=== PATIENT | female | born 1930 ===

== ENCOUNTER 2016-11-13 11:40 | Inpatient (IN) | payer MEDICARE, MEDICAID ==
[2016-11-13 11:40] VITALS: PULSE 122
[2016-11-13 11:44] VITALS: BMI 20.7
[2016-11-13 12:31] LABS: BASO % 0.3 % (0.0-2.0); LYMPH # 0.7 K/uL (1.0-4.3); LYMPH % 5.9 % (20.0-40.0); MEAN CELL VOLUME 96.9 fl (81.0-99.0); MEAN CORPUSCULAR HEMOGLOBIN 31.7 pg (27.0-31.0); MEAN CORPUSCULAR HGB CONC 32.8 g/dL (33.0-37.0); MEAN PLATELET VOLUME 10.4 fl (7.2-11.7); MONO # 0.4 K/uL (0.0-0.8); MONO % 3.6 % (0.0-10.0); NEUT % 90.2 % (50.0-75.0); PLATELET COUNT 200 K/uL (130-400); RBC 2.52 Mil/uL (3.80-5.20); RED CELL DISTRIBUTION WIDTH 16.4 % (11.5-14.5); WHITE BLOOD COUNT 11.1 K/uL (4.8-10.8)
[2016-11-13 12:43] LABS: ALB/GLOB RATIO 1.2 (1.0-2.1); ALBUMIN 4.1 g/dL (3.5-5.0); CALCIUM 8.9 mg/dL (8.4-10.2)
[2016-11-13 12:46] LABS: INR 1.1 (0.9-1.2); PARTIAL THROMBOPLASTIN TIME 24.6 Seconds (25.6-37.1); PROTHROMBIN TIME 11.3 Seconds (9.8-13.1)
[2016-11-13] MEDS ORDERED: Sod Polystyrene Sulf 15 gm/60 ml Oral Susp PO STA ×2 (12:53→16:51)
--- NOTE | 2016-11-13 12:53 | RAD ---
HISTORY: CP COMPARISON: Chest x-ray performed 12/10/15 TECHNIQUE: Chest, one view. FINDINGS: LUNGS: Opacity at the left lung base may reflect consolidation and/or effusion. No definite pneumothorax. Please note that chest x-ray has limited sensitivity for the detection of pulmonary masses. CARDIOVASCULAR: Heart size appears top normal. OSSEOUS STRUCTURES: Degenerative changes. Osseous demineralization. VISUALIZED UPPER ABDOMEN: Unremarkable. OTHER FINDINGS: None. IMPRESSION: Opacity at the left lung base may reflect consolidation and/or effusion.
[2016-11-13] MEDS ORDERED: Insulin Regular 100 units/ml IV STA ×3 (12:54→18:19)
[2016-11-13] MEDS ORDERED: Dextrose 50% SYRINGE Inj (50 ml) IVP STA ×2 (12:54→18:16)
[2016-11-13 12:55] LABS: TROPONIN I 0.016 ng/mL (0.00-0.120)
[2016-11-13] MEDS ORDERED: Albuterol 0.083% Inhal Sol (2.5 mg/3 mL) UD INH STA ×2 (12:55→16:51)
[2016-11-13] MEDS ORDERED: Sodium Chloride 0.9% 500 ML IV STA ×2 (12:56→15:57)
[2016-11-13 13:33] LABS: ANISOCYTOSIS SLIGHT; LYMPHOCYTE 7 % (20-50); MONOCYTE 8 % (0-10); NEUTROPHIL 85 % (42-75); PLATELET ESTIMATE NORMAL (NORMAL); TOTAL CELLS COUNTED 100
[2016-11-13 13:35] LABS: HYPOCHROMIC SLIGHT; LARGE PLATELETS PRESENT; OVALOCYTES SLIGHT; SCHISTOCYTES SLIGHT
[2016-11-13] MEDS ORDERED: Azithromycin 500 MG in Sodium Chloride 0.9% 250 ML IV STA (13:43)
--- NOTE | 2016-11-13 13:51 | ED PDOC ---
HPI: Chest Pain Time Seen by Provider: 11/13/16 11:49 Chief Complaint (Nursing): Chest Pain Chief Complaint (Provider): Chest Pain, Abdominal Pain History Per: EMS History/Exam Limitations: no limitations Onset/Duration Of Symptoms: Days (x 1) Current Symptoms Are (Timing): Still Present Additional History Per: Patient Additional Complaint(s): Gaye Marcelino is an 86 y/o female who was sent to the ED from [facility] for complaints of right-sided chest pain, onset 1 hour prior to arrival. Aspirin and four sublingual doses of Nitro given by paramedics on the field. Patient nonverbal. Points to abdomen when asked where pain is. PMD: Ed Montemayor Past Medical History Reviewed: Historical Data, Nursing Documentation, Vital Signs Vital Signs: Last Vital Signs Temp 97 F L 11/13/16 11:44 Pulse 77 11/13/16 16:33 Resp 16 11/13/16 16:33 BP 111/60 11/13/16 16:33 Pulse Ox 96 11/13/16 16:33 - Medical History PMH: Anemia, CAD, CVA (left sided weakness), Dementia, Diabetes, HTN, Seizures Denies: Chronic Kidney Disease - Surgical History Surgical History: Appendectomy, Carotid Endarterectomy - Family History Family History: States: Unknown Family Hx, Diabetes, Hypertension - Immunization History Hx Tetanus Toxoid Vaccination: Yes Hx Influenza Vaccination: Yes Hx Pneumococcal Vaccination: Yes - Home Medications Home Medications: Ambulatory Orders Medication Instructions Recorded Allopurinol [Zyloprim] 100 mg PO DAILY 08/05/16 Aspirin [Ecotrin] 325 mg PO DAILY 09/03/16 Bimatoprost [Lumigan] 1 drop OU DAILY 09/03/16 Donepezil [Aricept] 10 mg PO HS 09/03/16 Dorzolamide 2% [Trusopt] 1 drop OD BID 09/03/16 Rosuvastatin Calcium [Crestor] 10 mg PO HS 09/03/16 SITagliptin [Januvia] 50 mg PO DAILY 09/03/16 amLODIPine [Norvasc] 5 mg PO Q12 09/03/16 Magnesium Hydroxide [Milk of 30 ml PO DAILY PRN 10/05/16 Magnesia] levETIRAcetam [Keppra] 500 mg PO BID #60 tab 10/17/16 Acetaminophen [Tylenol 325mg tab] 650 mg PO Q4H PRN 11/13/16 Acetaminophen [Tylenol 325mg tab] 650 mg PO Q4H PRN 11/13/16 Albuterol 0.083% [Albuterol 0.083% 2.5 mg IH Q6H PRN 11/13/16 Inhal Marlin (2.5 mg/3 ml) UD] Buprenorphine 1 patch TD Q7D 11/13/16 Gabapentin [Neurontin] 100 mg GT HS 11/13/16 Menthol [Bengay Ultra Strength] 1 patch TOP DAILY 11/13/16 Metoprolol Tartrate [Lopressor] 50 mg PO Q12H 11/13/16 Nystatin/Triamcinolone 1 appl TOP TID 11/13/16 [Nystatin/Triamcinolone Cream] Polyethylene Glycol 3350 [Miralax] 17 gm GT DAILY PRN 11/13/16 Sennosides [Senna] 1 tab GT HS 11/13/16 Sodium Polystyrene Sulfonate 30 gm PO MOTH 11/13/16 [kayeXALATE Oral Susp] traMADol [Ultram] 50 mg PEG Q6H PRN 11/13/16 - Allergies Allergies/Adverse Reactions: Allergies Allergy/AdvReac Type Severity Reaction Status Date / Time No Known Allergies Allergy Verified 11/13/16 11:44 Review of Systems Review Of Systems: ROS cannot be obtained secondary to pt's inabilty to answer questions. Physical Exam - Reviewed Nursing Documentation Reviewed: Yes Vital Signs Reviewed: Yes - Physical Exam Appears: Positive for: Non-toxic, No Acute Distress Head Exam: Positive for: ATRAUMATIC, NORMAL INSPECTION, NORMOCEPHALIC Skin: Positive for: Normal Color, Warm, Dry Eye Exam: Positive for: EOMI, Normal appearance, PERRL Cardiovascular/Chest: Positive for: Regular Rate, Rhythm. Negative for: Murmur Respiratory: Positive for: Normal Breath Sounds. Negative for: Respiratory Distress Gastrointestinal/Abdominal: Positive for: Soft (Grimaces when palpating upper abdomen), Other (G-tube in place). Negative for: Normal Exam Extremity: Negative for: Pedal Edema, Deformity Neurologic/Psych: Positive for: Alert, manager port II-XII, Other (nonverbal). Negative for: Oriented - Laboratory Results Result Diagrams: 11/13/16 12:15 11/13/16 16:05 - ECG O2 Sat by Pulse Oximetry: 100 (RA) Pulse Ox Interpretation: Normal Medical Decision Making Medical Decision Making: Time: 12:05 Initial Impression: Chest Pain, Abdominal Pain Initial Plan: --CMP --CBC --Lipase --Troponin I --PTT --Prothrombin time --chest x-ray --EKG --Accucheck --Urinalysis --Urine dipstick --Pending reevaluation Time: 12:15 --Labs reviewed, significant for: BUN 117, Potassium 6.5, creatinine 2.6, random glucose 253 Time: 12:51 Chest X-Ray: FINDINGS: LUNGS: Opacity at the left lung base may reflect consolidation and/or effusion. No definite pneumothorax. Please note that chest x-ray has limited sensitivity for the detection of pulmonary masses. CARDIOVASCULAR: Heart size appears top normal. OSSEOUS STRUCTURES: Degenerative changes. Osseous demineralization. VISUALIZED UPPER ABDOMEN: Unremarkable. OTHER FINDINGS: None. IMPRESSION: Opacity at the left lung base may reflect consolidation and/or effusion. Time: 12:53 --NS IV 500 ml at 500 mls/hr --Sodium polystyrene sulfonate 15 gm PO --Lasix 40 mg IV --Insulin 10 units IV --Dextrose 50% 50 mL IV --Albuterol 2.5 mg INH --Peak Flow pre/post treatment Time: 13:43 --Rocephin 1 gm/100 ml NS IV --azithromycin 500 mg/250 ml NS IV Time: 15:38 CT Abdomen/Pelvis: FINDINGS: There is limited evaluation of the solid organs without the administration of IV contrast. LOWER THORAX: Moderate bilateral pleural effusions. Patchy opacity at the left lung base may reflect infiltrate or atelectasis. Dense mitral annulus calcification. LIVER: Unremarkable unenhanced appearance. GALLBLADDER AND BILE DUCTS: Not visualized, presumably due to cholecystectomy ; surgical clips are not identified. PANCREAS: Atrophic. SPLEEN: Unremarkable. ADRENALS: Unremarkable. KIDNEYS AND URETERS: No hydronephrosis or obstructing renal calculus. 9 mm exophytic right lower pole hypodense lesion, possibly cyst. BLADDER: The urinary bladder appears unremarkable. REPRODUCTIVE: Uterus is present. Calcifications within the posterior uterine fundus, possibly related to degenerating fibroid. APPENDIX: The presumed appendix appears within normal limits of caliber. No secondary signs of acute appendicitis. BOWEL: PEG tube. The stomach is nondistended. Lack of oral contrast limits evaluation for bowel pathology. The bowel loops appear within normal limits of caliber without evidence of intestinal obstruction. PERITONEUM: No significant free fluid. No definite free air. LYMPH NODES: No bulky lymphadenopathy identified. VASCULATURE: Dense atherosclerotic calcifications of the aorta and branches. No aortic aneurysm. BONES: Left hip arthroplasty with resultant streak artifact. Diffuse osseous demineralization limits evaluation for acute fracture lines. Extensive degenerative changes of the thoracolumbar spine. OTHER FINDINGS: None. IMPRESSION: Moderate bilateral pleural effusions. Patchy opacity at the left lung base may reflect infiltrate or atelectasis. 9 mm exophytic right lower pole hypodense renal lesion, possibly cyst. Peg tube. Additional findings as above. Time: 15:44 --NS IV 1000 ml at 100 mls/hr --Patient is to be admitted inpatient for pneumonia, hyperkalemia, chest pain, and dehydration Time: 15:57 --NS IV 500 ml at 500 mls/hr --Insulin 8 units IV Time: 16:05 --Labs: potassium Scribe Attestation: Documented by Catalina Campos, acting as a scribe for Edelmira Sanchez MD Provider Scribe Attestation: All medical record entries made by the Scribe were at my direction and personally dictated by me. I have reviewed the chart and agree that the record accurately reflects my personal performance of the history, physical exam, medical decision making, and the department course for this patient. I have also personally directed, reviewed, and agree with the discharge instructions and disposition. Disposition - Clinical Impression Clinical Impression: Hyperkalemia, Chest pain, Pneumonia, Dehydration - Patient ED Disposition Is Patient to be Admitted: Yes - Disposition Disposition Time: 15:47 Condition: GUARDED - Pt Status Changed To: Hospital Disposition Of: Inpatient - Admit Certification Admit to Inpatient:: After my assessment, the patient will require hospitalization for at least two midnights. This is because of the severity of symptoms shown, intensity of services needed, and/or the medical risk in this patient being treated as an outpatient. - POA Present On Arrival: Poor Glycemic Control
[2016-11-13] MEDS ORDERED: Dextrose 50% SYRINGE Inj (50 ml) ONE ×2 (14:48→18:41)
[2016-11-13] MEDS ORDERED: Sod Polystyrene Sulf 15 gm/60 ml Oral Susp ONE (14:48)
[2016-11-13] MEDS ORDERED: Insulin Regular 100 units/ml ONE ×3 (14:49→18:42)
[2016-11-13] MEDS ORDERED: Albuterol 0.083% Inhal Sol (2.5 mg/3 mL) UD ONE (14:50)
[2016-11-13] MEDS ORDERED: Azithromycin 500 MG IV IVPB ONE (14:50)
[2016-11-13] MEDS ORDERED: cefTRIAXone (Rocephin) 1 gm Inj ONE (14:50)
--- NOTE | 2016-11-13 15:39 | CT ---
PROCEDURE: CT Abdomen and Pelvis without Oral or IV contrast. HISTORY: Abd pain COMPARISON: CT of the abdomen and pelvis performed 07/14/08 TECHNIQUE: Contiguous axial images of the abdomen and pelvis. Coronal and Sagittal reformats generated and reviewed. No oral or IV contrast administered. Radiation dose: Total exam DLP = 845.18 MGy-cm. This CT exam was performed using one or more of the following dose reduction techniques: Automated exposure control, adjustment of the mA and/or kV according to patient size, and/or use of iterative reconstruction technique. FINDINGS: There is limited evaluation of the solid organs without the administration of IV contrast. LOWER THORAX: Moderate bilateral pleural effusions. Patchy opacity at the left lung base may reflect infiltrate or atelectasis. Dense mitral annulus calcification. LIVER: Unremarkable unenhanced appearance. GALLBLADDER AND BILE DUCTS: Not visualized, presumably due to cholecystectomy ; surgical clips are not identified. PANCREAS: Atrophic. SPLEEN: Unremarkable. ADRENALS: Unremarkable. KIDNEYS AND URETERS: No hydronephrosis or obstructing renal calculus. 9 mm exophytic right lower pole hypodense lesion, possibly cyst. BLADDER: The urinary bladder appears unremarkable. REPRODUCTIVE: Uterus is present. Calcifications within the posterior uterine fundus, possibly related to degenerating fibroid. APPENDIX: The presumed appendix appears within normal limits of caliber. No secondary signs of acute appendicitis. BOWEL: PEG tube. The stomach is nondistended. Lack of oral contrast limits evaluation for bowel pathology. The bowel loops appear within normal limits of caliber without evidence of intestinal obstruction. PERITONEUM: No significant free fluid. No definite free air. LYMPH NODES: No bulky lymphadenopathy identified. VASCULATURE: Dense atherosclerotic calcifications of the aorta and branches. No aortic aneurysm. BONES: Left hip arthroplasty with resultant streak artifact. Diffuse osseous demineralization limits evaluation for acute fracture lines. Extensive degenerative changes of the thoracolumbar spine. OTHER FINDINGS: None. IMPRESSION: Moderate bilateral pleural effusions. Patchy opacity at the left lung base may reflect infiltrate or atelectasis. 9 mm exophytic right lower pole hypodense renal lesion, possibly cyst. Peg tube. Additional findings as above.
[2016-11-13] MEDS ORDERED: Sodium Chloride 0.9% 1,000 ML IV STA (15:44)
--- NOTE | 2016-11-13 16:53 | CP.PCM.HP ---
History of Present Illness - History of Present Illness History of Present Illness: 86 yo female with history of Dementia, CVA, Seizure, CAD, DM2, HTN, CKD bed ridden and non-verbal admitted almost once a month brought in from shelter because of complaint of lower mid-sternal and epigastric pain. Denied SOB by shaking her head when asked. Present on Admission - Present on Admission Any Indicators Present on Admission: No History of DVT/PE: No History of Uncontrolled Diabetes: No Urinary Catheter: No Decubitus Ulcer Present: No Review of Systems - Review of Systems Systems not reviewed;Unavailable: Dementia Past Patient History - Infectious Disease Hx of Infectious Diseases: None - Tetanus Immunizations Tetanus Immunization: Unknown - Past Medical History & Family History Past Medical History?: Yes - Past Social History Smoking Status: Never Smoked Alcohol: None Drugs: Denies Home Situation {Lives}: Retirement - CARDIAC Hx Hypertension: Yes - PULMONARY Hx Respiratory Disorders: No - NEUROLOGICAL Hx Dementia: Yes Hx Seizures: Yes - HEENT Hx HEENT Problems: Yes Hx Glaucoma: Yes - RENAL Hx Chronic Kidney Disease: No - ENDOCRINE/METABOLIC Hx Endocrine Disorders: Yes Hx Diabetes Mellitus Type 2: Yes - HEMATOLOGICAL/ONCOLOGICAL Hx Anemia: Yes - INTEGUMENTARY Hx Dermatological Problems: No - MUSCULOSKELETAL/RHEUMATOLOGICAL Hx Musculoskeletal Disorders: Yes Hx Falls: Yes Hx Osteoarthritis: Yes - GASTROINTESTINAL Hx Gastrointestinal Disorders: Yes Hx Gastroesophageal Reflux: Yes Other/Comment: Incontinence - GENITOURINARY/GYNECOLOGICAL Hx Genitourinary Disorders: Yes Hx Incontinence: Yes Hx Urinary Tract Infection: Yes - PSYCHIATRIC Hx Psychophysiologic Disorder: Yes Hx Substance Use: No - SURGICAL HISTORY Hx Appendectomy: Yes Hx Carotid Endarterectomy: Yes - ANESTHESIA Hx Anesthesia: Yes Hx Anesthesia Reactions: No Hx Malignant Hyperthermia: No Meds Allergies/Adverse Reactions: Allergies Allergy/AdvReac Type Severity Reaction Status Date / Time No Known Allergies Allergy Verified 11/13/16 11:44 Physical Exam - Constitutional Appears: Confused, Other (cachectic) - Head Exam Head Exam: ATRAUMATIC - Eye Exam Eye Exam: absent: Scleral icterus - ENT Exam ENT Exam: Mucous Membranes Moist - Neck Exam Neck exam: Negative for: Meningismus - Respiratory Exam Respiratory Exam: Decreased Breath Sounds. absent: Rhonchi, Wheezes, Respiratory Distress - Cardiovascular Exam Cardiovascular Exam: REGULAR RHYTHM, +S1, +S2 - GI/Abdominal Exam GI & Abdominal Exam: Soft. absent: Tenderness - Rectal Exam Rectal Exam: Deferred - Extremities Exam Extremities exam: Negative for: pedal edema - Neurological Exam Neurological exam: Alert - Psychiatric Exam Psychiatric exam: Flat Affect - Skin Skin Exam: Dry, Intact Results - Vital Signs Recent Vital Signs: Last Vital Signs Temp 97 F L 11/13/16 11:44 Pulse 77 11/13/16 16:33 Resp 16 11/13/16 16:33 BP 111/60 11/13/16 16:33 Pulse Ox 96 11/13/16 16:33 - Labs Result Diagrams: 11/13/16 12:15 11/13/16 12:15 Assessment & Plan (1) Chest pain Status: Acute Comment: place on observation in telemetry. serial Troponin and EKG (2) LLL pneumonia Status: Acute Comment: blood culture and sputum culture. Rocephin 1gm IV daily. Zithromax 500mg PO OD (3) CKD (chronic kidney disease) stage 4, GFR 15-29 ml/min Status: Acute Comment: renal consult with Dr Clay (4) Atrial fibrillation Status: Acute Comment: rate stable. on Metoprolol (5) DM2 (diabetes mellitus, type 2) Status: Chronic Comment: BS relatively controlled. on Januvia (6) CAD (coronary artery disease) Status: Acute Comment: continue ASA, statin and Metoprolol (7) Dementia Status: Chronic Comment: continue Aricept (8) Seizure Status: Acute Comment: on Keppra and Gabapentin (9) Hyperkalemia Status: Acute Comment: received Kayaxelate, Insulin and D50W in the ER. follow up repeat BMP (10) DVT prophylaxis Status: Acute Comment: Heparin 5000 units SC q 12hrs
[2016-11-13 17:25] LABS: SQUAMOUS EPITHIAL 2 /hpf (0-5); URINE BACTERIA RARE (<OCC); URINE BILIRUBIN NEGATIVE (NEGATIVE); URINE BLOOD NEGATIVE (NEGATIVE); URINE CLARITY SLIGHTY-CLOUDY (Clear); URINE COLOR STRAW (YELLOW); URINE GLUCOSE (UA) 50 mg/dL (Normal); URINE LEUKOCYTE ESTERASE MOD Leu/uL (Negative); URINE NITRATE NEGATIVE (NEGATIVE); URINE PROTEIN 100 mg/dL (NEGATIVE); URINE UROBILINOGEN 0.2-1.0 mg/dL (0.2-1.0)
--- NOTE | 2016-11-13 17:40 | CARD ---
APPROVED REPORT EKG Measurement Heart [id number] <Conclusion> Normal sinus rhythm Septal infarct, age undetermined Abnormal ECG
[2016-11-13] MEDS ORDERED: POLYETHYLENE GLYCOL 3350 17 GM/Dose PACKET GT PRN (17:48)
[2016-11-13] MEDS ORDERED: Albuterol 0.083% Inhal Sol (2.5 mg/3 mL) UD IH PRN (17:48)
[2016-11-13 21:33] LABS: HEMOGLOBIN 7.4 g/dL (12.0-16.0); MEAN CELL VOLUME 96.7 fl (81.0-99.0); MEAN CORPUSCULAR HEMOGLOBIN 31.2 pg (27.0-31.0); MEAN CORPUSCULAR HGB CONC 32.3 g/dL (33.0-37.0); RBC 2.36 Mil/uL (3.80-5.20); RED CELL DISTRIBUTION WIDTH 16.2 % (11.5-14.5); WHITE BLOOD COUNT 8.5 K/uL (4.8-10.8)
[2016-11-13 21:41] LABS: ALB/GLOB RATIO 1.1 (1.0-2.1); ALBUMIN 3.8 g/dL (3.5-5.0); CALCIUM 8.5 mg/dL (8.4-10.2)
[2016-11-13] MEDS ORDERED: Dextrose 50% SYRINGE Inj (50 ml) IVP ONE (22:44)
[2016-11-13] MEDS ORDERED: Insulin Lispro (humaLOG) 100 Units/ml Inj SC ONE (22:48)
--- NOTE | 2016-11-13 23:13 | CP.PCM.CON ---
History of Present Illness - History of Present Illness History of Present Illness: 86 yo F w/ pmh of htn, DM, and CKD IV, brought [place] with complaint of chest/ epigastric pain; nephrology service being consulted for hyperkalemia; Patient reports having chest pain yesterday; denies abdominal pain; says BM have been normal, last yesterday, brown in color; denies any blood in stool or black stools; says she eats and can swallow but has PEG tube and per nursing staff was getting nepro for feeds; Review of Systems - Constitutional Constitutional: Chills - EENT Eyes: Loss of Vision Nose/Mouth/Throat: absent: Dysphagia - Cardiovascular Cardiovascular: Chest Pain. absent: Dyspnea - Gastrointestinal Gastrointestinal: absent: Abdominal Pain, Constipation, Diarrhea, Nausea, Vomiting - Genitourinary Genitourinary: absent: Dysuria - Musculoskeletal Additional comments: R foot pain - Integumentary Integumentary: absent: Pruritus Additional comments: L heel non-stageable ulcer; - Neurological Additional comments: Doesn't walk at baseline; Past Patient History - Infectious Disease Hx of Infectious Diseases: None - Tetanus Immunizations Tetanus Immunization: Unknown - Past Medical History & Family History Past Medical History?: Yes - Past Social History Smoking Status: Never Smoked Alcohol: None Drugs: Denies Home Situation {Lives}: Alf - CARDIAC Hx Hypertension: Yes - PULMONARY Hx Respiratory Disorders: No - NEUROLOGICAL Hx Dementia: Yes Hx Seizures: Yes - HEENT Hx HEENT Problems: Yes Hx Glaucoma: Yes - RENAL Hx Chronic Kidney Disease: No - ENDOCRINE/METABOLIC Hx Endocrine Disorders: Yes Hx Diabetes Mellitus Type 2: Yes - HEMATOLOGICAL/ONCOLOGICAL Hx Anemia: Yes - INTEGUMENTARY Hx Dermatological Problems: No - MUSCULOSKELETAL/RHEUMATOLOGICAL Hx Musculoskeletal Disorders: Yes Hx Falls: Yes Hx Osteoarthritis: Yes - GASTROINTESTINAL Hx Gastrointestinal Disorders: Yes Hx Gastroesophageal Reflux: Yes Other/Comment: Incontinence - GENITOURINARY/GYNECOLOGICAL Hx Genitourinary Disorders: Yes Hx Incontinence: Yes Hx Urinary Tract Infection: Yes - PSYCHIATRIC Hx Psychophysiologic Disorder: Yes Hx Substance Use: No - SURGICAL HISTORY Hx Appendectomy: Yes Hx Carotid Endarterectomy: Yes - ANESTHESIA Hx Anesthesia: Yes Hx Anesthesia Reactions: No Hx Malignant Hyperthermia: No Meds Allergies/Adverse Reactions: Allergies Allergy/AdvReac Type Severity Reaction Status Date / Time No Known Allergies Allergy Verified 11/13/16 11:44 - Medications Medications: Current Medications Acetaminophen (Tylenol 325mg Tab) 650 mg PO Q4H PRN PRN Reason: Temp >100 Albuterol Sulfate (Albuterol 0.083% Inhal Marlin (2.5 Mg/3 Ml) Ud) 2.5 mg IH Q6H PRN PRN Reason: Shortness of Breath Allopurinol (Zyloprim) 100 mg PO DAILY [facility] Amlodipine Besylate (Norvasc) 5 mg PO Q12 [facility] Last Admin: 11/13/16 22:49 Dose: 5 mg Aspirin (Ecotrin) 325 mg PO DAILY [facility] Atorvastatin Calcium (Lipitor) 10 mg PO DAILY [facility] Donepezil HCl (Aricept) 10 mg PO HS [facility] Last Admin: 11/13/16 21:46 Dose: 10 mg Dorzolamide HCl (Trusopt) 1 drop OD BID [facility] Gabapentin (Neurontin) 100 mg GT HS [facility] Last Admin: 11/13/16 21:46 Dose: 100 mg Heparin Sodium (Porcine) (Heparin) 5,000 units SC Q12 [facility] PRN Reason: Protocol Last Admin: 11/13/16 22:46 Dose: Not Given Sodium Chloride (Sodium Chloride 0.9%) 1,000 mls @ 100 mls/hr IV .Q10H STA Stop: 11/14/16 01:43 Last Admin: 11/13/16 15:45 Dose: 100 mls/hr Ceftriaxone Sodium 1 gm/ (Sodium Chloride) 100 mls @ 100 mls/hr IVPB DAILY [facility] Azithromycin 500 mg/ Sodium (Chloride) 250 mls @ 250 mls/hr IVPB DAILY [facility] Latanoprost (Xalatan Opht) 1 drop OU DAILY [facility] Levetiracetam (Keppra) 500 mg PO BID [facility] Metoprolol Tartrate (Lopressor) 50 mg PO Q12H [facility] Nystatin/Triamcinolone Acetonide (Mycolog Ii) 1 applic TOP TID [facility] Polyethylene Glycol (Miralax) 17 gm GT DAILY PRN PRN Reason: Constipation Sennosides (Senokot Tab) 8.6 mg PO HS [facility] Last Admin: 11/13/16 21:47 Dose: 8.6 mg Sitagliptin Phosphate (Januvia) 50 mg PO DAILY [facility] Tramadol HCl (Ultram) 50 mg PO Q6H PRN PRN Reason: Pain, severe (8-10) Physical Exam - Constitutional Appears: Non-toxic, No Acute Distress - Head Exam Head Exam: NORMAL INSPECTION - Eye Exam Eye Exam: Normal appearance. absent: Scleral icterus - ENT Exam ENT Exam: Mucous Membranes Moist - Respiratory Exam Respiratory Exam: NORMAL BREATHING PATTERN. absent: Rhonchi, Wheezes, Respiratory Distress Additional comments: L basal rales; - Cardiovascular Exam Cardiovascular Exam: REGULAR RHYTHM, +S1, +S2 - GI/Abdominal Exam GI & Abdominal Exam: Normal Bowel Sounds, Soft. absent: Distended, Tenderness - Exam Exam: absent: Bladder Distension - Extremities Exam Additional comments: Faint b/l DP pulses; no leg edema; - Neurological Exam Neurological exam: Alert, Oriented x3 - Psychiatric Exam Psychiatric exam: Normal Affect, Normal Mood - Skin Skin Exam: Normal Color, Warm Additional comments: L heel ~3cm eschar Results - Vital Signs Recent Vital Signs: Last Vital Signs Temp 97.7 F 11/13/16 19:06 Pulse 79 11/13/16 22:49 Resp 20 11/13/16 19:06 BP 136/58 L 11/13/16 22:49 Pulse Ox 94 L 11/13/16 19:06 - Labs Result Diagrams: 11/13/16 21:15 11/13/16 21:15 Labs: Laboratory Results - last 24 hr 11/13/16 11/13/16 11/13/16 16:05 17:06 17:59 WBC RBC Hgb Hct MCV MCH MCHC RDW Plt Count Sodium Potassium 5.6 H Chloride Carbon Dioxide Anion Gap BUN Creatinine Est GFR ( Amer) Est GFR (Non-Af Amer) POC Glucose (mg/dL) 91 Random Glucose Calcium Total Bilirubin AST ALT Alkaline Phosphatase Troponin I Total Protein Albumin Globulin Albumin/Globulin Ratio Urine Color Straw Urine Clarity Slighty-cloudy Urine pH 6.0 Ur Specific Emmet 1.009 Urine Protein 100 Urine Glucose (UA) 50 Urine Ketones Negative Urine Blood Negative Urine Nitrate Negative Urine Bilirubin Negative Urine Urobilinogen 0.2-1.0 Ur Leukocyte Esterase Mod Urine RBC (Auto) 1 Urine Microscopic WBC 11 H Ur Squamous Epith Cells 2 Urine Bacteria Rare 11/13/16 11/13/16 11/13/16 18:26 19:44 20:10 WBC RBC Hgb Hct MCV MCH MCHC RDW Plt Count Sodium Potassium Chloride Carbon Dioxide Anion Gap BUN Creatinine Est GFR ( Amer) Est GFR (Non-Af Amer) POC Glucose (mg/dL) 76 188 H Random Glucose Calcium Total Bilirubin AST ALT Alkaline Phosphatase Troponin I 0.0230 Total Protein Albumin Globulin Albumin/Globulin Ratio Urine Color Urine Clarity Urine pH Ur Specific Emmet Urine Protein Urine Glucose (UA) Urine Ketones Urine Blood Urine Nitrate Urine Bilirubin Urine Urobilinogen Ur Leukocyte Esterase Urine RBC (Auto) Urine Microscopic WBC Ur Squamous Epith Cells Urine Bacteria 11/13/16 11/13/16 11/13/16 21:07 21:15 21:15 WBC 8.5 RBC 2.36 L Hgb 7.4 L Hct 22.8 L MCV 96.7 MCH 31.2 H MCHC 32.3 L RDW 16.2 H Plt Count 155 Sodium 136 Potassium 5.6 H Chloride 101 Carbon Dioxide 23 Anion Gap 18 BUN 114 H* Creatinine 2.4 H Est GFR ( Amer) 23 Est GFR (Non-Af Amer) 19 POC Glucose (mg/dL) 131 H Random Glucose 114 H Calcium 8.5 Total Bilirubin 0.4 AST 36 ALT 53 H Alkaline Phosphatase 106 Troponin I Total Protein 7.1 Albumin 3.8 Globulin 3.3 Albumin/Globulin Ratio 1.1 Urine Color Urine Clarity Urine pH Ur Specific Emmet Urine Protein Urine Glucose (UA) Urine Ketones Urine Blood Urine Nitrate Urine Bilirubin Urine Urobilinogen Ur Leukocyte Esterase Urine RBC (Auto) Urine Microscopic WBC Ur Squamous Epith Cells Urine Bacteria - Imaging and Cardiology Chest x-ray Status: Image reviewed by me Assessment & Plan (1) Hyperkalemia Assessment and Plan: Acute onset with baseline K level generally well controlled; improved with potassium shifting measures, kayexalate and forced diuresis (IV lasix given in ED, on IVF); with high BUN, need to rule out GI bleed as cause of hyperkalemia; -continue IVF w/ NS at 100 cc/hr overnight, need to monitor for volume overload -kayelate prn -check CK level (doubt elevation since no heme on UA) Status: Acute (2) CKD (chronic kidney disease) stage 4, GFR 15-29 ml/min Assessment and Plan: Serum creatinine currently around baseline; likely due to combination of diabetic nephropathy along with renovascular disease (the latter indicated by frequent fluctuations in serum creatinine); stable volume status currently; -monitor for volume overload while getting IVF; -check uric acid level -check random urine microalbumin, protein and creatinine Status: Acute (3) Anemia Assessment and Plan: Previous iron studies consistent with mild iron deficiency as well as anemia due to CKD; in setting of acute increase in BUN, need to r/o upper GI bleed; hgb drop may become more prominent as IVF given; -stool for occult blood -PEG tube assessment (nursing staff currently having difficulty aspirating from it) -serial cbc -iron studies Status: Acute (4) Hypertensive CKD (chronic kidney disease) Assessment and Plan: On metoprolol 50 mg bid and amlodipine 5 mg bid at home; hold amlodipine for now in setting as BP low/normal; Status: Chronic (5) Chronic kidney disease-mineral and bone disorder Assessment and Plan: Secondary hyperparathyroidism; -monitor phos Status: Chronic (6) Pneumonia Assessment and Plan: Started ceftriaxone and zithromax; no renal dose adjustment needed; Status: Acute
[2016-11-14] MEDS ORDERED: Dextrose 50% SYRINGE Inj (50 ml) ONE (04:47)
[2016-11-14] MEDS ORDERED: Dextrose 50% SYRINGE Inj (50 ml) IVP ONE (04:55)
[2016-11-14 07:06] LABS: CALCIUM 8.3 mg/dL (8.4-10.2); URIC ACID 6.8 mg/Dl (2.2-7.5)
[2016-11-14 07:10] LABS: IRON 56 ug/dL (37-170)
[2016-11-14 07:14] LABS: TROPONIN I 0.046 ng/mL (0.00-0.120)
[2016-11-14 07:19] LABS: % IRON SATURATION 19 % (20-55); TOTAL IRON BINDING CAPACITY 291 ug/dL (250-450)
[2016-11-14 07:20] LABS: BASO % 0.3 % (0.0-2.0); HEMOGLOBIN 6.8 g/dL (12.0-16.0); LYMPH # 0.5 K/uL (1.0-4.3); LYMPH % 4.9 % (20.0-40.0); MEAN CELL VOLUME 97.2 fl (81.0-99.0); MEAN CORPUSCULAR HEMOGLOBIN 31.8 pg (27.0-31.0); MEAN CORPUSCULAR HGB CONC 32.7 g/dL (33.0-37.0); MEAN PLATELET VOLUME 10.8 fl (7.2-11.7); MONO # 0.8 K/uL (0.0-0.8); NEUT # 8.6 K/uL (1.8-7.0); NEUT % 86.8 % (50.0-75.0); RBC 2.14 Mil/uL (3.80-5.20); RED CELL DISTRIBUTION WIDTH 16.1 % (11.5-14.5); WHITE BLOOD COUNT 9.9 K/uL (4.8-10.8)
[2016-11-14 07:37] LABS: FERRITIN 54.2 ng/mL
[2016-11-14] MEDS ORDERED: Aspirin 325 mg EC Tablets PO SCH (09:00)
[2016-11-14] MEDS: Mycolog II CREAM TOP SCH ×3 (09:10→18:57)
[2016-11-14] MEDS: Dorzolamide 2% Ophth Soln OD SCH ×2 (09:13→18:59)
[2016-11-14] MEDS: Pantoprazole 40 mg EC Tab PO SCH (09:17)
[2016-11-14] MEDS ORDERED: Sodium Chloride 3% for Inhalation 4 ML VIAL.NEB IH PRN (09:57)
--- NOTE | 2016-11-14 11:08 | CP.PCM.PN ---
Subjective - Date & Time of Evaluation Date of Evaluation: 11/14/16 Time of Evaluation: 10:00 - Subjective Subjective: No fever Pt is uncooperative eyes closed and refuses to open - does not want to be bothered refuses to answer questions denies pain tolerating PEG feeding Objective - Vital Signs/Intake and Output Vital Signs (last 24 hours): Temp Pulse Resp BP Pulse Ox 98.5 F 80 18 119/58 L 100 11/14/16 08:00 11/14/16 09:14 11/14/16 08:00 11/14/16 09:14 11/14/16 08:00 Intake and Output: 11/14/16 11/14/16 06:59 18:59 Intake Total 1650 Output Total 230 Balance 1420 - Medications Medications: Current Medications Acetaminophen (Tylenol 325mg Tab) 650 mg PO Q4H PRN PRN Reason: Temp >100 Albuterol Sulfate (Albuterol 0.083% Inhal Marlin (2.5 Mg/3 Ml) Ud) 2.5 mg IH Q6H PRN PRN Reason: Shortness of Breath Allopurinol (Zyloprim) 100 mg PO DAILY [facility] Last Admin: 11/14/16 09:13 Dose: 100 mg Amlodipine Besylate (Norvasc) 5 mg PO Q12 [facility] Last Admin: 11/14/16 09:14 Dose: 5 mg Aspirin (Ecotrin) 325 mg PO DAILY [facility] Last Admin: 11/14/16 09:12 Dose: 325 mg Atorvastatin Calcium (Lipitor) 10 mg PO DAILY [facility] Last Admin: 11/14/16 09:12 Dose: 10 mg Donepezil HCl (Aricept) 10 mg PO HS [facility] Last Admin: 11/13/16 21:46 Dose: 10 mg Dorzolamide HCl (Trusopt) 1 drop OD BID [facility] Last Admin: 11/14/16 09:13 Dose: 1 drop Gabapentin (Neurontin) 100 mg GT HS [facility] Last Admin: 11/13/16 21:46 Dose: 100 mg Heparin Sodium (Porcine) (Heparin) 5,000 units SC Q12 [facility] PRN Reason: Protocol Last Admin: 11/14/16 09:11 Dose: Not Given Ceftriaxone Sodium 1 gm/ (Sodium Chloride) 100 mls @ 100 mls/hr IVPB DAILY [facility] Azithromycin 500 mg/ Sodium (Chloride) 250 mls @ 250 mls/hr IVPB DAILY [facility] Latanoprost (Xalatan Opht) 1 drop OU DAILY [facility] Levetiracetam (Keppra) 500 mg PO BID [facility] Last Admin: 11/14/16 09:12 Dose: 500 mg Metoprolol Tartrate (Lopressor) 50 mg PO Q12H [facility] Last Admin: 11/14/16 06:50 Dose: Not Given Nystatin/Triamcinolone Acetonide (Mycolog Ii) 1 applic TOP TID [facility] Last Admin: 11/14/16 09:10 Dose: 1 applic Pantoprazole Sodium (Protonix Ec Tab) 40 mg PO DAILY [facility] Last Admin: 11/14/16 09:17 Dose: 40 mg Polyethylene Glycol (Miralax) 17 gm GT DAILY PRN PRN Reason: Constipation Sennosides (Senokot Tab) 8.6 mg PO HS [facility] Last Admin: 11/13/16 21:47 Dose: 8.6 mg Sitagliptin Phosphate (Januvia) 50 mg PO DAILY [facility] Last Admin: 11/14/16 09:12 Dose: Not Given Tramadol HCl (Ultram) 50 mg PO Q6H PRN PRN Reason: Pain, severe (8-10) - Labs Labs: 11/14/16 06:10 11/14/16 06:10 PT 11.3 Seconds (9.8-13.1) 11/13/16 12:15 INR 1.1 (0.9-1.2) 11/13/16 12:15 APTT 24.6 Seconds (25.6-37.1) L 11/13/16 12:15 - Constitutional Appears: No Acute Distress, Chronically Ill, Other (uncooperative) - Head Exam Head Exam: NORMAL INSPECTION, NORMOCEPHALIC - Eye Exam Additional comments: eyes closed , pt refuses to open eyes - stating she is tired - ENT Exam ENT Exam: Mucous Membranes Dry, Normal External Ear Exam - Neck Exam Neck Exam: Full ROM. absent: Meningismus - Respiratory Exam Respiratory Exam: Rales, Rhonchi, NORMAL BREATHING PATTERN. absent: Respiratory Distress - Cardiovascular Exam Cardiovascular Exam: REGULAR RHYTHM, +S1, +S2 - GI/Abdominal Exam GI & Abdominal Exam: Soft. absent: Tenderness Additional comments: + PEG - Extremities Exam Extremities Exam: Normal Capillary Refill. absent: Calf Tenderness, Pedal Edema - Neurological Exam Additional comments: Pt uncooperative, wouldnt say her name , states she wants to sleep moves both upper extremities - Psychiatric Exam Psychiatric exam: Flat Affect - Skin Skin Exam: Dry, Pallor, Warm Assessment and Plan (1) Pneumonia Status: Acute (2) Dehydration Status: Acute (3) Chronic anemia Status: Chronic (4) CKD (chronic kidney disease) stage 4, GFR 15-29 ml/min Status: Chronic (5) CAD (coronary artery disease) Status: Chronic (6) Hyperkalemia Status: Acute (7) Atrial fibrillation Status: Chronic (8) Toxic metabolic encephalopathy Status: Acute (9) HTN (hypertension) Status: Chronic (10) CVA (cerebral vascular accident) Status: Chronic (11) DM2 (diabetes mellitus, type 2) Status: Chronic (12) Seizure Status: Chronic - Assessment and Plan (Free Text) Assessment: 86y/o lady with known hx of CVA , s/p PEG, Dementia, Seizure Dis, HTN, DM, CKD, Anemia, A Fib, CAD, was brought in from [facility] of Chest Pain and lethargy. Found to have Pneumonia on CXR. (1) Pneumonia, LLL Status: Acute Pt is a CO pt - will change IV abx to IV Zosyn, give Vanco 500mg IV x 1 dose, cont Azithro Blood c/s, Sputum c/s, Legionella, Mycoplasma Pulm consult (2) Dehydration Status: Acute IVF hydration BUN greater than 100 (3) Chronic anemia prob due to renal dis Status: Chronic drop prob dilutional from IVF hydration however need to r/o bleed FOBT Transfuse 2 units PRBC ( consent obtained from daughter Perma Marroquin as pt is lethargic and demented) (4) CKD (chronic kidney disease) stage 4, GFR 15-29 ml/min Status: Chronic Prob sec to DM, HTN cont to monitor Renal fxn adjust meds accdg to GFR (5) CAD (coronary artery disease) Status: Chronic pt on ASA, BB (6) Hyperkalemia Status: Acute received Kayexalate d/c Miralax (7) Atrial fibrillation, Paroxysmal Status: Chronic not on anticoag prob due to dementia, anemia, seizure , risk of fall cont BB (8) Toxic metabolic encephalopathy Status: Acute sec to infection pt has hx of some baseline mild dementia- on Aricept (9) HTN (hypertension) Status: Chronic cont Metoprolol and Norvasc (10) CVA (cerebral vascular accident), history Status: Chronic pt has PEG on ASA, statin (11) DM2 (diabetes mellitus, type 2) Status: Chronic accucheck with coverage (12) Seizure Status: Chronic cont Keppra DVT proph - Heparin
--- NOTE | 2016-11-14 13:46 | CP.PCM.CON ---
History of Present Illness - History of Present Illness History of Present Illness: Infectious Disease Consultation Note- ASked to see this patient at the request of for pneumonia. HPI- history obtained from the medical chart and nurse and hospitalist as pt. has dementia and unable to answer my questions. Pt. is a 86 y/o [place] resident female with pmh of HTN, DM II, CKD , CAD, CVA, seizure disorder admitted with complaints of chest/epigastric pain and found to have LLL consolidation on cxr and i'm asked to help with antibiotic management. upon review of med records pt. has had multiple recent hospitalizations last one being last month at another [facility] and had peg tube placed during that admission. currently pt. is resting in bed receiving PRBC for her anemia. pt. does have baseline dementia and agitation and not very cooperative and does not answer any of my questions. asper nurse this is how pt. has been all day. Review of Systems - Review of Systems Review of Systems: ROS- unable to obtain as pt. does not answer any of my questions Past Patient History - Infectious Disease Hx of Infectious Diseases: None - Tetanus Immunizations Tetanus Immunization: Unknown - Past Medical History & Family History Past Medical History?: Yes - Past Social History Smoking Status: Never Smoked Home Situation {Lives}: Halfway - CARDIAC Hx Cardiac Disorders: Yes Hx Hypertension: Yes - PULMONARY Hx Respiratory Disorders: No - NEUROLOGICAL Hx Dementia: Yes Hx Seizures: Yes - HEENT Hx HEENT Problems: Yes Hx Glaucoma: Yes - RENAL Hx Chronic Kidney Disease: Yes - ENDOCRINE/METABOLIC Hx Endocrine Disorders: Yes Hx Diabetes Mellitus Type 2: Yes - HEMATOLOGICAL/ONCOLOGICAL Hx Anemia: Yes - INTEGUMENTARY Hx Dermatological Problems: No - MUSCULOSKELETAL/RHEUMATOLOGICAL Hx Falls: No - GASTROINTESTINAL Hx Gastrointestinal Disorders: Yes Hx Gastroesophageal Reflux: Yes Other/Comment: Incontinence - GENITOURINARY/GYNECOLOGICAL Hx Genitourinary Disorders: Yes Hx Incontinence: Yes Hx Urinary Tract Infection: Yes - PSYCHIATRIC Hx Substance Use: No - SURGICAL HISTORY Hx Appendectomy: Yes Hx Carotid Endarterectomy: Yes - ANESTHESIA Hx Anesthesia: Yes Hx Anesthesia Reactions: No Hx Malignant Hyperthermia: No Meds Allergies/Adverse Reactions: Allergies Allergy/AdvReac Type Severity Reaction Status Date / Time No Known Allergies Allergy Verified 11/13/16 11:44 - Medications Medications: Current Medications Acetaminophen (Tylenol 325mg Tab) 650 mg PO Q4H PRN PRN Reason: Temp >100 Albuterol Sulfate (Albuterol 0.083% Inhal Marlin (2.5 Mg/3 Ml) Ud) 2.5 mg IH Q6H PRN PRN Reason: Shortness of Breath Allopurinol (Zyloprim) 100 mg PO DAILY [facility] Last Admin: 11/14/16 09:13 Dose: 100 mg Amlodipine Besylate (Norvasc) 5 mg PO Q12 [facility] Last Admin: 11/14/16 09:14 Dose: 5 mg Aspirin (Ecotrin) 325 mg PO DAILY [facility] Last Admin: 11/14/16 09:12 Dose: 325 mg Atorvastatin Calcium (Lipitor) 10 mg PO DAILY [facility] Last Admin: 11/14/16 09:12 Dose: 10 mg Donepezil HCl (Aricept) 10 mg PO HS [facility] Last Admin: 11/13/16 21:46 Dose: 10 mg Dorzolamide HCl (Trusopt) 1 drop OD BID [facility] Last Admin: 11/14/16 09:13 Dose: 1 drop Gabapentin (Neurontin) 100 mg GT HS [facility] Last Admin: 11/13/16 21:46 Dose: 100 mg Heparin Sodium (Porcine) (Heparin) 5,000 units SC Q12 VANI PRN Reason: Protocol Last Admin: 11/14/16 09:11 Dose: Not Given Ceftriaxone Sodium 1 gm/ (Sodium Chloride) 100 mls @ 100 mls/hr IVPB DAILY [facility] Last Admin: 11/14/16 11:34 Dose: 100 mls/hr Azithromycin 500 mg/ Sodium (Chloride) 250 mls @ 250 mls/hr IVPB DAILY [facility] Piperacillin Sod/Tazobactam (Sod 2.25 gm/ Sodium Chloride) 100 mls @ 100 mls/ hr IVPB Q8 [facility] Latanoprost (Xalatan Opht) 1 drop OU DAILY [facility] Levetiracetam (Keppra) 500 mg PO BID [facility] Last Admin: 11/14/16 09:12 Dose: 500 mg Metoprolol Tartrate (Lopressor) 50 mg PO Q12H [facility] Last Admin: 11/14/16 06:50 Dose: Not Given Nystatin/Triamcinolone Acetonide (Mycolog Ii) 1 applic TOP TID [facility] Last Admin: 11/14/16 09:10 Dose: 1 applic Pantoprazole Sodium (Protonix Ec Tab) 40 mg PO DAILY [facility] Last Admin: 11/14/16 09:17 Dose: 40 mg Sennosides (Senokot Tab) 8.6 mg PO HS [facility] Last Admin: 11/13/16 21:47 Dose: 8.6 mg Sitagliptin Phosphate (Januvia) 50 mg PO DAILY [facility] Last Admin: 11/14/16 09:12 Dose: Not Given Tramadol HCl (Ultram) 50 mg PO Q6H PRN PRN Reason: Pain, severe (8-10) Physical Exam - Constitutional Appears: No Acute Distress, Chronically Ill - Head Exam Head Exam: ATRAUMATIC - Eye Exam Eye Exam: EOMI - ENT Exam Additional comments: dry oral mucosa - Neck Exam Neck exam: Positive for: Full Rom - Respiratory Exam Respiratory Exam: NORMAL BREATHING PATTERN Additional comments: decreased breath sounds at left base no wheezing - Cardiovascular Exam Cardiovascular Exam: RRR, +S1, +S2 - GI/Abdominal Exam GI & Abdominal Exam: Normal Bowel Sounds, Soft Additional comments: NT, ND - Extremities Exam Additional comments: left heel old eschar dry, no discharge, no malodor - Neurological Exam Additional comments: agitated and dementia Results - Vital Signs Recent Vital Signs: Last Vital Signs Temp 98.5 F 11/14/16 08:00 Pulse 80 11/14/16 09:14 Resp 18 11/14/16 08:00 BP 119/58 L 11/14/16 09:14 Pulse Ox 100 11/14/16 08:00 - Labs Result Diagrams: 11/14/16 06:10 11/14/16 06:10 Labs: Laboratory Results - last 24 hr 11/13/16 11/13/16 11/13/16 16:05 17:06 17:59 WBC RBC Hgb Hct MCV MCH MCHC RDW Plt Count MPV Neut % (Auto) Lymph % (Auto) [place] % (Auto) Eos % (Auto) Baso % (Auto) Neut # Lymph # [place] # Eos # Baso # Sodium Potassium 5.6 H Chloride Carbon Dioxide Anion Gap BUN Creatinine Est GFR ( Amer) Est GFR (Non-Af Amer) POC Glucose (mg/dL) 91 Random Glucose Hemoglobin A1c Uric Acid Calcium Iron TIBC % Saturation Ferritin Total Bilirubin AST ALT Alkaline Phosphatase Total Creatine Kinase Troponin I Total Protein Albumin Globulin Albumin/Globulin Ratio TSH 3rd Generation Urine Color Straw Urine Clarity Slighty-cloudy Urine pH 6.0 Ur Specific Metaline 1.009 Urine Protein 100 Urine Glucose (UA) 50 Urine Ketones Negative Urine Blood Negative Urine Nitrate Negative Urine Bilirubin Negative Urine Urobilinogen 0.2-1.0 Ur Leukocyte Esterase Mod Urine RBC (Auto) 1 Urine Microscopic WBC 11 H Ur Squamous Epith Cells 2 Urine Bacteria Rare Blood Type Antibody Screen Crossmatch BBK History Checked 11/13/16 11/13/16 11/13/16 18:26 19:44 20:10 WBC RBC Hgb Hct MCV MCH MCHC RDW Plt Count MPV Neut % (Auto) Lymph % (Auto) [place] % (Auto) Eos % (Auto) Baso % (Auto) Neut # Lymph # [place] # Eos # Baso # Sodium Potassium Chloride Carbon Dioxide Anion Gap BUN Creatinine Est GFR ( Amer) Est GFR (Non-Af Amer) POC Glucose (mg/dL) 76 188 H Random Glucose Hemoglobin A1c Uric Acid Calcium Iron TIBC % Saturation Ferritin Total Bilirubin AST ALT Alkaline Phosphatase Total Creatine Kinase Troponin I 0.0230 Total Protein Albumin Globulin Albumin/Globulin Ratio TSH 3rd Generation Urine Color Urine Clarity Urine pH Ur Specific Metaline Urine Protein Urine Glucose (UA) Urine Ketones Urine Blood Urine Nitrate Urine Bilirubin Urine Urobilinogen Ur Leukocyte Esterase Urine RBC (Auto) Urine Microscopic WBC Ur Squamous Epith Cells Urine Bacteria Blood Type Antibody Screen Crossmatch BBK History Checked 11/13/16 11/13/16 11/13/16 21:07 21:15 21:15 WBC 8.5 RBC 2.36 L Hgb 7.4 L Hct 22.8 L MCV 96.7 MCH 31.2 H MCHC 32.3 L RDW 16.2 H Plt Count 155 MPV Neut % (Auto) Lymph % (Auto) [place] % (Auto) Eos % (Auto) Baso % (Auto) Neut # Lymph # [place] # Eos # Baso # Sodium 136 Potassium 5.6 H Chloride 101 Carbon Dioxide 23 Anion Gap 18 BUN 114 H* Creatinine 2.4 H Est GFR ( Amer) 23 Est GFR (Non-Af Amer) 19 POC Glucose (mg/dL) 131 H Random Glucose 114 H Hemoglobin A1c Uric Acid Calcium 8.5 Iron TIBC % Saturation Ferritin Total Bilirubin 0.4 AST 36 ALT 53 H Alkaline Phosphatase 106 Total Creatine Kinase Troponin I Total Protein 7.1 Albumin 3.8 Globulin 3.3 Albumin/Globulin Ratio 1.1 TSH 3rd Generation Urine Color Urine Clarity Urine pH Ur Specific Metaline Urine Protein Urine Glucose (UA) Urine Ketones Urine Blood Urine Nitrate Urine Bilirubin Urine Urobilinogen Ur Leukocyte Esterase Urine RBC (Auto) Urine Microscopic WBC Ur Squamous Epith Cells Urine Bacteria Blood Type Antibody Screen Crossmatch BBK History Checked 11/14/16 11/14/16 11/14/16 00:15 04:42 05:48 WBC RBC Hgb Hct MCV MCH MCHC RDW Plt Count MPV Neut % (Auto) Lymph % (Auto) [place] % (Auto) Eos % (Auto) Baso % (Auto) Neut # Lymph # [place] # Eos # Baso # Sodium Potassium Chloride Carbon Dioxide Anion Gap BUN Creatinine Est GFR ( Amer) Est GFR (Non-Af Amer) POC Glucose (mg/dL) 40 L 155 H Random Glucose Hemoglobin A1c Uric Acid Calcium Iron TIBC % Saturation Ferritin Total Bilirubin AST ALT Alkaline Phosphatase Total Creatine Kinase Troponin I Total Protein Albumin Globulin Albumin/Globulin Ratio TSH 3rd Generation Urine Color Urine Clarity Urine pH Ur Specific Metaline Urine Protein Urine Glucose (UA) Urine Ketones Urine Blood Urine Nitrate Urine Bilirubin Urine Urobilinogen Ur Leukocyte Esterase Urine RBC (Auto) Urine Microscopic WBC Ur Squamous Epith Cells Urine Bacteria Blood Type B POSITIVE Antibody Screen Negative Crossmatch See Detail BBK History Checked Patient has bt 11/14/16 11/14/16 11/14/16 06:10 06:10 06:10 WBC 9.9 RBC 2.14 L Hgb 6.8 L Hct 20.8 L MCV 97.2 MCH 31.8 H MCHC 32.7 L RDW 16.1 H Plt Count 146 MPV 10.8 Neut % (Auto) 86.8 H Lymph % (Auto) 4.9 L [place] % (Auto) 8.0 Eos % (Auto) 0.0 Baso % (Auto) 0.3 Neut # 8.6 H Lymph # 0.5 L [place] # 0.8 Eos # 0.0 Baso # 0.0 Sodium 135 Potassium 5.1 H Chloride 102 Carbon Dioxide 24 Anion Gap 14 BUN 108 H* Creatinine 2.4 H Est GFR ( Amer) 23 Est GFR (Non-Af Amer) 19 POC Glucose (mg/dL) Random Glucose 127 H Hemoglobin A1c 6.2 Uric Acid 6.8 Calcium 8.3 L Iron TIBC % Saturation Ferritin 54.2 Total Bilirubin AST ALT Alkaline Phosphatase Total Creatine Kinase 44 Troponin I 0.0460 Total Protein Albumin Globulin Albumin/Globulin Ratio TSH 3rd Generation 0.60 Urine Color Urine Clarity Urine pH Ur Specific Metaline Urine Protein Urine Glucose (UA) Urine Ketones Urine Blood Urine Nitrate Urine Bilirubin Urine Urobilinogen Ur Leukocyte Esterase Urine RBC (Auto) Urine Microscopic WBC Ur Squamous Epith Cells Urine Bacteria Blood Type Antibody Screen Crossmatch BBK History Checked 11/14/16 11/14/16 06:10 11:24 WBC RBC Hgb Hct MCV MCH MCHC RDW Plt Count MPV Neut % (Auto) Lymph % (Auto) [place] % (Auto) Eos % (Auto) Baso % (Auto) Neut # Lymph # [place] # Eos # Baso # Sodium Potassium Chloride Carbon Dioxide Anion Gap BUN Creatinine Est GFR ( Amer) Est GFR (Non-Af Amer) POC Glucose (mg/dL) 159 H Random Glucose Hemoglobin A1c Uric Acid Calcium Iron 56 TIBC 291 % Saturation 19 L Ferritin Total Bilirubin AST ALT Alkaline Phosphatase Total Creatine Kinase Troponin I Total Protein Albumin Globulin Albumin/Globulin Ratio TSH 3rd Generation Urine Color Urine Clarity Urine pH Ur Specific Metaline Urine Protein Urine Glucose (UA) Urine Ketones Urine Blood Urine Nitrate Urine Bilirubin Urine Urobilinogen Ur Leukocyte Esterase Urine RBC (Auto) Urine Microscopic WBC Ur Squamous Epith Cells Urine Bacteria Blood Type Antibody Screen Crossmatch BBK History Checked Laboratory Results - last 72 hr 11/13/16 11/13/16 11/13/16 08:44 11:55 12:15 WBC 11.1 H D RBC 2.52 L Hgb 8.0 L Hct 24.4 L MCV 96.9 D MCH 31.7 H MCHC 32.8 L RDW 16.4 H Plt Count 200 MPV 10.4 Neut % (Auto) 90.2 H Lymph % (Auto) 5.9 L [place] % (Auto) 3.6 Eos % (Auto) 0.0 Baso % (Auto) 0.3 Neut # 10.0 H Lymph # 0.7 L [place] # 0.4 Eos # 0.0 Baso # 0.0 Neutrophils % (Manual) 85 H Lymphocytes % (Manual) 7 L Monocytes % (Manual) 8 Platelet Estimate Normal Large Platelets Present Hypochromasia (manual) Slight Anisocytosis (manual) Slight Ovalocytes Slight Schistocytes Slight PT INR APTT Sodium Potassium Chloride Carbon Dioxide Anion Gap BUN Creatinine Est GFR ( Amer) Est GFR (Non-Af Amer) POC Glucose (mg/dL) 286 H Random Glucose Hemoglobin A1c Uric Acid Calcium Iron TIBC % Saturation Ferritin Total Bilirubin AST ALT Alkaline Phosphatase Total Creatine Kinase Troponin I Total Protein Albumin Globulin Albumin/Globulin Ratio Lipase TSH 3rd Generation Urine Color Urine Clarity Urine pH Ur Specific Metaline Urine Protein Urine Glucose (UA) Urine Ketones Urine Blood Urine Nitrate Urine Bilirubin Urine Urobilinogen Ur Leukocyte Esterase Urine RBC (Auto) Urine Microscopic WBC Ur Squamous Epith Cells Urine Bacteria Ur Random Creatinine 33.5 Blood Type Antibody Screen Crossmatch BBK History Checked 11/13/16 11/13/16 11/13/16 12:15 12:15 15:38 WBC RBC Hgb Hct MCV MCH MCHC RDW Plt Count MPV Neut % (Auto) Lymph % (Auto) [place] % (Auto) Eos % (Auto) Baso % (Auto) Neut # Lymph # [place] # Eos # Baso # Neutrophils % (Manual) Lymphocytes % (Manual) Monocytes % (Manual) Platelet Estimate Large Platelets Hypochromasia (manual) Anisocytosis (manual) Ovalocytes Schistocytes PT 11.3 INR 1.1 APTT 24.6 L Sodium 133 Potassium 6.5 H* D Chloride 95 L Carbon Dioxide 26 Anion Gap 19 BUN 117 H* D Creatinine 2.6 H Est GFR ( Amer) 21 Est GFR (Non-Af Amer) 17 POC Glucose (mg/dL) 357 H Random Glucose 253 H Hemoglobin A1c Uric Acid Calcium 8.9 Iron TIBC % Saturation Ferritin Total Bilirubin 0.4 AST 45 H D ALT 45 Alkaline Phosphatase 148 H D Total Creatine Kinase Troponin I 0.0160 Total Protein 7.7 Albumin 4.1 Globulin 3.6 Albumin/Globulin Ratio 1.2 Lipase 222 TSH 3rd Generation Urine Color Urine Clarity Urine pH Ur Specific Metaline Urine Protein Urine Glucose (UA) Urine Ketones Urine Blood Urine Nitrate Urine Bilirubin Urine Urobilinogen Ur Leukocyte Esterase Urine RBC (Auto) Urine Microscopic WBC Ur Squamous Epith Cells Urine Bacteria Ur Random Creatinine Blood Type Antibody Screen Crossmatch BBK History Checked 11/13/16 11/13/16 11/13/16 16:05 17:06 17:59 WBC RBC Hgb Hct MCV MCH MCHC RDW Plt Count MPV Neut % (Auto) Lymph % (Auto) [place] % (Auto) Eos % (Auto) Baso % (Auto) Neut # Lymph # [place] # Eos # Baso # Neutrophils % (Manual) Lymphocytes % (Manual) Monocytes % (Manual) Platelet Estimate Large Platelets Hypochromasia (manual) Anisocytosis (manual) Ovalocytes Schistocytes PT INR APTT Sodium Potassium 5.6 H Chloride Carbon Dioxide Anion Gap BUN Creatinine Est GFR ( Amer) Est GFR (Non-Af Amer) POC Glucose (mg/dL) 91 Random Glucose Hemoglobin A1c Uric Acid Calcium Iron TIBC % Saturation Ferritin Total Bilirubin AST ALT Alkaline Phosphatase Total Creatine Kinase Troponin I Total Protein Albumin Globulin Albumin/Globulin Ratio Lipase TSH 3rd Generation Urine Color Straw Urine Clarity Slighty-cloudy Urine pH 6.0 Ur Specific Metaline 1.009 Urine Protein 100 Urine Glucose (UA) 50 Urine Ketones Negative Urine Blood Negative Urine Nitrate Negative Urine Bilirubin Negative Urine Urobilinogen 0.2-1.0 Ur Leukocyte Esterase Mod Urine RBC (Auto) 1 Urine Microscopic WBC 11 H Ur Squamous Epith Cells 2 Urine Bacteria Rare Ur Random Creatinine Blood Type Antibody Screen Crossmatch BBK History Checked 11/13/16 11/13/16 11/13/16 18:26 19:44 20:10 WBC RBC Hgb Hct MCV MCH MCHC RDW Plt Count MPV Neut % (Auto) Lymph % (Auto) [place] % (Auto) Eos % (Auto) Baso % (Auto) Neut # Lymph # [place] # Eos # Baso # Neutrophils % (Manual) Lymphocytes % (Manual) Monocytes % (Manual) Platelet Estimate Large Platelets Hypochromasia (manual) Anisocytosis (manual) Ovalocytes Schistocytes PT INR APTT Sodium Potassium Chloride Carbon Dioxide Anion Gap BUN Creatinine Est GFR ( Amer) Est GFR (Non-Af Amer) POC Glucose (mg/dL) 76 188 H Random Glucose Hemoglobin A1c Uric Acid Calcium Iron TIBC % Saturation Ferritin Total Bilirubin AST ALT Alkaline Phosphatase Total Creatine Kinase Troponin I 0.0230 Total Protein Albumin Globulin Albumin/Globulin Ratio Lipase TSH 3rd Generation Urine Color Urine Clarity Urine pH Ur Specific Metaline Urine Protein Urine Glucose (UA) Urine Ketones Urine Blood Urine Nitrate Urine Bilirubin Urine Urobilinogen Ur Leukocyte Esterase Urine RBC (Auto) Urine Microscopic WBC Ur Squamous Epith Cells Urine Bacteria Ur Random Creatinine Blood Type Antibody Screen Crossmatch BBK History Checked 11/13/16 11/13/16 11/13/16 21:07 21:15 21:15 WBC 8.5 RBC 2.36 L Hgb 7.4 L Hct 22.8 L MCV 96.7 MCH 31.2 H MCHC 32.3 L RDW 16.2 H Plt Count 155 MPV Neut % (Auto) Lymph % (Auto) [place] % (Auto) Eos % (Auto) Baso % (Auto) Neut # Lymph # [place] # Eos # Baso # Neutrophils % (Manual) Lymphocytes % (Manual) Monocytes % (Manual) Platelet Estimate Large Platelets Hypochromasia (manual) Anisocytosis (manual) Ovalocytes Schistocytes PT INR APTT Sodium 136 Potassium 5.6 H Chloride 101 Carbon Dioxide 23 Anion Gap 18 BUN 114 H* Creatinine 2.4 H Est GFR ( Amer) 23 Est GFR (Non-Af Amer) 19 POC Glucose (mg/dL) 131 H Random Glucose 114 H Hemoglobin A1c Uric Acid Calcium 8.5 Iron TIBC % Saturation Ferritin Total Bilirubin 0.4 AST 36 ALT 53 H Alkaline Phosphatase 106 Total Creatine Kinase Troponin I Total Protein 7.1 Albumin 3.8 Globulin 3.3 Albumin/Globulin Ratio 1.1 Lipase TSH 3rd Generation Urine Color Urine Clarity Urine pH Ur Specific Metaline Urine Protein Urine Glucose (UA) Urine Ketones Urine Blood Urine Nitrate Urine Bilirubin Urine Urobilinogen Ur Leukocyte Esterase Urine RBC (Auto) Urine Microscopic WBC Ur Squamous Epith Cells Urine Bacteria Ur Random Creatinine Blood Type Antibody Screen Crossmatch BBK History Checked 11/14/16 11/14/16 11/14/16 00:15 04:42 05:48 WBC RBC Hgb Hct MCV MCH MCHC RDW Plt Count MPV Neut % (Auto) Lymph % (Auto) [place] % (Auto) Eos % (Auto) Baso % (Auto) Neut # Lymph # [place] # Eos # Baso # Neutrophils % (Manual) Lymphocytes % (Manual) Monocytes % (Manual) Platelet Estimate Large Platelets Hypochromasia (manual) Anisocytosis (manual) Ovalocytes Schistocytes PT INR APTT Sodium Potassium Chloride Carbon Dioxide Anion Gap BUN Creatinine Est GFR ( Amer) Est GFR (Non-Af Amer) POC Glucose (mg/dL) 40 L 155 H Random Glucose Hemoglobin A1c Uric Acid Calcium Iron TIBC % Saturation Ferritin Total Bilirubin AST ALT Alkaline Phosphatase Total Creatine Kinase Troponin I Total Protein Albumin Globulin Albumin/Globulin Ratio Lipase TSH 3rd Generation Urine Color Urine Clarity Urine pH Ur Specific Metaline Urine Protein Urine Glucose (UA) Urine Ketones Urine Blood Urine Nitrate Urine Bilirubin Urine Urobilinogen Ur Leukocyte Esterase Urine RBC (Auto) Urine Microscopic WBC Ur Squamous Epith Cells Urine Bacteria Ur Random Creatinine Blood Type B POSITIVE Antibody Screen Negative Crossmatch See Detail BBK History Checked Patient has bt 11/14/16 11/14/16 11/14/16 06:10 06:10 06:10 WBC 9.9 RBC 2.14 L Hgb 6.8 L Hct 20.8 L MCV 97.2 MCH 31.8 H MCHC 32.7 L RDW 16.1 H Plt Count 146 MPV 10.8 Neut % (Auto) 86.8 H Lymph % (Auto) 4.9 L [place] % (Auto) 8.0 Eos % (Auto) 0.0 Baso % (Auto) 0.3 Neut # 8.6 H Lymph # 0.5 L [place] # 0.8 Eos # 0.0 Baso # 0.0 Neutrophils % (Manual) Lymphocytes % (Manual) Monocytes % (Manual) Platelet Estimate Large Platelets Hypochromasia (manual) Anisocytosis (manual) Ovalocytes Schistocytes PT INR APTT Sodium 135 Potassium 5.1 H Chloride 102 Carbon Dioxide 24 Anion Gap 14 BUN 108 H* Creatinine 2.4 H Est GFR ( Amer) 23 Est GFR (Non-Af Amer) 19 POC Glucose (mg/dL) Random Glucose 127 H Hemoglobin A1c 6.2 Uric Acid 6.8 Calcium 8.3 L Iron TIBC % Saturation Ferritin 54.2 Total Bilirubin AST ALT Alkaline Phosphatase Total Creatine Kinase 44 Troponin I 0.0460 Total Protein Albumin Globulin Albumin/Globulin Ratio Lipase TSH 3rd Generation 0.60 Urine Color Urine Clarity Urine pH Ur Specific Metaline Urine Protein Urine Glucose (UA) Urine Ketones Urine Blood Urine Nitrate Urine Bilirubin Urine Urobilinogen Ur Leukocyte Esterase Urine RBC (Auto) Urine Microscopic WBC Ur Squamous Epith Cells Urine Bacteria Ur Random Creatinine Blood Type Antibody Screen Crossmatch BBK History Checked 11/14/16 11/14/16 06:10 11:24 WBC RBC Hgb Hct MCV MCH MCHC RDW Plt Count MPV Neut % (Auto) Lymph % (Auto) [place] % (Auto) Eos % (Auto) Baso % (Auto) Neut # Lymph # [place] # Eos # Baso # Neutrophils % (Manual) Lymphocytes % (Manual) Monocytes % (Manual) Platelet Estimate Large Platelets Hypochromasia (manual) Anisocytosis (manual) Ovalocytes Schistocytes PT INR APTT Sodium Potassium Chloride Carbon Dioxide Anion Gap BUN Creatinine Est GFR ( Amer) Est GFR (Non-Af Amer) POC Glucose (mg/dL) 159 H Random Glucose Hemoglobin A1c Uric Acid Calcium Iron 56 TIBC 291 % Saturation 19 L Ferritin Total Bilirubin AST ALT Alkaline Phosphatase Total Creatine Kinase Troponin I Total Protein Albumin Globulin Albumin/Globulin Ratio Lipase TSH 3rd Generation Urine Color Urine Clarity Urine pH Ur Specific Metaline Urine Protein Urine Glucose (UA) Urine Ketones Urine Blood Urine Nitrate Urine Bilirubin Urine Urobilinogen Ur Leukocyte Esterase Urine RBC (Auto) Urine Microscopic WBC Ur Squamous Epith Cells Urine Bacteria Ur Random Creatinine Blood Type Antibody Screen Crossmatch BBK History Checked Microbiology 10/13/16 11:44 Urine,Catheterized Urine Culture - Final No Growth (<1,000 CFU/ML) 10/08/16 19:10 Urine,Catheterized Urine Culture - Final Gram Positive Cocci 06/30/16 19:45 Blood-Venous Blood Culture - Final 06/30/16 19:45 Blood-Venous Gram Stain - Final NO GROWTH AFTER 5 DAYS TEST NOT PERFORMED 06/30/16 19:30 Blood-Venous Blood Culture - Final 06/30/16 19:30 Blood-Venous Gram Stain - Final NO GROWTH AFTER 5 DAYS TEST NOT PERFORMED Accession No. : [id number] Patient Name / ID : GEOVANY BRIGGS V / [id number] Exam Date : 11/13/2016 12:08:08 ( Approved ) Study Comment : Sex / Age : F / 86Y Creator : Abby Orr MD Dictator : Cake Wringer : Bonding Machine Operator : Abby Orr MD Approver2 : Report Date : 11/13/2016 12:51:54 My Comment : HISTORY: CP COMPARISON: Chest x-ray performed 12/10/15 TECHNIQUE: Chest, one view. FINDINGS: LUNGS: Opacity at the left lung base may reflect consolidation and/or effusion. No definite pneumothorax. Please note that chest x-ray has limited sensitivity for the detection of pulmonary masses. CARDIOVASCULAR: Heart size appears top normal. OSSEOUS STRUCTURES: Degenerative changes. Osseous demineralization. VISUALIZED UPPER ABDOMEN: Unremarkable. OTHER FINDINGS: None. IMPRESSION: Opacity at the left lung base may reflect consolidation and/or effusion. Accession No. : [id number] Patient Name / ID : GEOVANY BRIGGS V / [id number] Exam Date : 11/13/2016 13:36:34 ( Approved ) Study Comment : Sex / Age : F / 86Y Creator : Abby Orr MD Dictator : Cake Wringer : Bonding Machine Operator : Abby Orr MD Approver2 : Report Date : 11/13/2016 15:38:15 My Comment : PROCEDURE: CT Abdomen and Pelvis without Oral or IV contrast. HISTORY: Abd pain COMPARISON: CT of the abdomen and pelvis performed 07/14/08 TECHNIQUE: Contiguous axial images of the abdomen and pelvis. Coronal and Sagittal reformats generated and reviewed. No oral or IV contrast administered. Radiation dose: Total exam DLP = 845.18 MGy-cm. This CT exam was performed using one or more of the following dose reduction techniques: Automated exposure control, adjustment of the mA and/or kV according to patient size, and/or use of iterative reconstruction technique. FINDINGS: There is limited evaluation of the solid organs without the administration of IV contrast. LOWER THORAX: Moderate bilateral pleural effusions. Patchy opacity at the left lung base may reflect infiltrate or atelectasis. Dense mitral annulus calcification. LIVER: Unremarkable unenhanced appearance. GALLBLADDER AND BILE DUCTS: Not visualized, presumably due to cholecystectomy ; surgical clips are not identified. PANCREAS: Atrophic. SPLEEN: Unremarkable. ADRENALS: Unremarkable. KIDNEYS AND URETERS: No hydronephrosis or obstructing renal calculus. 9 mm exophytic right lower pole hypodense lesion, possibly cyst. BLADDER: The urinary bladder appears unremarkable. REPRODUCTIVE: Uterus is present. Calcifications within the posterior uterine fundus, possibly related to degenerating fibroid. APPENDIX: The presumed appendix appears within normal limits of caliber. No secondary signs of acute appendicitis. BOWEL: PEG tube. The stomach is nondistended. Lack of oral contrast limits evaluation for bowel pathology. The bowel loops appear within normal limits of caliber without evidence of intestinal obstruction. PERITONEUM: No significant free fluid. No definite free air. LYMPH NODES: No bulky lymphadenopathy identified. VASCULATURE: Dense atherosclerotic calcifications of the aorta and branches. No aortic aneurysm. BONES: Left hip arthroplasty with resultant streak artifact. Diffuse osseous demineralization limits evaluation for acute fracture lines. Extensive degenerative changes of the thoracolumbar spine. OTHER FINDINGS: None. IMPRESSION: Moderate bilateral pleural effusions. Patchy opacity at the left lung base may reflect infiltrate or atelectasis. 9 mm exophytic right lower pole hypodense renal lesion, possibly cyst. Peg tube. Additional findings as above. Assessment & Plan (1) LLL pneumonia Status: Acute (2) CAD (coronary artery disease) Status: Chronic (3) Acute on chronic renal insufficiency Status: Acute (4) Anemia Status: Acute (5) CAD S/P percutaneous coronary angioplasty Status: Acute - Assessment and Plan (Free Text) Assessment: A/P- 86 year old female with multiple medical conditions including CAD, CVA, CKD, DM II, Dementia admitted with chest pain/epigastric pain found to have LLL pneumonia. since pt. is NH resident with multiple recent hospitalizations certainly would advise to cover for HAP. pt. not septic . afebrile and minimal leukocytosis which has since admission resolved. plan- check sputum cx. check blood cx. check for both legionella and mycoplasma. advise to place on broad spectrum gram neg coverage to cover for HAP. Hence advise to place pt. on zosyn (renal dose). can also continue with IV vancomycin as well that was started by the hospitalist. d/c ceftriaxone. continue with zithromax to cover for atypicals. monitor aspiration precautions. Thank you fro allowing me to take part in the care of this patient. will f/u while inpatient.
[2016-11-14] MEDS ORDERED: Morphine 4 MG/ML VIAL IVP ONE (14:15)
[2016-11-14] MEDS: Latanoprost 0.005% Opht SOUTION OU SCH (14:33)
--- NOTE | 2016-11-14 14:52 | PQF GENQUE ---
Dr. Bonner, Etiology of the Chest Pain? if known OR: Unable to determine 11/14: Attending progress note: 86y/o lady with known hx of CVA , s/p PEG, Dementia, Seizure Dis, HTN, DM, CKD, Anemia, A Fib, CAD, was brought in from [place] bec of Chest Pain and lethargy Current dxs. include: (1) Pneumonia, LLL Status: Acute; 5) CAD Status: Chronic pt on ASA, BB trop x 2 : negative monitored in telemetry This form is a permanent part of the medical record Clarification of your documentation is requested to better reflect the severity of illness and intensity of treatment of your patient. Indicators present [] Specify: [] [] Specify: [] [] Specify: [] [] Specify: [] Location in the medical record that reflects the above clinical findings: [] Treatment Provided: [] PHYSICIAN'S RESPONSE Chest pain likely pleuritic Chest Pain from Pneumonia Based on your medical judgment of the clinical indicators outlined above please clarify the following: [] Practitioner response [] If unable to determine, please check the box, sign and date. Present On Admission (POA) Indicator: [] Present at the time of admission [] Not present at the time of admission [] Clinically Undetermined In responding to this query, please exercise your independent professional judgment. The fact that a question is asked does not imply that any particular answer is desired or expected. Thank you for your clarification on this documentation. If you have any questions please call. * Thank you, Kristal Phelps RN BSN ext. #[phone] MTDD
--- NOTE | 2016-11-14 15:01 | PQF GENQUE ---
Dr. 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 Left heel has an eschar appearing to progress from DTI. 11/14/16: Staff Nurses Admission Assessment :Sacrum discoloration, left foot pressure area; heel black (2) POA? OR: Disagree OR: Other explanation of clinical findings This form is a permanent part of the medical record Clarification of your documentation is requested to better reflect the severity of illness and intensity of treatment of your patient. 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 Left heel has an eschar appearing to progress from DTI. Based on your medical judgment of the clinical indicators outlined above please clarify the following: [] Practitioner response [] If unable to determine, please check the box, sign and date. Present On Admission (POA) Indicator: [] Present at the time of admission [] Not present at the time of admission [] Clinically Undetermined In responding to this query, please exercise your independent professional judgment. The fact that a question is asked does not imply that any particular answer is desired or expected. Thank you for your clarification on this documentation. If you have any questions please call. * Thank you, Kristal Phelps RN BSN ext. #[phone] MTDD
--- NOTE | 2016-11-14 15:15 | PQF GENQUE ---
Dr. Bonner, Please specify type of pneumonia in the progress notes: if known Aspiration pneumonia Please document specific aspirate (food, liquids, etc.) Please indicate if this is postprocedural Bacterial (specify organism) Bronchopneumonia (specify organism) Interstitual pneumonia Organizing pneumonia/BOOP Pneumonia with influenza, lucy flu, or H1N1 flu RSV pneumonia Viral pneumonia Other pneumonia (specify organism or type) Clinically unable to determine Unknown Please specify the organism causing the pneumonia: if known after the work up is completed Note: CAP, HAP, and HCAP indicate where the pneumonia was acquired, not a specific type. ER note: G-tube in place Renal note: says she eats and can swallow but has PEG tube and per nursing staff was getting nepro for feeds; Assessment and Plan includes :-PEG tube assessment (nursing staff currently having difficulty aspirating from it) Attending note: (1) Pneumonia, LLL Status: Acute Pt is a NH pt - will change IV abx to IV Zosyn, give Vanco 500mg IV x 1 dose, cont Azithro Blood c/s, Sputum c/s, Legionella, Mycoplasma Pulm consult - tolerating PEG feeding Pulmonary consult pending This form is a permanent part of the medical record Clarification of your documentation is requested to better reflect the severity of illness and intensity of treatment of your patient. Indicators present [] Specify: [] [] Specify: [] [] Specify: [] [] Specify: [] Location in the medical record that reflects the above clinical findings: [] Treatment Provided: [] PHYSICIAN'S RESPONSE Pneumonia prob bacterial, await work up PEG needs eval for dysfunction - Gi consulted Based on your medical judgment of the clinical indicators outlined above please clarify the following: [] Practitioner response [] If unable to determine, please check the box, sign and date. Present On Admission (POA) Indicator: [] Present at the time of admission [] Not present at the time of admission [] Clinically Undetermined In responding to this query, please exercise your independent professional judgment. The fact that a question is asked does not imply that any particular answer is desired or expected. Thank you for your clarification on this documentation. If you have any questions please call. * Thank you, Kristal Phelps RN BSN ext. #[phone] MTDD
--- NOTE | 2016-11-14 18:00 | CP.PCM.PN ---
Subjective - Date & Time of Evaluation Date of Evaluation: 11/14/16 Time of Evaluation: 17:30 - Subjective Subjective: Patient reports feeling ill but cannot explain further; denies being in pain; Objective - Vital Signs/Intake and Output Vital Signs (last 24 hours): Temp Pulse Resp BP Pulse Ox 98.5 F 85 18 143/56 L 92 L 11/14/16 16:00 11/14/16 16:00 11/14/16 16:00 11/14/16 16:00 11/14/16 16:00 Intake and Output: 11/14/16 11/14/16 06:59 18:59 Intake Total 1650 Output Total 230 Balance 1420 - Medications Medications: Current Medications Acetaminophen (Tylenol 325mg Tab) 650 mg PO Q4H PRN PRN Reason: Temp >100 Albuterol Sulfate (Albuterol 0.083% Inhal Marlin (2.5 Mg/3 Ml) Ud) 2.5 mg IH Q6H PRN PRN Reason: Shortness of Breath Allopurinol (Zyloprim) 100 mg PO DAILY [facility] Last Admin: 11/14/16 09:13 Dose: 100 mg Amlodipine Besylate (Norvasc) 5 mg PO Q12 [facility] Last Admin: 11/14/16 09:14 Dose: 5 mg Aspirin (Ecotrin) 325 mg PO DAILY [facility] Last Admin: 11/14/16 09:12 Dose: 325 mg Atorvastatin Calcium (Lipitor) 10 mg PO DAILY [facility] Last Admin: 11/14/16 09:12 Dose: 10 mg Donepezil HCl (Aricept) 10 mg PO HS [facility] Last Admin: 11/13/16 21:46 Dose: 10 mg Dorzolamide HCl (Trusopt) 1 drop OD BID [facility] Last Admin: 11/14/16 09:13 Dose: 1 drop Gabapentin (Neurontin) 100 mg GT HS [facility] Last Admin: 11/13/16 21:46 Dose: 100 mg Heparin Sodium (Porcine) (Heparin) 5,000 units SC Q12 [facility] PRN Reason: Protocol Last Admin: 11/14/16 09:11 Dose: Not Given Azithromycin 500 mg/ Sodium (Chloride) 250 mls @ 250 mls/hr IVPB DAILY [facility] Piperacillin Sod/Tazobactam (Sod 2.25 gm/ Sodium Chloride) 100 mls @ 100 mls/ hr IVPB Q8 [facility] Last Admin: 11/14/16 17:48 Dose: Not Given Vancomycin HCl 500 mg/ Sodium (Chloride) 100 mls @ 100 mls/hr IVPB QOTHERDAY [facility] Latanoprost (Xalatan Opht) 1 drop OU DAILY [facility] Last Admin: 11/14/16 14:33 Dose: 1 drop Levetiracetam (Keppra) 500 mg PO BID [facility] Last Admin: 11/14/16 09:12 Dose: 500 mg Metoprolol Tartrate (Lopressor) 50 mg PO Q12H [facility] Last Admin: 11/14/16 06:50 Dose: Not Given Nystatin/Triamcinolone Acetonide (Mycolog Ii) 1 applic TOP TID [facility] Last Admin: 11/14/16 14:31 Dose: 1 applic Pantoprazole Sodium (Protonix Ec Tab) 40 mg PO DAILY [facility] Last Admin: 11/14/16 09:17 Dose: 40 mg Sennosides (Senokot Tab) 8.6 mg PO HS [facility] Last Admin: 11/13/16 21:47 Dose: 8.6 mg Sitagliptin Phosphate (Januvia) 50 mg PO DAILY [facility] Last Admin: 11/14/16 09:12 Dose: Not Given Tramadol HCl (Ultram) 50 mg PO Q6H PRN PRN Reason: Pain, severe (8-10) - Labs Labs: 11/14/16 06:10 11/14/16 06:10 PT 11.3 Seconds (9.8-13.1) 11/13/16 12:15 INR 1.1 (0.9-1.2) 11/13/16 12:15 APTT 24.6 Seconds (25.6-37.1) L 11/13/16 12:15 - Constitutional Appears: Agitated - Head Exam Head Exam: NORMAL INSPECTION - Eye Exam Eye Exam: absent: Scleral icterus - ENT Exam ENT Exam: Mucous Membranes Moist - Respiratory Exam Respiratory Exam: Clear to Ausculation Bilateral. absent: Rales, Rhonchi, Wheezes, Respiratory Distress - Cardiovascular Exam Cardiovascular Exam: REGULAR RHYTHM, +S1, +S2 - GI/Abdominal Exam GI & Abdominal Exam: Soft. absent: Distended, Tenderness - Exam Exam: absent: Bladder Distension - Extremities Exam Additional comments: no leg edema; - Neurological Exam Neurological Exam: Alert, Awake - Psychiatric Exam Psychiatric exam: Agitated - Skin Skin Exam: Normal Color, Warm. absent: Cyanosis Assessment and Plan (1) Hyperkalemia Assessment & Plan: Improved after medical management; may be explained by GI bleed; -kayexalate prn -continue IVF w/ NS at 40 cc/hr (to help with renal potassium excretion) Status: Acute (2) CKD (chronic kidney disease) stage 4, GFR 15-29 ml/min Assessment & Plan: Fluctuating serum creatinine but overall renal function close to baseline; -avoid nephrotoxic agents -avoid overly tight BP control Status: Chronic (3) Anemia Assessment & Plan: High likelihood for GI bleed given elevated BUN out of proportion to creat; iron deficient; getting prbc transfusion; agree with GI eval; Status: Acute (4) Hypertensive CKD (chronic kidney disease) Assessment & Plan: On amlodipine 5 mg q12h and metoprolol 50 mg q12h; would hold/decrease amlodipine if SBP consistently below 130's in patient with likely renovascular disease; Status: Chronic (5) Chronic kidney disease-mineral and bone disorder Assessment & Plan: Phos previously at goal, monitor; Status: Chronic (6) Pneumonia Assessment & Plan: Abx changed to zosyn 2.25 g q8h and vanco 500 mg every other day, dosed reduced for renal failure; check vanco trough before 3rd dose; Status: Acute
[2016-11-14] MEDS ORDERED: Sodium Chloride 0.9% 1,000 ML IV SCH (19:30)
[2016-11-14] MEDS: Azithromycin 500 MG in Sodium Chloride 0.9% 250 ML IVPB SCH (20:47)
[2016-11-14] MEDS ORDERED: MethylPREDNISolone 40 mg Vial IVP ONE (21:34)
[2016-11-14 21:36] LABS: BASO # 0.1 K/uL (0.0-0.2); BASO % 0.7 % (0.0-2.0); LYMPH # 1.5 K/uL (1.0-4.3); LYMPH % 11.7 % (20.0-40.0); MEAN CELL VOLUME 95.4 fl (81.0-99.0); MEAN CORPUSCULAR HEMOGLOBIN 31.4 pg (27.0-31.0); MEAN CORPUSCULAR HGB CONC 32.9 g/dL (33.0-37.0); MEAN PLATELET VOLUME 10.2 fl (7.2-11.7); MONO # 0.8 K/uL (0.0-0.8); MONO % 5.9 % (0.0-10.0); NEUT # 10.5 K/uL (1.8-7.0); NEUT % 81.7 % (50.0-75.0); NRBC % 0.1 % (0.0-0.0); RBC 3.5 Mil/uL (3.80-5.20); RED CELL DISTRIBUTION WIDTH 16.9 % (11.5-14.5); WHITE BLOOD COUNT 12.9 K/uL (4.8-10.8)
[2016-11-14] MEDS ORDERED: Albuterol-Ipratrop 3 mg / 0.5 (3 ml) UD INH STA (21:36)
[2016-11-14 21:45] LABS: ALB/GLOB RATIO 1.1 (1.0-2.1); ALBUMIN 4.3 g/dL (3.5-5.0)
[2016-11-14 21:56] LABS: TROPONIN I 0.041 ng/mL (0.00-0.120)
--- NOTE | 2016-11-14 22:21 | PCM.RRTMUL ---
QUALITATIVE FIELD COORDINATOR Nurse Assessment - Situation QUALITATIVE FIELD COORDINATOR Responder Arrival Time:: 20:56 Location:: [address] [place] [address], telemetry Room Number:: 413-1 QUALITATIVE FIELD COORDINATOR Reason for Call: Chest Pain QUALITATIVE FIELD COORDINATOR Called By: RN - IV IV Inserted during QUALITATIVE FIELD COORDINATOR?: No - Respiratory Oxygen Delivery Method:: Nasal Cannula Received Nebulizer Treatments:: Yes (proventil) - Medication Medications Administered During QUALITATIVE FIELD COORDINATOR :: 5 mg IV hydralazine. 1 mg morphine IVP. 0.25 mg Ativan IV. 40 mg solumedrol IVP - Diagnostic Test Ordered EKG:: Yes Chest X-Ray:: Yes - Stat Labs Ordered QUALITATIVE FIELD COORDINATOR Stat Labs Ordered:: CBC, TROPONIN QUALITATIVE FIELD COORDINATOR Other Labs Ordered:: CMP, accucheck CPR started during QUALITATIVE FIELD COORDINATOR?: No - Vital Signs Blood Pressure:: 210/80 Pulse Rate:: 81 Respiratory Rate:: 21 Temperature:: 98.2 F Oxygen Saturation:: 100 - [place] Coma Scale Coma Scale Eye Opening:: Spontaneous Coma Scale Motor:: Movement to pain stimulus Coma Scale Verbal:: Oriented Coma Scale Total:: 14 - Time QUALITATIVE FIELD COORDINATOR Ended Time QUALITATIVE FIELD COORDINATOR Ended:: 21:45 - Vital Signs at end of QUALITATIVE FIELD COORDINATOR Blood Pressure:: 160/70 Pulse Rate:: 86 Respiratory Rate:: 24 Temperature:: 98.2 F O2 Sat by Pulse Oximetry:: 100 - Recommendations 5) QUALITATIVE FIELD COORDINATOR Level of Care Recommendations: Remain in current setting I.Reason for QUALITATIVE FIELD COORDINATOR - A) Acute Change in Patient: (Select all that apply): Staff member or family is worried about patient - A) Initial Vital Signs: Blood Pressure: 210/80 Pulse Rate: 81 Respiratory Rate: 21 Temperature: 98.2 F O2 Sat by Pulse Oximetry: 100 - B) Neurological Status (Select all that apply): Alert, Responsive, Follows Commands - C) Respiratory Oxygen Delivery Method: Nasal Cannula @L/min (2) - Constitutional Appears: In Acute Distress, Agitated - Head Head Exam: ATRAUMATIC, NORMAL INSPECTION, NORMOCEPHALIC - Respiratory Exam Additional comments: B/L air entry present with diffuse wheezes and scattered rhonchii audible. No signs of respiratory distress or retractions noted. - Cardiovascular Exam Cardiovascular Exam: +S1, +S2. absent: Tachycardia - GI/Abdominal Exam GI & Abdominal Exam: Soft. absent: Distended, Tenderness - Neurological Exam Neurological Exam: Alert, Awake Additional exam: Disoriented but follows commands and answers basic questions. - Extremities Exam Extremities Exam: Normal Capillary Refill. absent: Pedal Edema Plan - A. End of QUALITATIVE FIELD COORDINATOR Vital Signs: Blood Pressure: 160/70 Pulse Rate: 84 Respiratory Rate: 16 O2 Sat by Pulse Oximetry: 100 - B. Assessment of Findings&Treatment Plan QUALITATIVE FIELD COORDINATOR called for 86 y/o F with PMH including HTN, DM2, Chronic anemia, CKD due to new onset chest pain. On responder arrival patient is alert, agitated but disoriented and responds to simple questioning. She reports sternal chest pain, 10/10 intensity which is reproducible on palpation. Chest pain associated with BP of 205/70. O2 sat on arrival 100% on 2L NC. A STAT EKG was ordered which showed no change from previous study any no acute ischemic changes. Troponin, CBC, CMP drawn, pending. Stat CXR ordered, pending. Morphine 1mg IVP administered Hydralazine 5mg IV Push ordered x2 Ativan 0.25mg IV administered Duoneb ordered x1 Solumedrol 40mg IV administered Repeat BP measurement decreased to 160/70 and patient reported improvement in chest pain. Will follow repeat labs. Case d/w hospitalist.
[2016-11-14] MEDS ORDERED: Sod Polystyrene Sulf 15 gm/60 ml Oral Susp PO ONE (22:47)
[2016-11-14] MEDS: Dextrose 50% SYRINGE Inj (50 ml) IVP ONE (23:11)
[2016-11-14] MEDS: Insulin Lispro (humaLOG) 100 Units/ml Inj SC STA (23:12)
[2016-11-15] MEDS: Dextrose 50% SYRINGE Inj (50 ml) IVP ONE (00:06)
[2016-11-15] MEDS: Insulin Lispro (humaLOG) 100 Units/ml Inj SC STA (00:08)
[2016-11-15] MEDS: Azithromycin 500 MG in Sodium Chloride 0.9% 250 ML IVPB SCH ×2 (00:08→09:13)
[2016-11-15 05:27] LABS: BASO % 0.4 % (0.0-2.0); LYMPH # 0.3 K/uL (1.0-4.3); LYMPH % 3.7 % (20.0-40.0); MEAN CELL VOLUME 95.3 fl (81.0-99.0); MEAN CORPUSCULAR HGB CONC 32.5 g/dL (33.0-37.0); MEAN PLATELET VOLUME 10.4 fl (7.2-11.7); MONO # 0.1 K/uL (0.0-0.8); MONO % 0.8 % (0.0-10.0); NEUT # 8.8 K/uL (1.8-7.0); NEUT % 95.1 % (50.0-75.0); PLATELET COUNT 156 K/uL (130-400); RBC 3.55 Mil/uL (3.80-5.20); RED CELL DISTRIBUTION WIDTH 16.9 % (11.5-14.5); WHITE BLOOD COUNT 9.2 K/uL (4.8-10.8)
[2016-11-15 05:54] LABS: ALB/GLOB RATIO 1.1 (1.0-2.1); ALBUMIN 4.1 g/dL (3.5-5.0); CALCIUM 9.3 mg/dL (8.4-10.2)
[2016-11-15] MEDS ORDERED: Insulin Regular 100 units/ml IV STA (07:20)
[2016-11-15] MEDS: Sod Polystyrene Sulf 15 gm/60 ml Oral Susp PO ONE ×3 (07:38→08:40)
[2016-11-15] MEDS: Latanoprost 0.005% Opht SOUTION OU SCH (08:25)
[2016-11-15] MEDS: Dorzolamide 2% Ophth Soln OD SCH ×2 (08:26→17:02)
[2016-11-15] MEDS: Pantoprazole 40 mg EC Tab PO SCH (08:27)
[2016-11-15] MEDS: Mycolog II CREAM TOP SCH ×3 (08:28→17:01)
[2016-11-15 08:39] LABS: LYMPHOCYTE 5 % (20-50); MONOCYTE 2 % (0-10); NEUTROPHIL 93 % (42-75); PLATELET ESTIMATE NORMAL (NORMAL); TOTAL CELLS COUNTED 100
[2016-11-15 08:40] LABS: ANISOCYTOSIS SLIGHT; POIKILOCYTOSIS SLIGHT; TEARDROP CELLS SLIGHT
--- NOTE | 2016-11-15 09:17 | RAD ---
PROCEDURE: CHEST RADIOGRAPH, 1 VIEW HISTORY: chest pain, crackles COMPARISON: Comparison is made to 11/13/2016 FINDINGS: LUNGS: Patchy hazy opacities in the lungs are noted and appear more conspicuous compared to the previous exam. PLEURA: Left pleural effusion is again noted. Blunting of the right costophrenic angle. CARDIOVASCULAR: Normal. OSSEOUS STRUCTURES: No significant abnormalities. VISUALIZED UPPER ABDOMEN: Normal. OTHER FINDINGS: None. IMPRESSION: Patchy hazy opacities in the lungs more conspicuous compared to the previous exam. Correlate clinically for pulmonary congestion versus infectious process. Left pleural effusion and blunting of the right costophrenic angle.
--- NOTE | 2016-11-15 10:10 | CP.PCM.PN ---
Subjective - Date & Time of Evaluation Date of Evaluation: 11/15/16 Time of Evaluation: 10:00 - Subjective Subjective: fever more alert today and also more cooperative oriented to person and place denies CP, no SOB no abd pain Tolerating PEG feeding Objective - Vital Signs/Intake and Output Vital Signs (last 24 hours): Temp Pulse Resp BP Pulse Ox 97.2 F L 81 20 139/61 100 11/15/16 08:00 11/15/16 08:40 11/15/16 08:00 11/15/16 08:40 11/15/16 08:00 - Medications Medications: Current Medications Acetaminophen (Tylenol 325mg Tab) 650 mg PO Q4H PRN PRN Reason: Temp >100 Albuterol Sulfate (Albuterol 0.083% Inhal Marlin (2.5 Mg/3 Ml) Ud) 2.5 mg IH Q6H PRN PRN Reason: Shortness of Breath Last Admin: 11/14/16 21:45 Dose: 2.5 mg Allopurinol (Zyloprim) 100 mg PO DAILY [facility] Last Admin: 11/15/16 09:52 Dose: 100 mg Amlodipine Besylate (Norvasc) 5 mg PO Q12 [facility] Last Admin: 11/15/16 08:29 Dose: 5 mg Aspirin (Ecotrin) 325 mg PO DAILY [facility] Last Admin: 11/14/16 09:12 Dose: 325 mg Atorvastatin Calcium (Lipitor) 10 mg PO DAILY [facility] Last Admin: 11/15/16 08:28 Dose: 10 mg Donepezil HCl (Aricept) 10 mg PO HS [facility] Last Admin: 11/14/16 23:58 Dose: Not Given Dorzolamide HCl (Trusopt) 1 drop OD BID [facility] Last Admin: 11/15/16 08:26 Dose: 1 drop Furosemide (Lasix) 40 mg IV ONCE ONE Stop: 11/15/16 21:35 Last Admin: 11/14/16 23:19 Dose: 40 mg Gabapentin (Neurontin) 100 mg GT HS [facility] Last Admin: 11/15/16 00:01 Dose: Not Given Heparin Sodium (Porcine) (Heparin) 5,000 units SC Q12 [facility] PRN Reason: Protocol Last Admin: 11/15/16 00:01 Dose: Not Given Azithromycin 500 mg/ Sodium (Chloride) 250 mls @ 250 mls/hr IVPB DAILY [facility] Last Admin: 11/15/16 09:13 Dose: 250 mls/hr Piperacillin Sod/Tazobactam (Sod 2.25 gm/ Sodium Chloride) 100 mls @ 100 mls/ hr IVPB Q8 [facility] Last Admin: 11/15/16 08:26 Dose: 100 mls/hr Vancomycin HCl 500 mg/ Sodium (Chloride) 100 mls @ 100 mls/hr IVPB QOTHERDAY [facility] Sodium Chloride (Sodium Chloride 0.9%) 1,000 mls @ 40 mls/hr IV .Q24H [facility] Stop: 11/15/16 19:27 Last Admin: 11/14/16 23:36 Dose: Not Given Latanoprost (Xalatan Opht) 1 drop OU DAILY [facility] Last Admin: 11/15/16 08:25 Dose: 1 drop Levetiracetam (Keppra) 500 mg PO BID [facility] Last Admin: 11/15/16 08:27 Dose: 500 mg Metoprolol Tartrate (Lopressor) 50 mg PO Q12H [facility] Last Admin: 11/15/16 08:40 Dose: 50 mg Nystatin/Triamcinolone Acetonide (Mycolog Ii) 1 applic TOP TID [facility] Last Admin: 11/15/16 08:28 Dose: 1 applic Pantoprazole Sodium (Protonix Ec Tab) 40 mg PO DAILY [facility] Last Admin: 11/15/16 08:27 Dose: 40 mg Sennosides (Senokot Tab) 8.6 mg PO HS [facility] Last Admin: 11/15/16 00:00 Dose: Not Given Sitagliptin Phosphate (Januvia) 50 mg PO DAILY [facility] Last Admin: 11/15/16 08:27 Dose: 50 mg Tramadol HCl (Ultram) 50 mg PO Q6H PRN PRN Reason: Pain, severe (8-10) - Labs Labs: 11/15/16 04:20 11/15/16 04:20 PT 11.3 Seconds (9.8-13.1) 11/13/16 12:15 INR 1.1 (0.9-1.2) 11/13/16 12:15 APTT 24.6 Seconds (25.6-37.1) L 11/13/16 12:15 - Constitutional Appears: No Acute Distress, Chronically Ill - Head Exam Head Exam: NORMAL INSPECTION, NORMOCEPHALIC - Eye Exam normal accommodation - ENT Exam ENT Exam: Mucous Membranes Dry, Normal External Ear Exam - Neck Exam Neck Exam: Full ROM. absent: Meningismus - Respiratory Exam Respiratory Exam: Rales, Rhonchi, NORMAL BREATHING PATTERN. absent: Respiratory Distress - Cardiovascular Exam Cardiovascular Exam: REGULAR RHYTHM, +S1, +S2 - GI/Abdominal Exam GI & Abdominal Exam: Soft. absent: Tenderness Additional comments: + PEG - Extremities Exam Extremities Exam: Normal Capillary Refill. absent: Calf Tenderness, Pedal Edema left heel eschar - Neurological Exam Additional comments: alert, oriented to person and place moves both upper extremities- left hand contracture - Psychiatric Exam Psychiatric exam: Flat Affect - Skin Skin Exam: Dry, Warm Assessment and Plan (1) Pneumonia Status: Acute (2) Dehydration Status: Acute (3) Chronic anemia Status: Chronic (4) CKD (chronic kidney disease) stage 4, GFR 15-29 ml/min Status: Chronic (5) CAD (coronary artery disease) Status: Chronic (6) Hyperkalemia Status: Acute (7) Atrial fibrillation Status: Chronic (8) Toxic metabolic encephalopathy Status: Acute (9) HTN (hypertension) Status: Chronic (10) CVA (cerebral vascular accident) Status: Chronic (11) DM2 (diabetes mellitus, type 2) Status: Chronic (12) Seizure Status: Chronic - Assessment and Plan (Free Text) Assessment: 86y/o lady with known hx of CVA , s/p PEG, Dementia, Seizure Dis, HTN, DM, CKD, Anemia, A Fib, CAD, was brought in from [facility] of Chest Pain and lethargy. Found to have Pneumonia on CXR. (1) Pneumonia, LLL Status: Acute cont IV Zosyn, given Vanco 500mg IV x 1 dose, cont Azithro Blood c/s, Sputum c/s, Legionella, Mycoplasma Pulm consult- Dr Pires ID consult- Dr Christiano Tillman random level (2) Dehydration Status: Acute IVF hydration BUN greater than 100 (3) Chronic anemia prob due to renal dis Status: Chronic drop prob dilutional from IVF hydration however need to r/o bleed FOBT She was transfused 2 units PRBC ( consent obtained from daughter Prema Marroquin as pt was lethargic and demented) GI consulted- Dr Harris rpt Hgb= 11 (4) Chest Pain likely pleuritic Chest Pain from PNA, ACS ruled out Trop x 4 negative cont ASA, BB (4) CKD (chronic kidney disease) stage 4, GFR 15-29 ml/min Status: Chronic Prob sec to DM, HTN cont to monitor Renal fxn adjust meds accdg to GFR (6) Hyperkalemia Status: Acute Kayexalate Insulin IV d/c Miralax (7) Atrial fibrillation, Paroxysmal Status: Chronic not on anticoag prob due to dementia, anemia, seizure , risk of fall cont BB, ASA (8) Toxic metabolic encephalopathy Status: Acute sec to infection pt has hx of some baseline mild dementia- on Aricept (9) HTN (hypertension) Status: Chronic cont Metoprolol and Norvasc (10) CVA (cerebral vascular accident), history Status: Chronic pt has PEG on ASA, statin (11) DM2 (diabetes mellitus, type 2) with hyperglycemia Status: Chronic accucheck with coverage start Levemir 10 units sq daily glucose prob also high as pt received steroids x 1 dose (12) Seizure Status: Chronic cont Keppra (13) CAD (coronary artery disease) Status: Chronic pt on ASA, BB (14) Left heel Eschar, Sacral IAD - 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
--- NOTE | 2016-11-15 10:31 | CARD ---
APPROVED REPORT EKG Measurement Heart [id number] <Conclusion> Normal sinus rhythm Septal infarct, age undetermined Abnormal ECG
[2016-11-15 13:30] LABS: CALCIUM 9.2 mg/dL (8.4-10.2)
--- NOTE | 2016-11-15 14:57 | CP.PCM.PN ---
Subjective - Date & Time of Evaluation Date of Evaluation: 11/15/16 Time of Evaluation: 13:00 - Subjective Subjective: ID note- Pt. seen and examined today. is more awake today and slightly less agitated. Objective - Vital Signs/Intake and Output Vital Signs (last 24 hours): Temp Pulse Resp BP Pulse Ox 97.3 F L 77 18 147/69 95 11/15/16 12:23 11/15/16 12:23 11/15/16 12:23 11/15/16 12:23 11/15/16 12:23 - Medications Medications: Current Medications Acetaminophen (Tylenol 325mg Tab) 650 mg PO Q4H PRN PRN Reason: Temp >100 Albuterol Sulfate (Albuterol 0.083% Inhal [place] (2.5 Mg/3 Ml) Ud) 2.5 mg IH Q6H PRN PRN Reason: Shortness of Breath Last Admin: 11/14/16 21:45 Dose: 2.5 mg Allopurinol (Zyloprim) 100 mg PO DAILY [facility] Last Admin: 11/15/16 09:52 Dose: 100 mg Amlodipine Besylate (Norvasc) 5 mg PO Q12 [facility] Last Admin: 11/15/16 08:29 Dose: 5 mg Aspirin (Ecotrin) 325 mg PO DAILY [facility] Last Admin: 11/14/16 09:12 Dose: 325 mg Atorvastatin Calcium (Lipitor) 10 mg PO DAILY [facility] Last Admin: 11/15/16 08:28 Dose: 10 mg Donepezil HCl (Aricept) 10 mg PO HS [facility] Last Admin: 11/14/16 23:58 Dose: Not Given Dorzolamide HCl (Trusopt) 1 drop OD BID [facility] Last Admin: 11/15/16 08:26 Dose: 1 drop Furosemide (Lasix) 40 mg IV ONCE ONE Stop: 11/15/16 21:35 Last Admin: 11/14/16 23:19 Dose: 40 mg Gabapentin (Neurontin) 100 mg GT HS [facility] Last Admin: 11/15/16 00:01 Dose: Not Given Heparin Sodium (Porcine) (Heparin) 5,000 units SC Q12 VANI PRN Reason: Protocol Last Admin: 11/15/16 00:01 Dose: Not Given Azithromycin 500 mg/ Sodium (Chloride) 250 mls @ 250 mls/hr IVPB DAILY [facility] Last Admin: 11/15/16 09:13 Dose: 250 mls/hr Piperacillin Sod/Tazobactam (Sod 2.25 gm/ Sodium Chloride) 100 mls @ 100 mls/ hr IVPB Q8 [facility] Last Admin: 11/15/16 08:26 Dose: 100 mls/hr Vancomycin HCl 500 mg/ Sodium (Chloride) 100 mls @ 100 mls/hr IVPB QOTHERDAY [facility] Sodium Chloride (Sodium Chloride 0.9%) 1,000 mls @ 40 mls/hr IV .Q24H [facility] Stop: 11/15/16 19:27 Last Admin: 11/14/16 23:36 Dose: Not Given Insulin Detemir (Levemir) 10 units SC [facility] Latanoprost (Xalatan Opht) 1 drop OU DAILY [facility] Last Admin: 11/15/16 08:25 Dose: 1 drop Levetiracetam (Keppra) 500 mg PO BID [facility] Last Admin: 11/15/16 08:27 Dose: 500 mg Metoprolol Tartrate (Lopressor) 50 mg PO Q12H [facility] Last Admin: 11/15/16 08:40 Dose: 50 mg Nystatin/Triamcinolone Acetonide (Mycolog Ii) 1 applic TOP TID [facility] Last Admin: 11/15/16 08:28 Dose: 1 applic Pantoprazole Sodium (Protonix Ec Tab) 40 mg PO DAILY [facility] Last Admin: 11/15/16 08:27 Dose: 40 mg Sennosides (Senokot Tab) 8.6 mg PO [facility] Last Admin: 11/15/16 00:00 Dose: Not Given Sitagliptin Phosphate (Januvia) 50 mg PO DAILY [facility] Last Admin: 11/15/16 08:27 Dose: 50 mg Tramadol HCl (Ultram) 50 mg PO Q6H PRN PRN Reason: Pain, severe (8-10) - Labs Labs: - Additional Findings Additional findings: - Constitutional Appears: No Acute Distress, Chronically Ill - Head Exam Head Exam: ATRAUMATIC - Eye Exam Eye Exam: EOMI - ENT Exam Additional comments: dry oral mucosa - Neck Exam Neck exam: Positive for: Full Rom - Respiratory Exam Respiratory Exam: NORMAL BREATHING PATTERN Additional comments: decreased breath sounds at left base no wheezing - Cardiovascular Exam Cardiovascular Exam: RRR, +S1, +S2 - GI/Abdominal Exam GI & Abdominal Exam: Normal Bowel Sounds, Soft Additional comments: NT, ND - Extremities Exam Additional comments: left heel old eschar dry, no discharge, no malodor - Neurological Exam Additional comments: more awake today Laboratory Results - last 72 hr 11/13/16 11/13/16 11/13/16 07:30 08:44 08:44 WBC RBC Hgb Hct MCV MCH MCHC RDW Plt Count MPV Neut % (Auto) Lymph % (Auto) [place] % (Auto) Eos % (Auto) Baso % (Auto) Neut # Lymph # [place] # Eos # Baso # Neutrophils % (Manual) Lymphocytes % (Manual) Monocytes % (Manual) Platelet Estimate Large Platelets Hypochromasia (manual) Poikilocytosis (manual Anisocytosis (manual) Tear Drop Cells Ovalocytes Schistocytes PT INR APTT Sodium Potassium Chloride Carbon Dioxide Anion Gap BUN Creatinine Est GFR ( Amer) Est GFR (Non-Af Amer) POC Glucose (mg/dL) Random Glucose Hemoglobin A1c Uric Acid Calcium Phosphorus Iron TIBC % Saturation Ferritin Total Bilirubin AST ALT Alkaline Phosphatase Total Creatine Kinase Troponin I Total Protein Albumin Globulin Albumin/Globulin Ratio Lipase TSH 3rd Generation Urine Color Urine Clarity Urine pH Ur Specific [place] Urine Protein Urine Glucose (UA) Urine Ketones Urine Blood Urine Nitrate Urine Bilirubin Urine Urobilinogen Ur Leukocyte Esterase Urine RBC (Auto) Urine Microscopic WBC Ur Squamous Epith Cells Urine Bacteria Ur Random Creatinine 33.5 U Random Total Protein 2754 H Urine Creatinine 40 Urine Microalbumin 62.9 Microalb/Creat Ratio 1573 H Random Vancomycin Blood Type Antibody Screen Crossmatch BBK History Checked 11/13/16 11/13/16 11/13/16 11:55 12:15 12:15 WBC 11.1 H D RBC 2.52 L Hgb 8.0 L Hct 24.4 L MCV 96.9 D MCH 31.7 H MCHC 32.8 L RDW 16.4 H Plt Count 200 MPV 10.4 Neut % (Auto) 90.2 H Lymph % (Auto) 5.9 L [place] % (Auto) 3.6 Eos % (Auto) 0.0 Baso % (Auto) 0.3 Neut # 10.0 H Lymph # 0.7 L [place] # 0.4 Eos # 0.0 Baso # 0.0 Neutrophils % (Manual) 85 H Lymphocytes % (Manual) 7 L Monocytes % (Manual) 8 Platelet Estimate Normal Large Platelets Present Hypochromasia (manual) Slight Poikilocytosis (manual Anisocytosis (manual) Slight Tear Drop Cells Ovalocytes Slight Schistocytes Slight PT INR APTT Sodium 133 Potassium 6.5 H* D Chloride 95 L Carbon Dioxide 26 Anion Gap 19 BUN 117 H* D Creatinine 2.6 H Est GFR ( Amer) 21 Est GFR (Non-Af Amer) 17 POC Glucose (mg/dL) 286 H Random Glucose 253 H Hemoglobin A1c Uric Acid Calcium 8.9 Phosphorus Iron TIBC % Saturation Ferritin Total Bilirubin 0.4 AST 45 H D ALT 45 Alkaline Phosphatase 148 H D Total Creatine Kinase Troponin I 0.0160 Total Protein 7.7 Albumin 4.1 Globulin 3.6 Albumin/Globulin Ratio 1.2 Lipase 222 TSH 3rd Generation Urine Color Urine Clarity Urine pH Ur Specific [place] Urine Protein Urine Glucose (UA) Urine Ketones Urine Blood Urine Nitrate Urine Bilirubin Urine Urobilinogen Ur Leukocyte Esterase Urine RBC (Auto) Urine Microscopic WBC Ur Squamous Epith Cells Urine Bacteria Ur Random Creatinine U Random Total Protein Urine Creatinine Urine Microalbumin Microalb/Creat Ratio Random Vancomycin Blood Type Antibody Screen Crossmatch BBK History Checked 11/13/16 11/13/16 11/13/16 12:15 15:38 16:05 WBC RBC Hgb Hct MCV MCH MCHC RDW Plt Count MPV Neut % (Auto) Lymph % (Auto) [place] % (Auto) Eos % (Auto) Baso % (Auto) Neut # Lymph # [place] # Eos # Baso # Neutrophils % (Manual) Lymphocytes % (Manual) Monocytes % (Manual) Platelet Estimate Large Platelets Hypochromasia (manual) Poikilocytosis (manual Anisocytosis (manual) Tear Drop Cells Ovalocytes Schistocytes PT 11.3 INR 1.1 APTT 24.6 L Sodium Potassium 5.6 H Chloride Carbon Dioxide Anion Gap BUN Creatinine Est GFR ( Amer) Est GFR (Non-Af Amer) POC Glucose (mg/dL) 357 H Random Glucose Hemoglobin A1c Uric Acid Calcium Phosphorus Iron TIBC % Saturation Ferritin Total Bilirubin AST ALT Alkaline Phosphatase Total Creatine Kinase Troponin I Total Protein Albumin Globulin Albumin/Globulin Ratio Lipase TSH 3rd Generation Urine Color Urine Clarity Urine pH Ur Specific [place] Urine Protein Urine Glucose (UA) Urine Ketones Urine Blood Urine Nitrate Urine Bilirubin Urine Urobilinogen Ur Leukocyte Esterase Urine RBC (Auto) Urine Microscopic WBC Ur Squamous Epith Cells Urine Bacteria Ur Random Creatinine U Random Total Protein Urine Creatinine Urine Microalbumin Microalb/Creat Ratio Random Vancomycin Blood Type Antibody Screen Crossmatch BBK History Checked 11/13/16 11/13/16 11/13/16 17:06 17:59 18:26 WBC RBC Hgb Hct MCV MCH MCHC RDW Plt Count MPV Neut % (Auto) Lymph % (Auto) [place] % (Auto) Eos % (Auto) Baso % (Auto) Neut # Lymph # [place] # Eos # Baso # Neutrophils % (Manual) Lymphocytes % (Manual) Monocytes % (Manual) Platelet Estimate Large Platelets Hypochromasia (manual) Poikilocytosis (manual Anisocytosis (manual) Tear Drop Cells Ovalocytes Schistocytes PT INR APTT Sodium Potassium Chloride Carbon Dioxide Anion Gap BUN Creatinine Est GFR ( Amer) Est GFR (Non-Af Amer) POC Glucose (mg/dL) 91 76 Random Glucose Hemoglobin A1c Uric Acid Calcium Phosphorus Iron TIBC % Saturation Ferritin Total Bilirubin AST ALT Alkaline Phosphatase Total Creatine Kinase Troponin I Total Protein Albumin Globulin Albumin/Globulin Ratio Lipase TSH 3rd Generation Urine Color Straw Urine Clarity Slighty-cloudy Urine pH 6.0 Ur Specific [place] 1.009 Urine Protein 100 Urine Glucose (UA) 50 Urine Ketones Negative Urine Blood Negative Urine Nitrate Negative Urine Bilirubin Negative Urine Urobilinogen 0.2-1.0 Ur Leukocyte Esterase Mod Urine RBC (Auto) 1 Urine Microscopic WBC 11 H Ur Squamous Epith Cells 2 Urine Bacteria Rare Ur Random Creatinine U Random Total Protein Urine Creatinine Urine Microalbumin Microalb/Creat Ratio Random Vancomycin Blood Type Antibody Screen Crossmatch BBK History Checked 11/13/16 11/13/16 11/13/16 19:44 20:10 21:07 WBC RBC Hgb Hct MCV MCH MCHC RDW Plt Count MPV Neut % (Auto) Lymph % (Auto) [place] % (Auto) Eos % (Auto) Baso % (Auto) Neut # Lymph # [place] # Eos # Baso # Neutrophils % (Manual) Lymphocytes % (Manual) Monocytes % (Manual) Platelet Estimate Large Platelets Hypochromasia (manual) Poikilocytosis (manual Anisocytosis (manual) Tear Drop Cells Ovalocytes Schistocytes PT INR APTT Sodium Potassium Chloride Carbon Dioxide Anion Gap BUN Creatinine Est GFR ( Amer) Est GFR (Non-Af Amer) POC Glucose (mg/dL) 188 H 131 H Random Glucose Hemoglobin A1c Uric Acid Calcium Phosphorus Iron TIBC % Saturation Ferritin Total Bilirubin AST ALT Alkaline Phosphatase Total Creatine Kinase Troponin I 0.0230 Total Protein Albumin Globulin Albumin/Globulin Ratio Lipase TSH 3rd Generation Urine Color Urine Clarity Urine pH Ur Specific [place] Urine Protein Urine Glucose (UA) Urine Ketones Urine Blood Urine Nitrate Urine Bilirubin Urine Urobilinogen Ur Leukocyte Esterase Urine RBC (Auto) Urine Microscopic WBC Ur Squamous Epith Cells Urine Bacteria Ur Random Creatinine U Random Total Protein Urine Creatinine Urine Microalbumin Microalb/Creat Ratio Random Vancomycin Blood Type Antibody Screen Crossmatch BBK History Checked 11/13/16 11/13/16 11/14/16 21:15 21:15 00:15 WBC 8.5 RBC 2.36 L Hgb 7.4 L Hct 22.8 L MCV 96.7 MCH 31.2 H MCHC 32.3 L RDW 16.2 H Plt Count 155 MPV Neut % (Auto) Lymph % (Auto) [place] % (Auto) Eos % (Auto) Baso % (Auto) Neut # Lymph # [place] # Eos # Baso # Neutrophils % (Manual) Lymphocytes % (Manual) Monocytes % (Manual) Platelet Estimate Large Platelets Hypochromasia (manual) Poikilocytosis (manual Anisocytosis (manual) Tear Drop Cells Ovalocytes Schistocytes PT INR APTT Sodium 136 Potassium 5.6 H Chloride 101 Carbon Dioxide 23 Anion Gap 18 BUN 114 H* Creatinine 2.4 H Est GFR ( Amer) 23 Est GFR (Non-Af Amer) 19 POC Glucose (mg/dL) Random Glucose 114 H Hemoglobin A1c Uric Acid Calcium 8.5 Phosphorus Iron TIBC % Saturation Ferritin Total Bilirubin 0.4 AST 36 ALT 53 H Alkaline Phosphatase 106 Total Creatine Kinase Troponin I Total Protein 7.1 Albumin 3.8 Globulin 3.3 Albumin/Globulin Ratio 1.1 Lipase TSH 3rd Generation Urine Color Urine Clarity Urine pH Ur Specific [place] Urine Protein Urine Glucose (UA) Urine Ketones Urine Blood Urine Nitrate Urine Bilirubin Urine Urobilinogen Ur Leukocyte Esterase Urine RBC (Auto) Urine Microscopic WBC Ur Squamous Epith Cells Urine Bacteria Ur Random Creatinine U Random Total Protein Urine Creatinine Urine Microalbumin Microalb/Creat Ratio Random Vancomycin Blood Type B POSITIVE Antibody Screen Negative Crossmatch See Detail BBK History Checked Patient has bt 11/14/16 11/14/16 11/14/16 04:42 05:48 06:10 WBC 9.9 RBC 2.14 L Hgb 6.8 L Hct 20.8 L MCV 97.2 MCH 31.8 H MCHC 32.7 L RDW 16.1 H Plt Count 146 MPV 10.8 Neut % (Auto) 86.8 H Lymph % (Auto) 4.9 L [place] % (Auto) 8.0 Eos % (Auto) 0.0 Baso % (Auto) 0.3 Neut # 8.6 H Lymph # 0.5 L [place] # 0.8 Eos # 0.0 Baso # 0.0 Neutrophils % (Manual) Lymphocytes % (Manual) Monocytes % (Manual) Platelet Estimate Large Platelets Hypochromasia (manual) Poikilocytosis (manual Anisocytosis (manual) Tear Drop Cells Ovalocytes Schistocytes PT INR APTT Sodium Potassium Chloride Carbon Dioxide Anion Gap BUN Creatinine Est GFR ( Amer) Est GFR (Non-Af Amer) POC Glucose (mg/dL) 40 L 155 H Random Glucose Hemoglobin A1c Uric Acid Calcium Phosphorus Iron TIBC % Saturation Ferritin Total Bilirubin AST ALT Alkaline Phosphatase Total Creatine Kinase Troponin I Total Protein Albumin Globulin Albumin/Globulin Ratio Lipase TSH 3rd Generation Urine Color Urine Clarity Urine pH Ur Specific [place] Urine Protein Urine Glucose (UA) Urine Ketones Urine Blood Urine Nitrate Urine Bilirubin Urine Urobilinogen Ur Leukocyte Esterase Urine RBC (Auto) Urine Microscopic WBC Ur Squamous Epith Cells Urine Bacteria Ur Random Creatinine U Random Total Protein Urine Creatinine Urine Microalbumin Microalb/Creat Ratio Random Vancomycin Blood Type Antibody Screen Crossmatch BBK History Checked 11/14/16 11/14/16 11/14/16 06:10 06:10 06:10 WBC RBC Hgb Hct MCV MCH MCHC RDW Plt Count MPV Neut % (Auto) Lymph % (Auto) [place] % (Auto) Eos % (Auto) Baso % (Auto) Neut # Lymph # [place] # Eos # Baso # Neutrophils % (Manual) Lymphocytes % (Manual) Monocytes % (Manual) Platelet Estimate Large Platelets Hypochromasia (manual) Poikilocytosis (manual Anisocytosis (manual) Tear Drop Cells Ovalocytes Schistocytes PT INR APTT Sodium 135 Potassium 5.1 H Chloride 102 Carbon Dioxide 24 Anion Gap 14 BUN 108 H* Creatinine 2.4 H Est GFR ( Amer) 23 Est GFR (Non-Af Amer) 19 POC Glucose (mg/dL) Random Glucose 127 H Hemoglobin A1c 6.2 Uric Acid 6.8 Calcium 8.3 L Phosphorus Iron 56 TIBC 291 % Saturation 19 L Ferritin 54.2 Total Bilirubin AST ALT Alkaline Phosphatase Total Creatine Kinase 44 Troponin I 0.0460 Total Protein Albumin Globulin Albumin/Globulin Ratio Lipase TSH 3rd Generation 0.60 Urine Color Urine Clarity Urine pH Ur Specific [place] Urine Protein Urine Glucose (UA) Urine Ketones Urine Blood Urine Nitrate Urine Bilirubin Urine Urobilinogen Ur Leukocyte Esterase Urine RBC (Auto) Urine Microscopic WBC Ur Squamous Epith Cells Urine Bacteria Ur Random Creatinine U Random Total Protein Urine Creatinine Urine Microalbumin Microalb/Creat Ratio Random Vancomycin Blood Type Antibody Screen Crossmatch BBK History Checked 11/14/16 11/14/16 11/14/16 11:24 16:19 21:03 WBC RBC Hgb Hct MCV MCH MCHC RDW Plt Count MPV Neut % (Auto) Lymph % (Auto) [place] % (Auto) Eos % (Auto) Baso % (Auto) Neut # Lymph # [place] # Eos # Baso # Neutrophils % (Manual) Lymphocytes % (Manual) Monocytes % (Manual) Platelet Estimate Large Platelets Hypochromasia (manual) Poikilocytosis (manual Anisocytosis (manual) Tear Drop Cells Ovalocytes Schistocytes PT INR APTT Sodium Potassium Chloride Carbon Dioxide Anion Gap BUN Creatinine Est GFR ( Amer) Est GFR (Non-Af Amer) POC Glucose (mg/dL) 159 H 219 H 231 H Random Glucose Hemoglobin A1c Uric Acid Calcium Phosphorus Iron TIBC % Saturation Ferritin Total Bilirubin AST ALT Alkaline Phosphatase Total Creatine Kinase Troponin I Total Protein Albumin Globulin Albumin/Globulin Ratio Lipase TSH 3rd Generation Urine Color Urine Clarity Urine pH Ur Specific [place] Urine Protein Urine Glucose (UA) Urine Ketones Urine Blood Urine Nitrate Urine Bilirubin Urine Urobilinogen Ur Leukocyte Esterase Urine RBC (Auto) Urine Microscopic WBC Ur Squamous Epith Cells Urine Bacteria Ur Random Creatinine U Random Total Protein Urine Creatinine Urine Microalbumin Microalb/Creat Ratio Random Vancomycin Blood Type Antibody Screen Crossmatch BBK History Checked 11/14/16 11/14/16 11/15/16 21:25 21:25 04:20 WBC 12.9 H 9.2 RBC 3.50 L 3.55 L Hgb 11.0 L D 11.0 L Hct 33.4 L 33.8 L MCV 95.4 95.3 MCH 31.4 H 31.0 MCHC 32.9 L 32.5 L RDW 16.9 H 16.9 H Plt Count 167 156 MPV 10.2 10.4 Neut % (Auto) 81.7 H 95.1 H Lymph % (Auto) 11.7 L 3.7 L [place] % (Auto) 5.9 0.8 Eos % (Auto) 0.0 0.0 Baso % (Auto) 0.7 0.4 Neut # 10.5 H 8.8 H Lymph # 1.5 0.3 L [place] # 0.8 0.1 Eos # 0.0 0.0 Baso # 0.1 0.0 Neutrophils % (Manual) 93 H Lymphocytes % (Manual) 5 L Monocytes % (Manual) 2 Platelet Estimate Normal Large Platelets Hypochromasia (manual) Poikilocytosis (manual Slight Anisocytosis (manual) Slight Tear Drop Cells Slight Ovalocytes Schistocytes PT INR APTT Sodium 137 Potassium 5.7 H Chloride 103 Carbon Dioxide 22 Anion Gap 18 BUN 99 H Creatinine 2.3 H Est GFR ( Amer) 24 Est GFR (Non-Af Amer) 20 POC Glucose (mg/dL) Random Glucose 228 H Hemoglobin A1c Uric Acid Calcium 9.0 Phosphorus Iron TIBC % Saturation Ferritin Total Bilirubin 0.5 AST 49 H D ALT 69 H D Alkaline Phosphatase 136 H D Total Creatine Kinase Troponin I 0.0410 Total Protein 8.1 Albumin 4.3 Globulin 3.8 Albumin/Globulin Ratio 1.1 Lipase TSH 3rd Generation Urine Color Urine Clarity Urine pH Ur Specific [place] Urine Protein Urine Glucose (UA) Urine Ketones Urine Blood Urine Nitrate Urine Bilirubin Urine Urobilinogen Ur Leukocyte Esterase Urine RBC (Auto) Urine Microscopic WBC Ur Squamous Epith Cells Urine Bacteria Ur Random Creatinine U Random Total Protein Urine Creatinine Urine Microalbumin Microalb/Creat Ratio Random Vancomycin Blood Type Antibody Screen Crossmatch BBK History Checked 11/15/16 11/15/16 11/15/16 04:20 05:30 09:10 WBC RBC Hgb Hct MCV MCH MCHC RDW Plt Count MPV Neut % (Auto) Lymph % (Auto) [place] % (Auto) Eos % (Auto) Baso % (Auto) Neut # Lymph # [place] # Eos # Baso # Neutrophils % (Manual) Lymphocytes % (Manual) Monocytes % (Manual) Platelet Estimate Large Platelets Hypochromasia (manual) Poikilocytosis (manual Anisocytosis (manual) Tear Drop Cells Ovalocytes Schistocytes PT INR APTT Sodium 138 Potassium 5.8 H Chloride 102 Carbon Dioxide 23 Anion Gap 19 BUN 99 H Creatinine 2.5 H Est GFR ( Amer) 22 Est GFR (Non-Af Amer) 18 POC Glucose (mg/dL) 351 H 280 H Random Glucose 330 H Hemoglobin A1c Uric Acid Calcium 9.3 Phosphorus 5.3 H Iron TIBC % Saturation Ferritin Total Bilirubin 0.5 AST 41 H ALT 58 H Alkaline Phosphatase 123 Total Creatine Kinase Troponin I Total Protein 7.9 Albumin 4.1 Globulin 3.8 Albumin/Globulin Ratio 1.1 Lipase TSH 3rd Generation Urine Color Urine Clarity Urine pH Ur Specific [place] Urine Protein Urine Glucose (UA) Urine Ketones Urine Blood Urine Nitrate Urine Bilirubin Urine Urobilinogen Ur Leukocyte Esterase Urine RBC (Auto) Urine Microscopic WBC Ur Squamous Epith Cells Urine Bacteria Ur Random Creatinine U Random Total Protein Urine Creatinine Urine Microalbumin Microalb/Creat Ratio Random Vancomycin Blood Type Antibody Screen Crossmatch BBK History Checked 11/15/16 11/15/16 11/15/16 11:28 13:12 13:16 WBC RBC Hgb Hct MCV MCH MCHC RDW Plt Count MPV Neut % (Auto) Lymph % (Auto) [place] % (Auto) Eos % (Auto) Baso % (Auto) Neut # Lymph # [place] # Eos # Baso # Neutrophils % (Manual) Lymphocytes % (Manual) Monocytes % (Manual) Platelet Estimate Large Platelets Hypochromasia (manual) Poikilocytosis (manual Anisocytosis (manual) Tear Drop Cells Ovalocytes Schistocytes PT INR APTT Sodium 139 Potassium 5.4 H Chloride 102 Carbon Dioxide 23 Anion Gap 19 BUN 100 H* Creatinine 2.4 H Est GFR ( Amer) 23 Est GFR (Non-Af Amer) 19 POC Glucose (mg/dL) 252 H Random Glucose 241 H Hemoglobin A1c Uric Acid Calcium 9.2 Phosphorus Iron TIBC % Saturation Ferritin Total Bilirubin AST ALT Alkaline Phosphatase Total Creatine Kinase Troponin I Total Protein Albumin Globulin Albumin/Globulin Ratio Lipase TSH 3rd Generation Urine Color Urine Clarity Urine pH Ur Specific [place] Urine Protein Urine Glucose (UA) Urine Ketones Urine Blood Urine Nitrate Urine Bilirubin Urine Urobilinogen Ur Leukocyte Esterase Urine RBC (Auto) Urine Microscopic WBC Ur Squamous Epith Cells Urine Bacteria Ur Random Creatinine U Random Total Protein Urine Creatinine Urine Microalbumin Microalb/Creat Ratio Random Vancomycin < 5.0 Blood Type Antibody Screen Crossmatch BBK History Checked Microbiology 11/13/16 12:45 Blood Blood Culture - Preliminary NO GROWTH AFTER 24 HOURS 11/13/16 13:50 Blood Blood Culture - Preliminary NO GROWTH AFTER 24 HOURS Accession No. : [id number] Patient Name / ID : GEOVANY BRIGGS V / [id number] Exam Date : 11/14/2016 21:16:51 ( Approved ) Study Comment : Sex / Age : F / [id number] Creator : Shaina White Dictator : Shaina White Manager Energy : [employer] Polisher : Shaina White Approver2 : Report Date : 11/15/2016 09:16:07 My Comment : PROCEDURE: CHEST RADIOGRAPH, 1 VIEW HISTORY: chest pain, crackles COMPARISON: Comparison is made to 11/13/2016 FINDINGS: LUNGS: Patchy hazy opacities in the lungs are noted and appear more conspicuous compared to the previous exam. PLEURA: Left pleural effusion is again noted. Blunting of the right costophrenic angle. CARDIOVASCULAR: Normal. OSSEOUS STRUCTURES: No significant abnormalities. VISUALIZED UPPER ABDOMEN: Normal. OTHER FINDINGS: None. IMPRESSION: Patchy hazy opacities in the lungs more conspicuous compared to the previous exam. Correlate clinically for pulmonary congestion versus infectious process. Left pleural effusion and blunting of the right costophrenic angle. Assessment and Plan (1) LLL pneumonia Status: Acute (2) CAD (coronary artery disease) Status: Chronic (3) Acute on chronic renal insufficiency Status: Acute (4) Anemia Status: Acute (5) CAD S/P percutaneous coronary angioplasty Status: Acute - Assessment and Plan (Free Text) Assessment: A/P- 86 year old female with multiple medical conditions including CAD, CVA, CKD, DM II, Dementia admitted with chest pain/epigastric pain found to have LLL pneumonia. afebrile normal wbc blood cx- neg x 2 plan- await sputum cx. await results of both legionella and mycoplasma. continue with IV zosyn for HAP. day #2 continue with vanco for HAP every other day dosing 500mg every other day. keep trough <15. continue with zithromax to cover for atypicals. monitor aspiration precautions.
--- NOTE | 2016-11-15 16:37 | CP.PCM.PN ---
Subjective - Date & Time of Evaluation Date of Evaluation: 11/15/16 Time of Evaluation: 15:00 - Subjective Subjective: Patient denies being in pain; denies any shortness of breath; Objective - Vital Signs/Intake and Output Vital Signs (last 24 hours): Temp Pulse Resp BP Pulse Ox 98.4 F 76 20 138/49 L 98 11/15/16 15:26 11/15/16 15:26 11/15/16 15:26 11/15/16 15:26 11/15/16 15:26 - Medications Medications: Current Medications Acetaminophen (Tylenol 325mg Tab) 650 mg PO Q4H PRN PRN Reason: Temp >100 Albuterol Sulfate (Albuterol 0.083% Inhal Marlin (2.5 Mg/3 Ml) Ud) 2.5 mg IH Q6H PRN PRN Reason: Shortness of Breath Last Admin: 11/14/16 21:45 Dose: 2.5 mg Allopurinol (Zyloprim) 100 mg PO DAILY [facility] Last Admin: 11/15/16 09:52 Dose: 100 mg Amlodipine Besylate (Norvasc) 5 mg PO Q12 [facility] Last Admin: 11/15/16 08:29 Dose: 5 mg Aspirin (Ecotrin) 325 mg PO DAILY [facility] Last Admin: 11/14/16 09:12 Dose: 325 mg Atorvastatin Calcium (Lipitor) 10 mg PO DAILY [facility] Last Admin: 11/15/16 08:28 Dose: 10 mg Donepezil HCl (Aricept) 10 mg PO HS [facility] Last Admin: 11/14/16 23:58 Dose: Not Given Dorzolamide HCl (Trusopt) 1 drop OD BID [facility] Last Admin: 11/15/16 08:26 Dose: 1 drop Furosemide (Lasix) 40 mg IV ONCE ONE Stop: 11/15/16 21:35 Last Admin: 11/14/16 23:19 Dose: 40 mg Gabapentin (Neurontin) 100 mg GT HS [facility] Last Admin: 11/15/16 00:01 Dose: Not Given Heparin Sodium (Porcine) (Heparin) 5,000 units SC Q12 [facility] PRN Reason: Protocol Last Admin: 11/15/16 00:01 Dose: Not Given Azithromycin 500 mg/ Sodium (Chloride) 250 mls @ 250 mls/hr IVPB DAILY [facility] Last Admin: 11/15/16 09:13 Dose: 250 mls/hr Piperacillin Sod/Tazobactam (Sod 2.25 gm/ Sodium Chloride) 100 mls @ 100 mls/ hr IVPB Q8 [facility] Last Admin: 11/15/16 08:26 Dose: 100 mls/hr Vancomycin HCl 500 mg/ Sodium (Chloride) 100 mls @ 100 mls/hr IVPB QOTHERDAY [facility] Sodium Chloride (Sodium Chloride 0.9%) 1,000 mls @ 40 mls/hr IV .Q24H [facility] Stop: 11/15/16 19:27 Last Admin: 11/14/16 23:36 Dose: Not Given Insulin Detemir (Levemir) 10 units SC [facility] Latanoprost (Xalatan Opht) 1 drop OU DAILY [facility] Last Admin: 11/15/16 08:25 Dose: 1 drop Levetiracetam (Keppra) 500 mg PO BID [facility] Last Admin: 11/15/16 08:27 Dose: 500 mg Metoprolol Tartrate (Lopressor) 50 mg PO Q12H [facility] Last Admin: 11/15/16 08:40 Dose: 50 mg Nystatin/Triamcinolone Acetonide (Mycolog Ii) 1 applic TOP TID [facility] Last Admin: 11/15/16 08:28 Dose: 1 applic Pantoprazole Sodium (Protonix Ec Tab) 40 mg PO DAILY [facility] Last Admin: 11/15/16 08:27 Dose: 40 mg Sennosides (Senokot Tab) 8.6 mg PO [facility] Last Admin: 11/15/16 00:00 Dose: Not Given Sitagliptin Phosphate (Januvia) 50 mg PO DAILY [facility] Last Admin: 11/15/16 08:27 Dose: 50 mg Tramadol HCl (Ultram) 50 mg PO Q6H PRN PRN Reason: Pain, severe (8-10) - Labs Labs: 11/15/16 04:20 11/15/16 13:12 PT 11.3 Seconds (9.8-13.1) 11/13/16 12:15 INR 1.1 (0.9-1.2) 11/13/16 12:15 APTT 24.6 Seconds (25.6-37.1) L 11/13/16 12:15 - Constitutional Appears: Non-toxic, No Acute Distress - Head Exam Head Exam: NORMAL INSPECTION - Eye Exam Eye Exam: Normal appearance. absent: Scleral icterus - ENT Exam ENT Exam: Mucous Membranes Moist - Respiratory Exam Respiratory Exam: Clear to Ausculation Bilateral, NORMAL BREATHING PATTERN. absent: Rales, Rhonchi, Wheezes, Respiratory Distress - Cardiovascular Exam Cardiovascular Exam: REGULAR RHYTHM, +S1, +S2 - GI/Abdominal Exam GI & Abdominal Exam: Soft. absent: Distended, Tenderness - Exam Exam: absent: Bladder Distension - Extremities Exam Additional comments: no leg edema; - Neurological Exam Neurological Exam: Alert, Awake - Psychiatric Exam Psychiatric exam: Agitated - Skin Skin Exam: Normal Color, Warm. absent: Cyanosis Assessment and Plan (1) Hyperkalemia Assessment & Plan: Persistent; K level overall higher than patient's baseline; suspect contribution from possible upper GI bleed plus prbc transfusion given yesterday; -continue kayexalate prn -would continue gentle saline to help renal potassium excretion, can use IV lasix prn if signs of volume excess Status: Acute (2) CKD (chronic kidney disease) stage 4, GFR 15-29 ml/min Assessment & Plan: Stable renal function; has significant discordance between microalbuminuria and overall proteinuria; needs outpatient f/u for this (should obtain serum free light chains if not done previously); Status: Chronic (3) Anemia Assessment & Plan: s/p 2 u prbc transfusion; hgb increased more than expected; high BUN indicative of possible GI bleed, awaiting GI input; Status: Acute (4) Hypertensive CKD (chronic kidney disease) Assessment & Plan: Appears to have had htn urgency last night with blood transfusion, got IV lasix and hydralazine with subsequent improvement; currently on amlodipine 5 mg and metoprolol 50 mg q12h; continue same; Status: Chronic (5) Chronic kidney disease-mineral and bone disorder Assessment & Plan: Phos mildly elevated; if persistently high, can start phoslo 1 tab with meals; Status: Chronic (6) Pneumonia Assessment & Plan: On zosyn 2.25 g q8h, azithromycin and vanco 500 mg every other day; check vanco trough before 3rd dose; Status: Acute (7) Azotemia Assessment & Plan: Upper GI bleed possibility; other possibilties include volume depletion but appears unlikely patient has already received significant volume; no history of recent steroid use; high protein calorie tube feeds is another possibility; patient currently receiving ~ 1.35 g/kg of protein content with nepro tube feed ; recommend to change tube feeds to glucerna 1.2 at 40 cc/hr (about 25% less protein content); Status: Acute
[2016-11-15] MEDS ORDERED: Insulin Detemir 100 Units/ml Inj SC SCH (22:00)
--- NOTE | 2016-11-16 00:35 | CON ---
HISTORY OF PRESENT ILLNESS: The patient is an 86-year-old female who was referred for pulmonary evaluation by Dr. Bonner. [facility] with [facility] and left pleural effusion. She also has multiple medical issues including toxic metabolic encephalopathy, seizure disorder, cerebrovascular accident, atrial fibrillation, hyperkalemia, chronic kidney disease, coronary artery disease, anemia,and dehydration. She is unable to given any history, appears somewhat agitated and combative during examination. PHYSICAL EXAMINATION: GENERAL: The patient is awake and alert; apprehensive and combative. VITAL SIGNS: Blood pressure 147/69 with a pulse of 77, respiration 18. She is afebrile. O2 sat 95% on room air. SKIN: Shows fair turgor. HEENT: Pupils are equal, round, and reactive to light and accommodation. NECK: JVP flat. LUNGS: Fair aeration with mild left basal dullness and few rales. HEART: S1 and S2, irregular rhythm due to atrial fibrillation. ABDOMEN: Benign. PEG in place. EXTREMITIES: No edema or cyanosis noted. CENTRAL NERVOUS SYSTEM: The patient appears awake and alert, but combative. LABORATORY DATA: Chest x-ray is remarkable for left small pleural effusion with *------* possible superimposed pneumonia. Sodium 138, potassium 5.8, BUN 99, creatinine 2.5, serum glucose 252, AST 41, ALT 58. WBC 9.2, hemoglobin 11.0, platelet count 156,000. Blood cultures, no growth. IMPRESSION: Left lower lobe pulmonary infiltrate with pleural effusion, likely secondary to aspiration pneumonia. PLAN: To continue intravenous antibiotic as ordered, oxygenation. We will continue to follow with you. Legionella and Mycoplasma titers are already ordered. Margarito Pires MD
[2016-11-16] MEDS: levETIRAcetam 100 mg/ml (5ml) Oral Syringe PO SCH ×2 (09:06→17:05)
[2016-11-16] MEDS: Pantoprazole 40 mg EC Tab PO SCH (09:07)
[2016-11-16] MEDS: Mycolog II CREAM TOP SCH ×3 (09:07→17:06)
[2016-11-16] MEDS: Dorzolamide 2% Ophth Soln OD SCH ×2 (09:08→17:06)
[2016-11-16] MEDS: Latanoprost 0.005% Opht SOUTION OU SCH (09:08)
[2016-11-16] MEDS: Azithromycin 500 MG in Sodium Chloride 0.9% 250 ML IVPB SCH (09:10)
[2016-11-16 09:29] LABS: HEMOGLOBIN 10.4 g/dL (12.0-16.0); MEAN CELL VOLUME 94.7 fl (81.0-99.0); MEAN CORPUSCULAR HEMOGLOBIN 31.8 pg (27.0-31.0); MEAN CORPUSCULAR HGB CONC 33.6 g/dL (33.0-37.0); RBC 3.26 Mil/uL (3.80-5.20); RED CELL DISTRIBUTION WIDTH 16.8 % (11.5-14.5); WHITE BLOOD COUNT 10.4 K/uL (4.8-10.8)
--- NOTE | 2016-11-16 09:35 | CP.PCM.PN ---
Subjective - Date & Time of Evaluation Date of Evaluation: 11/16/16 Time of Evaluation: 09:00 - Subjective Subjective: No fever more alert and cooperative, calm no SOB denies pain tolerating PEG feedings Objective - Vital Signs/Intake and Output Vital Signs (last 24 hours): Temp Pulse Resp BP Pulse Ox 97.1 F L 87 20 146/71 100 11/16/16 08:18 11/16/16 09:07 11/16/16 08:18 11/16/16 09:07 11/16/16 08:18 Intake and Output: 11/16/16 11/16/16 06:59 18:59 Intake Total 1470 Balance 1470 - Medications Medications: Current Medications Acetaminophen (Tylenol 325mg Tab) 650 mg PO Q4H PRN PRN Reason: Temp >100 Albuterol Sulfate (Albuterol 0.083% Inhal Marlin (2.5 Mg/3 Ml) Ud) 2.5 mg IH Q6H PRN PRN Reason: Shortness of Breath Last Admin: 11/14/16 21:45 Dose: 2.5 mg Allopurinol (Zyloprim) 100 mg PO DAILY [facility] Last Admin: 11/16/16 09:10 Dose: 100 mg Amlodipine Besylate (Norvasc) 5 mg PO Q12 [facility] Last Admin: 11/16/16 09:07 Dose: 5 mg Aspirin (Ecotrin) 325 mg PO DAILY [facility] Last Admin: 11/14/16 09:12 Dose: 325 mg Atorvastatin Calcium (Lipitor) 10 mg PO DAILY [facility] Last Admin: 11/16/16 09:06 Dose: 10 mg Donepezil HCl (Aricept) 10 mg PO HS [facility] Last Admin: 11/15/16 21:43 Dose: 10 mg Dorzolamide HCl (Trusopt) 1 drop OD BID [facility] Last Admin: 11/16/16 09:08 Dose: 1 drop Gabapentin (Neurontin) 100 mg GT HS [facility] Last Admin: 11/15/16 21:47 Dose: 100 mg Heparin Sodium (Porcine) (Heparin) 5,000 units SC Q12 [facility]ANI PRN Reason: Protocol Last Admin: 11/15/16 00:01 Dose: Not Given Hydralazine HCl (Apresoline) 25 mg PO BID [facility] Azithromycin 500 mg/ Sodium (Chloride) 250 mls @ 250 mls/hr IVPB DAILY [facility] Last Admin: 11/16/16 09:10 Dose: 250 mls/hr Piperacillin Sod/Tazobactam (Sod 2.25 gm/ Sodium Chloride) 100 mls @ 100 mls/ hr IVPB Q8 [facility] Last Admin: 11/16/16 08:00 Dose: 100 mls/hr Vancomycin HCl 500 mg/ Sodium (Chloride) 100 mls @ 100 mls/hr IVPB QOTHERDAY [facility] Last Admin: 11/16/16 09:09 Dose: 100 mls/hr Insulin Detemir (Levemir) 14 units SC [facility] Latanoprost (Xalatan Opht) 1 drop OU DAILY [facility] Last Admin: 11/16/16 09:08 Dose: 1 drop Levetiracetam (Keppra) 500 mg PO BID [facility] Last Admin: 11/16/16 09:06 Dose: 500 mg Metoprolol Tartrate (Lopressor) 50 mg PO Q12H [facility] Last Admin: 11/16/16 06:25 Dose: 50 mg Nystatin/Triamcinolone Acetonide (Mycolog Ii) 1 applic TOP TID [facility] Last Admin: 11/16/16 09:07 Dose: 1 applic Pantoprazole Sodium (Protonix Ec Tab) 40 mg PO DAILY [facility] Last Admin: 11/16/16 09:07 Dose: 40 mg Sennosides (Senokot Tab) 8.6 mg PO [facility] Last Admin: 11/15/16 21:47 Dose: 8.6 mg Sitagliptin Phosphate (Januvia) 50 mg PO DAILY [facility] Last Admin: 11/16/16 09:05 Dose: 50 mg Tramadol HCl (Ultram) 50 mg PO Q6H PRN PRN Reason: Pain, severe (8-10) - Labs Labs: 11/15/16 04:20 11/15/16 13:12 PT 11.3 Seconds (9.8-13.1) 11/13/16 12:15 INR 1.1 (0.9-1.2) 11/13/16 12:15 APTT 24.6 Seconds (25.6-37.1) L 11/13/16 12:15 - Constitutional Appears: No Acute Distress, Chronically Ill - Head Exam Head Exam: NORMAL INSPECTION, NORMOCEPHALIC - Eye Exam normal accommodation right eyelid droop - ENT Exam ENT Exam: Mucous Membranes Dry, Normal External Ear Exam - Neck Exam Neck Exam: Full ROM. absent: Meningismus - Respiratory Exam Respiratory Exam: Rales, Rhonchi, NORMAL BREATHING PATTERN. absent: Respiratory Distress - Cardiovascular Exam Cardiovascular Exam: REGULAR RHYTHM, +S1, +S2 - GI/Abdominal Exam GI & Abdominal Exam: Soft. absent: Tenderness Additional comments: + PEG - Extremities Exam Extremities Exam: Normal Capillary Refill. absent: Calf Tenderness, Pedal Edema left heel eschar - Neurological Exam Additional comments: alert, oriented to person and place moves both upper extremities- left hand contracture - Psychiatric Exam Psychiatric exam: Flat Affect - Skin Skin Exam: Dry, Warm Assessment and Plan (1) Pneumonia Status: Acute (2) Dehydration Status: Acute (3) Chronic anemia Status: Chronic (4) CKD (chronic kidney disease) stage 4, GFR 15-29 ml/min Status: Chronic (5) CAD (coronary artery disease) Status: Chronic (6) Hyperkalemia Status: Acute (7) Atrial fibrillation Status: Chronic (8) Toxic metabolic encephalopathy Status: Acute (9) HTN (hypertension) Status: Chronic (10) CVA (cerebral vascular accident) Status: Chronic (11) DM2 (diabetes mellitus, type 2) Status: Chronic (12) Seizure Status: Chronic - Assessment and Plan (Free Text) Assessment: 86y/o lady with known hx of CVA , s/p PEG, Dementia, Seizure Dis, HTN, DM, CKD, Anemia, A Fib, CAD, was brought in from [facility] and lethargy. Found to have Pneumonia on CXR. (1) Pneumonia, LLL Status: Acute cont IV Zosyn, given Vanco 500mg every other day , cont Azithro Blood c/s: neg so far Sputum c/s, Legionella, Mycoplasma pending Pulm consulted- Dr Pires ID consulted and is following pt ( Dr Alvarado ) rpt CXR (2) Dehydration Status: Acute IVF hydration Free water per PEG BUN greater than 100 on admission (3) Chronic anemia prob due to renal dis Status: Chronic drop prob dilutional from IVF hydration however need to r/o bleed FOBT She was transfused 2 units PRBC ( consent obtained from daughter Prema Marroquin as pt was lethargic and demented) GI consulted- Dr Harris (4) Chest Pain likely pleuritic Chest Pain from PNA, ACS ruled out Trop x 4 negative cont ASA, BB (4) CKD (chronic kidney disease) stage 4, GFR 15-29 ml/min Status: Chronic Prob sec to DM, HTN cont to monitor Renal fxn adjust meds accdg to GFR d/c Januvia (6) Hyperkalemia Status: Acute Kayexalate daily Insulin IV was given d/c Miralax Lasix low dose daily (7) Atrial fibrillation, Paroxysmal Status: Chronic not on anticoag prob due to dementia, anemia, seizure , risk of fall cont BB, ASA (8) Toxic metabolic encephalopathy Status: Acute sec to infection pt has hx of some baseline mild dementia- on Aricept (9) HTN (hypertension) uncontrolled Status: Chronic cont Metoprolol and Norvasc add Hydralazine and Lasix (10) CVA (cerebral vascular accident), history Status: Chronic pt has PEG on ASA, statin Pleasure feeds (11) DM2 (diabetes mellitus, type 2) with hyperglycemia Status: Chronic accucheck with coverage started- increase Levemir 14 units sq daily glucose prob also high as pt received steroids x 1 dose d/c Januvia as it may worsen renal fxn (12) Seizure Status: Chronic cont Keppra (13) CAD (coronary artery disease) Status: Chronic pt on ASA, BB (14) Left heel Eschar, Sacral IAD - 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
[2016-11-16 09:37] LABS: ALB/GLOB RATIO 1.1 (1.0-2.1); ALBUMIN 3.8 g/dL (3.5-5.0); CALCIUM 9.5 mg/dL (8.4-10.2)
--- NOTE | 2016-11-16 10:26 | CP.PCM.PN ---
Subjective - Date & Time of Evaluation Date of Evaluation: 11/16/16 Time of Evaluation: 10:26 - Subjective Subjective: awake and alert no apparent respiratory distress Objective - Vital Signs/Intake and Output Vital Signs (last 24 hours): Temp Pulse Resp BP Pulse Ox 97.1 F L 87 20 146/71 100 11/16/16 08:18 11/16/16 09:07 11/16/16 08:18 11/16/16 09:07 11/16/16 08:18 Intake and Output: 11/16/16 11/16/16 06:59 18:59 Intake Total 1470 Balance 1470 - Medications Medications: Current Medications Acetaminophen (Tylenol 325mg Tab) 650 mg PO Q4H PRN PRN Reason: Temp >100 Albuterol Sulfate (Albuterol 0.083% Inhal Marlin (2.5 Mg/3 Ml) Ud) 2.5 mg IH Q6H PRN PRN Reason: Shortness of Breath Last Admin: 11/14/16 21:45 Dose: 2.5 mg Allopurinol (Zyloprim) 100 mg PO DAILY [facility] Last Admin: 11/16/16 09:10 Dose: 100 mg Amlodipine Besylate (Norvasc) 5 mg PO Q12 [facility] Last Admin: 11/16/16 09:07 Dose: 5 mg Aspirin (Ecotrin) 325 mg PO DAILY [facility] Last Admin: 11/14/16 09:12 Dose: 325 mg Atorvastatin Calcium (Lipitor) 10 mg PO DAILY [facility] Last Admin: 11/16/16 09:06 Dose: 10 mg Donepezil HCl (Aricept) 10 mg PO HS [facility] Last Admin: 11/15/16 21:43 Dose: 10 mg Dorzolamide HCl (Trusopt) 1 drop OD BID [facility] Last Admin: 11/16/16 09:08 Dose: 1 drop Gabapentin (Neurontin) 100 mg GT HS [facility] Last Admin: 11/15/16 21:47 Dose: 100 mg Heparin Sodium (Porcine) (Heparin) 5,000 units SC Q12 [facility] PRN Reason: Protocol Last Admin: 11/15/16 00:01 Dose: Not Given Hydralazine HCl (Apresoline) 25 mg PO BID [facility] Azithromycin 500 mg/ Sodium (Chloride) 250 mls @ 250 mls/hr IVPB DAILY [facility] Last Admin: 11/16/16 09:10 Dose: 250 mls/hr Piperacillin Sod/Tazobactam (Sod 2.25 gm/ Sodium Chloride) 100 mls @ 100 mls/ hr IVPB Q8 [facility] Last Admin: 11/16/16 08:00 Dose: 100 mls/hr Vancomycin HCl 500 mg/ Sodium (Chloride) 100 mls @ 100 mls/hr IVPB QOTHERDAY [facility] Last Admin: 11/16/16 09:09 Dose: 100 mls/hr Insulin Detemir (Levemir) 14 units SC [facility] Latanoprost (Xalatan Opht) 1 drop OU DAILY [facility] Last Admin: 11/16/16 09:08 Dose: 1 drop Levetiracetam (Keppra) 500 mg PO BID [facility] Last Admin: 11/16/16 09:06 Dose: 500 mg Metoprolol Tartrate (Lopressor) 50 mg PO Q12H [facility] Last Admin: 11/16/16 06:25 Dose: 50 mg Nystatin/Triamcinolone Acetonide (Mycolog Ii) 1 applic TOP TID [facility] Last Admin: 11/16/16 09:07 Dose: 1 applic Pantoprazole Sodium (Protonix Ec Tab) 40 mg PO DAILY [facility] Last Admin: 11/16/16 09:07 Dose: 40 mg Sennosides (Senokot Tab) 8.6 mg PO [facility] Last Admin: 11/15/16 21:47 Dose: 8.6 mg Sitagliptin Phosphate (Januvia) 50 mg PO DAILY [facility] Last Admin: 11/16/16 09:05 Dose: 50 mg Tramadol HCl (Ultram) 50 mg PO Q6H PRN PRN Reason: Pain, severe (8-10) - Labs Labs: 11/16/16 08:30 11/16/16 08:30 PT 11.3 Seconds (9.8-13.1) 11/13/16 12:15 INR 1.1 (0.9-1.2) 11/13/16 12:15 APTT 24.6 Seconds (25.6-37.1) L 11/13/16 12:15 - Constitutional Appears: No Acute Distress - Head Exam Head Exam: ATRAUMATIC, NORMAL INSPECTION, NORMOCEPHALIC - Eye Exam Eye Exam: EOMI, Normal appearance, PERRL Pupil Exam: NORMAL ACCOMODATION, PERRL - ENT Exam ENT Exam: Mucous Membranes Moist, Normal Exam - Neck Exam Neck Exam: Full ROM, Normal Inspection. absent: Lymphadenopathy - Respiratory Exam Respiratory Exam: Decreased Breath Sounds, Rales, NORMAL BREATHING PATTERN - Cardiovascular Exam Cardiovascular Exam: REGULAR RHYTHM, +S1, +S2. absent: Murmur - GI/Abdominal Exam GI & Abdominal Exam: Soft, Normal Bowel Sounds. absent: Tenderness - Rectal Exam Rectal Exam: NORMAL INSPECTION - Extremities Exam Extremities Exam: Full ROM, Normal Capillary Refill, Normal Inspection. absent : Joint Swelling, Pedal Edema - Back Exam Back Exam: NORMAL INSPECTION - Neurological Exam Neurological Exam: Alert, Awake, CN II-XII Intact, Normal Gait, Oriented x3 - Psychiatric Exam Psychiatric exam: Normal Affect, Normal Mood - Skin Skin Exam: Dry, Intact, Normal Color, Warm Assessment and Plan - Assessment and Plan (Free Text) Assessment: pneumonia with pleural effusion hx of cva dementia Plan: continue present rx will continue to follow
[2016-11-16] MEDS ORDERED: Sod Polystyrene Sulf 15 gm/60 ml Oral Susp PO ONE (10:55)
--- NOTE | 2016-11-16 12:34 | CON ---
DATE: 11/15/2016 REFERRING PHYSICIAN: Kayley Bonner MD REASON FOR CONSULTATION: Anemia. HISTORY OF PRESENT ILLNESS: This is an 86-year-old female with history of dementia, CVA, seizure disorder, CAD, diabetes, hypertension, CKD, bedridden, patient is nonverbal and combative, brought to [facility] because of lower abdominal pain and discomfort. The patient has also some shortness of breath as per chart. She is a poor historian. She is very combative making examination as well as history very difficult. Otherwise, currently lying comfortable, in no apparent distress. PAST MEDICAL HISTORY: As above. PAST SURGICAL HISTORY: As above. MEDICATIONS: Have been reviewed. REVIEW OF SYSTEMS: All other systems have been reviewed and negative apart from the HPI. PHYSICAL EXAMINATION: VITAL SIGNS: In the hospital, grossly unremarkable. GENERAL: Pleasant, elderly appearing female lying comfortably in the bed. HEENT: Head is normocephalic and atraumatic. Eyes; pupils equal, round, and reactive to light bilaterally. No conjunctival pallor or icterus. NECK: Supple. Normal range of motion. No lymphadenopathy appreciated. LUNGS: Coarse breath sounds bilaterally. HEART: S1 and S2, regular rate and rhythm. No murmurs appreciated. ABDOMEN: Soft and nontender. Bowel sounds present. No rebound. No guarding. RECTAL: Deferred. EXTREMITIES: Pulses felt bilaterally. SKIN: Warm, dry, and intact. NEUROLOGIC: A and O x1. LABORATORY DATA: Reviewed. WBC is 9.3, hemoglobin hematocrit of 38.2, and platelet count is 156. AST and ALT 41/58. Abdominopelvic CT showed bilateral pleural effusions and kidney lesion. PEG tube in place. ASSESSMENT AND PLAN: This is an 86-year-old female with history of dementia, dysphagia, and anemia and no actual evidence of bleeding, at this point give supportive care for now. Pulmonary input could be appreciated. Thank you for the consult. Per Harris MD/ PhD cc: Dr. Bonner
--- NOTE | 2016-11-16 15:41 | CP.PCM.PN ---
Subjective - Date & Time of Evaluation Date of Evaluation: 11/16/16 Time of Evaluation: 15:00 - Subjective Subjective: Patient denies any complaints; denies shortness of breath; Objective - Vital Signs/Intake and Output Vital Signs (last 24 hours): Temp Pulse Resp BP Pulse Ox 96.8 F L 80 20 136/54 L 97 11/16/16 12:08 11/16/16 12:08 11/16/16 12:08 11/16/16 12:14 11/16/16 12:08 Intake and Output: 11/16/16 11/16/16 06:59 18:59 Intake Total 1470 Balance 1470 - Medications Medications: Current Medications Acetaminophen (Tylenol 325mg Tab) 650 mg PO Q4H PRN PRN Reason: Temp >100 Albuterol Sulfate (Albuterol 0.083% Inhal Marlin (2.5 Mg/3 Ml) Ud) 2.5 mg IH Q6H PRN PRN Reason: Shortness of Breath Last Admin: 11/14/16 21:45 Dose: 2.5 mg Allopurinol (Zyloprim) 100 mg PO DAILY [facility] Last Admin: 11/16/16 09:10 Dose: 100 mg Amlodipine Besylate (Norvasc) 5 mg PO Q12 [facility] Last Admin: 11/16/16 09:07 Dose: 5 mg Aspirin (Ecotrin) 325 mg PO DAILY [facility] Last Admin: 11/14/16 09:12 Dose: 325 mg Atorvastatin Calcium (Lipitor) 10 mg PO DAILY [facility] Last Admin: 11/16/16 09:06 Dose: 10 mg Donepezil HCl (Aricept) 10 mg PO HS [facility] Last Admin: 11/15/16 21:43 Dose: 10 mg Dorzolamide HCl (Trusopt) 1 drop OD BID [facility] Last Admin: 11/16/16 09:08 Dose: 1 drop Furosemide (Lasix) 20 mg PO DAILY [facility] Gabapentin (Neurontin) 100 mg GT HS [facility] Last Admin: 11/15/16 21:47 Dose: 100 mg Heparin Sodium (Porcine) (Heparin) 5,000 units SC Q12 [facility] PRN Reason: Protocol Last Admin: 11/15/16 00:01 Dose: Not Given Hydralazine HCl (Apresoline) 25 mg PO BID [facility] Last Admin: 11/16/16 10:40 Dose: 25 mg Azithromycin 500 mg/ Sodium (Chloride) 250 mls @ 250 mls/hr IVPB DAILY [facility] Last Admin: 11/16/16 09:10 Dose: 250 mls/hr Piperacillin Sod/Tazobactam (Sod 2.25 gm/ Sodium Chloride) 100 mls @ 100 mls/ hr IVPB Q8 [facility] Last Admin: 11/16/16 08:00 Dose: 100 mls/hr Vancomycin HCl 500 mg/ Sodium (Chloride) 100 mls @ 100 mls/hr IVPB QOTHERDAY [facility] Last Admin: 11/16/16 09:09 Dose: 100 mls/hr Insulin Detemir (Levemir) 14 units SC [facility] Latanoprost (Xalatan Opht) 1 drop OU DAILY [facility] Last Admin: 11/16/16 09:08 Dose: 1 drop Levetiracetam (Keppra) 500 mg PO BID [facility] Last Admin: 11/16/16 09:06 Dose: 500 mg Metoprolol Tartrate (Lopressor) 50 mg PO Q12H [facility] Last Admin: 11/16/16 06:25 Dose: 50 mg Nystatin/Triamcinolone Acetonide (Mycolog Ii) 1 applic TOP TID [facility] Last Admin: 11/16/16 12:32 Dose: 1 applic Pantoprazole Sodium (Protonix Ec Tab) 40 mg PO DAILY [facility] Last Admin: 11/16/16 09:07 Dose: 40 mg Sennosides (Senokot Tab) 8.6 mg PO [facility] Last Admin: 11/15/16 21:47 Dose: 8.6 mg Tramadol HCl (Ultram) 50 mg PO Q6H PRN PRN Reason: Pain, severe (8-10) Last Admin: 11/16/16 10:44 Dose: 50 mg - Labs Labs: 11/16/16 08:30 11/16/16 08:30 PT 11.3 Seconds (9.8-13.1) 11/13/16 12:15 INR 1.1 (0.9-1.2) 11/13/16 12:15 APTT 24.6 Seconds (25.6-37.1) L 11/13/16 12:15 - Constitutional Appears: Non-toxic, No Acute Distress - Head Exam Head Exam: NORMAL INSPECTION - Eye Exam Eye Exam: Normal appearance - ENT Exam ENT Exam: Mucous Membranes Moist - Respiratory Exam Respiratory Exam: Clear to Ausculation Bilateral Additional comments: limited exam as patient agitated - Cardiovascular Exam Cardiovascular Exam: REGULAR RHYTHM, +S1, +S2 - GI/Abdominal Exam GI & Abdominal Exam: Soft. absent: Distended, Tenderness - Extremities Exam Additional comments: no leg edema; - Neurological Exam Neurological Exam: Alert, Awake - Psychiatric Exam Psychiatric exam: Agitated - Skin Skin Exam: Normal Color, Warm. absent: Cyanosis Assessment and Plan (1) Hyperkalemia Assessment & Plan: Acute on chronic; records from [place] show patient was on kayexalate 30 g twice weekly; however, patient is likely having too high dietary K intake with her being on nepro tube feeds at 1L per day in addition to her PO intake (only supposed to be on pleasure feeds but had mashed potatoes today which have high K content and finished 3/4 of it per nursing staff); additionally, high protein calorie content is likely resulting in high serum BUN which is causing osmotic diuresis and some degree of volume depletion which can contribute to hyperkalemia; -low K diet emphasized to nursing staff, order placed -decrease nepro to 10 cc/hr (for about 240 cc/day = 1 can) -kayexalate prn Status: Acute (2) CKD (chronic kidney disease) stage 4, GFR 15-29 ml/min Assessment & Plan: Relatively stable renal function; needs outpatient f/u for proteinuria assessment; Status: Chronic (3) Anemia Assessment & Plan: Seen by GI, not thought to have any GI blood losses; still awaiting stool for occult blood; will likely need EPO as outpatient; Status: Acute (4) Hypertensive CKD (chronic kidney disease) Assessment & Plan: Was on amlodipine 5 mg q12h at [facility]; elevated BP readings today, started on hydralazine; if BP seen to drop < 130's consistently, would stop hydralazine; would avoid very tight BP control in this elderly patient; Status: Chronic (5) Chronic kidney disease-mineral and bone disorder Status: Chronic (6) Pneumonia Assessment & Plan: On vanco, azithro and zosyn, no further renal dose adjustment needed but should check vanco trough before 3rd dose; Status: Acute (7) Azotemia Assessment & Plan: See above recs regarding high protein feeds; Status: Acute
[2016-11-16] MEDS: Insulin Detemir 100 Units/ml Inj SC SCH ×2 (21:50→22:03)
--- NOTE | 2016-11-17 07:38 | RAD ---
PROCEDURE: CHEST RADIOGRAPH, 1 VIEW HISTORY: ff up pneumonia COMPARISON: 11/14/2016 FINDINGS: LUNGS: Slight improvement in bilateral interstitial changes. PLEURA: No pneumothorax or pleural fluid seen. CARDIOVASCULAR: Normal. OSSEOUS STRUCTURES: No significant abnormalities. VISUALIZED UPPER ABDOMEN: Normal. OTHER FINDINGS: None. IMPRESSION: Slight improvement in bilateral interstitial changes.
[2016-11-17] MEDS: levETIRAcetam 100 mg/ml (5ml) Oral Syringe PO SCH ×2 (08:43→17:02)
[2016-11-17] MEDS: Pantoprazole 40 mg EC Tab PO SCH (08:45)
[2016-11-17] MEDS: Azithromycin 500 MG in Sodium Chloride 0.9% 250 ML IVPB SCH (08:53)
[2016-11-17] MEDS: Latanoprost 0.005% Opht SOUTION OU SCH (09:04)
[2016-11-17] MEDS: Dorzolamide 2% Ophth Soln OD SCH ×2 (09:14→18:51)
[2016-11-17] MEDS: Mycolog II CREAM TOP SCH ×3 (09:17→17:05)
[2016-11-17 09:51] LABS: CALCIUM 9.3 mg/dL (8.4-10.2); MEAN CELL VOLUME 95.3 fl (81.0-99.0); MEAN CORPUSCULAR HEMOGLOBIN 31.7 pg (27.0-31.0); MEAN CORPUSCULAR HGB CONC 33.3 g/dL (33.0-37.0); RBC 3.48 Mil/uL (3.80-5.20); WHITE BLOOD COUNT 9.1 K/uL (4.8-10.8)
--- NOTE | 2016-11-17 09:58 | CP.PCM.PN ---
Subjective - Date & Time of Evaluation Date of Evaluation: 11/17/16 Time of Evaluation: 08:30 - Subjective Subjective: Was informed by RN last night that PEG was clogged- pt's RN today was able to milk PEG and flush it - now able to put in liquid however noted some leaking. GI Dr Harris consulted to eval PEG Will hold off discharge to [facility]. no fever no SOB no CP no abd pain Objective - Vital Signs/Intake and Output Vital Signs (last 24 hours): Temp Pulse Resp BP Pulse Ox 97.3 F L 71 18 185/50 H 96 11/17/16 08:22 11/17/16 08:45 11/17/16 08:22 11/17/16 08:45 11/17/16 08:22 - Medications Medications: Current Medications Acetaminophen (Tylenol 325mg Tab) 650 mg PO Q4H PRN PRN Reason: Temp >100 Albuterol Sulfate (Albuterol 0.083% Inhal Marlin (2.5 Mg/3 Ml) Ud) 2.5 mg IH Q6H PRN PRN Reason: Shortness of Breath Last Admin: 11/14/16 21:45 Dose: 2.5 mg Allopurinol (Zyloprim) 100 mg PO DAILY [facility] Last Admin: 11/17/16 08:45 Dose: 100 mg Amlodipine Besylate (Norvasc) 5 mg PO Q12 [facility] Last Admin: 11/17/16 08:44 Dose: 5 mg Aspirin (Ecotrin) 325 mg PO DAILY [facility] Last Admin: 11/14/16 09:12 Dose: 325 mg Atorvastatin Calcium (Lipitor) 10 mg PO DAILY [facility] Last Admin: 11/17/16 08:47 Dose: 10 mg Donepezil HCl (Aricept) 10 mg PO HS [facility] Last Admin: 11/16/16 22:02 Dose: Not Given Dorzolamide HCl (Trusopt) 1 drop OD BID [facility] Last Admin: 11/17/16 09:14 Dose: 1 drop Gabapentin (Neurontin) 100 mg GT HS [facility] Last Admin: 11/16/16 22:03 Dose: Not Given Heparin Sodium (Porcine) (Heparin) 5,000 units SC Q12 [facility] PRN Reason: Protocol Last Admin: 11/17/16 09:43 Dose: 5,000 units Hydralazine HCl (Apresoline) 25 mg PO BID [facility] Last Admin: 11/17/16 08:45 Dose: 25 mg Hydralazine HCl (Apresoline) 20 mg IV Q6 PRN PRN Reason: Systolic Blood Pressure Azithromycin 500 mg/ Sodium (Chloride) 250 mls @ 250 mls/hr IVPB DAILY [facility] Last Admin: 11/17/16 08:53 Dose: 250 mls/hr Piperacillin Sod/Tazobactam (Sod 2.25 gm/ Sodium Chloride) 100 mls @ 100 mls/ hr IVPB Q8 [facility] Last Admin: 11/17/16 09:12 Dose: 100 mls/hr Vancomycin HCl 500 mg/ Sodium (Chloride) 100 mls @ 100 mls/hr IVPB QOTHERDAY [facility] Last Admin: 11/16/16 09:09 Dose: 100 mls/hr Insulin Detemir (Levemir) 14 units SC [facility] Last Admin: 11/16/16 22:03 Dose: Not Given Latanoprost (Xalatan Opht) 1 drop OU DAILY [facility] Last Admin: 11/17/16 09:04 Dose: 1 drop Levetiracetam (Keppra) 500 mg PO BID [facility] Last Admin: 11/17/16 08:43 Dose: 500 mg Metoprolol Tartrate (Lopressor) 50 mg PO Q12H [facility] Last Admin: 11/17/16 06:23 Dose: Not Given Nystatin/Triamcinolone Acetonide (Mycolog Ii) 1 applic TOP TID [facility] Last Admin: 11/17/16 09:17 Dose: 1 applic Pantoprazole Sodium (Protonix Ec Tab) 40 mg PO DAILY [facility] Last Admin: 11/17/16 08:45 Dose: 40 mg Sennosides (Senokot Tab) 8.6 mg PO [facility] Last Admin: 11/16/16 22:03 Dose: Not Given Tramadol HCl (Ultram) 50 mg PO Q6H PRN PRN Reason: Pain, severe (8-10) Last Admin: 11/16/16 10:44 Dose: 50 mg - Labs Labs: 11/16/16 08:30 11/17/16 08:45 PT 11.3 Seconds (9.8-13.1) 11/13/16 12:15 INR 1.1 (0.9-1.2) 11/13/16 12:15 APTT 24.6 Seconds (25.6-37.1) L 11/13/16 12:15 - Constitutional Appears: No Acute Distress, Chronically Ill - Head Exam Head Exam: NORMAL INSPECTION, NORMOCEPHALIC - Eye Exam normal accommodation right eyelid droop - ENT Exam ENT Exam: Mucous Membranes Dry, Normal External Ear Exam - Neck Exam Neck Exam: Full ROM. absent: Meningismus - Respiratory Exam Respiratory Exam: Rales, Rhonchi, NORMAL BREATHING PATTERN. absent: Respiratory Distress - Cardiovascular Exam Cardiovascular Exam: REGULAR RHYTHM, +S1, +S2 - GI/Abdominal Exam GI & Abdominal Exam: Soft. absent: Tenderness Additional comments: + PEG - Extremities Exam Extremities Exam: Normal Capillary Refill. absent: Calf Tenderness, Pedal Edema left heel eschar - Neurological Exam Additional comments: alert, oriented to person and place moves both upper extremities- left hand contracture - Psychiatric Exam Psychiatric exam: Flat Affect - Skin Skin Exam: Dry, Warm Assessment and Plan (1) Pneumonia Status: Acute (2) Dehydration Status: Acute (3) Chronic anemia Status: Chronic (4) CKD (chronic kidney disease) stage 4, GFR 15-29 ml/min Status: Chronic (5) CAD (coronary artery disease) Status: Chronic (6) Hyperkalemia Status: Acute (7) Atrial fibrillation Status: Chronic (8) Toxic metabolic encephalopathy Status: Acute (9) HTN (hypertension) Status: Chronic (10) CVA (cerebral vascular accident) Status: Chronic (11) DM2 (diabetes mellitus, type 2) Status: Chronic (12) Seizure Status: Chronic - Assessment and Plan (Free Text) Assessment: 86y/o lady with known hx of CVA , s/p PEG, Dementia, Seizure Dis, HTN, DM, CKD, Anemia, A Fib, CAD, was brought in from [facility] of Chest Pain and lethargy. Found to have Pneumonia on CXR. CT of the Abd : Moderate bilateral pleural effusions. Patchy opacity at the left lung base may reflect infiltrate or atelectasis. 9 mm exophytic right lower pole hypodense renal lesion, possibly cyst. Peg tube. (1) Pneumonia, LLL Status: Acute cont IV Zosyn, given Vanco 500mg every other day , cont Azithro Blood c/s: neg so far Sputum c/s, Legionella, Mycoplasma pending Pulm consulted- Dr Pires ID consulted and is following pt ( Dr Alvarado ) rpt CXR: improvement (2) Dehydration Status: Acute IVF hydration Free water per PEG BUN greater than 100 on admission (3) Chronic anemia prob due to renal dis Status: Chronic drop prob dilutional from IVF hydration however need to r/o bleed FOBT: pending She was transfused 2 units PRBC ( consent obtained from daughter Prema Marroquin as pt was lethargic and more demented at that time ) GI consulted- Dr Harris (4) Chest Pain likely pleuritic Chest Pain from PNA, ACS ruled out Trop x 4 negative cont ASA, BB (4) CKD (chronic kidney disease) stage 4, GFR 15-29 ml/min Status: Chronic Prob sec to DM, HTN cont to monitor Renal fxn adjust meds accdg to GFR d/c Januvia (6) Hyperkalemia, chronic Status: Acute Kayexalate daily Insulin IV was given d/c Miralax Lasix low dose daily (7) Atrial fibrillation, Paroxysmal Status: Chronic not on anticoag prob due to dementia, anemia, seizure , risk of fall cont BB, ASA (8) Toxic metabolic encephalopathy Status: Acute sec to infection pt has hx of some baseline mild dementia- on Aricept (9) HTN (hypertension) uncontrolled Status: Chronic cont Metoprolol and Norvasc added Hydralazine (10) CVA (cerebral vascular accident), history, with residual left hemiparesis Status: Chronic pt has PEG on ASA, statin Pleasure feeds (11) DM2 (diabetes mellitus, type 2) with hyperglycemia Status: Chronic accucheck with coverage started- increase Levemir 14 units sq glucose prob also high as pt received steroids x 1 dose d/c Januvia as it may worsen renal fxn (12) Seizure Status: Chronic cont Keppra (13) CAD (coronary artery disease) Status: Chronic pt on ASA, BB (14) Left heel Eschar, Sacral IAD - latent fingerprint examiner - Prevalon boots 15 PEG tube Dysfunction noted not to flush, leaking GI - Dr Harris consulted to evaluate DVT proph - Heparin
--- NOTE | 2016-11-17 10:52 | CP.PCM.PN ---
Objective - Vital Signs/Intake and Output Vital Signs (last 24 hours): Temp Pulse Resp BP Pulse Ox 97.3 F L 71 18 185/50 H 96 11/17/16 09:00 11/17/16 09:00 11/17/16 09:00 11/17/16 09:00 11/17/16 09:00 - Medications Medications: Current Medications Acetaminophen (Tylenol 325mg Tab) 650 mg PO Q4H PRN PRN Reason: Temp >100 Albuterol Sulfate (Albuterol 0.083% Inhal Marlin (2.5 Mg/3 Ml) Ud) 2.5 mg IH Q6H PRN PRN Reason: Shortness of Breath Last Admin: 11/14/16 21:45 Dose: 2.5 mg Allopurinol (Zyloprim) 100 mg PO DAILY [facility] Last Admin: 11/17/16 08:45 Dose: 100 mg Amlodipine Besylate (Norvasc) 5 mg PO Q12 [facility] Last Admin: 11/17/16 08:44 Dose: 5 mg Aspirin (Ecotrin) 325 mg PO DAILY [facility] Last Admin: 11/14/16 09:12 Dose: 325 mg Atorvastatin Calcium (Lipitor) 10 mg PO DAILY [facility] Last Admin: 11/17/16 08:47 Dose: 10 mg Donepezil HCl (Aricept) 10 mg PO HS [facility] Last Admin: 11/16/16 22:02 Dose: Not Given Dorzolamide HCl (Trusopt) 1 drop OD BID [facility] Last Admin: 11/17/16 09:14 Dose: 1 drop Gabapentin (Neurontin) 100 mg GT HS [facility] Last Admin: 11/16/16 22:03 Dose: Not Given Heparin Sodium (Porcine) (Heparin) 5,000 units SC Q12 [facility] PRN Reason: Protocol Last Admin: 11/17/16 09:43 Dose: 5,000 units Hydralazine HCl (Apresoline) 25 mg PO BID [facility] Last Admin: 11/17/16 08:45 Dose: 25 mg Hydralazine HCl (Apresoline) 20 mg IV Q6 PRN PRN Reason: Systolic Blood Pressure Azithromycin 500 mg/ Sodium (Chloride) 250 mls @ 250 mls/hr IVPB DAILY [facility] Last Admin: 11/17/16 08:53 Dose: 250 mls/hr Piperacillin Sod/Tazobactam (Sod 2.25 gm/ Sodium Chloride) 100 mls @ 100 mls/ hr IVPB Q8 [facility] Last Admin: 11/17/16 09:12 Dose: 100 mls/hr Vancomycin HCl 500 mg/ Sodium (Chloride) 100 mls @ 100 mls/hr IVPB QOTHERDAY [facility] Last Admin: 11/16/16 09:09 Dose: 100 mls/hr Insulin Detemir (Levemir) 14 units SC HS [facility] Last Admin: 11/16/16 22:03 Dose: Not Given Latanoprost (Xalatan Opht) 1 drop OU DAILY [facility] Last Admin: 11/17/16 09:04 Dose: 1 drop Levetiracetam (Keppra) 500 mg PO BID [facility] Last Admin: 11/17/16 08:43 Dose: 500 mg Metoprolol Tartrate (Lopressor) 50 mg PO Q12H [facility] Last Admin: 11/17/16 06:23 Dose: Not Given Nystatin/Triamcinolone Acetonide (Mycolog Ii) 1 applic TOP TID [facility] Last Admin: 11/17/16 09:17 Dose: 1 applic Pantoprazole Sodium (Protonix Ec Tab) 40 mg PO DAILY [facility] Last Admin: 11/17/16 08:45 Dose: 40 mg Sennosides (Senokot Tab) 8.6 mg PO [facility] Last Admin: 11/16/16 22:03 Dose: Not Given Tramadol HCl (Ultram) 50 mg PO Q6H PRN PRN Reason: Pain, severe (8-10) Last Admin: 11/16/16 10:44 Dose: 50 mg - Labs Labs: 11/17/16 08:45 11/17/16 08:45 PT 11.3 Seconds (9.8-13.1) 11/13/16 12:15 INR 1.1 (0.9-1.2) 11/13/16 12:15 APTT 24.6 Seconds (25.6-37.1) L 11/13/16 12:15 Assessment and Plan (1) Hyperkalemia Status: Acute (2) CKD (chronic kidney disease) stage 4, GFR 15-29 ml/min Status: Chronic (3) Anemia Status: Acute (4) Hypertensive CKD (chronic kidney disease) Status: Chronic (5) Chronic kidney disease-mineral and bone disorder Status: Chronic (6) Pneumonia Status: Acute (7) Azotemia Status: Acute
[2016-11-17 16:13] VITALS: RESP 20
[2016-11-17] MEDS ORDERED: Insulin Detemir 100 Units/ml Inj SC SCH (17:36)
--- NOTE | 2016-11-17 20:58 | CP.PCM.PN ---
Subjective - Date & Time of Evaluation Date of Evaluation: 11/17/16 Time of Evaluation: 09:15 - Subjective Subjective: Patient complaining of foot pain, most pronounced in R heel; Objective - Vital Signs/Intake and Output Vital Signs (last 24 hours): Temp Pulse Resp BP Pulse Ox 98 F 87 20 196/78 H 98 11/17/16 19:40 11/17/16 19:40 11/17/16 19:40 11/17/16 19:40 11/17/16 19:40 - Medications Medications: Current Medications Acetaminophen (Tylenol 325mg Tab) 650 mg PO Q4H PRN PRN Reason: Temp >100 Albuterol Sulfate (Albuterol 0.083% Inhal Marlin (2.5 Mg/3 Ml) Ud) 2.5 mg IH Q6H PRN PRN Reason: Shortness of Breath Last Admin: 11/14/16 21:45 Dose: 2.5 mg Allopurinol (Zyloprim) 100 mg PO DAILY [facility] Last Admin: 11/17/16 08:45 Dose: 100 mg Amlodipine Besylate (Norvasc) 5 mg PO Q12 [facility] Last Admin: 11/17/16 08:44 Dose: 5 mg Atorvastatin Calcium (Lipitor) 10 mg PO DAILY [facility] Last Admin: 11/17/16 08:47 Dose: 10 mg Donepezil HCl (Aricept) 10 mg PO HS [facility] Last Admin: 11/16/16 22:02 Dose: Not Given Dorzolamide HCl (Trusopt) 1 drop OD BID [facility] Last Admin: 11/17/16 18:51 Dose: 1 drop Gabapentin (Neurontin) 100 mg GT HS [facility] Last Admin: 11/16/16 22:03 Dose: Not Given Heparin Sodium (Porcine) (Heparin) 5,000 units SC Q12 [facility] PRN Reason: Protocol Last Admin: 11/17/16 09:43 Dose: 5,000 units Hydralazine HCl (Apresoline) 25 mg PO BID [facility] Last Admin: 11/17/16 17:02 Dose: 25 mg Hydralazine HCl (Apresoline) 20 mg IV Q6 PRN PRN Reason: Systolic Blood Pressure Azithromycin 500 mg/ Sodium (Chloride) 250 mls @ 250 mls/hr IVPB DAILY [facility] Last Admin: 11/17/16 08:53 Dose: 250 mls/hr Piperacillin Sod/Tazobactam (Sod 2.25 gm/ Sodium Chloride) 100 mls @ 100 mls/ hr IVPB Q8 [facility] Last Admin: 11/17/16 18:50 Dose: 100 mls/hr Vancomycin HCl 500 mg/ Sodium (Chloride) 100 mls @ 100 mls/hr IVPB QOTHERDAY [facility] Last Admin: 11/16/16 09:09 Dose: 100 mls/hr Insulin Detemir (Levemir) 8 units SC [facility] Latanoprost (Xalatan Opht) 1 drop OU DAILY [facility] Last Admin: 11/17/16 09:04 Dose: 1 drop Levetiracetam (Keppra) 500 mg PO BID [facility] Last Admin: 11/17/16 17:02 Dose: 500 mg Metoprolol Tartrate (Lopressor) 50 mg PO Q12H [facility] Last Admin: 11/17/16 17:06 Dose: 50 mg Nystatin/Triamcinolone Acetonide (Mycolog Ii) 1 applic TOP TID [facility] Last Admin: 11/17/16 17:05 Dose: 1 applic Pantoprazole Sodium (Protonix Ec Tab) 40 mg PO DAILY [facility] Last Admin: 11/17/16 08:45 Dose: 40 mg Sennosides (Senokot Tab) 8.6 mg PO [facility] Last Admin: 11/16/16 22:03 Dose: Not Given Sodium Polystyrene Sulfonate (Kayexalate Oral Susp) 15 gm PO DAILY [facility] - Labs Labs: 11/17/16 08:45 11/17/16 08:45 PT 11.3 Seconds (9.8-13.1) 11/13/16 12:15 INR 1.1 (0.9-1.2) 11/13/16 12:15 APTT 24.6 Seconds (25.6-37.1) L 11/13/16 12:15 - Constitutional Appears: Non-toxic - Head Exam Head Exam: NORMAL INSPECTION - Eye Exam Eye Exam: Normal appearance - ENT Exam ENT Exam: Mucous Membranes Moist - Respiratory Exam Respiratory Exam: Clear to Ausculation Bilateral, NORMAL BREATHING PATTERN - Cardiovascular Exam Cardiovascular Exam: REGULAR RHYTHM, +S1, +S2 - GI/Abdominal Exam GI & Abdominal Exam: Soft. absent: Distended, Tenderness - Extremities Exam Additional comments: no leg edema; distal ext warm to touch; - Neurological Exam Neurological Exam: Alert, Awake - Skin Skin Exam: Normal Color. absent: Cyanosis Assessment and Plan (1) Hyperkalemia Assessment & Plan: Resolved with kayexalate; tube feeds decreased and put on low-K diet; monitor; Status: Acute (2) CKD (chronic kidney disease) stage 4, GFR 15-29 ml/min Status: Chronic (3) Anemia Assessment & Plan: Hgb stable s/p prbc transfusion; monitor; Status: Acute (4) Hypertensive CKD (chronic kidney disease) Assessment & Plan: BP significantly elevated past 2 days; hydralazine 25 mg bid added; needs adequate pain control; agree with lasix 20 mg daily; Status: Chronic (5) Chronic kidney disease-mineral and bone disorder Status: Chronic (6) Pneumonia Assessment & Plan: On zosyn and azithro, no further renal dose adjustment needed; check vanco trough before dose tomorrow; Status: Acute (7) Azotemia Assessment & Plan: Likely due to high protein content of feeds; somewhat improved after reducing tube feeds; recommend no more than 1 can of nepro (~250 cc) per day if on significant amount of PO feeds; Status: Acute
[2016-11-18 06:31] LABS: CALCIUM 9.5 mg/dL (8.4-10.2)
--- NOTE | 2016-11-18 08:58 | CP.PCM.PN ---
Subjective - Date & Time of Evaluation Date of Evaluation: 11/18/16 Time of Evaluation: 08:55 - Subjective Subjective: NO APPARENT DISTRESS AFEBRILE Objective - Vital Signs/Intake and Output Vital Signs (last 24 hours): Temp Pulse Resp BP Pulse Ox 97.9 F 91 H 20 204/83 H 98 11/18/16 06:01 11/18/16 06:01 11/18/16 06:01 11/18/16 06:01 11/18/16 06:01 - Medications Medications: Current Medications Acetaminophen (Tylenol 325mg Tab) 650 mg PO Q4H PRN PRN Reason: Temp >100 Albuterol Sulfate (Albuterol 0.083% Inhal Marlin (2.5 Mg/3 Ml) Ud) 2.5 mg IH Q6H PRN PRN Reason: Shortness of Breath Last Admin: 11/14/16 21:45 Dose: 2.5 mg Allopurinol (Zyloprim) 100 mg PO DAILY [facility] Last Admin: 11/17/16 08:45 Dose: 100 mg Amlodipine Besylate (Norvasc) 5 mg PO Q12 [facility] Last Admin: 11/17/16 21:52 Dose: Not Given Atorvastatin Calcium (Lipitor) 10 mg PO DAILY [facility] Last Admin: 11/17/16 08:47 Dose: 10 mg Donepezil HCl (Aricept) 10 mg PO HS [facility] Last Admin: 11/17/16 21:51 Dose: Not Given Dorzolamide HCl (Trusopt) 1 drop OD BID [facility] Last Admin: 11/17/16 18:51 Dose: 1 drop Gabapentin (Neurontin) 100 mg GT HS [facility] Last Admin: 11/17/16 21:52 Dose: Not Given Heparin Sodium (Porcine) (Heparin) 5,000 units SC Q12 [facility] PRN Reason: Protocol Last Admin: 11/17/16 09:43 Dose: 5,000 units Hydralazine HCl (Apresoline) 25 mg PO BID [facility] Last Admin: 11/17/16 17:02 Dose: 25 mg Hydralazine HCl (Apresoline) 20 mg IV Q6 PRN PRN Reason: Systolic Blood Pressure Last Admin: 11/18/16 05:49 Dose: 20 mg Azithromycin 500 mg/ Sodium (Chloride) 250 mls @ 250 mls/hr IVPB DAILY [facility] Last Admin: 11/17/16 08:53 Dose: 250 mls/hr Piperacillin Sod/Tazobactam (Sod 2.25 gm/ Sodium Chloride) 100 mls @ 100 mls/ hr IVPB Q8 [facility] Last Admin: 11/18/16 04:05 Dose: 100 mls/hr Vancomycin HCl 500 mg/ Sodium (Chloride) 100 mls @ 100 mls/hr IVPB QOTHERDAY [facility] Last Admin: 11/16/16 09:09 Dose: 100 mls/hr Insulin Detemir (Levemir) 8 units SC [facility] Last Admin: 11/17/16 21:53 Dose: Not Given Latanoprost (Xalatan Opht) 1 drop OU DAILY [facility] Last Admin: 11/17/16 09:04 Dose: 1 drop Levetiracetam (Keppra) 500 mg PO BID [facility] Last Admin: 11/17/16 17:02 Dose: 500 mg Metoprolol Tartrate (Lopressor) 50 mg PO Q12H [facility] Last Admin: 11/17/16 17:06 Dose: 50 mg Nystatin/Triamcinolone Acetonide (Mycolog Ii) 1 applic TOP TID [facility] Last Admin: 11/17/16 17:05 Dose: 1 applic Pantoprazole Sodium (Protonix Ec Tab) 40 mg PO DAILY [facility] Last Admin: 11/17/16 08:45 Dose: 40 mg Sennosides (Senokot Tab) 8.6 mg PO [facility] Last Admin: 11/17/16 21:53 Dose: Not Given Sodium Polystyrene Sulfonate (Kayexalate Oral Susp) 15 gm PO DAILY [facility] - Labs Labs: 11/17/16 08:45 11/18/16 06:01 PT 11.3 Seconds (9.8-13.1) 11/13/16 12:15 INR 1.1 (0.9-1.2) 11/13/16 12:15 APTT 24.6 Seconds (25.6-37.1) L 11/13/16 12:15 - Constitutional Appears: No Acute Distress - Head Exam Head Exam: ATRAUMATIC, NORMAL INSPECTION, NORMOCEPHALIC - Eye Exam Eye Exam: EOMI, Normal appearance, PERRL Pupil Exam: NORMAL ACCOMODATION, PERRL - ENT Exam ENT Exam: Mucous Membranes Moist, Normal Exam - Neck Exam Neck Exam: Full ROM, Normal Inspection. absent: Lymphadenopathy - Respiratory Exam Respiratory Exam: Decreased Breath Sounds, NORMAL BREATHING PATTERN - Cardiovascular Exam Cardiovascular Exam: REGULAR RHYTHM, +S1, +S2. absent: Murmur - GI/Abdominal Exam GI & Abdominal Exam: Soft, Normal Bowel Sounds. absent: Tenderness - Rectal Exam Rectal Exam: NORMAL INSPECTION - Extremities Exam Extremities Exam: Full ROM, Normal Capillary Refill, Normal Inspection. absent : Joint Swelling, Pedal Edema - Back Exam Back Exam: NORMAL INSPECTION - Neurological Exam Neurological Exam: Alert, Awake, CN II-XII Intact, Normal Gait, Oriented x3 - Psychiatric Exam Psychiatric exam: Normal Affect, Normal Mood - Skin Skin Exam: Dry, Intact, Normal Color, Warm Assessment and Plan - Assessment and Plan (Free Text) Assessment: PNEUMONIA WITH PLEURAL REACTION IMPROVED Plan: AGREE WITH PRESENT RX
[2016-11-18] MEDS ORDERED: Sod Polystyrene Sulf 15 gm/60 ml Oral Susp PO SCH (09:00)
[2016-11-18] MEDS: Azithromycin 500 MG in Sodium Chloride 0.9% 250 ML IVPB SCH (11:28)
--- NOTE | 2016-11-18 11:28 | CP.PCM.PN ---
Subjective - Date & Time of Evaluation Date of Evaluation: 11/18/16 Time of Evaluation: 11:22 - Subjective Subjective: Patient agitated; complaining of bilateral foot pain; Objective - Vital Signs/Intake and Output Vital Signs (last 24 hours): Temp Pulse Resp BP Pulse Ox 97.9 F 91 H 20 204/83 H 98 11/18/16 06:01 11/18/16 06:01 11/18/16 06:01 11/18/16 06:01 11/18/16 06:01 - Medications Medications: Current Medications Acetaminophen (Tylenol 325mg Tab) 650 mg PO Q4H PRN PRN Reason: Temp >100 Albuterol Sulfate (Albuterol 0.083% Inhal Marlin (2.5 Mg/3 Ml) Ud) 2.5 mg IH Q6H PRN PRN Reason: Shortness of Breath Last Admin: 11/14/16 21:45 Dose: 2.5 mg Allopurinol (Zyloprim) 100 mg PO DAILY [facility] Last Admin: 11/17/16 08:45 Dose: 100 mg Amlodipine Besylate (Norvasc) 5 mg PO Q12 [facility] Last Admin: 11/17/16 21:52 Dose: Not Given Atorvastatin Calcium (Lipitor) 10 mg PO DAILY [facility] Last Admin: 11/17/16 08:47 Dose: 10 mg Carvedilol (Coreg) 12.5 mg PO Q12 [facility] Donepezil HCl (Aricept) 10 mg PO HS [facility] Last Admin: 11/17/16 21:51 Dose: Not Given Dorzolamide HCl (Trusopt) 1 drop OD BID [facility] Last Admin: 11/17/16 18:51 Dose: 1 drop Gabapentin (Neurontin) 100 mg GT HS [facility] Last Admin: 11/17/16 21:52 Dose: Not Given Heparin Sodium (Porcine) (Heparin) 5,000 units SC Q12 [facility] PRN Reason: Protocol Last Admin: 11/17/16 09:43 Dose: 5,000 units Hydralazine HCl (Apresoline) 25 mg PO BID [facility] Last Admin: 11/17/16 17:02 Dose: 25 mg Hydralazine HCl (Apresoline) 20 mg IV Q6 PRN PRN Reason: Systolic Blood Pressure Last Admin: 11/18/16 05:49 Dose: 20 mg Azithromycin 500 mg/ Sodium (Chloride) 250 mls @ 250 mls/hr IVPB DAILY [facility] Last Admin: 11/17/16 08:53 Dose: 250 mls/hr Piperacillin Sod/Tazobactam (Sod 2.25 gm/ Sodium Chloride) 100 mls @ 100 mls/ hr IVPB Q8 [facility] Last Admin: 11/18/16 04:05 Dose: 100 mls/hr Vancomycin HCl 500 mg/ Sodium (Chloride) 100 mls @ 100 mls/hr IVPB QOTHERDAY [facility] Last Admin: 11/16/16 09:09 Dose: 100 mls/hr Insulin Detemir (Levemir) 8 units SC [facility] Last Admin: 11/17/16 21:53 Dose: Not Given Latanoprost (Xalatan Opht) 1 drop OU DAILY [facility] Last Admin: 11/17/16 09:04 Dose: 1 drop Levetiracetam (Keppra) 500 mg PO BID [facility] Last Admin: 11/17/16 17:02 Dose: 500 mg Nystatin/Triamcinolone Acetonide (Mycolog Ii) 1 applic TOP TID [facility] Last Admin: 11/17/16 17:05 Dose: 1 applic Pantoprazole Sodium (Protonix Ec Tab) 40 mg PO DAILY [facility] Last Admin: 11/17/16 08:45 Dose: 40 mg Sennosides (Senokot Tab) 8.6 mg PO [facility] Last Admin: 11/17/16 21:53 Dose: Not Given Sodium Polystyrene Sulfonate (Kayexalate Oral Susp) 15 gm PO DAILY [facility] - Labs Labs: 11/17/16 08:45 11/18/16 06:01 PT 11.3 Seconds (9.8-13.1) 11/13/16 12:15 INR 1.1 (0.9-1.2) 11/13/16 12:15 APTT 24.6 Seconds (25.6-37.1) L 11/13/16 12:15 - Constitutional Appears: Agitated - Head Exam Head Exam: NORMAL INSPECTION - Eye Exam Eye Exam: Normal appearance - Respiratory Exam Additional comments: Mildly decreased R basal sounds; otherwise clear; - Cardiovascular Exam Cardiovascular Exam: Irregular Rhythm, +S1, +S2. absent: Gallop - GI/Abdominal Exam GI & Abdominal Exam: Soft. absent: Distended - Exam Exam: absent: Bladder Distension - Extremities Exam Additional comments: no leg edema; - Neurological Exam Neurological Exam: Alert, Awake - Psychiatric Exam Psychiatric exam: Agitated - Skin Skin Exam: Normal Color, Warm. absent: Cyanosis Assessment and Plan (1) Hyperkalemia Assessment & Plan: Resolved; due to high dietary K intake in setting of advanced renal insufficiency; was on kayexalate 30 g twice weekly at [place]; should likely be 3 times per week; Status: Acute (2) CKD (chronic kidney disease) stage 4, GFR 15-29 ml/min Assessment & Plan: Likely secondary to DM and renovascular disease; renal function relatively stable; needs outpatient f/u; Status: Chronic (3) Anemia Assessment & Plan: Hgb stable; may need EPO as outpatient; Status: Acute (4) Hypertensive CKD (chronic kidney disease) Assessment & Plan: BP markedly elevated but patient agitated and complaining of foot pain; records indicate fluctuating BP control in the past as well; changing metoprolol 50 mg bid to coreg 12.5 mg bid; hydralazine 25 mg bid already added to norvasc 5 mg bid; continue; needs adequate pain control; need to re-assess BP when patient calm; no need for diuretic for now; Status: Acute (5) Chronic kidney disease-mineral and bone disorder Assessment & Plan: Phos only mildly elevated; monitor periodically; Status: Chronic (6) Pneumonia Assessment & Plan: On zosyn 2.25 g q8h, azithro and vanco; vanco trough low; if redosing, need to monitor trough level; other abx with no further renal dose adjustment needed; Status: Acute (7) Azotemia Assessment & Plan: Improving after decreasing rate of high protein tube feed (ie. nepro); unclear how much PO intake patient actually has; if patient is almost entirely dependent on tube feeds, will need to switch to a lower protein formulation ( although K content will increase and so may need more kayexalate); Status: Acute
[2016-11-18] MEDS: levETIRAcetam 100 mg/ml (5ml) Oral Syringe PO SCH (11:30)
[2016-11-18] MEDS: Pantoprazole 40 mg EC Tab PO SCH (11:31)
[2016-11-18] MEDS: Mycolog II CREAM TOP SCH ×2 (11:44→12:07)
[2016-11-18] MEDS: Dorzolamide 2% Ophth Soln OD SCH (11:44)
[2016-11-18] MEDS: Latanoprost 0.005% Opht SOUTION OU SCH (11:44)
--- NOTE | 2016-11-18 13:04 | CP.PCM.PN ---
Subjective - Date & Time of Evaluation Date of Evaluation: 11/18/16 Time of Evaluation: 13:04 - Subjective Subjective: ID Note- Pt. seen and examined today. no new events overnight. no complaints. less agitated. Objective - Vital Signs/Intake and Output Vital Signs (last 24 hours): Temp Pulse Resp BP Pulse Ox 98.5 F 91 H 20 120/70 99 11/18/16 12:00 11/18/16 12:00 11/18/16 12:00 11/18/16 11:57 11/18/16 12:00 - Medications Medications: Current Medications Acetaminophen (Tylenol 325mg Tab) 650 mg PO Q4H PRN PRN Reason: Temp >100 Albuterol Sulfate (Albuterol 0.083% Inhal Marlin (2.5 Mg/3 Ml) Ud) 2.5 mg IH Q6H PRN PRN Reason: Shortness of Breath Last Admin: 11/14/16 21:45 Dose: 2.5 mg Allopurinol (Zyloprim) 100 mg PO DAILY [facility] Last Admin: 11/18/16 11:30 Dose: 100 mg Amlodipine Besylate (Norvasc) 5 mg PO Q12 [facility] Last Admin: 11/18/16 11:31 Dose: 5 mg Aspirin (Aspirin) 325 mg PO DAILY [facility] Atorvastatin Calcium (Lipitor) 10 mg PO DAILY [facility] Last Admin: 11/18/16 11:32 Dose: 10 mg Carvedilol (Coreg) 12.5 mg PO Q12 [facility] Last Admin: 11/18/16 11:57 Dose: 12.5 mg Donepezil HCl (Aricept) 10 mg PO HS [facility] Last Admin: 11/17/16 21:51 Dose: Not Given Dorzolamide HCl (Trusopt) 1 drop OD BID [facility] Last Admin: 11/18/16 11:44 Dose: Not Given Gabapentin (Neurontin) 100 mg GT HS [facility] Last Admin: 11/17/16 21:52 Dose: Not Given Heparin Sodium (Porcine) (Heparin) 5,000 units SC Q12 [facility] PRN Reason: Protocol Last Admin: 11/17/16 09:43 Dose: 5,000 units Hydralazine HCl (Apresoline) 25 mg PO BID [facility] Last Admin: 11/18/16 11:30 Dose: 25 mg Hydralazine HCl (Apresoline) 20 mg IV Q6 PRN PRN Reason: Systolic Blood Pressure Last Admin: 11/18/16 05:49 Dose: 20 mg Azithromycin 500 mg/ Sodium (Chloride) 250 mls @ 250 mls/hr IVPB DAILY [facility] Last Admin: 11/18/16 11:28 Dose: 250 mls/hr Piperacillin Sod/Tazobactam (Sod 2.25 gm/ Sodium Chloride) 100 mls @ 100 mls/ hr IVPB Q8 [facility] Last Admin: 11/18/16 11:29 Dose: 100 mls/hr Vancomycin HCl 500 mg/ Sodium (Chloride) 100 mls @ 100 mls/hr IVPB QOTHERDAY [facility] Last Admin: 11/18/16 11:32 Dose: 100 mls/hr Insulin Detemir (Levemir) 8 units SC [facility] Last Admin: 11/17/16 21:53 Dose: Not Given Latanoprost (Xalatan Opht) 1 drop OU DAILY [facility] Last Admin: 11/18/16 11:44 Dose: Not Given Levetiracetam (Keppra) 500 mg PO BID [facility] Last Admin: 11/18/16 11:30 Dose: 500 mg Nystatin/Triamcinolone Acetonide (Mycolog Ii) 1 applic TOP TID [facility] Last Admin: 11/18/16 12:07 Dose: Not Given Pantoprazole Sodium (Protonix Ec Tab) 40 mg PO DAILY [facility] Last Admin: 11/18/16 11:31 Dose: 40 mg Sennosides (Senokot Tab) 8.6 mg PO [facility] Last Admin: 11/17/16 21:53 Dose: Not Given Sodium Polystyrene Sulfonate (Kayexalate Oral Susp) 30 gm PO TUTHSA [facility] - Labs Labs: - Additional Findings Additional findings: - Constitutional Appears: No Acute Distress, Chronically Ill - Head Exam Head Exam: ATRAUMATIC - Eye Exam Eye Exam: EOMI - ENT Exam Additional comments: dry oral mucosa - Neck Exam Neck exam: Positive for: Full Rom - Respiratory Exam Respiratory Exam: NORMAL BREATHING PATTERN Additional comments: slightly decreased breath sounds at left base no wheezing - Cardiovascular Exam Cardiovascular Exam: RRR, +S1, +S2 - GI/Abdominal Exam GI & Abdominal Exam: Normal Bowel Sounds, Soft Additional comments: NT, ND - Extremities Exam Additional comments: left heel old eschar dry, no discharge, no malodor - Neurological Exam Additional comments: more awake today Laboratory Results - last 72 hr 11/14/16 11/15/16 11/15/16 11:51 16:12 21:42 WBC RBC Hgb Hct MCV MCH MCHC RDW Plt Count Sodium Potassium Chloride Carbon Dioxide Anion Gap BUN Creatinine Est GFR ( Amer) Est GFR (Non-Af Amer) POC Glucose (mg/dL) 238 H 229 H Random Glucose Calcium Total Bilirubin AST ALT Alkaline Phosphatase Total Protein Albumin Globulin Albumin/Globulin Ratio Vancomycin Trough Mycoplasma pneumon IgM 35 11/16/16 11/16/16 11/16/16 05:53 08:30 08:30 WBC 10.4 RBC 3.26 L Hgb 10.4 L Hct 30.8 L MCV 94.7 MCH 31.8 H MCHC 33.6 RDW 16.8 H Plt Count 165 Sodium 141 Potassium 5.3 H Chloride 106 Carbon Dioxide 28 Anion Gap 12 BUN 92 H Creatinine 2.5 H Est GFR ( Amer) 22 Est GFR (Non-Af Amer) 18 POC Glucose (mg/dL) 189 H Random Glucose 151 H Calcium 9.5 Total Bilirubin 0.5 AST 30 ALT 51 Alkaline Phosphatase 97 Total Protein 7.4 Albumin 3.8 Globulin 3.6 Albumin/Globulin Ratio 1.1 Vancomycin Trough Mycoplasma pneumon IgM 11/16/16 11/16/16 11/16/16 10:53 16:14 21:41 WBC RBC Hgb Hct MCV MCH MCHC RDW Plt Count Sodium Potassium Chloride Carbon Dioxide Anion Gap BUN Creatinine Est GFR ( Amer) Est GFR (Non-Af Amer) POC Glucose (mg/dL) 169 H 122 H 125 H Random Glucose Calcium Total Bilirubin AST ALT Alkaline Phosphatase Total Protein Albumin Globulin Albumin/Globulin Ratio Vancomycin Trough Mycoplasma pneumon IgM 11/17/16 11/17/16 11/17/16 05:30 08:45 08:45 WBC 9.1 RBC 3.48 L Hgb 11.0 L Hct 33.1 L MCV 95.3 MCH 31.7 H MCHC 33.3 RDW 17.0 H Plt Count 160 Sodium 143 Potassium 4.8 Chloride 106 Carbon Dioxide 28 Anion Gap 14 BUN 78 H Creatinine 2.3 H Est GFR ( Amer) 24 Est GFR (Non-Af Amer) 20 POC Glucose (mg/dL) 141 H Random Glucose 140 H Calcium 9.3 Total Bilirubin AST ALT Alkaline Phosphatase Total Protein Albumin Globulin Albumin/Globulin Ratio Vancomycin Trough Mycoplasma pneumon IgM 11/17/16 11/17/16 11/17/16 11:24 16:30 21:41 WBC RBC Hgb Hct MCV MCH MCHC RDW Plt Count Sodium Potassium Chloride Carbon Dioxide Anion Gap BUN Creatinine Est GFR ( Amer) Est GFR (Non-Af Amer) POC Glucose (mg/dL) 148 H 167 H 176 H Random Glucose Calcium Total Bilirubin AST ALT Alkaline Phosphatase Total Protein Albumin Globulin Albumin/Globulin Ratio Vancomycin Trough Mycoplasma pneumon IgM 11/18/16 11/18/16 11/18/16 05:48 06:01 06:03 WBC RBC Hgb Hct MCV MCH MCHC RDW Plt Count Sodium 144 Potassium 4.0 Chloride 109 H Carbon Dioxide 24 Anion Gap 15 BUN 63 H Creatinine 2.1 H Est GFR ( Amer) 27 Est GFR (Non-Af Amer) 22 POC Glucose (mg/dL) 137 H Random Glucose 138 H Calcium 9.5 Total Bilirubin AST ALT Alkaline Phosphatase Total Protein Albumin Globulin Albumin/Globulin Ratio Vancomycin Trough 5.6 Mycoplasma pneumon IgM 11/18/16 12:05 WBC RBC Hgb Hct MCV MCH MCHC RDW Plt Count Sodium Potassium Chloride Carbon Dioxide Anion Gap BUN Creatinine Est GFR ( Amer) Est GFR (Non-Af Amer) POC Glucose (mg/dL) 138 H Random Glucose Calcium Total Bilirubin AST ALT Alkaline Phosphatase Total Protein Albumin Globulin Albumin/Globulin Ratio Vancomycin Trough Mycoplasma pneumon IgM Microbiology 11/13/16 12:45 Blood Blood Culture - Preliminary NO GROWTH AFTER 4 DAYS 11/13/16 13:50 Blood Blood Culture - Preliminary NO GROWTH AFTER 4 DAYS 11/15/16 14:50 Nose MRSA Culture (Admit) - Final MRSA NOT DETECTED Sex / Age : F / [id number] Creator : Hernandez Landin MD Dictator : Hernandez Landin MD Biological Science Technician Fish : [employer] Grinder : Hernandez Landin MD Approver2 : Report Date : 11/17/2016 07:33:14 My Comment : PROCEDURE: CHEST RADIOGRAPH, 1 VIEW HISTORY: ff up pneumonia COMPARISON: 11/14/2016 FINDINGS: LUNGS: Slight improvement in bilateral interstitial changes. PLEURA: No pneumothorax or pleural fluid seen. CARDIOVASCULAR: Normal. OSSEOUS STRUCTURES: No significant abnormalities. VISUALIZED UPPER ABDOMEN: Normal. OTHER FINDINGS: None. IMPRESSION: Slight improvement in bilateral interstitial changes. Assessment and Plan (1) LLL pneumonia Status: Acute (2) CAD (coronary artery disease) Status: Chronic (3) Acute on chronic renal insufficiency Status: Acute (4) Anemia Status: Acute (5) CAD S/P percutaneous coronary angioplasty Status: Acute - Assessment and Plan (Free Text) Assessment: A/P- 86 year old female with multiple medical conditions including CAD, CVA, CKD, DM II, Dementia admitted with chest pain/epigastric pain found to have LLL pneumonia. afebrile normal wbc blood cx- neg x 2 plan- await sputum cx. continue with IV zosyn for HAP. day #5. continue with vanco for HAP every other day dosing 500mg every other day. keep trough <15. can d/c zithromax today. monitor aspiration precautions.
--- NOTE | 2016-11-18 15:11 | CP.PCM.PN ---
Subjective - Date & Time of Evaluation Date of Evaluation: 11/17/16 Time of Evaluation: 20:00 - Subjective Subjective: no overnight events Objective - Vital Signs/Intake and Output Vital Signs (last 24 hours): Temp Pulse Resp BP Pulse Ox 98.5 F 91 H 20 128/78 99 11/18/16 12:00 11/18/16 12:00 11/18/16 12:00 11/18/16 13:00 11/18/16 12:00 - Medications Medications: Current Medications Acetaminophen (Tylenol 325mg Tab) 650 mg PO Q4H PRN PRN Reason: Temp >100 Albuterol Sulfate (Albuterol 0.083% Inhal Marlin (2.5 Mg/3 Ml) Ud) 2.5 mg IH Q6H PRN PRN Reason: Shortness of Breath Last Admin: 11/14/16 21:45 Dose: 2.5 mg Allopurinol (Zyloprim) 100 mg PO DAILY [facility] Last Admin: 11/18/16 11:30 Dose: 100 mg Amlodipine Besylate (Norvasc) 5 mg PO Q12 [facility] Last Admin: 11/18/16 11:31 Dose: 5 mg Aspirin (Aspirin) 325 mg PO DAILY [facility] Atorvastatin Calcium (Lipitor) 10 mg PO DAILY [facility] Last Admin: 11/18/16 11:32 Dose: 10 mg Carvedilol (Coreg) 12.5 mg PO Q12 [facility] Last Admin: 11/18/16 11:57 Dose: 12.5 mg Donepezil HCl (Aricept) 10 mg PO HS [facility] Last Admin: 11/17/16 21:51 Dose: Not Given Dorzolamide HCl (Trusopt) 1 drop OD BID [facility] Last Admin: 11/18/16 11:44 Dose: Not Given Gabapentin (Neurontin) 100 mg GT HS [facility] Last Admin: 11/17/16 21:52 Dose: Not Given Heparin Sodium (Porcine) (Heparin) 5,000 units SC Q12 [facility] PRN Reason: Protocol Last Admin: 11/17/16 09:43 Dose: 5,000 units Hydralazine HCl (Apresoline) 25 mg PO BID [facility] Last Admin: 11/18/16 11:30 Dose: 25 mg Hydralazine HCl (Apresoline) 20 mg IV Q6 PRN PRN Reason: Systolic Blood Pressure Last Admin: 11/18/16 05:49 Dose: 20 mg Azithromycin 500 mg/ Sodium (Chloride) 250 mls @ 250 mls/hr IVPB DAILY [facility] Last Admin: 11/18/16 11:28 Dose: 250 mls/hr Piperacillin Sod/Tazobactam (Sod 2.25 gm/ Sodium Chloride) 100 mls @ 100 mls/ hr IVPB Q8 [facility] Last Admin: 11/18/16 11:29 Dose: 100 mls/hr Vancomycin HCl 500 mg/ Sodium (Chloride) 100 mls @ 100 mls/hr IVPB QOTHERDAY [facility] Last Admin: 11/18/16 11:32 Dose: 100 mls/hr Insulin Detemir (Levemir) 8 units SC [facility] Last Admin: 11/17/16 21:53 Dose: Not Given Latanoprost (Xalatan Opht) 1 drop OU DAILY [facility] Last Admin: 11/18/16 11:44 Dose: Not Given Levetiracetam (Keppra) 500 mg PO BID [facility] Last Admin: 11/18/16 11:30 Dose: 500 mg Nystatin/Triamcinolone Acetonide (Mycolog Ii) 1 applic TOP TID [facility] Last Admin: 11/18/16 12:07 Dose: Not Given Pantoprazole Sodium (Protonix Ec Tab) 40 mg PO DAILY [facility] Last Admin: 11/18/16 11:31 Dose: 40 mg Sennosides (Senokot Tab) 8.6 mg PO [facility] Last Admin: 11/17/16 21:53 Dose: Not Given Sodium Polystyrene Sulfonate (Kayexalate Oral Susp) 30 gm PO TUTHSA [facility] - Labs Labs: 11/17/16 08:45 11/18/16 06:01 PT 11.3 Seconds (9.8-13.1) 11/13/16 12:15 INR 1.1 (0.9-1.2) 11/13/16 12:15 APTT 24.6 Seconds (25.6-37.1) L 11/13/16 12:15 - GI/Abdominal Exam GI & Abdominal Exam: Soft, Normal Bowel Sounds Assessment and Plan - Assessment and Plan (Free Text) Assessment: 86 yo female with dysphagia peg working supportive care
--- NOTE | 2016-11-18 15:12 | CP.PCM.PN ---
Subjective - Date & Time of Evaluation Date of Evaluation: 11/18/16 Time of Evaluation: 15:00 - Subjective Subjective: no overnight events Objective - Vital Signs/Intake and Output Vital Signs (last 24 hours): Temp Pulse Resp BP Pulse Ox 98.5 F 91 H 20 128/78 99 11/18/16 12:00 11/18/16 12:00 11/18/16 12:00 11/18/16 13:00 11/18/16 12:00 - Medications Medications: Current Medications Acetaminophen (Tylenol 325mg Tab) 650 mg PO Q4H PRN PRN Reason: Temp >100 Albuterol Sulfate (Albuterol 0.083% Inhal Marlin (2.5 Mg/3 Ml) Ud) 2.5 mg IH Q6H PRN PRN Reason: Shortness of Breath Last Admin: 11/14/16 21:45 Dose: 2.5 mg Allopurinol (Zyloprim) 100 mg PO DAILY [facility] Last Admin: 11/18/16 11:30 Dose: 100 mg Amlodipine Besylate (Norvasc) 5 mg PO Q12 [facility] Last Admin: 11/18/16 11:31 Dose: 5 mg Aspirin (Aspirin) 325 mg PO DAILY [facility] Atorvastatin Calcium (Lipitor) 10 mg PO DAILY [facility] Last Admin: 11/18/16 11:32 Dose: 10 mg Carvedilol (Coreg) 12.5 mg PO Q12 [facility] Last Admin: 11/18/16 11:57 Dose: 12.5 mg Donepezil HCl (Aricept) 10 mg PO HS [facility] Last Admin: 11/17/16 21:51 Dose: Not Given Dorzolamide HCl (Trusopt) 1 drop OD BID [facility] Last Admin: 11/18/16 11:44 Dose: Not Given Gabapentin (Neurontin) 100 mg GT HS [facility] Last Admin: 11/17/16 21:52 Dose: Not Given Heparin Sodium (Porcine) (Heparin) 5,000 units SC Q12 [facility] PRN Reason: Protocol Last Admin: 11/17/16 09:43 Dose: 5,000 units Hydralazine HCl (Apresoline) 25 mg PO BID [facility] Last Admin: 11/18/16 11:30 Dose: 25 mg Hydralazine HCl (Apresoline) 20 mg IV Q6 PRN PRN Reason: Systolic Blood Pressure Last Admin: 11/18/16 05:49 Dose: 20 mg Azithromycin 500 mg/ Sodium (Chloride) 250 mls @ 250 mls/hr IVPB DAILY [facility] Last Admin: 11/18/16 11:28 Dose: 250 mls/hr Piperacillin Sod/Tazobactam (Sod 2.25 gm/ Sodium Chloride) 100 mls @ 100 mls/ hr IVPB Q8 [facility] Last Admin: 11/18/16 11:29 Dose: 100 mls/hr Vancomycin HCl 500 mg/ Sodium (Chloride) 100 mls @ 100 mls/hr IVPB QOTHERDAY [facility] Last Admin: 11/18/16 11:32 Dose: 100 mls/hr Insulin Detemir (Levemir) 8 units SC [facility] Last Admin: 11/17/16 21:53 Dose: Not Given Latanoprost (Xalatan Opht) 1 drop OU DAILY [facility] Last Admin: 11/18/16 11:44 Dose: Not Given Levetiracetam (Keppra) 500 mg PO BID [facility] Last Admin: 11/18/16 11:30 Dose: 500 mg Nystatin/Triamcinolone Acetonide (Mycolog Ii) 1 applic TOP TID [facility] Last Admin: 11/18/16 12:07 Dose: Not Given Pantoprazole Sodium (Protonix Ec Tab) 40 mg PO DAILY [facility] Last Admin: 11/18/16 11:31 Dose: 40 mg Sennosides (Senokot Tab) 8.6 mg PO [facility] Last Admin: 11/17/16 21:53 Dose: Not Given Sodium Polystyrene Sulfonate (Kayexalate Oral Susp) 30 gm PO TUTHSA [facility] - Labs Labs: 11/17/16 08:45 11/18/16 06:01 PT 11.3 Seconds (9.8-13.1) 11/13/16 12:15 INR 1.1 (0.9-1.2) 11/13/16 12:15 APTT 24.6 Seconds (25.6-37.1) L 11/13/16 12:15 - GI/Abdominal Exam GI & Abdominal Exam: Soft, Normal Bowel Sounds Assessment and Plan - Assessment and Plan (Free Text) Assessment: 86 yo female with dysphagia peg working supportive care
[2016-11-18 15:37] VITALS: BP 136/64; PULSE 88; TEMP 97.8; O2SAT 97
--- NOTE | 2016-11-18 16:27 | CP.PCM.DIS ---
Provider - Provider Date of Admission: 11/13/16 15:47 Attending physician: Héctor Gonzalez MD Primary care physician: Dr. Montemayor Consults: pulmonary consult Id consult Nephro consult Gi consult Time Spent in preparation of Discharge (in minutes): 20 Hospital Course - Lab Results Lab Results: Micro Results 11/15/16 14:50 Nose MRSA Culture (Admit) - Final MRSA NOT DETECTED Most Recent Lab Values WBC 9.1 K/uL (4.8-10.8) 11/17/16 08:45 RBC 3.48 Mil/uL (3.80-5.20) L 11/17/16 08:45 Hgb 11.0 g/dL (12.0-16.0) L 11/17/16 08:45 Hct 33.1 % (34.0-47.0) L 11/17/16 08:45 MCV 95.3 fl (81.0-99.0) 11/17/16 08:45 MCH 31.7 pg (27.0-31.0) H 11/17/16 08:45 MCHC 33.3 g/dL (33.0-37.0) 11/17/16 08:45 RDW 17.0 % (11.5-14.5) H 11/17/16 08:45 Plt Count 160 K/uL (130-400) 11/17/16 08:45 MPV 10.4 fl (7.2-11.7) 11/15/16 04:20 Neut % (Auto) 95.1 % (50.0-75.0) H 11/15/16 04:20 Lymph % (Auto) 3.7 % (20.0-40.0) L 11/15/16 04:20 Anderson % (Auto) 0.8 % (0.0-10.0) 11/15/16 04:20 Eos % (Auto) 0.0 % (0.0-4.0) 11/15/16 04:20 Baso % (Auto) 0.4 % (0.0-2.0) 11/15/16 04:20 Neut # 8.8 K/uL (1.8-7.0) H 11/15/16 04:20 Lymph # 0.3 K/uL (1.0-4.3) L 11/15/16 04:20 Anderson # 0.1 K/uL (0.0-0.8) 11/15/16 04:20 Eos # 0.0 K/uL (0.0-0.7) 11/15/16 04:20 Baso # 0.0 K/uL (0.0-0.2) 11/15/16 04:20 Neutrophils % (Manual) 93 % (42-75) H 11/15/16 04:20 Lymphocytes % (Manual) 5 % (20-50) L 11/15/16 04:20 Monocytes % (Manual) 2 % (0-10) 11/15/16 04:20 Platelet Estimate Normal (NORMAL) 11/15/16 04:20 Large Platelets Present 11/13/16 12:15 Hypochromasia (manual) Slight 11/13/16 12:15 Poikilocytosis (manual Slight 11/15/16 04:20 Anisocytosis (manual) Slight 11/15/16 04:20 Tear Drop Cells Slight 11/15/16 04:20 Ovalocytes Slight 11/13/16 12:15 Schistocytes Slight 11/13/16 12:15 PT 11.3 Seconds (9.8-13.1) 11/13/16 12:15 INR 1.1 (0.9-1.2) 11/13/16 12:15 APTT 24.6 Seconds (25.6-37.1) L 11/13/16 12:15 Sodium 144 mmol/l (132-148) 11/18/16 06:01 Potassium 4.0 MMOL/L (3.6-5.0) 11/18/16 06:01 Chloride 109 mmol/L (98-107) H 11/18/16 06:01 Carbon Dioxide 24 mmol/L (22-30) 11/18/16 06:01 Anion Gap 15 (10-20) 11/18/16 06:01 BUN 63 mg/dl (7-17) H 11/18/16 06:01 Creatinine 2.1 mg/dL (0.7-1.2) H 11/18/16 06:01 Est GFR ( Amer) 27 11/18/16 06:01 Est GFR (Non-Af Amer) 11/18/16 06:01 POC Glucose (mg/dL) 138 mg/dL (65-110) H 11/18/16 12:05 Random Glucose 138 mg/dL (65-105) H 11/18/16 06:01 Hemoglobin A1c 6.2 % (4.2-6.5) 11/14/16 06:10 Uric Acid 6.8 mg/Dl (2.2-7.5) 11/14/16 06:10 Calcium 9.5 mg/dL (8.4-10.2) 11/18/16 06:01 Phosphorus 5.3 mg/dl (2.5-4.5) H 11/15/16 04:20 Iron 56 ug/dL (37-170) 11/14/16 06:10 TIBC 291 ug/dL (250-450) 11/14/16 06:10 % Saturation 19 % (20-55) L 11/14/16 06:10 Ferritin 54.2 ng/mL 11/14/16 06:10 Total Bilirubin 0.5 mg/dl (0.2-1.3) 11/16/16 08:30 AST 30 U/L (14-36) 11/16/16 08:30 ALT 51 U/L (9-52) 11/16/16 08:30 Alkaline Phosphatase 97 U/L (38-126) 11/16/16 08:30 Total Creatine Kinase 44 U/L (30-135) 11/14/16 06:10 Troponin I 0.0410 ng/mL (0.00-0.120) 11/14/16 21:25 Total Protein 7.4 G/DL (6.3-8.2) 11/16/16 08:30 Albumin 3.8 g/dL (3.5-5.0) 11/16/16 08:30 Globulin 3.6 gm/dL (2.2-3.9) 11/16/16 08:30 Albumin/Globulin Ratio 1.1 (1.0-2.1) 11/16/16 08:30 Lipase 222 U/L (23-300) 11/13/16 12:15 TSH 3rd Generation 0.60 mIU/ML (0.46-4.68) 11/14/16 06:10 Urine Color Straw (YELLOW) 11/13/16 17:06 Urine Clarity Slighty-cloudy (Clear) 11/13/16 17:06 Urine pH 6.0 (5.0-8.0) 11/13/16 17:06 Ur Specific [place] 1.009 (1.003-1.030) 11/13/16 17:06 Urine Protein 100 mg/dL (NEGATIVE) 11/13/16 17:06 Urine Glucose (UA) 50 mg/dL (Normal) 11/13/16 17:06 Urine Ketones Negative mg/dL (NEGATIVE) 11/13/16 17:06 Urine Blood Negative (NEGATIVE) 11/13/16 17:06 Urine Nitrate Negative (NEGATIVE) 11/13/16 17:06 Urine Bilirubin Negative (NEGATIVE) 11/13/16 17:06 Urine Urobilinogen 0.2-1.0 mg/dL (0.2-1.0) 11/13/16 17:06 Ur Leukocyte Esterase Mod Fernanda/uL (Negative) 11/13/16 17:06 Urine RBC (Auto) 1 /hpf (0-3) 11/13/16 17:06 Urine Microscopic WBC 11 /hpf (0-5) H 11/13/16 17:06 Ur Squamous Epith Cells 2 /hpf (0-5) 11/13/16 17:06 Urine Bacteria Rare (<OCC) 11/13/16 17:06 Ur Random Creatinine 33.5 mg/dL 11/13/16 08:44 U Random Total Protein 2754 mg/g creat (21-161) H 11/13/16 08:44 Urine Creatinine 40 mg/dL (20-320) 11/13/16 07:30 Urine Microalbumin 62.9 mg/dL 11/13/16 07:30 Microalb/Creat Ratio 1573 (<30) H 11/13/16 07:30 Vancomycin Trough 5.6 ug/mL (5.0-10.0) 11/18/16 06:03 Random Vancomycin < 5.0 ug/mL 11/15/16 13:16 Mycoplasma pneumon IgM 35 U/mL (<770) 11/14/16 11:51 Blood Type B POSITIVE 11/14/16 00:15 Antibody Screen Negative 11/14/16 00:15 Crossmatch See Detail 11/14/16 00:15 BBK History Checked Patient has bt 11/14/16 00:15 - Hospital Course Hospital Course: 86y/o lady with known hx of CVA , s/p PEG, Dementia, Seizure Dis, HTN, DM, CKD, Anemia, A Fib, CAD, was brought in from [place] bec of Chest Pain and lethargy. Found to have Pneumonia on CXR. CT of the Abd : Moderate bilateral pleural effusions. Patchy opacity at the left lung base may reflect infiltrate or atelectasis. 9 mm exophytic right lower pole hypodense renal lesion, possibly cyst. Patient was admitted and started on Iv antibiotics, Zosyn, Zithromax and vancomycin . ID , GI, pulmonary, podiatry and nephro were consulted During this admission there was concern for peg malfunctioning so GI was consulted . As per Gi peg is functioning properly but is important to flush continuously after each feeding or peg use to avoid clogging Patient at present at her baseline, demented , agitated at times but hemodynamically stable, afebrile Will discharge patient back to [place] Continue treatment for pneumonia for 4 more days and Vancomycin IV 1.Pneumonia, LLL( HCAP ) Acute started on IV Zosyn, given Vanco 500mg every other day , and Azithro Blood c/s: neg so far Sputum c/s, Legionella, Mycoplasma pending Pulm consulted- Dr Pires ID consulted and is following pt ( Dr Alvarado ) rpt CXR: improvement d/c Zithromax Continue Zosyn for 4 more days and Vancomycin every other day 2. Dehydration Acute IVF hydration Free water per PEG BUN greater than 100 on admission 3. Chronic anemia prob due to renal dis Chronic drop prob dilutional from IVF hydration however need to r/o bleed She was transfused 2 units PRBC ( consent obtained from daughter Prema Marroquin as pt was lethargic and more demented at that time ) GI consulted- Dr Harris No further work up at this point since there is no active bleeding 4. Chest Pain likely pleuritic Chest Pain from PNA, ACS ruled out Trop x 4 negative cont ASA, BB 5 CKD (chronic kidney disease) stage 4, GFR 15-29 ml/min Chronic Prob sec to DM, HTN cont to monitor Renal fxn adjusted meds accdg to GFR d/c Bairon nephro consulted 6.Hyperkalemia, chronic Acute Kayexalate daily Insulin IV was given d/c Miralax Lasix low dose daily 7. Atrial fibrillation, Paroxysmal Chronic not on anticoag prob due to dementia, anemia, seizure , risk of fall cont BB, ASA 8. Toxic metabolic encephalopathy Acute sec to infection pt has hx of dementia- on Aricept 9. HTN (hypertension) uncontrolled Chronic cont Metoprolol and Norvasc added Hydralazine 10. CVA (cerebral vascular accident), history, with residual left hemiparesis Chronic pt has PEG on ASA, statin Pleasure feeds 11. DM2 (diabetes mellitus, type 2) with hyperglycemia Chronic accucheck with coverage increased Levemir 14 units sq glucose prob also high as pt received steroids x 1 dose d/c Januvia as it may worsen renal fxn 12.Seizure Chronic cont Keppra 13. CAD (coronary artery disease) Chronic pt on ASA, BB 14. 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 absent: Rhonchi, Wheezes, Respiratory Distress - Cardiovascular Exam Cardiovascular Exam: Irregular Rhythm. absent: JVD - GI/Abdominal Exam GI & Abdominal Exam: Normal Bowel Sounds, Soft. absent: Distended, Guarding, Rebound, Tenderness - Rectal Exam Rectal Exam: Deferred - Extremities Exam Extremities exam: pedal pulses present Additional comments: left heel dry escar - Neurological Exam Additional comments: demented awake , alert moves all 4 extremities - Psychiatric Exam Psychiatric exam: Agitated - Skin Skin Exam: Dry, Warm Discharge Plan - Discharge Medications Prescriptions: Piperacillin/Tazobact 2.25gm [ZOSYN 2.25 gm in 0.9% 100 ml] 2.25 gm IV Q8 #16 bag Vancomycin/0.9 % Sod Chloride [Vanco 500 mg/100 ml-0.9% NaCl] 500 mg IV MWF #3 froz.piggy - Follow Up Plan Condition: STABLE Disposition: TRANSF TO SNF Patient education suggested?: No Referrals: Ed Montemayor MD [Staff Provider] -
[2016-11-19] MEDS ORDERED: Sod Polystyrene Sulf 15 gm/60 ml Oral Susp PO SCH (11:30)
== END 2016-11-18 18:00 | DRG 193 ==
LOC: H.ER 11:40 → H.ERHOLD 15:47 → H.TEL 18:56
PROC: 3E0F73Z Introduction of Anti-inflammatory into Respiratory Tract, Via Natural or Artificial Opening (ICD-10-PCS; principal; 2016-11-13)
PROC: 30233N1 Transfusion of Nonautologous Red Blood Cells into Peripheral Vein, Percutaneous Approach (ICD-10-PCS; 2016-11-14)
PROC: 3E0G76Z Introduction of Nutritional Substance into Upper GI, Via Natural or Artificial Opening (ICD-10-PCS; 2016-11-14)
DX: J15.9 Unspecified bacterial pneumonia (principal); G92 Toxic encephalopathy; N18.4 Chronic kidney disease, stage 4 (severe); J91.8 Pleural effusion in other conditions classified elsewhere; I48.0 Paroxysmal atrial fibrillation; E11.21 Type 2 diabetes mellitus with diabetic nephropathy; F03.90 Unspecified dementia, unspecified severity, without behavioral disturbance, psychotic disturbance, mood disturbance, and anxiety; E86.0 Dehydration; E11.65 Type 2 diabetes mellitus with hyperglycemia; I12.9 Hypertensive chronic kidney disease with stage 1 through stage 4 chronic kidney disease, or unspecified chronic kidney disease; I69.354 Hemiplegia and hemiparesis following cerebral infarction affecting left non-dominant side; N25.81 Secondary hyperparathyroidism of renal origin; L89.620 Pressure ulcer of left heel, unstageable; D63.1 Anemia in chronic kidney disease; E11.22 Type 2 diabetes mellitus with diabetic chronic kidney disease; E87.5 Hyperkalemia; I48.2 Chronic atrial fibrillation; D50.9 Iron deficiency anemia, unspecified; I25.10 Atherosclerotic heart disease of native coronary artery without angina pectoris; K21.9 Gastro-esophageal reflux disease without esophagitis; I69.391 Dysphagia following cerebral infarction; R13.10 Dysphagia, unspecified; G40.909 Epilepsy, unspecified, not intractable, without status epilepticus; Z93.1 Gastrostomy status; Z98.61 Coronary angioplasty status; Z74.01 Bed confinement status; Z79.4 Long term (current) use of insulin; Z79.82 Long term (current) use of aspirin; Z87.440 Personal history of urinary (tract) infections; Z90.49 Acquired absence of other specified parts of digestive tract

== ENCOUNTER 2016-12-03 23:37 | Inpatient (IN) | payer MEDICARE, MEDICAID ==
[2016-12-03 23:38] VITALS: PULSE 122; BMI 20.7
--- NOTE | 2016-12-04 01:18 | ED PDOC ---
HPI: Chest Pain Time Seen by Provider: 12/03/16 23:41 Chief Complaint (Nursing): Altered Mental Status Chief Complaint (Provider): Chest Pain History Per: Patient, EMS History/Exam Limitations: clinical condition Additional History Per: Family (Daughter), Care Home Additional Complaint(s): 86 year old female brought in by EMS from [facility] with complaints of chest pain and has a past medical history of DM, HTN, and acute on chronic renal insufficiency (no dialysis). EMS states that the fpc noted that the patient was experiencing SOB and chest pain. Upon ED arrival, daughter states that she believes patient has been given multiple doses of Ativan for agitation at the fpc. Patient is unable to provide clear history, but verbalizes that she is not experiencing chest pain at this time. PCP: CÉSAR - Risk Factors PE Risk Factors: Neg: Previous DVT, Previous PE TAD Risk Factors: Pos: Hypertension Past Medical History Reviewed: Historical Data (Patient's history is unclear), Nursing Documentation , Vital Signs Vital Signs: Last Vital Signs Temp 99.7 F H 12/04/16 00:56 Pulse 103 H 12/04/16 02:40 Resp 15 12/03/16 23:47 BP 147/55 L 12/04/16 00:56 Pulse Ox 100 12/04/16 02:40 - Medical History PMH: Anemia, CAD, CVA (left sided weakness), Dementia, Diabetes, HTN, Chronic Kidney Disease, Seizures - Surgical History Surgical History: Appendectomy, Carotid Endarterectomy Other surgeries: G tube - Family History Family History: States: Unknown Family Hx, Diabetes, Hypertension - Living Arrangements Living Arrangements: Care Home/Assist Lvng - Immunization History Hx Tetanus Toxoid Vaccination: Yes Hx Influenza Vaccination: Yes Hx Pneumococcal Vaccination: Yes - Home Medications Home Medications: Ambulatory Orders Medication Instructions Recorded Allopurinol [Zyloprim] 100 mg PEG DAILY 08/05/16 Aspirin [Ecotrin] 325 mg PEG DAILY 09/03/16 Bimatoprost [Lumigan] 1 drop OU HS 09/03/16 Donepezil [Aricept] 10 mg PEG HS 09/03/16 Dorzolamide 2% [Trusopt] 1 drop OD BID 09/03/16 Rosuvastatin Calcium [Crestor] 10 mg PEG HS 09/03/16 amLODIPine [Norvasc] 5 mg PEG Q12 09/03/16 Magnesium Hydroxide [Milk of 30 ml PO DAILY PRN 10/05/16 Magnesia] Acetaminophen [Tylenol 325mg tab] 650 mg PEG Q4H PRN 11/13/16 Acetaminophen [Tylenol 325mg tab] 650 mg PEG Q4H PRN 11/13/16 Albuterol 0.083% [Albuterol 0.083% 2.5 mg IH Q6H PRN 11/13/16 Inhal Marlin (2.5 mg/3 ml) UD] Buprenorphine 1 patch TD Q7D 11/13/16 Gabapentin [Neurontin] 100 mg PEG HS 11/13/16 Menthol [Bengay Ultra Strength] 1 patch TOP DAILY 11/13/16 Metoprolol Tartrate [Lopressor] 50 mg PEG Q12H 11/13/16 Nystatin/Triamcinolone 1 appl TOP TID 11/13/16 [Nystatin/Triamcinolone Cream] Sennosides [Senna] 1 tab GT HS 11/13/16 Sodium Polystyrene Sulfonate 30 gm PEG DAILY 11/13/16 [kayeXALATE Oral Susp] traMADol [Ultram] 50 mg PEG Q6H PRN 11/13/16 Insulin Detemir [Levemir] 8 units SC HS vial 11/18/16 Pantoprazole [Protonix EC Tab] 40 mg PO DAILY ect 11/18/16 Piperacillin/Tazobact 2.25gm 2.25 gm IV Q8 #16 bag 11/18/16 [ZOSYN 2.25 gm in 0.9% 100 ml] Vancomycin/0.9 % Sod Chloride 500 mg IV MWF #3 froz.piggy 11/18/16 [Vanco 500 mg/100 ml-0.9% NaCl] Albuterol/Ipratropium [Duoneb 3 3 ml IH Q6 PRN 12/04/16 MG/3 Ml-0.5 MG/3 Ml 3 Ml] Carvedilol [Coreg] 12.5 mg PEG Q12 12/04/16 Epoetin Calvin [Procrit] 10,000 unit SQ DAILY 12/04/16 Ferrous Sulfate [Iron Drops] 7.5 mg PEG DAILY 12/04/16 LORazepam [Ativan] 0.5 mg PEG Q6 PRN 12/04/16 Ranitidine HCl [Sunmark Acid 150 mg PEG DAILY 12/04/16 [employer]] hydrALAZINE [Apresoline] 25 mg PEG BID 12/04/16 levETIRAcetam [Keppra] 500 mg PEG BID 12/04/16 - Allergies Allergies/Adverse Reactions: Allergies Allergy/AdvReac Type Severity Reaction Status Date / Time No Known Allergies Allergy Verified 11/13/16 11:44 SULMA Risk Score for UA/NSTEMI - SULMA Risk Score Age > 64: YES SULMA Score: 1 Risk %: 5% Curb-65 Severity Score - CURB-65 Severity Score Respiratory Rate greater than/equal to 30: No Systolic BP <90 or Diastolic BP less than/equal 60mmHg: Yes Age >64: Yes Curb-65 Score: 2 Percentage 30-day mortality: 6.8% Wells Criteria for PE - Wells Criteria for Pulmonary Embolism Heart Rate >100: No Previous, objectively diagnosed PE or DVT: No Hemoptysis: No Malignancy w/treatment within 6 months, or palliative: No Total Score: 0 Review of Systems Review Of Systems: ROS cannot be obtained secondary to pt's inabilty to answer questions. (Patient denies chest pain and is unclear.) Cardiovascular: Positive for: Chest Pain (Possible) Respiratory: Positive for: Shortness of Breath (As per fpc) Physical Exam - Reviewed Nursing Documentation Reviewed: Yes Vital Signs Reviewed: Yes - Physical Exam Appears: Positive for: Non-toxic Skin: Positive for: Normal Color, Warm, Dry Eye Exam: Negative for: Normal appearance (No visual acuity ), PERRL (pupil dilated in right eye. Left eye is normal) ENT: Positive for: Normal ENT Inspection Neck: Positive for: Normal, Painless ROM, Supple Cardiovascular/Chest: Positive for: Regular Rate, Rhythm. Negative for: Murmur Respiratory: Positive for: Normal Breath Sounds. Negative for: Respiratory Distress Gastrointestinal/Abdominal: Positive for: Normal Exam (G tube placement), Soft. Negative for: Tenderness Back: Positive for: Normal Inspection Extremity: Positive for: Normal ROM, Other (Mild left heel breakdown ) Neurologic/Psych: Positive for: Alert, Oriented. Negative for: Motor/Sensory Deficits - Laboratory Results Result Diagrams: 12/04/16 01:37 12/04/16 01:37 - ECG ECG: Positive for: Interpreted By Me, Viewed By Me ECG Rhythm: Positive for: Sinus Tachycardia Rate: 103 (at 23:45 12/03/16) O2 Sat by Pulse Oximetry: 100 (RA) Pulse Ox Interpretation: Normal - Critical Care Total Time (In Min): 30 Medical Decision Making Medical Decision Makin Initial impression: questionable history of chest pain and possible change in mentation as per fpc Initial plan: * EKG * Labs * Trop I * PTT/PT * BCx * UCx * UA 0012 * CXR 0049 * CT HEAD * Ativan 1mg IVP 0056 * Accucheck 0127 CT FINDINGS Brain: No acute intracranial hemorrhage. Decreased attenuation is again identified within the distribution of the right middle cerebral artery. Bifrontal atrophy is also noted. Otherwise, ageappropriate periventricular white matter disease. No edema. Ventricles: Age-appropriate ventriculomegaly. Bones: No acute displaced fracture. Sinuses: Unremarkable as visualized. No acute sinusitis. Mastoid air cells: Unremarkable as visualized. No mastoid effusion. IMPRESSION: No acute intracranial hemorrhage, or suspicious mass effect. 0200 Labs reviewed: significant for marked anemia. BUN is also markedly elevated, which is indiative of GI bleed and possible dehydration. CXR: NAD Reviewed old chart: patient was discharged from [facility] x2 weeks ago after requested transfusion for anemia. At the time, patient had (+) hemoccult. No GI procedure performed at the time. Patient will be readmitted for anemia seconary to GI bleed. Discussed case with Dr. Redd for admission under hospitalist Dr. Montemayor ( INPATIENT TELE). * T&S * Crossmatch * NS I * Occult blood, stool 0225 Consent for blood transfusion received from daughter, Prema Marroquin. Witnessed by AUSTYN Damon. * Protonix Inj 80mg IV Scribe Attestation: Documented by Nina Christian acting as a scribe for Torito Chacon MD. Scribe Attestation: All medical record entries made by the Scribe were at my direction and personally dictated by me. I have reviewed the chart and agree that the record accurately reflects my personal performance of the history, physical exam, medical decision making, and the department course for this patient. I have also personally directed, reviewed, and agree with the discharge instructions and disposition. Disposition - Clinical Impression Clinical Impression: Anemia, GI bleed - Patient ED Disposition Is Patient to be Admitted: Yes Counseled Patient/Family Regarding: Studies Performed, Diagnosis - Disposition Disposition Time: 02:00 Condition: FAIR - Pt Status Changed To: Hospital Disposition Of: Inpatient (TELE) - Admit Certification Admit to Inpatient:: After my assessment, the patient will require hospitalization for at least two midnights. This is because of the severity of symptoms shown, intensity of services needed, and/or the medical risk in this patient being treated as an outpatient. - POA Present On Arrival: Pressure Ulcer (left heel excoriation)
--- NOTE | 2016-12-04 01:28 | CT ---
EXAM: CT Head Without Intravenous Contrast CLINICAL HISTORY: 86 years old, female; Signs and symptoms; Altered mental status/memory loss; Additional info: AMS TECHNIQUE: Axial computed tomography images of the head/brain without intravenous contrast. All CT scans at this facility use one or more dose reduction techniques, viz.: automated exposure control; ma/kV adjustment per patient size (including targeted exams where dose is matched to indication; i.e. head); or iterative reconstruction technique. Coronal and sagittal reformatted images were created and reviewed. COMPARISON: CT BRAIN W/O 07/13/2008 1:57:23 AM FINDINGS: Brain: No acute intracranial hemorrhage. Decreased attenuation is again identified within the distribution of the right middle cerebral artery. Bifrontal atrophy is also noted. Otherwise, age-appropriate periventricular white matter disease. No edema. Ventricles: Age-appropriate ventriculomegaly. Bones: No acute displaced fracture. Sinuses: Unremarkable as visualized. No acute sinusitis. Mastoid air cells: Unremarkable as visualized. No mastoid effusion. IMPRESSION: No acute intracranial hemorrhage, or suspicious mass effect.
[2016-12-04 01:40] LABS: EOS % 0.1 % (0.0-4.0); HEMATOCRIT 21.2 % (34.0-47.0); LYMPH # 0.6 K/uL (1.0-4.3); LYMPH % 5.2 % (20.0-40.0); MEAN CELL VOLUME 96.3 fl (81.0-99.0); MEAN CORPUSCULAR HEMOGLOBIN 31.3 pg (27.0-31.0); MEAN CORPUSCULAR HGB CONC 32.5 g/dL (33.0-37.0); MEAN PLATELET VOLUME 9.6 fl (7.2-11.7); MONO # 0.4 K/uL (0.0-0.8); MONO % 3.8 % (0.0-10.0); NEUT # 10.1 K/uL (1.8-7.0); NEUT % 90.9 % (50.0-75.0); NRBC % 0.1 % (0.0-0.0); PLATELET COUNT 220 K/uL (130-400); RED CELL DISTRIBUTION WIDTH 16.7 % (11.5-14.5); WHITE BLOOD COUNT 11.1 K/uL (4.8-10.8)
[2016-12-04 01:48] LABS: ALB/GLOB RATIO 1.2 (1.0-2.1); BILIRUBIN,TOTAL 0.4 mg/dl (0.2-1.3); CALCIUM 8.7 mg/dL (8.4-10.2); TOTAL PROTEIN 6.8 G/DL (6.3-8.2)
[2016-12-04 01:50] LABS: PARTIAL THROMBOPLASTIN TIME 24.8 Seconds (25.6-37.1)
[2016-12-04 02:00] LABS: TROPONIN I 0.02 ng/mL (0.00-0.120)
[2016-12-04 02:05] LABS: POTASSIUM 5.4 MMOL/L (3.6-5.0)
[2016-12-04] MEDS ORDERED: Sodium Chloride 0.9% 1,000 ML IV STA (02:07)
[2016-12-04 02:20] LABS: NEUTROPHIL 92 % (42-75); TOTAL CELLS COUNTED 100
--- NOTE | 2016-12-04 02:24 | CP.PCM.HP ---
History of Present Illness - History of Present Illness History of Present Illness: PCP: Dr Montemayor Chief complaint: SOB/Chest Pain/AMS The patient is seen and examined in the ED HPI: This hx is obtained from the longterm notes and the patient's daughter as the patient is nonverbal and Bed ridden. She is an 86 years old female who [facility] and has hx of DM, CKD, Dementia, CVA with left sided sequelas, last admitted on the 11/13/16 and diagnosed with Pneumonia and Anemia receiving transfusion. She is now sent to the ED because of SOB and chest pain. The daughter stated that the patient may have received multiple doses of Ativan for Agitation and so became Dyspneic. In the Ed the breathing improved with Oxygen and the patient indicated no chest pain by shaking the head. The Hb was 6.9g/dl today while on discharge on 11/18/16 it was 11.0 after blood transfusions. The patient is being admitted for blood transfusion and investigation. 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 - Cardiovascular Cardiovascular: Chest Pain, Dyspnea - Gastrointestinal Additional comments: Gastrostomy tube. Past Patient History - Infectious Disease Hx of Infectious Diseases: None - Tetanus Immunizations Tetanus Immunization: Unknown - Past Medical History & Family History Past Medical History?: Yes - Past Social History Smoking Status: Never Smoked Chewing Tobacco Use: No Cigar Use: No Alcohol: None Drugs: Denies Home Situation {Lives}: Retirement - CARDIAC Hx Hypertension: Yes - PULMONARY Hx Respiratory Disorders: No - NEUROLOGICAL Hx Dementia: Yes Hx Seizures: Yes - HEENT Hx HEENT Problems: Yes Hx Glaucoma: Yes - RENAL Hx Chronic Kidney Disease: Yes - ENDOCRINE/METABOLIC Hx Endocrine Disorders: Yes Hx Diabetes Mellitus Type 2: Yes - HEMATOLOGICAL/ONCOLOGICAL Hx Anemia: Yes - INTEGUMENTARY Hx Dermatological Problems: No - MUSCULOSKELETAL/RHEUMATOLOGICAL Hx Falls: No - GASTROINTESTINAL Hx Gastrointestinal Disorders: Yes Hx Gastroesophageal Reflux: Yes Other/Comment: Incontinence - GENITOURINARY/GYNECOLOGICAL Hx Genitourinary Disorders: Yes Hx Incontinence: Yes Hx Urinary Tract Infection: Yes - PSYCHIATRIC Hx Substance Use: No - SURGICAL HISTORY Hx Appendectomy: Yes Hx Carotid Endarterectomy: Yes - ANESTHESIA Hx Anesthesia: Yes Hx Anesthesia Reactions: No Hx Malignant Hyperthermia: No Meds Allergies/Adverse Reactions: Allergies Allergy/AdvReac Type Severity Reaction Status Date / Time No Known Allergies Allergy Verified 11/13/16 11:44 Physical Exam - Constitutional Appears: No Acute Distress - Head Exam Head Exam: ATRAUMATIC, NORMOCEPHALIC - Eye Exam Additional comments: Patient not opening eyes spontaneously and resisting the opening actively. - ENT Exam ENT Exam: Mucous Membranes Dry, Normal External Ear Exam - Neck Exam Neck exam: Positive for: Normal Inspection. Negative for: Lymphadenopathy, Tenderness - Respiratory Exam Respiratory Exam: Clear to Auscultation Bilateral. absent: Rales, Rhonchi, Wheezes - Cardiovascular Exam Cardiovascular Exam: REGULAR RHYTHM, RRR, +S1, +S2 Additional comments: Systolic murmur III/ at the base - GI/Abdominal Exam Additional comments: Gastrostomy Tube at left mid abdomen, Flat, Soft, Nontender, positive bowel sounds. - Extremities Exam Extremities exam: Positive for: normal inspection Additional comments: Pain to the left ankle on palpation. - Back Exam Back exam: NORMAL INSPECTION - Neurological Exam Additional comments: Awake , responding poorly to verbal stimuli,but intensely to painful stimuli. Eyes closed. contracted left hand with decreased motor strength. Moving the left lower extremity to painful stimuli. nonverbal. - Psychiatric Exam Psychiatric exam: Flat Affect - Skin Skin Exam: Dry, Intact, Normal Color, Warm Results - Vital Signs Recent Vital Signs: Last Vital Signs Temp 99.7 F H 12/04/16 00:56 Pulse 103 H 12/04/16 02:13 Resp 15 12/03/16 23:47 BP 147/55 L 12/04/16 00:56 Pulse Ox 100 12/04/16 02:13 - Labs Result Diagrams: 12/04/16 01:37 12/04/16 01:37 - EKG Data EKG comments: Peaked t waves at the anterior leads Sinus Tachicardia 103/min. - Imaging and Cardiology CT scan - head Status: Image reviewed by me, Report reviewed by me Additional comment: FINDINGS: Brain: No acute intracranial hemorrhage. Decreased attenuation is again identified within the distribution of the right middle cerebral artery. Bifrontal atrophy is also noted. Otherwise, ageappropriate periventricular white matter disease. No edema. Ventricles: Age-appropriate ventriculomegaly. Bones: No acute displaced fracture. Sinuses: Unremarkable as visualized. No acute sinusitis. Mastoid air cells: Unremarkable as visualized. No mastoid effusion. IMPRESSION: No acute intracranial hemorrhage, or suspicious mass effect. Chest x-ray Status: Image reviewed by me Additional comment: Left base obliterated Haziness at the right base. Assessment & Plan - Assessment and Plan (Free Text) Assessment: #. Symptomatic Anemia #. DI Bleed #. DM II #. Hyperkalemia #. CKD #. HTN #. Hx of CVA with left side weakness Plan: 86 years old female who resides at the [facility] and has hx of DM, CKD, Dementia, CVA with left sided sequelas, last admitted on the 11/13/16 and diagnosed with Pneumonia and Anemia receiving transfusion. She is now sent to the ED because of AMS, SOB and chest pain. The daughter stated that the patient may have received multiple doses of Ativan for Agitation and so became developed respiratory distress. In the Ed the breathing improved with Oxygen and the patient indicated no chest pain by shaking the head. The Hb was 6.9g/dl today while on discharge on 11/18/16 it was 11.0 after blood transfusions. The patient is being admitted for blood transfusion and investigation. #. Symptomatic Anemia Probably secondary to Chronic Kidney disease and to Blood loss - Transfuse 2 Units of PRBC - Follow Hb #. GI Bleed, Occult blood was +ve on 11/18/16 decision was conservative treatment - Consult Dr Harris GI - NPO until seen by GI #. DM II with Hyperglycemia - Regular Insulin sliding scale according to accucheck Q 6hrs as pte is NPO at present - Restart Levemir as soon as patient begins to receive Gastrostomy treatment - HbA1c was 6.2 on 11/14/16 #. Hyperkalemia - Patient is receiving NS - follow electrolytes #. CKD with Creatinine 2.4 on 11/13/16 and today 2.1 - IV hydration - follow renal labs #. HTN - Continue home medication as soon as PEG feeding is started #. Stress ulcer Prophylaxis with Pantoprazole #. Hx of CVA with left side weakness #. DVT prophylaxis with SCD because of the Anemia - Date & Time Date: 12/04/16 Time: 02:24
[2016-12-04] MEDS ORDERED: Albuterol 0.083% Inhal Sol (2.5 mg/3 mL) UD IH PRN (03:13)
[2016-12-04] MEDS ORDERED: Insulin Regular 100 units/ml SC SCH (04:15)
[2016-12-04] MEDS ORDERED: Magnesium Hydroxide Susp 30 ml UD PO PRN (08:40)
[2016-12-04] MEDS ORDERED: Albuterol-Ipratrop 3 mg / 0.5 (3 ml) UD IH PRN (08:40)
[2016-12-04] MEDS ORDERED: BUPRENORPHINE TD SCH (08:45)
--- NOTE | 2016-12-04 08:50 | RAD ---
HISTORY: chest pain COMPARISON: 11/16/2016 FINDINGS: LUNGS: No active pulmonary disease. PLEURA: No pleural effusion. No pneumothorax. CARDIOVASCULAR: Normal heart size. Mitral annular calcification noted. No congestive change. OSSEOUS STRUCTURES: No significant abnormalities. VISUALIZED UPPER ABDOMEN: Normal. OTHER FINDINGS: None. IMPRESSION: No active disease. No significant interval change.
[2016-12-04] MEDS ORDERED: EPOETIN ALFA 10,000 UNIT/ML ML SC ONE (09:00)
[2016-12-04] MEDS ORDERED: Pantoprazole 40 mg EC Tab PO SCH (09:00)
--- NOTE | 2016-12-04 10:09 | CARD ---
APPROVED REPORT EKG Measurement Heart [id number] <Conclusion> Sinus tachycardia Poor R wave progression V1 to V4 Abnormal ECG
[2016-12-04] MEDS: Mycolog II CREAM TOP SCH ×3 (10:44→17:53)
[2016-12-04] MEDS: Insulin Regular 100 units/ml SC SCH ×4 (10:48→21:57)
[2016-12-04] MEDS: Dorzolamide 2% Ophth Soln OD SCH ×2 (10:49→17:54)
[2016-12-04] MEDS: Sod Polystyrene Sulf 15 gm/60 ml Oral Susp PEG SCH (11:48)
[2016-12-04] MEDS: Albuterol-Ipratrop 3 mg / 0.5 (3 ml) UD INH SCH ×3 (12:05→19:11)
--- NOTE | 2016-12-04 14:49 | CP.PCM.CON ---
History of Present Illness - History of Present Illness History of Present Illness: psychiatry consult ordered by dr. ruiz reason: dementia with behavioral disturbance cc: asleep hpi: pt is a resident at [facility] per chart. pt has dementia and medical problems. per chart she has been given ativan on several occasions in the detention. pt is currently sedated and sleeping. per rn pt has been calm since up on the floor. 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 does not respond to questions. unable to fully assess memory. history of dementia. poor i/j. poor impulse control. assessment: dementia with behavioral disturbance r.o delirium- pt with inc. wbc, elevated cr., anemia, etc. recommendation: can use seroquel 12.5mg q 6hr prn agitation would not use ativan or other benzodiazapine as the could worsen behaviors should be seen by psychiatrist at detention and could be started on depakote if behaviors continue Past Patient History - Infectious Disease Hx of Infectious Diseases: None - Tetanus Immunizations Tetanus Immunization: Unknown - Past Medical History & Family History Past Medical History?: Yes - Past Social History Smoking Status: Never Smoked Chewing Tobacco Use: No Cigar Use: No Alcohol: None Drugs: Denies Home Situation {Lives}: Half-Way - CARDIAC Hx Hypertension: Yes - PULMONARY Hx Respiratory Disorders: No - NEUROLOGICAL Hx Dementia: Yes Hx Seizures: Yes - HEENT Hx HEENT Problems: Yes Hx Glaucoma: Yes - RENAL Hx Chronic Kidney Disease: Yes - ENDOCRINE/METABOLIC Hx Endocrine Disorders: Yes Hx Diabetes Mellitus Type 2: Yes - HEMATOLOGICAL/ONCOLOGICAL Hx Anemia: Yes - INTEGUMENTARY Hx Dermatological Problems: No - MUSCULOSKELETAL/RHEUMATOLOGICAL Hx Falls: No - GASTROINTESTINAL Hx Gastrointestinal Disorders: Yes Hx Gastroesophageal Reflux: Yes Other/Comment: Incontinence - GENITOURINARY/GYNECOLOGICAL Hx Genitourinary Disorders: Yes Hx Incontinence: Yes Hx Urinary Tract Infection: Yes - PSYCHIATRIC Hx Substance Use: No - SURGICAL HISTORY Hx Appendectomy: Yes Hx Carotid Endarterectomy: Yes - ANESTHESIA Hx Anesthesia: Yes Hx Anesthesia Reactions: No Hx Malignant Hyperthermia: No Meds Allergies/Adverse Reactions: Allergies Allergy/AdvReac Type Severity Reaction Status Date / Time No Known Allergies Allergy Verified 11/13/16 11:44 - Medications Medications: Current Medications Acetaminophen (Tylenol 325mg Tab) 650 mg PEG Q4H PRN PRN Reason: Pain, Mild (1-3) Acetaminophen (Tylenol 325mg Tab) 650 mg PEG Q4H PRN PRN Reason: Temp >100 Albuterol Sulfate (Albuterol 0.083% Inhal Marlin (2.5 Mg/3 Ml) Ud) 2.5 mg IH Q6H PRN PRN Reason: Shortness of Breath Albuterol/Ipratropium (Duoneb 3 Mg/0.5 Mg (3 Ml) Ud) 3 ml IH Q6 PRN PRN Reason: Shortness of Breath Albuterol/Ipratropium (Duoneb 3 Mg/0.5 Mg (3 Ml) Ud) 3 ml INH RQID [facility] Allopurinol (Zyloprim) 100 mg PEG DAILY [facility] Last Admin: 12/04/16 10:50 Dose: 100 mg Amlodipine Besylate (Norvasc) 5 mg PEG Q12 [facility] Last Admin: 12/04/16 11:40 Dose: Not Given Atorvastatin Calcium (Lipitor) 20 mg PEG HS [facility] Carvedilol (Coreg) 12.5 mg PEG Q12 [facility] Last Admin: 12/04/16 11:28 Dose: Not Given Donepezil HCl (Aricept) 10 mg PEG HS [facility] Dorzolamide HCl (Trusopt) 1 drop OD BID [facility] Last Admin: 12/04/16 10:49 Dose: 1 drop Epoetin Calvin (Procrit) 10,000 unit SC DAILY [facility] Ferrous Sulfate (Children's Iron) 7.5 mg PO DAILY [facility] Gabapentin (Neurontin) 100 mg PEG HS [facility] Home Med (Buprenorphine [Buprenorphine]) 1 patch TD Q7D [facility] Home Med (Menthol [Bengay Ultra Strength]) 1 patch TOP DAILY [facility] Hydralazine HCl (Apresoline) 25 mg PEG BID [facility] Last Admin: 12/04/16 11:26 Dose: Not Given Insulin Detemir (Levemir) 8 units SC HS [facility] Insulin Human Regular (Humulin R) 0 units SC ACHS VANI PRN Reason: Protocol Last Admin: 12/04/16 12:07 Dose: 6 units Latanoprost (Xalatan Opht) 1 drop OU HS [facility] Levetiracetam (Keppra) 500 mg PEG BID [facility] Lorazepam (Ativan) 0.5 mg PEG Q6 PRN PRN Reason: Agitation Magnesium Hydroxide (Milk Of Magnesia) 30 ml PO DAILY PRN PRN Reason: Constipation Metoprolol Tartrate (Lopressor) 50 mg PEG Q12H [facility] Last Admin: 12/04/16 11:28 Dose: Not Given Nystatin/Triamcinolone Acetonide (Mycolog Ii) 1 applic TOP TID [facility] Last Admin: 12/04/16 12:08 Dose: 1 applic Pantoprazole Sodium (Protonix Inj) 40 mg IVP DAILY [facility] Last Admin: 12/04/16 10:48 Dose: 40 mg Sennosides (Senokot Tab) 8.6 mg PO HS [facility] Sodium Polystyrene Sulfonate (Kayexalate Oral Susp) 30 gm PEG DAILY [facility] Last Admin: 12/04/16 11:48 Dose: 30 gm Tramadol HCl (Ultram) 50 mg PO Q6H PRN PRN Reason: Pain, severe (8-10) Results - Vital Signs Recent Vital Signs: Last Vital Signs Temp 97.5 F L 12/04/16 12:06 Pulse 89 12/04/16 12:06 Resp 18 12/04/16 12:06 BP 121/71 12/04/16 12:06 Pulse Ox 96 12/04/16 12:06 - Labs Result Diagrams: 12/04/16 01:37 12/04/16 01:37 Labs: Laboratory Results - last 24 hr 12/04/16 12/04/16 12/04/16 02:14 05:31 11:04 POC Glucose (mg/dL) 346 H 314 H Blood Type B POSITIVE Antibody Screen Negative Crossmatch See Detail BBK History Checked Patient has bt
[2016-12-04 15:27] LABS: HEMATOCRIT 30.8 % (34.0-47.0); MEAN CELL VOLUME 90.2 fl (81.0-99.0); MEAN CORPUSCULAR HEMOGLOBIN 30.4 pg (27.0-31.0); MEAN CORPUSCULAR HGB CONC 33.6 g/dL (33.0-37.0); RED CELL DISTRIBUTION WIDTH 17.7 % (11.5-14.5); WHITE BLOOD COUNT 10.5 K/uL (4.8-10.8)
[2016-12-04 15:57] LABS: CALCIUM 9.2 mg/dL (8.4-10.2)
[2016-12-04] MEDS: levETIRAcetam 100 mg/ml (5ml) Oral Syringe PEG SCH (17:53)
[2016-12-04] MEDS: Lidocaine 5% Patch TD SCH (17:59)
[2016-12-04] MEDS: Latanoprost 0.005% Opht SOUTION OU SCH (21:16)
[2016-12-04] MEDS: Insulin Detemir 100 Units/ml Inj SC SCH (21:59)
[2016-12-04] MEDS ORDERED: Patient's Own Med (Bimatoprost [Lumigan] 1 DROP) OU SCH (22:00)
--- NOTE | 2016-12-05 01:21 | CON ---
DATE: 12/04/2016 REFERRING PHYSICIAN: Dr. Tacho Redd PRIMARY CARE PHYSICIAN: Dr. Montemayor REASON FOR CONSULTATION: Anemia. HISTORY OF PRESENT ILLNESS: The patient was admitted for essentially metabolic changes, shortness of breath, and chest pain. GI was called for anemia. This is an 86-year-old demented female patient. History is being obtained via the chart and staff. She cannot give a history and essentially has CKD, diabetes, CVA with left-sided sequelae with dysphagia and a feeding tube. She essentially had a drop in hemoglobin, but no active evidence of bleeding at this point. No hematemesis or hematochezia noted. The patient is not arousable at this point and cannot give a history. Currently lying in bed, comfortable, in no apparent distress. PAST MEDICAL HISTORY: As above. PAST SURGICAL HISTORY: Carotid endarterectomy, surgery, and appendectomy. FAMILY HISTORY: Noncontributory. ALLERGIES: None. MEDICATIONS: Have been reviewed, otherwise unable to obtain. PHYSICAL EXAMINATION: VITAL SIGNS: In the hospital, grossly unremarkable. GENERAL: Pleasant, elderly-appearing female, lying in bed comfortably, in no apparent distress. HEENT: Head normocephalic, atraumatic. Eyes: Pupils equally reactive to light bilaterally. No conjunctival pallor or icterus. NECK: Supple. Normal range of motion. No lymphadenopathy appreciated. LUNGS: Coarse breath sounds bilaterally. HEART: S1, S2. Regular rate and rhythm. No murmurs appreciated. ABDOMEN: Soft, nontender. Bowel sounds present. No rebound. No guarding. RECTAL: Deferred. EXTREMITIES: Positive pulses bilaterally. SKIN: Warm, dry, and intact. NEUROLOGIC: A and O x0. LABORATORY DATA: Labs were reviewed. WBC 11.1, hemoglobin 6.9, hematocrit 21.2, platelet count is 220. INR is 1.1. BUN 115, creatinine 2.1, glucose 346. AST 44, ALT 54, alkaline phosphatase 143. Troponin negative x1. Chest x-ray shows no active disease. ASSESSMENT AND PLAN: This is an 86-year-old female with multiple medical problems including dementia, and now with anemia. Her last endoscopy was on 10/16/2016, which was done at [facility], for which she had, looks like her PEG reinserted. The endoscopy showed a medium-sized hiatal hernia and grade B esophagitis with no bleeding and patchy gastritis. At this point, from a gastrointestinal standpoint, what I would like to do is to consider a colonoscopy, which given her age may be risky, and we need to speak with the family about when the last time she had it done was and if they are agreeable and if that is the case and if they want it, we will need to get clearance from primary care team. For now, supportive care, proton pump inhibitor, and advance diet as tolerated. Per Harris MD/ PhD cc: Tacho Redd MD
[2016-12-05 07:04] LABS: HEMATOCRIT 30.1 % (34.0-47.0); MEAN CELL VOLUME 90.4 fl (81.0-99.0); MEAN CORPUSCULAR HEMOGLOBIN 30.2 pg (27.0-31.0); MEAN CORPUSCULAR HGB CONC 33.4 g/dL (33.0-37.0); RED CELL DISTRIBUTION WIDTH 17.9 % (11.5-14.5); WHITE BLOOD COUNT 9.5 K/uL (4.8-10.8)
[2016-12-05] MEDS ORDERED: Sodium Chloride 0.9% 500 ML IV ONE (07:17)
[2016-12-05] MEDS ORDERED: Sodium Chloride 0.9% 1,000 ML IV SCH ×2 (07:30→21:45)
[2016-12-05] MEDS: Albuterol-Ipratrop 3 mg / 0.5 (3 ml) UD INH SCH ×3 (07:59→15:33)
--- NOTE | 2016-12-05 09:04 | CP.PCM.PN ---
Subjective - Date & Time of Evaluation Date of Evaluation: 12/05/16 Time of Evaluation: 08:59 - Subjective Subjective: pt seen examined this morning no acute events overnight 2 units PRBC transfuse without event BUN still elevated at 103 will hydrate patient adn recheck in AM HD stable NAD restart PEG feeds no colonoscopy per daughter may discharge back to [place] when BUN improves Objective - Vital Signs/Intake and Output Vital Signs (last 24 hours): Temp Pulse Resp BP Pulse Ox 98.1 F 90 20 145/57 L 93 L 12/05/16 08:00 12/05/16 08:00 12/05/16 08:00 12/05/16 08:00 12/05/16 08:00 - Medications Medications: Current Medications Acetaminophen (Tylenol 325mg Tab) 650 mg PEG Q4H PRN PRN Reason: Pain, Mild (1-3) Acetaminophen (Tylenol 325mg Tab) 650 mg PEG Q4H PRN PRN Reason: Temp >100 Albuterol Sulfate (Albuterol 0.083% Inhal Marlin (2.5 Mg/3 Ml) Ud) 2.5 mg IH Q6H PRN PRN Reason: Shortness of Breath Albuterol/Ipratropium (Duoneb 3 Mg/0.5 Mg (3 Ml) Ud) 3 ml IH Q6 PRN PRN Reason: Shortness of Breath Albuterol/Ipratropium (Duoneb 3 Mg/0.5 Mg (3 Ml) Ud) 3 ml INH RQID [facility] Last Admin: 12/05/16 07:59 Dose: 3 ml Allopurinol (Zyloprim) 100 mg PEG DAILY [facility] Last Admin: 12/04/16 10:50 Dose: 100 mg Amlodipine Besylate (Norvasc) 5 mg PEG Q12 [facility] Last Admin: 12/04/16 21:07 Dose: 5 mg Atorvastatin Calcium (Lipitor) 20 mg PEG HS [facility] Last Admin: 12/04/16 21:15 Dose: 20 mg Carvedilol (Coreg) 12.5 mg PEG Q12 [facility] Last Admin: 12/04/16 21:06 Dose: 12.5 mg Donepezil HCl (Aricept) 10 mg PEG HS [facility] Last Admin: 12/04/16 21:08 Dose: 10 mg Dorzolamide HCl (Trusopt) 1 drop OD BID [facility] Last Admin: 12/04/16 17:54 Dose: 1 drop Ferrous Sulfate (Children's Iron) 7.5 mg PO DAILY [facility] Last Admin: 12/04/16 17:49 Dose: 7.5 mg Gabapentin (Neurontin) 100 mg PEG HS [facility] Last Admin: 12/04/16 21:15 Dose: 100 mg Home Med (Buprenorphine [Buprenorphine]) 1 patch TD Q7D [facility] Hydralazine HCl (Apresoline) 25 mg PEG BID [facility] Last Admin: 12/04/16 17:51 Dose: 25 mg Sodium Chloride (Sodium Chloride 0.9%) 1,000 mls @ 125 mls/hr IV .Q8H [facility] Stop: 12/05/16 15:29 Insulin Detemir (Levemir) 8 units SC HS [facility] Last Admin: 12/04/16 21:59 Dose: 8 units Insulin Human Regular (Humulin R) 0 units SC [facility] PRN Reason: Protocol Last Admin: 12/04/16 21:57 Dose: Not Given Latanoprost (Xalatan Opht) 1 drop OU HS [facility] Last Admin: 12/04/16 21:16 Dose: 1 drop Levetiracetam (Keppra) 500 mg PEG BID [facility] Last Admin: 12/04/16 17:53 Dose: 500 mg Lidocaine (Lidoderm) 1 ea TD DAILY [facility] Last Admin: 12/04/16 17:59 Dose: 1 ea Lorazepam (Ativan) 0.5 mg PEG Q6 PRN PRN Reason: Agitation Magnesium Hydroxide (Milk Of Magnesia) 30 ml PO DAILY PRN PRN Reason: Constipation Metoprolol Tartrate (Lopressor) 50 mg PEG Q12H [facility] Last Admin: 12/04/16 21:06 Dose: 50 mg Nystatin/Triamcinolone Acetonide (Mycolog Ii) 1 applic TOP TID [facility] Last Admin: 12/04/16 17:53 Dose: 1 applic Pantoprazole Sodium (Protonix Inj) 40 mg IVP DAILY [facility] Last Admin: 12/04/16 10:48 Dose: 40 mg Sennosides (Senokot Tab) 8.6 mg PO HS [facility] Last Admin: 12/04/16 21:15 Dose: 8.6 mg Sodium Polystyrene Sulfonate (Kayexalate Oral Susp) 30 gm PEG DAILY [facility] Last Admin: 12/04/16 11:48 Dose: 30 gm Tramadol HCl (Ultram) 50 mg PO Q6H PRN PRN Reason: Pain, severe (8-10) - Labs Labs: 12/05/16 05:00 12/05/16 05:00 PT 11.2 Seconds (9.8-13.1) 12/04/16 01:37 INR 1.1 (0.9-1.2) 12/04/16 01:37 APTT 24.8 Seconds (25.6-37.1) L 12/04/16 01:37 - Constitutional Appears: Non-toxic, No Acute Distress, Chronically Ill - Head Exam Head Exam: ATRAUMATIC, NORMOCEPHALIC - Eye Exam Eye Exam: EOMI, Normal appearance - ENT Exam ENT Exam: Mucous Membranes Dry, Normal Oropharynx - Neck Exam Neck Exam: Full ROM, Normal Inspection - Respiratory Exam Respiratory Exam: Clear to Ausculation Bilateral, NORMAL BREATHING PATTERN - Cardiovascular Exam Cardiovascular Exam: RRR, +S1, +S2 - GI/Abdominal Exam GI & Abdominal Exam: Soft, Normal Bowel Sounds. absent: Tenderness, Mass, Organomegaly - Extremities Exam Extremities Exam: Normal Capillary Refill. absent: Pedal Edema - Back Exam Back Exam: absent: CVA tenderness (L), CVA tenderness (R) - Neurological Exam Neurological Exam: Alert, Awake Additional comments: +Dementia - Psychiatric Exam Psychiatric exam: Normal Affect, Normal Mood - Skin Skin Exam: Dry, Warm Assessment and Plan - Assessment and Plan (Free Text) Plan: 86 years old female who resides [facility] and has hx of DM, CKD, Dementia, CVA with left sided sequelas, last admitted on the 11/13/16 and diagnosed with Pneumonia and Anemia receiving transfusion. She is now sent to the ED because of AMS, SOB and chest pain. The daughter stated that the patient may have received multiple doses of Ativan for Agitation and so became developed respiratory distress. In the Ed the breathing improved with Oxygen and the patient indicated no chest pain by shaking the head. The Hb was 6.9g/dl today while on discharge on 11/18/16 it was 11.0 after blood transfusions. The patient is being admitted for blood transfusion and investigation. Patient was transfused 2 units , h/h stable. Patient BUN continues to be elevated 103. Will hydrate patient, and recheck BMP in AM #. Symptomatic Anemia Probably secondary to Chronic Kidney disease and to Blood loss - Transfused 2 Units of PRBC - Follow Hb 10.0/30.0 stable this morning #. GI Bleed, Occult blood was +ve on 11/18/16 decision was conservative treatment - Consult Dr Harris GI - Pt recently had EGD at [facility], given patient high risk, daughter does not wish to have colonoscopy done. Patient - restart PEG feeds #. DM II with Hyperglycemia - Regular Insulin sliding scale according to accucheck Q 6hrs as pte is NPO at present - Restart Levemir as soon as patient begins to receive Gastrostomy treatment - HbA1c was 6.2 on 11/14/16 #. Hyperkalemia - Patient is receiving NS - follow electrolytes, normalized today #. CKD with Creatinine 2.4 on 11/13/16 and yesterday 2.1 , today 2.0 - BUN continues to be elevated 103, will hydrate with 500 cc bolus and 125cc NS and recheck BMP tomorrow AM - IV hydration - follow renal labs #. HTN - Continue home medication as soon as PEG feeding is started #. Dementia/ Agitation - Psych consult appreciated, may use seroquel 12.5 q6 hours PRN agitation #. Stress ulcer Prophylaxis with Pantoprazole #. Hx of CVA with left side weakness #. DVT prophylaxis with SCD because of the Anemia
[2016-12-05] MEDS: Mycolog II CREAM TOP SCH ×3 (09:53→17:45)
[2016-12-05] MEDS: Dorzolamide 2% Ophth Soln OD SCH ×2 (09:54→17:45)
[2016-12-05] MEDS: Sod Polystyrene Sulf 15 gm/60 ml Oral Susp PEG SCH (09:55)
[2016-12-05] MEDS: levETIRAcetam 100 mg/ml (5ml) Oral Syringe PEG SCH ×2 (09:55→17:43)
[2016-12-05] MEDS: Lidocaine 5% Patch TD SCH (09:56)
[2016-12-05] MEDS: Insulin Regular 100 units/ml SC SCH ×4 (10:00→22:19)
--- NOTE | 2016-12-05 14:06 | CP.PCM.PN ---
Subjective - Date & Time of Evaluation Date of Evaluation: 12/05/16 Time of Evaluation: 11:00 - Subjective Subjective: no overnight events Objective - Vital Signs/Intake and Output Vital Signs (last 24 hours): Temp Pulse Resp BP Pulse Ox 98.6 F 86 20 98/48 L 94 L 12/05/16 12:00 12/05/16 12:00 12/05/16 12:00 12/05/16 12:00 12/05/16 12:00 - Medications Medications: Current Medications Acetaminophen (Tylenol 325mg Tab) 650 mg PEG Q4H PRN PRN Reason: Pain, Mild (1-3) Acetaminophen (Tylenol 325mg Tab) 650 mg PEG Q4H PRN PRN Reason: Temp >100 Albuterol Sulfate (Albuterol 0.083% Inhal Marlin (2.5 Mg/3 Ml) Ud) 2.5 mg IH Q6H PRN PRN Reason: Shortness of Breath Albuterol/Ipratropium (Duoneb 3 Mg/0.5 Mg (3 Ml) Ud) 3 ml IH Q6 PRN PRN Reason: Shortness of Breath Albuterol/Ipratropium (Duoneb 3 Mg/0.5 Mg (3 Ml) Ud) 3 ml INH RQID [facility] Last Admin: 12/05/16 11:22 Dose: Not Given Allopurinol (Zyloprim) 100 mg PEG DAILY [facility] Last Admin: 12/05/16 09:57 Dose: 100 mg Amlodipine Besylate (Norvasc) 5 mg PEG Q12 [facility] Last Admin: 12/05/16 09:52 Dose: 5 mg Atorvastatin Calcium (Lipitor) 20 mg PEG HS [facility] Last Admin: 12/04/16 21:15 Dose: 20 mg Carvedilol (Coreg) 12.5 mg PEG Q12 [facility] Last Admin: 12/05/16 09:57 Dose: 12.5 mg Donepezil HCl (Aricept) 10 mg PEG HS [facility] Last Admin: 12/04/16 21:08 Dose: 10 mg Dorzolamide HCl (Trusopt) 1 drop OD BID [facility] Last Admin: 12/05/16 09:54 Dose: 1 drop Ferrous Sulfate (Children's Iron) 7.5 mg PO DAILY [facility] Last Admin: 12/05/16 12:13 Dose: 7.5 mg Gabapentin (Neurontin) 100 mg PEG HS [facility] Last Admin: 12/04/16 21:15 Dose: 100 mg Home Med (Buprenorphine [Buprenorphine]) 1 patch TD Q7D [facility] Hydralazine HCl (Apresoline) 25 mg PEG BID [facility] Last Admin: 12/05/16 09:52 Dose: 25 mg Sodium Chloride (Sodium Chloride 0.9%) 1,000 mls @ 125 mls/hr IV .Q8H [facility] Stop: 12/05/16 15:29 Last Admin: 12/05/16 08:30 Dose: 125 mls/hr Insulin Detemir (Levemir) 8 units SC [facility] Last Admin: 12/04/16 21:59 Dose: 8 units Insulin Human Regular (Humulin R) 0 units SC [facility] PRN Reason: Protocol Last Admin: 12/05/16 12:45 Dose: 4 units Latanoprost (Xalatan Opht) 1 drop OU [facility] Last Admin: 12/04/16 21:16 Dose: 1 drop Levetiracetam (Keppra) 500 mg PEG BID [facility] Last Admin: 12/05/16 09:55 Dose: 500 mg Lidocaine (Lidoderm) 1 ea TD DAILY [facility] Last Admin: 12/05/16 09:56 Dose: 1 ea Lorazepam (Ativan) 0.5 mg PEG Q6 PRN PRN Reason: Agitation Magnesium Hydroxide (Milk Of Magnesia) 30 ml PO DAILY PRN PRN Reason: Constipation Metoprolol Tartrate (Lopressor) 50 mg PEG Q12H [facility] Last Admin: 12/05/16 10:02 Dose: 50 mg Nystatin/Triamcinolone Acetonide (Mycolog Ii) 1 applic TOP TID [facility] Last Admin: 12/05/16 13:00 Dose: Not Given Pantoprazole Sodium (Protonix Inj) 40 mg IVP DAILY [facility] Last Admin: 12/05/16 09:54 Dose: 40 mg Sennosides (Senokot Tab) 8.6 mg PO [facility] Last Admin: 12/04/16 21:15 Dose: 8.6 mg Sodium Polystyrene Sulfonate (Kayexalate Oral Susp) 30 gm PEG DAILY [facility] Last Admin: 12/05/16 09:55 Dose: Not Given Tramadol HCl (Ultram) 50 mg PO Q6H PRN PRN Reason: Pain, severe (8-10) - Labs Labs: 12/05/16 05:00 12/05/16 05:00 PT 11.2 Seconds (9.8-13.1) 12/04/16 01:37 INR 1.1 (0.9-1.2) 12/04/16 01:37 APTT 24.8 Seconds (25.6-37.1) L 12/04/16 01:37 - Respiratory Exam Respiratory Exam: NORMAL BREATHING PATTERN - GI/Abdominal Exam GI & Abdominal Exam: Soft, Normal Bowel Sounds Assessment and Plan - Assessment and Plan (Free Text) Assessment: 86 yo female with anemia reviewed recent egd findings d/w daughter does not want colonoscopy at this time explained risks and benefits
[2016-12-05 19:43] LABS: POTASSIUM 3.5 MMOL/L (3.6-5.0)
[2016-12-05] MEDS: Insulin Detemir 100 Units/ml Inj SC SCH (22:19)
[2016-12-05] MEDS: Latanoprost 0.005% Opht SOUTION OU SCH (22:28)
[2016-12-06 07:33] LABS: MEAN CELL VOLUME 92.6 fl (81.0-99.0); MEAN CORPUSCULAR HEMOGLOBIN 30.6 pg (27.0-31.0); MEAN CORPUSCULAR HGB CONC 33.1 g/dL (33.0-37.0); RED CELL DISTRIBUTION WIDTH 18.2 % (11.5-14.5)
[2016-12-06] MEDS: Albuterol-Ipratrop 3 mg / 0.5 (3 ml) UD INH SCH ×2 (07:41→11:11)
[2016-12-06 07:51] LABS: CALCIUM 8.9 mg/dL (8.4-10.2); POTASSIUM 3.9 MMOL/L (3.6-5.0)
[2016-12-06] MEDS ORDERED: Ferrous Sulfate 300 mg/5 mL Liq UD PO SCH (09:00)
[2016-12-06] MEDS: Mycolog II CREAM TOP SCH (09:02)
[2016-12-06] MEDS: levETIRAcetam 100 mg/ml (5ml) Oral Syringe PEG SCH (09:02)
[2016-12-06] MEDS: Lidocaine 5% Patch TD SCH (09:03)
[2016-12-06] MEDS: Insulin Regular 100 units/ml SC SCH (09:04)
[2016-12-06] MEDS: Dorzolamide 2% Ophth Soln OD SCH (09:05)
--- NOTE | 2016-12-06 09:54 | CP.PCM.DIS ---
Provider - Provider Date of Admission: 12/04/16 02:05 Attending physician: Tacho Redd Primary care physician: Ed Montemayor MD Time Spent in preparation of Discharge (in minutes): 30 Hospital Course - Lab Results Lab Results: Micro Results 12/05/16 16:00 Sputum Gram Stain - Final 12/04/16 14:14 Blood Blood Culture - Preliminary NO GROWTH AFTER 24 HOURS Most Recent Lab Values WBC 8.0 K/uL (4.8-10.8) 12/06/16 07:05 RBC 3.35 Mil/uL (3.80-5.20) L 12/06/16 07:05 Hgb 10.3 g/dL (12.0-16.0) L 12/06/16 07:05 Hct 31.0 % (34.0-47.0) L 12/06/16 07:05 MCV 92.6 fl (81.0-99.0) D 12/06/16 07:05 MCH 30.6 pg (27.0-31.0) 12/06/16 07:05 MCHC 33.1 g/dL (33.0-37.0) 12/06/16 07:05 RDW 18.2 % (11.5-14.5) H 12/06/16 07:05 Plt Count 200 K/uL (130-400) 12/06/16 07:05 MPV 9.6 fl (7.2-11.7) 12/04/16 01:37 Neut % (Auto) 90.9 % (50.0-75.0) H 12/04/16 01:37 Lymph % (Auto) 5.2 % (20.0-40.0) L 12/04/16 01:37 Leslie % (Auto) 3.8 % (0.0-10.0) 12/04/16 01:37 Eos % (Auto) 0.1 % (0.0-4.0) 12/04/16 01:37 Baso % (Auto) 0.0 % (0.0-2.0) 12/04/16 01:37 Neut # 10.1 K/uL (1.8-7.0) H 12/04/16 01:37 Lymph # 0.6 K/uL (1.0-4.3) L 12/04/16 01:37 Leslie # 0.4 K/uL (0.0-0.8) 12/04/16 01:37 Eos # 0.0 K/uL (0.0-0.7) 12/04/16 01:37 Baso # 0.0 K/uL (0.0-0.2) 12/04/16 01:37 Neutrophils % (Manual) 92 % (42-75) H 12/04/16 01:37 Lymphocytes % (Manual) 6 % (20-50) L 12/04/16 01:37 Monocytes % (Manual) 2 % (0-10) 12/04/16 01:37 Platelet Estimate Normal (NORMAL) 12/04/16 01:37 Polychromasia Slight 12/04/16 01:37 Anisocytosis (manual) Slight 12/04/16 01:37 PT 11.2 Seconds (9.8-13.1) 12/04/16 01:37 INR 1.1 (0.9-1.2) 12/04/16 01:37 APTT 24.8 Seconds (25.6-37.1) L 12/04/16 01:37 Sodium 144 mmol/l (132-148) 12/06/16 07:05 Potassium 3.9 MMOL/L (3.6-5.0) 12/06/16 07:05 Chloride 107 mmol/L (98-107) 12/06/16 07:05 Carbon Dioxide 25 mmol/L (22-30) 12/06/16 07:05 Anion Gap 16 (10-20) 12/06/16 07:05 BUN 97 mg/dl (7-17) H 12/06/16 07:05 Creatinine 1.8 mg/dL (0.7-1.2) H 12/06/16 07:05 Est GFR ( Amer) 32 12/06/16 07:05 Est GFR (Non-Af Amer) 27 12/06/16 07:05 POC Glucose (mg/dL) 291 mg/dL (65-110) H 12/06/16 06:31 Random Glucose 255 mg/dL (65-105) H 12/06/16 07:05 Lactic Acid 1.0 MMOL/L (0.7-2.1) 12/04/16 01:37 Calcium 8.9 mg/dL (8.4-10.2) 12/06/16 07:05 Total Bilirubin 0.4 mg/dl (0.2-1.3) 12/04/16 01:37 AST 44 U/L (14-36) H D 12/04/16 01:37 ALT 54 U/L (9-52) H 12/04/16 01:37 Alkaline Phosphatase 143 U/L (38-126) H D 12/04/16 01:37 Troponin I 0.0200 ng/mL (0.00-0.120) 12/04/16 01:37 Total Protein 6.8 G/DL (6.3-8.2) 12/04/16 01:37 Albumin 3.7 g/dL (3.5-5.0) 12/04/16 01:37 Globulin 3.2 gm/dL (2.2-3.9) 12/04/16 01:37 Albumin/Globulin Ratio 1.2 (1.0-2.1) 12/04/16 01:37 Blood Type B POSITIVE 12/04/16 02:14 Antibody Screen Negative 12/04/16 02:14 Crossmatch See Detail 12/04/16 02:14 BBK History Checked Patient has bt 12/04/16 02:14 - Hospital Course Hospital Course: 86 years old female who resides at the [facility] and has hx of DM, CKD, Dementia, CVA with left sided sequelas, last admitted on the 11/13/16 and diagnosed with Pneumonia and Anemia receiving transfusion. She is now sent to the ED because of AMS, SOB and chest pain. The daughter stated that the patient may have received multiple doses of Ativan for Agitation and so became developed respiratory distress. In the Ed the breathing improved with Oxygen and the patient indicated no chest pain by shaking the head. The Hb was 6.9g/dl today while on discharge on 11/18/16 it was 11.0 after blood transfusions. The patient is being admitted for blood transfusion and investigation. Patient was transfused 2 units , h/h stable. Patient BUN continues to be elevated 103 YESTERDAY, 94 TODAY BUN continues to be elevated but can recieve NS at [facility] at 75cc/hr for BUN AND RECHECK by PRIMARY DR. elias to be discharged back to [facility] #. Symptomatic Anemia Probably secondary to Chronic Kidney disease and to Blood loss - Transfused 2 Units of PRBC - Follow Hb 10.0/30.0 stable this morning #. GI Bleed, Occult blood was +ve on 11/18/16 decision was conservative treatment - Consult Dr Harris GI - Pt recently had EGD at [facility], given patient high risk, daughter does not wish to have colonoscopy done. Patient - restart PEG feeds #. DM II with Hyperglycemia - Regular Insulin sliding scale according to accucheck Q 6hrs as pte is NPO at present - Restart Levemir as soon as patient begins to receive Gastrostomy treatment - HbA1c was 6.2 on 11/14/16 #. Hyperkalemia - Patient is receiving NS - follow electrolytes, normalized today #. CKD with Creatinine 2.4 on 11/13/16 and yesterday 2.1 , today 2.0 - BUN continues to be elevated 103, will hydrate with 500 cc bolus and 125cc NS and recheck BMP tomorrow AM - IV hydration - follow renal labs #. HTN - Continue home medication as soon as PEG feeding is started #. Dementia/ Agitation - Psych consult appreciated, may use seroquel 12.5 q6 hours PRN agitation #. Stress ulcer Prophylaxis with Pantoprazole #. Hx of CVA with left side weakness #. DVT prophylaxis with SCD because of the Anemia Discharge Exam - Head Exam Head Exam: ATRAUMATIC, NORMOCEPHALIC Additional comments: GEN: WDWN, DEMENTIA CHRONICALLY ILL HEENT: NCAT, PERRL, EOMI HEART: +S1+S2, RRR NO MRG LUNG: CTAB, NO WRR ABD: SOFT BSX4 NT ND NO HSM NO MASS EXT: WARM, WELL PERFUSED NEURO: AA0X3, STRENGTH AND SENSATION EQUAL AND BILATERAL SKIN: WARM DRY PSYCH: NORMAL MOOD NORMAL AFFECT Discharge Plan - Discharge Medications Prescriptions: Sodium Chloride 0.9% 1,000 ml IV Q12 #3 bag - Follow Up Plan Condition: FAIR [facility] Referrals: Ed Montemayor MD [Primary Care Provider] -
--- NOTE | 2016-12-06 09:57 | CARD ---
APPROVED REPORT EKG Measurement Heart [id number] <Conclusion> Normal sinus rhythm Anterior infarct, age undetermined Abnormal ECG
[2016-12-06 10:59] VITALS: BP 124/61; PULSE 65; RESP 19; TEMP 98.6; O2SAT 98
== END 2016-12-06 11:49 | DRG 812 ==
LOC: H.ER 23:37 → H.ERHOLD 12-04 02:05 → H.TEL 12-04 03:57 → H.MEDSURG1 12-05 16:56
PROVIDERS: ADMIT Internal Medicine; ATTEND Internal Medicine
PROC: 30233N1 Transfusion of Nonautologous Red Blood Cells into Peripheral Vein, Percutaneous Approach (ICD-10-PCS; principal; 2016-12-04)
PROC: 3E0G76Z Introduction of Nutritional Substance into Upper GI, Via Natural or Artificial Opening (ICD-10-PCS; 2016-12-04)
DX: D50.0 Iron deficiency anemia secondary to blood loss (chronic) (principal); N18.4 Chronic kidney disease, stage 4 (severe); K92.2 Gastrointestinal hemorrhage, unspecified; F03.91 Unspecified dementia, unspecified severity, with behavioral disturbance; I69.354 Hemiplegia and hemiparesis following cerebral infarction affecting left non-dominant side; E11.22 Type 2 diabetes mellitus with diabetic chronic kidney disease; E87.5 Hyperkalemia; R13.10 Dysphagia, unspecified; E11.65 Type 2 diabetes mellitus with hyperglycemia; D63.1 Anemia in chronic kidney disease; I12.9 Hypertensive chronic kidney disease with stage 1 through stage 4 chronic kidney disease, or unspecified chronic kidney disease; K21.0 Gastro-esophageal reflux disease with esophagitis; I25.10 Atherosclerotic heart disease of native coronary artery without angina pectoris; K44.9 Diaphragmatic hernia without obstruction or gangrene; R32 Unspecified urinary incontinence; I48.91 Unspecified atrial fibrillation; I69.391 Dysphagia following cerebral infarction; L89.629 Pressure ulcer of left heel, unspecified stage; H40.9 Unspecified glaucoma; Z93.1 Gastrostomy status; Z79.4 Long term (current) use of insulin; Z74.01 Bed confinement status; Z79.82 Long term (current) use of aspirin; Z87.440 Personal history of urinary (tract) infections; Z87.01 Personal history of pneumonia (recurrent)

== ENCOUNTER 2017-01-07 17:57 | Inpatient (IN) | payer MEDICARE, MEDICAID ==
[2017-01-07 17:57] VITALS: PULSE 122; BMI 20.7
[2017-01-07 19:08] LABS: BASO # 0.1 K/uL (0.0-0.2); BASO % 0.9 % (0.0-2.0); HEMATOCRIT 28.9 % (34.0-47.0); LYMPH % 12.7 % (20.0-40.0); MEAN CELL VOLUME 90.1 fl (81.0-99.0); MEAN CORPUSCULAR HEMOGLOBIN 28.9 pg (27.0-31.0); MEAN CORPUSCULAR HGB CONC 32.1 g/dL (33.0-37.0); MEAN PLATELET VOLUME 10.5 fl (7.2-11.7); MONO # 0.6 K/uL (0.0-0.8); MONO % 7.3 % (0.0-10.0); NEUT # 6.5 K/uL (1.8-7.0); NEUT % 79.1 % (50.0-75.0); NRBC % 0.1 % (0.0-0.0); RED CELL DISTRIBUTION WIDTH 15.6 % (11.5-14.5); WHITE BLOOD COUNT 8.2 K/uL (4.8-10.8)
[2017-01-07 19:09] LABS: BILIRUBIN,TOTAL 0.3 mg/dl (0.2-1.3); CALCIUM 9.6 mg/dL (8.4-10.2); TOTAL PROTEIN 7.6 G/DL (6.3-8.2)
[2017-01-07 19:10] LABS: POTASSIUM 5.6 MMOL/L (3.6-5.0)
[2017-01-07 19:35] LABS: URINE BACTERIA MOD (<OCC); URINE BILIRUBIN NEGATIVE (NEGATIVE); URINE BLOOD SMALL (NEGATIVE); URINE COLOR YELLOW (YELLOW); URINE GLUCOSE (UA) 50 mg/dL (Normal); URINE KETONE NEGATIVE (NEGATIVE); URINE LEUKOCYTE ESTERASE LARGE Leu/uL (Negative); URINE PROTEIN 100 mg/dL (NEGATIVE); URINE UROBILINOGEN 0.2-1.0 mg/dL (0.2-1.0); WBC URINE 37 /hpf (0-5)
[2017-01-07 19:41] LABS: RBC URINE 12 /hpf (0-3)
[2017-01-07] MEDS ORDERED: Sodium Chloride 0.9% 1,000 ML IV STA (19:51)
[2017-01-07] MEDS ORDERED: Insulin Regular 100 units/ml IVP ONE (19:54)
[2017-01-07] MEDS ORDERED: Dextrose 50% SYRINGE Inj (50 ml) IVP ONE (19:54)
--- NOTE | 2017-01-07 20:02 | CP.PCM.HP ---
History of Present Illness - History of Present Illness History of Present Illness: PCP: Dr Montemayor Chief complaint: Abnormal labs The patient is seen and examined in the ED HPI: This hx is obtained from the snf notes as the patient is nonverbal and Bed ridden. She is an 86 years [facility] and has hx of DM, CKD, Dementia, CVA with left sided sequelas, last admitted on the 12/04/16 and diagnosed with GI bleeding and Symptomatic Anemia on 12/06/16. She is now sent to the ED because of laboratory finding of Hyperkalemia and worsening of kidney function. Per PMD Dr Montemayor, the patient was hospice care but the family has rescinded this on Friday and now wants all measure to be taken. 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 FH: significant for DM; HTN Allergies: NKDA Present on Admission - Present on Admission Any Indicators Present on Admission: Yes History of DVT/PE: No History of Uncontrolled Diabetes: Yes Urinary Catheter: No Decubitus Ulcer Present: No Review of Systems - Review of Systems Review of Systems: Review of sysrtems is limited as the patient is nonverbal Past Patient History - Infectious Disease Hx of Infectious Diseases: None - Tetanus Immunizations Tetanus Immunization: Unknown - Past Medical History & Family History Past Medical History?: Yes - Past Social History Smoking Status: Never Smoked Chewing Tobacco Use: No Cigar Use: No Alcohol: None Drugs: Denies Home Situation {Lives}: [facility] - CARDIAC Hx Hypertension: Yes - PULMONARY Hx Respiratory Disorders: No - NEUROLOGICAL Hx Dementia: Yes Hx Seizures: Yes - HEENT Hx HEENT Problems: Yes Hx Glaucoma: Yes - RENAL Hx Chronic Kidney Disease: Yes - ENDOCRINE/METABOLIC Hx Endocrine Disorders: Yes Hx Diabetes Mellitus Type 2: Yes - HEMATOLOGICAL/ONCOLOGICAL Hx Anemia: Yes - INTEGUMENTARY Hx Dermatological Problems: No - MUSCULOSKELETAL/RHEUMATOLOGICAL Hx Falls: No - GASTROINTESTINAL Hx Gastrointestinal Disorders: Yes Hx Gastroesophageal Reflux: Yes Other/Comment: Incontinence - GENITOURINARY/GYNECOLOGICAL Hx Genitourinary Disorders: Yes Hx Incontinence: Yes Hx Urinary Tract Infection: Yes - PSYCHIATRIC Hx Psychophysiologic Disorder: Yes Hx Depression: Yes Hx Substance Use: No - SURGICAL HISTORY Hx Appendectomy: Yes Hx Carotid Endarterectomy: Yes - ANESTHESIA Hx Anesthesia: Yes Hx Anesthesia Reactions: No Hx Malignant Hyperthermia: No Meds Allergies/Adverse Reactions: Allergies Allergy/AdvReac Type Severity Reaction Status Date / Time No Known Allergies Allergy Verified 11/13/16 11:44 Physical Exam - Constitutional Appears: No Acute Distress - Head Exam Head Exam: ATRAUMATIC, NORMAL INSPECTION, NORMOCEPHALIC - Eye Exam Additional comments: Eyes closed resisting passive opening. - ENT Exam ENT Exam: Mucous Membranes Dry, Normal External Ear Exam - Neck Exam Neck exam: Negative for: Lymphadenopathy, Tenderness - Respiratory Exam Respiratory Exam: Clear to Auscultation Bilateral. absent: Rales, Rhonchi, Wheezes - Cardiovascular Exam Cardiovascular Exam: REGULAR RHYTHM, RRR, +S1, +S2. absent: Gallop, JVD - GI/Abdominal Exam GI & Abdominal Exam: Normal Bowel Sounds, Soft. absent: Mass, Organomegaly, Tenderness - Rectal Exam Rectal Exam: Deferred - Extremities Exam Extremities exam: Negative for: full ROM, joint swelling, pedal edema, tenderness - Back Exam Back exam: NORMAL INSPECTION. absent: CVA tenderness (L), CVA tenderness (R) - Neurological Exam Additional comments: Awake with eyes closed. Non verebal. left upper extremity contracted in flexion. both lower extremities appear to be contracted in extension. - Psychiatric Exam Psychiatric exam: Flat Affect - Skin Skin Exam: Dry, Normal Color, Warm Additional comments: Skin opening at left buttock. Results - Vital Signs Recent Vital Signs: Last Vital Signs Temp 98.4 F 01/07/17 18:08 Pulse 82 01/07/17 18:42 Resp 21 01/07/17 18:42 BP 144/68 01/07/17 18:42 Pulse Ox 97 01/07/17 18:42 - Labs Result Diagrams: 01/07/17 18:42 01/07/17 18:42 Labs: Laboratory Results - last 24 hr 01/07/17 01/07/17 01/07/17 18:37 18:42 18:42 WBC 8.2 RBC 3.21 L Hgb 9.3 L Hct 28.9 L MCV 90.1 D MCH 28.9 MCHC 32.1 L RDW 15.6 H Plt Count 167 MPV 10.5 Neut % (Auto) 79.1 H Lymph % (Auto) 12.7 L [place] % (Auto) 7.3 Eos % (Auto) 0.0 Baso % (Auto) 0.9 Neut # 6.5 Lymph # 1.0 [place] # 0.6 Eos # 0.0 Baso # 0.1 Sodium 139 Potassium 5.6 H Chloride 100 Carbon Dioxide 24 Anion Gap 21 H BUN 141 H* D Creatinine 2.6 H Est GFR ( Amer) 21 Est GFR (Non-Af Amer) 17 POC Glucose (mg/dL) 240 H Random Glucose 219 H Calcium 9.6 Total Bilirubin 0.3 AST 60 H ALT 67 H D Alkaline Phosphatase 133 H Total Protein 7.6 Albumin 3.9 Globulin 3.7 Albumin/Globulin Ratio 1.0 Urine Color Urine Clarity Urine pH Ur Specific [place] Urine Protein Urine Glucose (UA) Urine Ketones Urine Blood Urine Nitrate Urine Bilirubin Urine Urobilinogen Ur Leukocyte Esterase Urine RBC (Auto) Urine Microscopic WBC Ur Squamous Epith Cells Urine Bacteria Urine Yeast (Budding) 01/07/17 19:18 WBC RBC Hgb Hct MCV MCH MCHC RDW Plt Count MPV Neut % (Auto) Lymph % (Auto) [place] % (Auto) Eos % (Auto) Baso % (Auto) Neut # Lymph # [place] # Eos # Baso # Sodium Potassium Chloride Carbon Dioxide Anion Gap BUN Creatinine Est GFR ( Amer) Est GFR (Non-Af Amer) POC Glucose (mg/dL) Random Glucose Calcium Total Bilirubin AST ALT Alkaline Phosphatase Total Protein Albumin Globulin Albumin/Globulin Ratio Urine Color Yellow Urine Clarity Cloudy Urine pH 6.0 Ur Specific [place] 1.014 Urine Protein 100 Urine Glucose (UA) 50 Urine Ketones Negative Urine Blood Small Urine Nitrate Negative Urine Bilirubin Negative Urine Urobilinogen 0.2-1.0 Ur Leukocyte Esterase Large Urine RBC (Auto) 12 H Urine Microscopic WBC 37 H Ur Squamous Epith Cells 2 Urine Bacteria Mod H Urine Yeast (Budding) Rare H Assessment & Plan - Assessment and Plan (Free Text) Assessment: #. Hyperkalemia #. Acute on Chronic Kidney Disease #. Anemia #. DM II with hyperglycemia #. Severe Dementia Plan: 86 years [facility] and has hx of DM, CKD, Dementia, CVA with left sided sequelas, last admitted on the 12/04/16 and diagnosed with GI bleeding and Symptomatic Anemia on 12/06/16. She is now sent to the ED because of laboratory finding of Hyperkalemia and worsening of kidney function. Per PMD Dr Montemayor, the patient was hospice care but the family has rescinded this on Friday and now wants all measure to be taken. #. Acute on Chronic Kidney Disease, Probably secondary to poor intake - Patient received one liter NS in ED - continue Rehydration with NS 100mls/hr - Consult Nephrology Dr Gordillo as the patient is no longer Hospice - follow renal labs #. Hyperkalemia secondary to the Kidney failure - Treat kidney failure - Kayexalate - Follow Electrolyte #. Anemia of multiple causes - Continue Ferrous Sulfate supplement - follow Hb #. DM II with hyperglycemia - Regular Insulin Sliding scale according to accucheck - HbA1c 6.2 on 11/14/16 #. Severe Dementia - Aricept/ Seroquel #. DVT Prophylaxis with SCD #. Code Status: Full - - Date & Time Date: 01/07/17 Time: 20:02
[2017-01-07] MEDS ORDERED: Insulin Regular 100 units/ml ONE (20:46)
[2017-01-07] MEDS ORDERED: Dextrose 50% SYRINGE Inj (50 ml) ONE (20:46)
--- NOTE | 2017-01-07 21:01 | ED PDOC ---
HPI: General Adult Time Seen by Provider: 01/07/17 18:12 Chief Complaint (Nursing): Abnormal Labs Chief Complaint (Provider): sent from [place] for abnormal labs History Per: Patient History/Exam Limitations: clinical condition, physical impairment Onset/Duration Of Symptoms: Unknown Current Symptoms Are (Timing): Still Present Recently: Seen In ED, Treated By A Physician, Hospitalized Additional Complaint(s): 86yo female resident SNF found to have hyperkalemia and azotemia as outpatient. Per PMD Dr Montemayor, was a hospice patient but family rescinded hospice on friday night and now wish for all measures to be taken. Patient is mostly nonverbal and unable to offer further history. Past Medical History Reviewed: Historical Data, Nursing Documentation, Vital Signs Vital Signs: Last Vital Signs Temp 97 F L 01/10/17 12:00 Pulse 60 01/10/17 13:05 Resp 20 01/10/17 12:00 BP 129/69 01/10/17 13:05 Pulse Ox 95 01/10/17 12:00 - Medical History PMH: Anemia, CAD, CVA (left sided weakness), Dementia, Depression, Diabetes, HTN , Pneumonia, Chronic Kidney Disease, Seizures - Surgical History Surgical History: Appendectomy, Carotid Endarterectomy - Family History Family History: States: Unknown Family Hx, Diabetes, Hypertension - Living Arrangements Living Arrangements: Senior Care/Assist Lvng - Immunization History Hx Tetanus Toxoid Vaccination: Yes Hx Influenza Vaccination: Yes Hx Pneumococcal Vaccination: Yes - Home Medications Home Medications: Ambulatory Orders Medication Instructions Recorded Allopurinol [Zyloprim] 100 mg PEG DAILY 08/05/16 Donepezil [Aricept] 10 mg PEG HS 09/03/16 Dorzolamide 2% [Trusopt] 1 drop OU BID 09/03/16 amLODIPine [Norvasc] 5 mg PEG Q12 09/03/16 Magnesium Hydroxide [Milk of 30 ml PO DAILY PRN 10/05/16 Magnesia] Acetaminophen [Tylenol 325mg tab] 650 mg PEG Q4H PRN 11/13/16 Acetaminophen [Tylenol 325mg tab] 650 mg PEG Q4H PRN 11/13/16 Gabapentin [Neurontin] 100 mg PEG HS 11/13/16 Menthol [Bengay Ultra Strength] 1 patch TOP DAILY 11/13/16 Nystatin/Triamcinolone 1 appl TOP QSHIFT 11/13/16 [Nystatin/Triamcinolone Cream] Sennosides [Senna] 8.6 mg GT HS 11/13/16 traMADol [Ultram] 50 mg PEG Q6H PRN 11/13/16 Ferrous Sulfate [Children's Iron] 7.5 mg PEG DAILY 12/04/16 hydrALAZINE [Apresoline] 25 mg PEG BID 12/04/16 levETIRAcetam [Keppra] 500 mg PEG BID 12/04/16 Latanoprost 0.005% Opht [Xalatan 1 drop OU HS bottle 12/06/16 Opht] QUEtiapine [SEROquel] 50 mg PO HS tab 12/06/16 Albuterol/Ipratropium [Duoneb 3 3 ml INH Q6H PRN 01/07/17 mg/0.5 mg (3 ml) UD] Lidocaine 5% 1 appl TOP Q8H 01/07/17 Omeprazole 40 mg PEG DAILY 01/07/17 Sodium Bicarbonate 325 mg PEG BID 01/07/17 fentaNYL 12 mcg/hr [Duragesic 1 patch TD Q72H 01/07/17 Patch 12 mcg/hr] Carvedilol [Coreg] 25 mg PEG Q12 tab 01/10/17 Insulin Detemir [Levemir] 8 units SC HS vial 01/10/17 - Allergies Allergies/Adverse Reactions: Allergies Allergy/AdvReac Type Severity Reaction Status Date / Time No Known Allergies Allergy Verified 11/13/16 11:44 Review of Systems Review Of Systems: ROS cannot be obtained secondary to pt's inabilty to answer questions. Physical Exam - Reviewed Nursing Documentation Reviewed: Yes Vital Signs Reviewed: Yes - Physical Exam Appears: Positive for: Non-toxic (chronically ill appearing, dry) Head Exam: Positive for: ATRAUMATIC, NORMAL INSPECTION, NORMOCEPHALIC Skin: Positive for: Normal Color, Warm. Negative for: Mottled Eye Exam: Positive for: EOMI, Normal appearance, PERRL ENT: Positive for: Other (dry mucous membranes) Neck: Positive for: Normal, Painless ROM Cardiovascular/Chest: Negative for: Tachycardia Respiratory: Positive for: CNT, Normal Breath Sounds Gastrointestinal/Abdominal: Positive for: Soft, Other (PEG tube in place). Negative for: Tenderness Extremity: Positive for: Normal ROM, Other (small ulcer L heel) Neurologic/Psych: Positive for: Other (moves all ext, nonverbal) - Laboratory Results Result Diagrams: 01/08/17 05:45 01/10/17 09:33 - ECG ECG: Positive for: Interpreted By Me ECG Rhythm: Positive for: Sinus Rhythm, Nonspecific Changes Rate: 91 O2 Sat by Pulse Oximetry: 97 Pulse Ox Interpretation: Normal Medical Decision Making Medical Decision Making: labs reveal moderate hyperkalemia and profound azotemia with worsening BUN/Accounts Manager, anemia. D/w Dr Montemayor- patient is no longer a hospice patient as of friday IVF initiated. Given insulin/gluc for hyperkalemia. Will avoid kayexalate to prevent further dehydration. Admit Dr Redd hospitalist Disposition - Clinical Impression Clinical Impression: Altered mental status, Acute kidney injury superimposed on chronic kidney disease, Dehydration, Azotemia - Patient ED Disposition Is Patient to be Admitted: Yes - Disposition Disposition Time: 19:55 Condition: CRITICAL - Pt Status Changed To: Hospital Disposition Of: Inpatient - Admit Certification Admit to Inpatient:: After my assessment, the patient will require hospitalization for at least two midnights. This is because of the severity of symptoms shown, intensity of services needed, and/or the medical risk in this patient being treated as an outpatient. - POA Present On Arrival: Pressure Ulcer (heel)
[2017-01-07] MEDS ORDERED: Albuterol-Ipratrop 3 mg / 0.5 (3 ml) UD INH PRN (21:04)
[2017-01-07] MEDS ORDERED: Magnesium Hydroxide Susp 30 ml UD PO PRN (21:14)
[2017-01-07] MEDS ORDERED: Mycolog II CREAM TOP SCH (21:15)
[2017-01-07] MEDS ORDERED: Insulin Regular 100 units/ml SC SCH (21:30)
[2017-01-07] MEDS ORDERED: Patient's Own Med (Bimatoprost [Lumigan] 1 DROP) OU SCH (22:00)
[2017-01-07] MEDS: Sodium Chloride 0.9% 1,000 ML IV SCH (22:15)
[2017-01-07] MEDS: Lidocaine 2.5% OINTMENT TOP SCH (23:00)
[2017-01-08] MEDS: Latanoprost 0.005% Opht SOUTION OU SCH ×2 (00:12→22:04)
[2017-01-08] MEDS ORDERED: Influenza Vaccine 18yr & older 0.5 ML/45 MCG SYR IM ONE (01:56)
[2017-01-08] MEDS: Lidocaine 2.5% OINTMENT TOP SCH ×2 (05:19→13:35)
[2017-01-08 06:17] LABS: BASO % 0.7 % (0.0-2.0); HEMATOCRIT 27.3 % (34.0-47.0); LYMPH # 1.1 K/uL (1.0-4.3); LYMPH % 17.1 % (20.0-40.0); MEAN CELL VOLUME 89.5 fl (81.0-99.0); MEAN CORPUSCULAR HEMOGLOBIN 29.1 pg (27.0-31.0); MEAN CORPUSCULAR HGB CONC 32.6 g/dL (33.0-37.0); MEAN PLATELET VOLUME 10.2 fl (7.2-11.7); MONO # 0.7 K/uL (0.0-0.8); MONO % 9.7 % (0.0-10.0); NEUT # 4.9 K/uL (1.8-7.0); NEUT % 72.5 % (50.0-75.0); NRBC % 0.1 % (0.0-0.0); RED CELL DISTRIBUTION WIDTH 15.6 % (11.5-14.5); WHITE BLOOD COUNT 6.7 K/uL (4.8-10.8)
[2017-01-08 06:38] LABS: CALCIUM 9.3 mg/dL (8.4-10.2); POTASSIUM 4.9 MMOL/L (3.6-5.0)
[2017-01-08] MEDS: Insulin Regular 100 units/ml SC SCH ×4 (06:48→22:05)
[2017-01-08] MEDS: Sodium Chloride 0.9% 1,000 ML IV SCH ×2 (09:00→17:18)
[2017-01-08] MEDS: Pantoprazole 40 mg Susp UD PEG SCH (10:12)
--- NOTE | 2017-01-08 10:36 | CARD ---
APPROVED REPORT EKG Measurement Heart [id number] <Conclusion> Sinus rhythm with premature atrial complexes Possible septal infarct, age undetermined baseline artefact
--- NOTE | 2017-01-08 11:17 | CP.PCM.CON ---
History of Present Illness - History of Present Illness History of Present Illness: This patient who is 86 years old admitted from halfway and I was called to see her for high BUN/creatinine, abnormal kidney function. No history available from the patient patient is not communicative , so the history was taken from the emergency room and the from the primary care physician as follow: HPI: This hx is obtained from the halfway notes as the patient is nonverbal and Bed ridden. She is an 86 years old female who resides at the [facility] and has hx of DM, CKD, Dementia, CVA with left sided sequelas, last admitted on the 12/04/16 and diagnosed with GI bleeding and Symptomatic Anemia on 12/06/16. She is now sent to the ED because of laboratory finding of Hyperkalemia and worsening of kidney function. Per PMD Dr Montemayor, the patient was hospice care but the family has rescinded this on Friday and now wants all measure to be taken. 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 absent: Chest Pain, Dyspnea, Pedal Edema - Respiratory Respiratory: As Per HPI. absent: Cough, Dyspnea - Gastrointestinal Gastrointestinal: absent: Abdominal Pain, Coffee Ground Emesis, Nausea - Genitourinary Genitourinary: Nocturia - Musculoskeletal Musculoskeletal: Muscle Weakness - Neurological Neurological: As Per HPI - Psychiatric Psychiatric: As Per HPI - Endocrine Endocrine: As Per HPI Past Patient History - Infectious Disease Hx of Infectious Diseases: None - Tetanus Immunizations Tetanus Immunization: Unknown - Past Medical History & Family History Past Medical History?: Yes - Past Social History Smoking Status: Never Smoked Chewing Tobacco Use: No Cigar Use: No Alcohol: None Drugs: Denies Home Situation {Lives}: [facility] - CARDIAC Hx Hypertension: Yes - PULMONARY Hx Respiratory Disorders: No - NEUROLOGICAL Hx Dementia: Yes Hx Seizures: Yes - HEENT Hx HEENT Problems: Yes Hx Glaucoma: Yes - RENAL Hx Chronic Kidney Disease: Yes - ENDOCRINE/METABOLIC Hx Endocrine Disorders: Yes Hx Diabetes Mellitus Type 2: Yes - HEMATOLOGICAL/ONCOLOGICAL Hx Anemia: Yes - INTEGUMENTARY Hx Dermatological Problems: No - MUSCULOSKELETAL/RHEUMATOLOGICAL Hx Falls: No - GASTROINTESTINAL Hx Gastrointestinal Disorders: Yes Hx Gastroesophageal Reflux: Yes Other/Comment: Incontinence - GENITOURINARY/GYNECOLOGICAL Hx Genitourinary Disorders: Yes Hx Incontinence: Yes Hx Urinary Tract Infection: Yes - PSYCHIATRIC Hx Psychophysiologic Disorder: Yes Hx Depression: Yes Hx Substance Use: No - SURGICAL HISTORY Hx Appendectomy: Yes Hx Carotid Endarterectomy: Yes - ANESTHESIA Hx Anesthesia: Yes Hx Anesthesia Reactions: No Hx Malignant Hyperthermia: No Meds Allergies/Adverse Reactions: Allergies Allergy/AdvReac Type Severity Reaction Status Date / Time No Known Allergies Allergy Verified 11/13/16 11:44 - Medications Medications: Current Medications Acetaminophen (Tylenol 325mg Tab) 650 mg PEG Q4H PRN PRN Reason: Pain, Mild (1-3) Acetaminophen (Tylenol 325mg Tab) 650 mg PEG Q4H PRN PRN Reason: Temp >100 Albuterol/Ipratropium (Duoneb 3 Mg/0.5 Mg (3 Ml) Ud) 3 ml INH RQ6 PRN PRN Reason: Shortness of Breath Allopurinol (Zyloprim) 100 mg PEG DAILY [facility] Last Admin: 01/08/17 10:16 Dose: 100 mg Amlodipine Besylate (Norvasc) 5 mg PEG DAILY [facility] Last Admin: 01/08/17 10:11 Dose: 5 mg Carvedilol (Coreg) 12.5 mg PEG Q12 [facility] Last Admin: 01/08/17 10:09 Dose: 12.5 mg Donepezil HCl (Aricept) 10 mg PEG HS [facility] Last Admin: 01/08/17 00:12 Dose: 10 mg Dorzolamide HCl (Trusopt) 1 drop OU BID [facility] Fentanyl (Duragesic) 1 patch TD Q72H [facility] PRN Reason: Protocol Ferrous Sulfate (Children's Iron) 7.5 mg PO DAILY [facility] Gabapentin (Neurontin) 100 mg PEG HS [facility] Last Admin: 01/08/17 00:14 Dose: 100 mg Hydralazine HCl (Apresoline) 25 mg PEG BID [facility] Last Admin: 01/08/17 10:08 Dose: 25 mg Sodium Chloride (Sodium Chloride 0.9%) 1,000 mls @ 100 mls/hr IV .Q10H [facility] Stop: 01/08/17 21:28 Last Admin: 01/08/17 09:00 Dose: 100 mls/hr Insulin Human Regular (Humulin R) 0 units SC [facility] PRN Reason: Protocol Last Admin: 01/08/17 06:48 Dose: 2 units Latanoprost (Xalatan Opht) 1 drop OU HS [facility] Last Admin: 01/08/17 00:12 Dose: 1 drop Levetiracetam (Keppra) 500 mg PO BID [facility] Last Admin: 01/08/17 10:11 Dose: 500 mg Lidocaine (Xylocaine 2.5%) 1 applic TOP Q8H [facility] Last Admin: 01/08/17 05:19 Dose: Not Given Magnesium Hydroxide (Milk Of Magnesia) 30 ml PO DAILY PRN PRN Reason: Constipation Nystatin/Triamcinolone Acetonide (Mycolog Ii) 1 applic TOP QSHIFT [facility] Pantoprazole Sodium (Protonix Susp) 40 mg PEG DAILY [facility] Last Admin: 01/08/17 10:12 Dose: 40 mg Quetiapine Fumarate (Seroquel) 50 mg PEG HS [facility] Last Admin: 01/08/17 00:12 Dose: 50 mg Sennosides (Senokot Tab) 8.6 mg PEG HS [facility] Last Admin: 01/08/17 00:12 Dose: 8.6 mg Sodium Bicarbonate (Sodium Bicarbonate Tab) 325 mg PO BID [facility] Last Admin: 01/08/17 10:12 Dose: 325 mg Tramadol HCl (Ultram) 50 mg GT Q6H PRN PRN Reason: Pain, severe (8-10) Physical Exam - Constitutional Appears: In Acute Distress - ENT Exam ENT Exam: Mucous Membranes Dry - Neck Exam Neck exam: Negative for: Lymphadenopathy - Respiratory Exam Respiratory Exam: NORMAL BREATHING PATTERN. absent: Chest Wall Tenderness - Cardiovascular Exam Cardiovascular Exam: absent: JVD, Rubs - GI/Abdominal Exam GI & Abdominal Exam: Normal Bowel Sounds - Extremities Exam Extremities exam: Negative for: calf tenderness - Back Exam Back exam: absent: CVA tenderness (L), CVA tenderness (R) - Neurological Exam Neurological exam: Altered - Psychiatric Exam Psychiatric exam: Flat Affect Results - Vital Signs Recent Vital Signs: Last Vital Signs Temp 97.3 F L 01/08/17 08:00 Pulse 67 01/08/17 10:11 Resp 20 01/08/17 08:00 BP 158/54 H 01/08/17 10:11 Pulse Ox 95 01/08/17 08:00 - Labs Result Diagrams: 01/08/17 05:45 01/08/17 05:45 Labs: Laboratory Results - last 24 hr 01/07/17 01/07/17 01/07/17 18:37 18:42 18:42 WBC 8.2 RBC 3.21 L Hgb 9.3 L Hct 28.9 L MCV 90.1 D MCH 28.9 MCHC 32.1 L RDW 15.6 H Plt Count 167 MPV 10.5 Neut % (Auto) 79.1 H Lymph % (Auto) 12.7 L Harmon % (Auto) 7.3 Eos % (Auto) 0.0 Baso % (Auto) 0.9 Neut # 6.5 Lymph # 1.0 Harmon # 0.6 Eos # 0.0 Baso # 0.1 Sodium 139 Potassium 5.6 H Chloride 100 Carbon Dioxide 24 Anion Gap 21 H BUN 141 H* D Creatinine 2.6 H Est GFR ( Amer) 21 Est GFR (Non-Af Amer) 17 POC Glucose (mg/dL) 240 H Random Glucose 219 H Calcium 9.6 Total Bilirubin 0.3 AST 60 H ALT 67 H D Alkaline Phosphatase 133 H Total Protein 7.6 Albumin 3.9 Globulin 3.7 Albumin/Globulin Ratio 1.0 Urine Color Urine Clarity Urine pH Ur Specific Coyle Urine Protein Urine Glucose (UA) Urine Ketones Urine Blood Urine Nitrate Urine Bilirubin Urine Urobilinogen Ur Leukocyte Esterase Urine RBC (Auto) Urine Microscopic WBC Ur Squamous Epith Cells Urine Bacteria Urine Yeast (Budding) 01/07/17 01/08/17 01/08/17 19:18 00:20 05:45 WBC 6.7 RBC 3.05 L Hgb 8.9 L Hct 27.3 L MCV 89.5 MCH 29.1 MCHC 32.6 L RDW 15.6 H Plt Count 153 MPV 10.2 Neut % (Auto) 72.5 Lymph % (Auto) 17.1 L Harmon % (Auto) 9.7 Eos % (Auto) 0.0 Baso % (Auto) 0.7 Neut # 4.9 Lymph # 1.1 Harmon # 0.7 Eos # 0.0 Baso # 0.0 Sodium Potassium Chloride Carbon Dioxide Anion Gap BUN Creatinine Est GFR ( Amer) Est GFR (Non-Af Amer) POC Glucose (mg/dL) 220 H Random Glucose Calcium Total Bilirubin AST ALT Alkaline Phosphatase Total Protein Albumin Globulin Albumin/Globulin Ratio Urine Color Yellow Urine Clarity Cloudy Urine pH 6.0 Ur Specific Coyle 1.014 Urine Protein 100 Urine Glucose (UA) 50 Urine Ketones Negative Urine Blood Small Urine Nitrate Negative Urine Bilirubin Negative Urine Urobilinogen 0.2-1.0 Ur Leukocyte Esterase Large Urine RBC (Auto) 12 H Urine Microscopic WBC 37 H Ur Squamous Epith Cells 2 Urine Bacteria Mod H Urine Yeast (Budding) Rare H 01/08/17 01/08/17 05:45 05:59 WBC RBC Hgb Hct MCV MCH MCHC RDW Plt Count MPV Neut % (Auto) Lymph % (Auto) Harmon % (Auto) Eos % (Auto) Baso % (Auto) Neut # Lymph # Harmon # Eos # Baso # Sodium 143 Potassium 4.9 Chloride 103 Carbon Dioxide 27 Anion Gap 18 BUN 131 H* Creatinine 2.5 H Est GFR ( Amer) 22 Est GFR (Non-Af Amer) 18 POC Glucose (mg/dL) 210 H Random Glucose 179 H Calcium 9.3 Total Bilirubin AST ALT Alkaline Phosphatase Total Protein Albumin Globulin Albumin/Globulin Ratio Urine Color Urine Clarity Urine pH Ur Specific Coyle Urine Protein Urine Glucose (UA) Urine Ketones Urine Blood Urine Nitrate Urine Bilirubin Urine Urobilinogen Ur Leukocyte Esterase Urine RBC (Auto) Urine Microscopic WBC Ur Squamous Epith Cells Urine Bacteria Urine Yeast (Budding) Assessment & Plan (1) Acute kidney injury superimposed on chronic kidney disease Assessment and Plan: Most likely patient has acute kidney injury from dehydration perhaps superimposed on CK D. Patient appears to be dry patient has GT tube feeding and intravenous fluids started now My recommendation continue hydration at 100 mL/h D5 and half-normal saline Spot urine for sodium osmolality and creatinine Repeat blood work every morning when the next 3 days Continue monitoring Status: Acute (2) Altered mental status Status: Acute (3) Anemia Status: Acute
--- NOTE | 2017-01-08 13:01 | CP.PCM.PN ---
Subjective - Date & Time of Evaluation Date of Evaluation: 01/08/17 Time of Evaluation: 12:59 - Subjective Subjective: pt at baseline nonverbal responsive to painful stimuli HD stable continuing IVF and consult by Dr. Gramajo appreciated and followed. will continue to monitor renal function NAD Objective - Vital Signs/Intake and Output Vital Signs (last 24 hours): Temp Pulse Resp BP Pulse Ox 97.4 F L 79 20 137/80 96 01/08/17 11:53 01/08/17 11:53 01/08/17 11:53 01/08/17 11:53 01/08/17 11:53 - Medications Medications: Current Medications Acetaminophen (Tylenol 325mg Tab) 650 mg PEG Q4H PRN PRN Reason: Pain, Mild (1-3) Acetaminophen (Tylenol 325mg Tab) 650 mg PEG Q4H PRN PRN Reason: Temp >100 Albuterol/Ipratropium (Duoneb 3 Mg/0.5 Mg (3 Ml) Ud) 3 ml INH RQ6 PRN PRN Reason: Shortness of Breath Allopurinol (Zyloprim) 100 mg PEG DAILY [facility] Last Admin: 01/08/17 10:16 Dose: 100 mg Amlodipine Besylate (Norvasc) 5 mg PEG DAILY [facility] Last Admin: 01/08/17 10:11 Dose: 5 mg Carvedilol (Coreg) 12.5 mg PEG Q12 [facility] Last Admin: 01/08/17 10:09 Dose: 12.5 mg Donepezil HCl (Aricept) 10 mg PEG HS [facility] Last Admin: 01/08/17 00:12 Dose: 10 mg Dorzolamide HCl (Trusopt) 1 drop OU BID [facility] Fentanyl (Duragesic) 1 patch TD Q72H [facility] PRN Reason: Protocol Ferrous Sulfate (Children's Iron) 7.5 mg PO DAILY [facility] Gabapentin (Neurontin) 100 mg PEG HS [facility] Last Admin: 01/08/17 00:14 Dose: 100 mg Hydralazine HCl (Apresoline) 25 mg PEG BID [facility] Last Admin: 01/08/17 10:08 Dose: 25 mg Sodium Chloride (Sodium Chloride 0.9%) 1,000 mls @ 100 mls/hr IV .Q10H [facility] Stop: 01/08/17 21:28 Last Admin: 01/08/17 09:00 Dose: 100 mls/hr Insulin Human Regular (Humulin R) 0 units SC ACHS [facility] PRN Reason: Protocol Last Admin: 01/08/17 06:48 Dose: 2 units Latanoprost (Xalatan Opht) 1 drop OU HS [facility] Last Admin: 01/08/17 00:12 Dose: 1 drop Levetiracetam (Keppra) 500 mg PO BID [facility] Last Admin: 01/08/17 10:11 Dose: 500 mg Lidocaine (Xylocaine 2.5%) 1 applic TOP Q8H [facility] Last Admin: 01/08/17 05:19 Dose: Not Given Magnesium Hydroxide (Milk Of Magnesia) 30 ml PO DAILY [facility] PRN Reason: Constipation Nystatin/Triamcinolone Acetonide (Mycolog Ii) 1 applic TOP QSHIFT [facility] Pantoprazole Sodium (Protonix Susp) 40 mg PEG DAILY [facility] Last Admin: 01/08/17 10:12 Dose: 40 mg Quetiapine Fumarate (Seroquel) 50 mg PEG [facility] Last Admin: 01/08/17 00:12 Dose: 50 mg Sennosides (Senokot Tab) 8.6 mg PEG HS [facility] Last Admin: 01/08/17 00:12 Dose: 8.6 mg Sodium Bicarbonate (Sodium Bicarbonate Tab) 325 mg PO BID [facility] Last Admin: 01/08/17 10:12 Dose: 325 mg Tramadol HCl (Ultram) 50 mg GT Q6H PRN PRN Reason: Pain, severe (8-10) - Labs Labs: 01/08/17 05:45 01/08/17 05:45 - Constitutional Appears: Non-toxic, No Acute Distress - Head Exam Head Exam: ATRAUMATIC, NORMOCEPHALIC - Eye Exam Eye Exam: EOMI, PERRL - Respiratory Exam Respiratory Exam: Clear to Ausculation Bilateral, NORMAL BREATHING PATTERN - Cardiovascular Exam Cardiovascular Exam: RRR, +S1, +S2 - GI/Abdominal Exam GI & Abdominal Exam: Soft. absent: Tenderness, Mass, Organomegaly - Extremities Exam Extremities Exam: Normal Capillary Refill. absent: Pedal Edema - Back Exam Back Exam: absent: CVA tenderness (L), CVA tenderness (R) - Neurological Exam Additional comments: patient is at baseline - Skin Skin Exam: Dry, Warm Assessment and Plan - Assessment and Plan (Free Text) Plan: 86 years old female who [facility] the [facility] and has hx of DM, CKD, Dementia, CVA with left sided sequelas, last admitted on the 12/04/16 and diagnosed with GI bleeding and Symptomatic Anemia on 12/06/16. She is now sent to the ED because of laboratory finding of Hyperkalemia and worsening of kidney function. Per PMD Dr Montemayor, the patient was hospice care but the family has rescinded this on Friday and now wants all measure to be taken. #. Acute on Chronic Kidney Disease, Probably secondary to poor intake - Patient received one liter NS in ED - continue Rehydration with NS 100mls/hr, continue fluids - Consult Nephrology Dr Gordillo, Dr Gramajo as the patient is no longer Hospice - follow renal labs #. Hyperkalemia secondary to the Kidney failure - Treat kidney failure - Kayexalate , improving - Follow Electrolyte #. Anemia of multiple causes - Continue Ferrous Sulfate supplement - follow Hb #. DM II with hyperglycemia - Regular Insulin Sliding scale according to accucheck - HbA1c 6.2 on 11/14/16 #. Severe Dementia - Aricept/ Seroquel #. DVT Prophylaxis with SCD #. Code Status: Full -
[2017-01-08] MEDS: Dorzolamide 2% Ophth Soln OU SCH ×2 (13:33→17:16)
--- NOTE | 2017-01-08 14:28 | PQF GENQUE ---
This form is a permanent part of the medical record 01/08/17 Dr. Lali Pantoja, Documentation by the state patrol officer PN 01/08/17: Left heel has a small eschar. Sacrum is clean and intact. Would you please clarify the possible etiology of the L heel eschar in a patient who is bedbound. Clarification of your documentation is requested to better reflect the severity of illness and intensity of treatment of your patient. Indicators present [] Specify: [] [] Specify: [] [] Specify: [] [] Specify: [] Location in the medical record that reflects the above clinical findings: [] Treatment Provided: [] PHYSICIAN'S RESPONSE LIKELY PRESSURE ULCER FROM BEING BEDBOUND PRESENT ON ADMSSION. Based on your medical judgment of the clinical indicators outlined above please clarify the following: [] Practitioner response [] If unable to determine, please check the box, sign and date. Present On Admission (POA) Indicator: [] Present at the time of admission [] Not present at the time of admission [] Clinically Undetermined In responding to this query, please exercise your independent professional judgment. The fact that a question is asked does not imply that any particular answer is desired or expected. Thank you for your clarification on this documentation. If you have any questions please call:ext [phone] * Thank you, Debbie Horowitz RN [facility]
[2017-01-09] MEDS ORDERED: Sodium Chloride 0.9% 1,000 ML IV SCH (01:30)
[2017-01-09] MEDS: Insulin Regular 100 units/ml SC SCH ×4 (06:49→21:29)
--- NOTE | 2017-01-09 07:28 | CP.PCM.PN ---
Subjective - Date & Time of Evaluation Date of Evaluation: 01/09/17 Time of Evaluation: 07:27 - Subjective Subjective: pt resting comfortably nonverbal appears to be in no distress afebrile hd stable Objective - Vital Signs/Intake and Output Vital Signs (last 24 hours): Temp Pulse Resp BP Pulse Ox 98.1 F 91 H 18 151/61 H 97 01/09/17 05:13 01/09/17 05:13 01/09/17 05:13 01/09/17 05:13 01/09/17 05:13 GEN: chronically ill. nonverbal HEENT: NCAT, PERRL, NECK: supple, no JVD, no lymphadenopathy CARDIAC: +S1S2 RRR LUNG: CTAB No WRR ABD: SOFT NT ND BSX4 NO MASSES NO HSM EXT: +pedal pulses, equal strength NEURO: +dtr intact bilaterally upper and lower extremities SKIN warm, dry PSYCH unable to assess, nonverbal - Medications Medications: Current Medications Acetaminophen (Tylenol 325mg Tab) 650 mg PEG Q4H PRN PRN Reason: Pain, Mild (1-3) Acetaminophen (Tylenol 325mg Tab) 650 mg PEG Q4H PRN PRN Reason: Temp >100 Albuterol/Ipratropium (Duoneb 3 Mg/0.5 Mg (3 Ml) Ud) 3 ml INH RQ6 PRN PRN Reason: Shortness of Breath Allopurinol (Zyloprim) 100 mg PEG DAILY [facility] Last Admin: 01/08/17 10:16 Dose: 100 mg Amlodipine Besylate (Norvasc) 5 mg PEG DAILY [facility] Last Admin: 01/08/17 10:11 Dose: 5 mg Carvedilol (Coreg) 12.5 mg PEG Q12 [facility] Last Admin: 01/08/17 21:57 Dose: 12.5 mg Donepezil HCl (Aricept) 10 mg PEG HS [facility] Last Admin: 01/08/17 21:57 Dose: 10 mg Dorzolamide HCl (Trusopt) 1 drop OU BID [facility] Last Admin: 01/08/17 17:16 Dose: 1 drop Fentanyl (Duragesic) 1 patch TD Q72H [facility] PRN Reason: Protocol Ferrous Sulfate (Children's Iron) 7.5 mg PO DAILY [facility] Last Admin: 01/08/17 13:30 Dose: 7.5 mg Gabapentin (Neurontin) 100 mg PEG HS [facility] Last Admin: 01/08/17 21:57 Dose: 100 mg Hydralazine HCl (Apresoline) 25 mg PEG BID [facility] Last Admin: 01/08/17 17:10 Dose: 25 mg Sodium Chloride (Sodium Chloride 0.9%) 1,000 mls @ 100 mls/hr IV .Q10H [facility] Stop: 01/10/17 01:29 Last Admin: 01/09/17 02:44 Dose: 100 mls/hr Insulin Human Regular (Humulin R) 0 units SC ACHS [facility] PRN Reason: Protocol Last Admin: 01/09/17 06:49 Dose: 2 units Latanoprost (Xalatan Opht) 1 drop OU HS [facility] Last Admin: 01/08/17 22:04 Dose: 1 drop Levetiracetam (Keppra) 500 mg PO BID [facility] Last Admin: 01/08/17 17:13 Dose: 500 mg Magnesium Hydroxide (Milk Of Magnesia) 30 ml PO DAILY PRN PRN Reason: Constipation Nystatin/Triamcinolone Acetonide (Mycolog Ii) 1 applic TOP QSHIFT [facility] Pantoprazole Sodium (Protonix Susp) 40 mg PEG DAILY [facility] Last Admin: 01/08/17 10:12 Dose: 40 mg Quetiapine Fumarate (Seroquel) 50 mg PEG HS [facility] Last Admin: 01/08/17 21:57 Dose: 50 mg Sennosides (Senokot Tab) 8.6 mg PEG HS [facility] Last Admin: 01/08/17 21:57 Dose: 8.6 mg Sodium Bicarbonate (Sodium Bicarbonate Tab) 325 mg PO BID [facility] Last Admin: 01/08/17 17:13 Dose: 325 mg Tramadol HCl (Ultram) 50 mg GT Q6H PRN PRN Reason: Pain, severe (8-10) - Labs Labs: 01/08/17 05:45 01/08/17 05:45 Assessment and Plan - Assessment and Plan (Free Text) Plan: 86 years old female who resides at the [facility] and has hx of DM, CKD, Dementia, CVA with left sided sequelas, last admitted on the 12/04/16 and diagnosed with GI bleeding and Symptomatic Anemia on 12/06/16. She is now sent to the ED because of laboratory finding of Hyperkalemia and worsening of kidney function. Per PMD Dr Montemayor, the patient was hospice care but the family has rescinded this on Friday and now wants all measure to be taken. Acute on Chronic Kidney Disease, Probably secondary to poor intake slowly improving - Patient received one liter NS in ED - continue fluids - change from NS to d5 1/2 NS 100 mls/hr, continue fluids, urine spot osm, Cr - Consult Nephrology Dr Gordillo, Dr Gramajo as the patient is no longer Hospice - follow renal labs - cont sodium bicarb tabs Hypertension - Increase Amlodipine to 10 mg per PEG - Increased Hydralazine 25 mg per PEG to TID - continue Coreg as well Hyperkalemia secondary to the Kidney failure - RESOLVED - Follow Electrolyte Anemia of chronic disease, iron deficiency - Continue Ferrous Sulfate supplement - follow Hb DM II with hyperglycemia - Regular Insulin Sliding scale according to accucheck - HbA1c 6.2 on 11/14/16 Severe Dementia, Hx CVA - pain control with fentanyl patch, gabapentin - Aricept/ Seroquel - continue Keppra Gout - cont Allopurinol DVT Prophylaxis with SCD GI Senna Code Status: Full -
[2017-01-09 08:55] LABS: CALCIUM 9.4 mg/dL (8.4-10.2); POTASSIUM 4.9 MMOL/L (3.6-5.0)
--- NOTE | 2017-01-09 09:10 | CP.PCM.PN ---
Subjective - Date & Time of Evaluation Date of Evaluation: 01/09/17 Time of Evaluation: 09:07 - Subjective Subjective: Patient in bed Not communicating at all No new event reported Lab reviewed BUN coming down Serum creatinine improving About serum sodium going up to 149 therefore I suggest strongly to change IV fluid from normal saline to D5 half-normal , the same rate Physical exam Chest no rales Appeared to be dry Neck: Supple Abdomen soft Extremity no edema Impression and plan Acute kidney injury related to dehydration among other things And improving serum BUN and creatinine Hypernatremia change IV fluid as above D5W half-normal saline Continue monitoring Objective - Vital Signs/Intake and Output Vital Signs (last 24 hours): Temp Pulse Resp BP Pulse Ox 97.7 F 91 H 18 153/63 H 98 01/09/17 08:10 01/09/17 08:10 01/09/17 08:10 01/09/17 08:10 01/09/17 08:10 - Medications Medications: Current Medications Acetaminophen (Tylenol 325mg Tab) 650 mg PEG Q4H PRN PRN Reason: Pain, Mild (1-3) Acetaminophen (Tylenol 325mg Tab) 650 mg PEG Q4H PRN PRN Reason: Temp >100 Albuterol/Ipratropium (Duoneb 3 Mg/0.5 Mg (3 Ml) Ud) 3 ml INH RQ6 PRN PRN Reason: Shortness of Breath Allopurinol (Zyloprim) 100 mg PEG DAILY [facility] Last Admin: 01/08/17 10:16 Dose: 100 mg Amlodipine Besylate (Norvasc) 10 mg PEG DAILY [facility] Carvedilol (Coreg) 12.5 mg PEG Q12 [facility] Last Admin: 01/08/17 21:57 Dose: 12.5 mg Donepezil HCl (Aricept) 10 mg PEG HS [facility] Last Admin: 01/08/17 21:57 Dose: 10 mg Dorzolamide HCl (Trusopt) 1 drop OU BID [facility] Last Admin: 01/08/17 17:16 Dose: 1 drop Fentanyl (Duragesic) 1 patch TD Q72H [facility] PRN Reason: Protocol Ferrous Sulfate (Children's Iron) 7.5 mg PO DAILY [facility] Last Admin: 01/08/17 13:30 Dose: 7.5 mg Gabapentin (Neurontin) 100 mg PEG HS [facility] Last Admin: 01/08/17 21:57 Dose: 100 mg Hydralazine HCl (Apresoline) 25 mg PEG TID [facility] Sodium Chloride (Sodium Chloride 0.9%) 1,000 mls @ 100 mls/hr IV .Q10H [facility] Stop: 01/10/17 01:29 Last Admin: 01/09/17 02:44 Dose: 100 mls/hr Insulin Human Regular (Humulin R) 0 units SC ACHS [facility] PRN Reason: Protocol Last Admin: 01/09/17 06:49 Dose: 2 units Latanoprost (Xalatan Opht) 1 drop OU HS [facility] Last Admin: 01/08/17 22:04 Dose: 1 drop Levetiracetam (Keppra) 500 mg PO BID [facility] Last Admin: 01/08/17 17:13 Dose: 500 mg Magnesium Hydroxide (Milk Of Magnesia) 30 ml PO DAILY PRN PRN Reason: Constipation Nystatin/Triamcinolone Acetonide (Mycolog Ii) 1 applic TOP QSHIFT [facility] Pantoprazole Sodium (Protonix Susp) 40 mg PEG DAILY [facility] Last Admin: 01/08/17 10:12 Dose: 40 mg Quetiapine Fumarate (Seroquel) 50 mg PEG HS [facility] Last Admin: 01/08/17 21:57 Dose: 50 mg Sennosides (Senokot Tab) 8.6 mg PEG HS [facility] Last Admin: 01/08/17 21:57 Dose: 8.6 mg Sodium Bicarbonate (Sodium Bicarbonate Tab) 325 mg PO BID [facility] Last Admin: 01/08/17 17:13 Dose: 325 mg Tramadol HCl (Ultram) 50 mg GT Q6H PRN PRN Reason: Pain, severe (8-10) - Labs Labs: 01/08/17 05:45 01/09/17 07:35 Assessment and Plan (1) Acute kidney injury superimposed on chronic kidney disease Status: Acute (2) Altered mental status Status: Acute (3) Anemia Status: Acute
[2017-01-09] MEDS ORDERED: Sodium Chloride 0.45% 1,000 ML IV SCH (09:30)
[2017-01-09] MEDS: Pantoprazole 40 mg Susp UD PEG SCH (09:51)
[2017-01-09] MEDS: Dorzolamide 2% Ophth Soln OU SCH ×2 (09:53→17:18)
[2017-01-09] MEDS: Dextrose 5%/0.45% NS 1,000 ML IV SCH ×2 (12:18→22:12)
[2017-01-09] MEDS: Latanoprost 0.005% Opht SOUTION OU SCH (21:23)
[2017-01-10] MEDS: Insulin Regular 100 units/ml SC SCH ×2 (06:48→12:00)
[2017-01-10 08:17] VITALS: RESP 20
[2017-01-10] MEDS ORDERED: Epoetin Alfa 20000 UNIT/ML (RENAL DOSE) SC ONE (09:30)
[2017-01-10 10:04] LABS: CALCIUM 9.7 mg/dL (8.4-10.2); POTASSIUM 4.6 MMOL/L (3.6-5.0)
--- NOTE | 2017-01-10 10:15 | CP.PCM.DIS ---
Provider - Provider Date of Admission: 01/07/17 19:54 Attending physician: Tacho Redd Primary care physician: Dr Montemayor Consults: Nephrology : Dr Gramajo Time Spent in preparation of Discharge (in minutes): 25 Diagnosis - Discharge Diagnosis (1) Acute kidney injury superimposed on chronic kidney disease Status: Acute (2) Hyperkalemia, diminished renal excretion Status: Acute (3) Anemia Status: Chronic (4) Hypertension, uncontrolled Status: Chronic (5) DM2 (diabetes mellitus, type 2) Status: Chronic (6) History of CVA with residual deficit Status: Chronic (7) Dementia, vascular Status: Chronic Hospital Course - Lab Results Lab Results: Most Recent Lab Values WBC 6.7 K/uL (4.8-10.8) 01/08/17 05:45 RBC 3.05 Mil/uL (3.80-5.20) L 01/08/17 05:45 Hgb 8.9 g/dL (12.0-16.0) L 01/08/17 05:45 Hct 27.3 % (34.0-47.0) L 01/08/17 05:45 MCV 89.5 fl (81.0-99.0) 01/08/17 05:45 MCH 29.1 pg (27.0-31.0) 01/08/17 05:45 MCHC 32.6 g/dL (33.0-37.0) L 01/08/17 05:45 RDW 15.6 % (11.5-14.5) H 01/08/17 05:45 Plt Count 153 K/uL (130-400) 01/08/17 05:45 MPV 10.2 fl (7.2-11.7) 01/08/17 05:45 Neut % (Auto) 72.5 % (50.0-75.0) 01/08/17 05:45 Lymph % (Auto) 17.1 % (20.0-40.0) L 01/08/17 05:45 Barren % (Auto) 9.7 % (0.0-10.0) 01/08/17 05:45 Eos % (Auto) 0.0 % (0.0-4.0) 01/08/17 05:45 Baso % (Auto) 0.7 % (0.0-2.0) 01/08/17 05:45 Neut # 4.9 K/uL (1.8-7.0) 01/08/17 05:45 Lymph # 1.1 K/uL (1.0-4.3) 01/08/17 05:45 Barren # 0.7 K/uL (0.0-0.8) 01/08/17 05:45 Eos # 0.0 K/uL (0.0-0.7) 01/08/17 05:45 Baso # 0.0 K/uL (0.0-0.2) 01/08/17 05:45 Sodium 146 mmol/l (132-148) 01/10/17 09:33 Potassium 4.6 MMOL/L (3.6-5.0) 01/10/17 09:33 Chloride 109 mmol/L (98-107) H 01/10/17 09:33 Carbon Dioxide 22 mmol/L (22-30) 01/10/17 09:33 Anion Gap 20 (10-20) 01/10/17 09:33 BUN 86 mg/dl (7-17) H 01/10/17 09:33 Creatinine 1.8 mg/dL (0.7-1.2) H 01/10/17 09:33 Est GFR ( Amer) 32 01/10/17 09:33 Est GFR (Non-Af Amer) 27 01/10/17 09:33 POC Glucose (mg/dL) 284 mg/dL (65-110) H 01/09/17 21:02 Random Glucose 235 mg/dL (65-105) H 01/10/17 09:33 Calcium 9.7 mg/dL (8.4-10.2) 01/10/17 09:33 Total Bilirubin 0.3 mg/dl (0.2-1.3) 01/07/17 18:42 AST 60 U/L (14-36) H 01/07/17 18:42 ALT 67 U/L (9-52) H D 01/07/17 18:42 Alkaline Phosphatase 133 U/L (38-126) H 01/07/17 18:42 Total Protein 7.6 G/DL (6.3-8.2) 01/07/17 18:42 Albumin 3.9 g/dL (3.5-5.0) 01/07/17 18:42 Globulin 3.7 gm/dL (2.2-3.9) 01/07/17 18:42 Albumin/Globulin Ratio 1.0 (1.0-2.1) 01/07/17 18:42 Urine Color Yellow (YELLOW) 01/07/17 19:18 Urine Clarity Cloudy (Clear) 01/07/17 19:18 Urine pH 6.0 (5.0-8.0) 01/07/17 19:18 Ur Specific [facility] 1.014 (1.003-1.030) 01/07/17 19:18 Urine Protein 100 mg/dL (NEGATIVE) 01/07/17 19:18 Urine Glucose (UA) 50 mg/dL (Normal) 01/07/17 19:18 Urine Ketones Negative mg/dL (NEGATIVE) 01/07/17 19:18 Urine Blood Small (NEGATIVE) 01/07/17 19:18 Urine Nitrate Negative (NEGATIVE) 01/07/17 19:18 Urine Bilirubin Negative (NEGATIVE) 01/07/17 19:18 Urine Urobilinogen 0.2-1.0 mg/dL (0.2-1.0) 01/07/17 19:18 Ur Leukocyte Esterase Large Fernanda/uL (Negative) 01/07/17 19:18 Urine RBC (Auto) 12 /hpf (0-3) H 01/07/17 19:18 Urine Microscopic WBC 37 /hpf (0-5) H 01/07/17 19:18 Ur Squamous Epith Cells 2 /hpf (0-5) 01/07/17 19:18 Urine Bacteria Mod (<OCC) H 01/07/17 19:18 Urine Yeast (Budding) Rare /hpf (NEGATIVE) H 01/07/17 19:18 - Hospital Course Hospital Course: 86 years old female who resides at a [facility] and has hx of DM, CKD, Dementia, CVA with left sided hemiparesis, last admitted on the 12/04/16 and diagnosed with GI bleeding and Symptomatic Anemia on 12/06/16. She was sent to the ED because of laboratory finding of Hyperkalemia and worsening of kidney function. Per PMD Dr Montemayor, the patient was Hospice care but the family has rescinded this on Friday . Acute on Chronic Kidney Disease Stage III, Probably secondary to poor intake improving - Patient received one liter NS in ED - continue fluids - change from NS to D5 W - Consult Nephrology Dr Gordillo, Dr Gramajo as the patient is no longer Hospice - cont sodium bicarb tabs Hypertension - Increase Amlodipine to 10 mg per PEG - Increased Hydralazine 25 mg per PEG to TID - Increase Coreg 25 mg bid Hyperkalemia secondary to the Kidney failure resolved Anemia of chronic disease, iron deficiency - Continue Ferrous Sulfate supplement -given IV Venofer, Epogen and b12 shot DM II with hyperglycemia - Regular Insulin Sliding scale according to accucheck - HbA1c 6.2 on 11/14/16 - Start Levemir 8 units q hs Severe Dementia, Hx CVA - pain control with fentanyl patch, gabapentin - Aricept/ Seroquel - continue Keppra Gout - cont Allopurinol Unstageable Pressure Heel Ulcer ( POA) DVT Prophylaxis with SCD Code Status: Full - Discharge Exam - Head Exam Head Exam: ATRAUMATIC, NORMAL INSPECTION, NORMOCEPHALIC - Eye Exam Eye Exam: EOMI, Normal appearance Pupil Exam: NORMAL ACCOMODATION - ENT Exam ENT Exam: Mucous Membranes Moist, Normal External Ear Exam - Neck Exam Neck exam: Full Rom - Respiratory Exam Respiratory Exam: NORMAL BREATHING PATTERN. absent: Respiratory Distress - Cardiovascular Exam Cardiovascular Exam: REGULAR RHYTHM, +S1, +S2 - GI/Abdominal Exam GI & Abdominal Exam: Normal Bowel Sounds, Soft. absent: Tenderness Additional comments: + PEG - Extremities Exam Extremities exam: normal capillary refill Additional comments: left heel pressure ulcer - black ecshar - Neurological Exam Neurological exam: Alert Additional comments: oriented to person - Psychiatric Exam Psychiatric exam: Flat Affect - Skin Skin Exam: Dry, Normal Color, Warm Discharge Plan - Follow Up Plan Condition: IMPROVED Disposition: TRANSF TO SNF Additional Instructions: d/c back to [facility] IVF D5 Water at 70 ml per hour x 3 days increase Free water to 300ml q6
[2017-01-10] MEDS: Pantoprazole 40 mg Susp UD PEG SCH (10:29)
[2017-01-10] MEDS: Dorzolamide 2% Ophth Soln OU SCH (10:31)
--- NOTE | 2017-01-10 11:40 | CP.PCM.PN ---
Subjective - Date & Time of Evaluation Date of Evaluation: 01/10/17 Time of Evaluation: 11:38 - Subjective Subjective: Patient showed some response Vital sign noted Objective - Vital Signs/Intake and Output Vital Signs (last 24 hours): Temp Pulse Resp BP Pulse Ox 97.6 F 88 20 156/56 H 98 01/10/17 08:16 01/10/17 10:31 01/10/17 08:16 01/10/17 10:31 01/10/17 08:16 - Medications Medications: Current Medications Acetaminophen (Tylenol 325mg Tab) 650 mg PEG Q4H PRN PRN Reason: Pain, Mild (1-3) Acetaminophen (Tylenol 325mg Tab) 650 mg PEG Q4H PRN PRN Reason: Temp >100 Albuterol/Ipratropium (Duoneb 3 Mg/0.5 Mg (3 Ml) Ud) 3 ml INH RQ6 PRN PRN Reason: Shortness of Breath Allopurinol (Zyloprim) 100 mg PEG DAILY [facility] Last Admin: 01/10/17 10:17 Dose: 100 mg Amlodipine Besylate (Norvasc) 10 mg PEG DAILY [facility] Last Admin: 01/10/17 10:31 Dose: 10 mg Carvedilol (Coreg) 25 mg PEG Q12 [facility] Last Admin: 01/10/17 10:28 Dose: 25 mg Donepezil HCl (Aricept) 10 mg PEG HS [facility] Last Admin: 01/09/17 21:23 Dose: 10 mg Dorzolamide HCl (Trusopt) 1 drop OU BID [facility] Last Admin: 01/10/17 10:31 Dose: 1 drop Fentanyl (Duragesic) 1 patch TD Q72H [facility] PRN Reason: Protocol Ferrous Sulfate (Children's Iron) 7.5 mg PO DAILY [facility] Last Admin: 01/10/17 10:29 Dose: 7.5 mg Gabapentin (Neurontin) 100 mg PEG HS [facility] Last Admin: 01/09/17 21:24 Dose: 100 mg Hydralazine HCl (Apresoline) 25 mg PEG TID [facility] Last Admin: 01/10/17 10:26 Dose: 25 mg Insulin Detemir (Levemir) 8 units SC HS [facility] Insulin Human Regular (Humulin R) 0 units SC ACHS [facility] PRN Reason: Protocol Last Admin: 01/10/17 06:48 Dose: 3 units Latanoprost (Xalatan Opht) 1 drop OU HS [facility] Last Admin: 01/09/17 21:23 Dose: 1 drop Levetiracetam (Keppra) 500 mg PO BID [facility] Last Admin: 01/10/17 10:30 Dose: 500 mg Magnesium Hydroxide (Milk Of Magnesia) 30 ml PO DAILY [facility] PRN Reason: Constipation Nystatin/Triamcinolone Acetonide (Mycolog Ii) 1 applic TOP QSHIFT [facility] Pantoprazole Sodium (Protonix Susp) 40 mg PEG DAILY [facility] Last Admin: 01/10/17 10:29 Dose: 40 mg Quetiapine Fumarate (Seroquel) 50 mg PEG HS [facility] Last Admin: 01/09/17 21:23 Dose: 50 mg Sennosides (Senokot Tab) 8.6 mg PEG HS [facility] Last Admin: 01/09/17 21:24 Dose: 8.6 mg Sodium Bicarbonate (Sodium Bicarbonate Tab) 325 mg PO BID [facility] Last Admin: 01/10/17 10:26 Dose: 325 mg Tramadol HCl (Ultram) 50 mg GT Q6H PRN PRN Reason: Pain, severe (8-10) Last Admin: 01/09/17 22:05 Dose: 50 mg - Labs Labs: 01/08/17 05:45 01/10/17 09:33 - Constitutional Appears: No Acute Distress - Respiratory Exam Respiratory Exam: Chest Wall Tenderness - Cardiovascular Exam Cardiovascular Exam: REGULAR RHYTHM. absent: Rubs - GI/Abdominal Exam GI & Abdominal Exam: Soft, Normal Bowel Sounds. absent: Guarding - Extremities Exam Extremities Exam: absent: Calf Tenderness - Back Exam Back Exam: absent: CVA tenderness (L), CVA tenderness (R) - Neurological Exam Neurological Exam: Altered Assessment and Plan (1) Acute kidney injury superimposed on chronic kidney disease Assessment & Plan: Acute kidney injury kidney function continued to improve serum creatinine and BU and coming down on hydration. Serum sodium corrected also on hydration IV fluid changes D5 half-normal saline. Patient also receiving GT tube feeding. Continue monitoring Status: Acute (2) Altered mental status Status: Acute (3) Anemia Status: Acute
[2017-01-10 12:17] VITALS: TEMP 97
[2017-01-10 13:05] VITALS: BP 129/69
[2017-01-10] MEDS ORDERED: Insulin Detemir 100 Units/ml Inj SC SCH (22:00)
[2017-01-11 08:00] VITALS: PULSE 91; O2SAT 97
== END 2017-01-10 14:44 | DRG 683 ==
LOC: H.ER 17:57 → H.ERHOLD 19:54 → H.TEL 22:03
PROVIDERS: ADMIT Internal Medicine; ATTEND Internal Medicine
PROC: 3E0234Z Introduction of Serum, Toxoid and Vaccine into Muscle, Percutaneous Approach (ICD-10-PCS; principal; 2017-01-08)
DX: N17.9 Acute kidney failure, unspecified (principal); I69.354 Hemiplegia and hemiparesis following cerebral infarction affecting left non-dominant side; E87.0 Hyperosmolality and hypernatremia; E87.5 Hyperkalemia; E86.0 Dehydration; I12.9 Hypertensive chronic kidney disease with stage 1 through stage 4 chronic kidney disease, or unspecified chronic kidney disease; N18.4 Chronic kidney disease, stage 4 (severe); L89.620 Pressure ulcer of left heel, unstageable; E11.22 Type 2 diabetes mellitus with diabetic chronic kidney disease; D63.8 Anemia in other chronic diseases classified elsewhere; D50.9 Iron deficiency anemia, unspecified; F01.50 Vascular dementia, unspecified severity, without behavioral disturbance, psychotic disturbance, mood disturbance, and anxiety; E11.65 Type 2 diabetes mellitus with hyperglycemia; I48.91 Unspecified atrial fibrillation; I25.10 Atherosclerotic heart disease of native coronary artery without angina pectoris; K21.9 Gastro-esophageal reflux disease without esophagitis; M10.9 Gout, unspecified; H40.9 Unspecified glaucoma; Z93.1 Gastrostomy status; Z23 Encounter for immunization; Z74.01 Bed confinement status; Z79.4 Long term (current) use of insulin; Z87.440 Personal history of urinary (tract) infections

== ENCOUNTER 2017-01-31 17:45 | Inpatient (IN) | payer MEDICARE, MEDICAID ==
[2017-01-31 17:45] VITALS: PULSE 122; BMI 20.7
[2017-01-31] MEDS ORDERED: Albuterol-Ipratrop 3 mg / 0.5 (3 ml) UD IH STA (18:04)
--- NOTE | 2017-01-31 18:07 | ED PDOC ---
HPI: General Adult Time Seen by Provider: 01/31/17 17:53 Chief Complaint (Nursing): Weakness/Neurological Deficit Chief Complaint (Provider): Decreased responsiveness and abnormal labs History Per: Other (halfway notes) History/Exam Limitations: clinical condition Onset/Duration Of Symptoms: Days (Today) Current Symptoms Are (Timing): Still Present Additional Complaint(s): Pt. was seen to have decreased responsiveness today. Pt. had elevated bun at 130 and cr 2.8 so sent to the Ed from halfway. Pt baseline is aaox2. Pt. responsive with moans to her name. Limited h and p. PCP Dr. Montemayor. Past Medical History Reviewed: Nursing Documentation, Vital Signs Vital Signs: Last Vital Signs Temp 98.8 F 01/31/17 17:49 Pulse 84 01/31/17 17:49 Resp 16 01/31/17 17:49 BP 114/48 L 01/31/17 17:49 Pulse Ox 94 L 01/31/17 18:13 - Medical History PMH: Anemia, CAD, CVA (left sided weakness), Dementia, Depression, Diabetes, HTN , Pneumonia, Chronic Kidney Disease, Seizures - Surgical History Surgical History: Appendectomy, Carotid Endarterectomy - Family History Family History: States: Unknown Family Hx - Living Arrangements Living Arrangements: Alf/Assist Lvng - Immunization History Hx Tetanus Toxoid Vaccination: Yes Hx Influenza Vaccination: Yes Hx Pneumococcal Vaccination: Yes - Home Medications Home Medications: Ambulatory Orders Medication Instructions Recorded Allopurinol [Zyloprim] 100 mg PEG DAILY 08/05/16 Donepezil [Aricept] 10 mg PEG HS 09/03/16 Dorzolamide 2% [Trusopt] 1 drop OU BID 09/03/16 amLODIPine [Norvasc] 5 mg PEG Q12 09/03/16 Magnesium Hydroxide [Milk of 30 ml PO DAILY PRN 10/05/16 Magnesia] Acetaminophen [Tylenol 325mg tab] 650 mg PEG Q4H PRN 11/13/16 Acetaminophen [Tylenol 325mg tab] 650 mg PEG Q4H PRN 11/13/16 Gabapentin [Neurontin] 100 mg PEG HS 11/13/16 Menthol [Bengay Ultra Strength] 1 patch TOP DAILY 11/13/16 Nystatin/Triamcinolone 1 appl TOP QSHIFT 11/13/16 [Nystatin/Triamcinolone Cream] Sennosides [Senna] 8.6 mg GT HS 11/13/16 traMADol [Ultram] 50 mg PEG Q6H PRN 11/13/16 Ferrous Sulfate [Children's Iron] 7.5 mg PEG DAILY 12/04/16 hydrALAZINE [Apresoline] 25 mg PEG BID 12/04/16 levETIRAcetam [Keppra] 500 mg PEG BID 12/04/16 Latanoprost 0.005% Opht [Xalatan 1 drop OU HS bottle 12/06/16 Opht] Albuterol/Ipratropium [Duoneb 3 3 ml INH Q6H PRN 01/07/17 mg/0.5 mg (3 ml) UD] Lidocaine 5% 1 appl TOP Q8H 01/07/17 Omeprazole 40 mg PEG DAILY 01/07/17 fentaNYL 12 mcg/hr [Duragesic 1 patch TD Q72H 01/07/17 Patch 12 mcg/hr] Carvedilol [Coreg] 25 mg PEG Q12 tab 01/10/17 Insulin Detemir [Levemir] 8 units SC HS vial 01/10/17 Dorzolamide 2%/Timolol 0.5% 1 drop RIGHTEYE BID 01/31/17 [Cosopt 2%-0.5% Opht] Epoetin Calvin [Epogen] 1 ml SC MWF 01/31/17 Mag Hydrox/Aluminum Hyd/Simeth 30 ml PEG Q4H PRN 01/31/17 [Maalox Advanced Suspension] QUEtiapine [Seroquel] 25 mg PEG DAILY 01/31/17 Silver Sulfadiazine 1% [Silvadene 1 appl TOP QSHIFT 01/31/17 1%] Sodium Bicarbonate Tab [Sodium 650 mg PEG TID 01/31/17 Bicarbonate Tab] - Allergies Allergies/Adverse Reactions: Allergies Allergy/AdvReac Type Severity Reaction Status Date / Time No Known Allergies Allergy Verified 11/13/16 11:44 Review of Systems Review Of Systems: ROS cannot be obtained secondary to pt's inabilty to answer questions. Physical Exam - Reviewed Nursing Documentation Reviewed: Yes Vital Signs Reviewed: Yes - Physical Exam Appears: Positive for: No Acute Distress Head Exam: Positive for: ATRAUMATIC, NORMOCEPHALIC Skin: Positive for: Normal Color, Warm Eye Exam: Negative for: Periorbital swelling, Periorbital tenderness ENT: Positive for: Other (no teeth). Negative for: Pharyngeal Erythema Neck: Positive for: Supple, Trachea Midline Cardiovascular/Chest: Positive for: Regular Rate, Rhythm. Negative for: Edema Respiratory: Positive for: Wheezing (trace at end expiration at bases) Gastrointestinal/Abdominal: Positive for: Soft, Other (peg tube in place; no dc or erythema around wound). Negative for: Tenderness Back: Negative for: L CVA Tenderness, R CVA Tenderness Extremity: Negative for: Tenderness, Deformity Neurologic/Psych: Positive for: Other (responsive with moans to her name and to touch; not moving extremities) - ECG O2 Sat by Pulse Oximetry: 94 Pulse Ox Interpretation: Abnormal Interpretation Of Abnormal: borderline - Progress ED Course And Treament: 1842: Dr. Reddy to take over care. Fu on labs and imaging. Disposition - Clinical Impression Clinical Impression: Acute weakness - Patient ED Disposition Is Patient to be Admitted: Transfer of Care - Disposition Disposition: Transfer of Care Disposition Time: 18:43 Condition: STABLE Patient Signed Over To: Merrill Reddy
[2017-01-31] MEDS ORDERED: Sodium Chloride 0.9% 500 ML IV SCH (18:15)
[2017-01-31 18:48] LABS: BASO % 0.3 % (0.0-2.0); LYMPH # 0.9 K/uL (1.0-4.3); LYMPH % 12.4 % (20.0-40.0); MEAN CELL VOLUME 87.9 fl (81.0-99.0); MEAN CORPUSCULAR HEMOGLOBIN 28.3 pg (27.0-31.0); MEAN CORPUSCULAR HGB CONC 32.2 g/dL (33.0-37.0); MEAN PLATELET VOLUME 9.7 fl (7.2-11.7); MONO # 0.5 K/uL (0.0-0.8); MONO % 7.3 % (0.0-10.0); NEUT # 5.9 K/uL (1.8-7.0); NRBC % 0.2 % (0.0-0.0); RED CELL DISTRIBUTION WIDTH 17.4 % (11.5-14.5); WHITE BLOOD COUNT 7.4 K/uL (4.8-10.8)
--- NOTE | 2017-01-31 18:54 | CT ---
PROCEDURE: CT HEAD WITHOUT CONTRAST. HISTORY: headache COMPARISON: 12/04/2016. TECHNIQUE: Axial computed tomography images were obtained through the head/brain without intravenous contrast. Coronal and sagittal reconstructed images. Radiation dose: Total exam DLP = 976.82 mGy-cm. This CT exam was performed using one or more of the following dose reduction techniques: Automated exposure control, adjustment of the mA and/or kV according to patient size, and/or use of iterative reconstruction technique. FINDINGS: HEMORRHAGE: No intracranial hemorrhage. BRAIN: No mass effect or edema. Evidence of old and stable right MCA infarct. Old left occipital infarct. VENTRICLES: Unremarkable. No hydrocephalus. CALVARIUM: Unremarkable. PARANASAL SINUSES: Unremarkable as visualized. No significant inflammatory changes. MASTOID AIR CELLS: Unremarkable as visualized. No inflammatory changes. OTHER FINDINGS: None. IMPRESSION: No acute intracranial abnormalities. No significant findings to account for the clinical presentation. No significant interval change compared to the prior examination(s).
[2017-01-31 19:11] LABS: ALB/GLOB RATIO 1.1 (1.0-2.1); BILIRUBIN,TOTAL 0.4 mg/dl (0.2-1.3); CALCIUM 9.3 mg/dL (8.4-10.2); MAGNESIUM 3.2 MG/DL (1.6-2.3); PHOSPHOROUS 5.3 mg/dl (2.5-4.5); TOTAL PROTEIN 7.3 G/DL (6.3-8.2)
[2017-01-31 19:15] LABS: VENOUS BLOOD GAS PCO2 50 mmHg (40-60)
[2017-01-31 19:19] LABS: POTASSIUM 5.1 MMOL/L (3.6-5.0)
[2017-01-31 19:22] LABS: TROPONIN I 0.016 ng/mL (0.00-0.120)
[2017-01-31] MEDS ORDERED: Albuterol-Ipratrop 3 mg / 0.5 (3 ml) UD ONE (19:36)
[2017-01-31 19:49] LABS: RBC URINE 22 /hpf (0-3); URINE BACTERIA MANY (<OCC); URINE BILIRUBIN NEGATIVE (NEGATIVE); URINE BLOOD SMALL (NEGATIVE); URINE COLOR YELLOW (YELLOW); URINE GLUCOSE (UA) 50 mg/dL (Normal); URINE KETONE NEGATIVE (NEGATIVE); URINE LEUKOCYTE ESTERASE LARGE Leu/uL (Negative); URINE PROTEIN 100 mg/dL (NEGATIVE); URINE UROBILINOGEN 0.2-1.0 mg/dL (0.2-1.0); WBC URINE 189 /hpf (0-5)
[2017-01-31 19:56] LABS: WBC CLUMPS FEW /hpf
--- NOTE | 2017-01-31 19:56 | ED PDOC ---
- Laboratory Results Result Diagrams: 01/31/17 18:35 01/31/17 18:35 - ECG O2 Sat by Pulse Oximetry: 96 Pulse Ox Interpretation: Normal Medical Decision Making Medical Decision Makin:00. Patient transferred from Dr. Nagel to nd. Pending work up. 20:00 Pt. has sacral ulcer and unstageable L heel ulcer. UTI treated with ceftriaxone. Dr. Redd aware of admission. Scribe Attestation: Documented by Elijah bender, acting as a scribe for Merrill Reddy MD Provider Scribe Attestation: All medical record entries made by the Scribe were at my direction and personally dictated by me. I have reviewed the chart and agree that the record accurately reflects my personal performance of the history, physical exam, medical decision making, and the department course for this patient. I have also personally directed, reviewed, and agree with the discharge instructions and disposition. Disposition - Clinical Impression Clinical Impression: Acute weakness, UTI (urinary tract infection) - POA Present On Arrival: Pressure Ulcer - Disposition Disposition: Hospitalized as Observation Patient Disposition Time: 20:10 Condition: STABLE Instructions: Weakness (ED) Forms: [employer] (Italian)
[2017-01-31 20:06] LABS: PARTIAL THROMBOPLASTIN TIME 27.9 Seconds (25.6-37.1)
[2017-01-31] MEDS ORDERED: Sodium Chloride 0.9% 1,000 ML IV SCH (20:15)
[2017-01-31] MEDS ORDERED: cefTRIAXone 2 GM in Sodium Chloride 0.9% 100 ML IVPB STA (20:26)
--- NOTE | 2017-01-31 20:49 | CP.PCM.HP ---
History of Present Illness - History of Present Illness History of Present Illness: PCP: fernando Montemayor MD Chief Complaint: Decreased Responsiveness and abnormal labs The patient was seen and examined in the ED. The family was present HPI: The hx was obtained from the Skilled Nursing 's notes and after review of the medical records. She is an 86 years old bed-bound and non verbal female, residing at the [facility], who was sent to the ED because she was found to be lethargic with decreased response to her usual stimuli. Also her laboratory results noted increase in BUN and Creatinine to 130 and 2.3 respectively which were 86 and 1.8 on her last discharge on 01/10/17. In the Ed the patient was nonverbal, not opening eyes to name calling nor mild chest rubs. 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 Past Patient History - Infectious Disease Hx of Infectious Diseases: None - Tetanus Immunizations Tetanus Immunization: Unknown - Past Medical History & Family History Past Medical History?: Yes - Past Social History Smoking Status: Never Smoked Chewing Tobacco Use: No Cigar Use: No Alcohol: None Drugs: Denies Home Situation {Lives}: Skilled Nursing - CARDIAC Hx Hypertension: Yes - PULMONARY Hx Pneumonia: Yes - NEUROLOGICAL Hx Dementia: Yes Hx Seizures: Yes - HEENT Hx HEENT Problems: Yes Hx Glaucoma: Yes - RENAL Hx Chronic Kidney Disease: Yes - ENDOCRINE/METABOLIC Hx Endocrine Disorders: Yes Hx Diabetes Mellitus Type 2: Yes - HEMATOLOGICAL/ONCOLOGICAL Hx Anemia: Yes - INTEGUMENTARY Hx Dermatological Problems: No - MUSCULOSKELETAL/RHEUMATOLOGICAL Hx Falls: No - GASTROINTESTINAL Hx Gastrointestinal Disorders: Yes Hx Gastroesophageal Reflux: Yes Other/Comment: Incontinence - GENITOURINARY/GYNECOLOGICAL Hx Genitourinary Disorders: Yes Hx Incontinence: Yes Hx Urinary Tract Infection: Yes - PSYCHIATRIC Hx Depression: Yes - SURGICAL HISTORY Hx Appendectomy: Yes Hx Carotid Endarterectomy: Yes - ANESTHESIA Hx Anesthesia: Yes Hx Anesthesia Reactions: No Hx Malignant Hyperthermia: No Meds Allergies/Adverse Reactions: Allergies Allergy/AdvReac Type Severity Reaction Status Date / Time No Known Allergies Allergy Verified 11/13/16 11:44 Physical Exam - Constitutional Appears: No Acute Distress - Head Exam Head Exam: ATRAUMATIC, NORMOCEPHALIC - Eye Exam Additional comments: Patient maintaining both eyes closed and resisting to have them opened. - ENT Exam ENT Exam: Mucous Membranes Dry, Normal Exam, Normal External Ear Exam - Neck Exam Neck exam: Positive for: Normal Inspection. Negative for: Lymphadenopathy, Tenderness - Respiratory Exam Respiratory Exam: Clear to Auscultation Bilateral. absent: Rales, Rhonchi, Wheezes - Cardiovascular Exam Cardiovascular Exam: REGULAR RHYTHM, RRR, +S1, +S2 Additional comments: Grade III/ Systolic Murmur at the precordium - GI/Abdominal Exam Additional comments: Soft, flat, +ve bowel sounds, with PEG tube at mid left abdomen with base clean and dry. - Rectal Exam Rectal Exam: Deferred - Extremities Exam Additional comments: Left heel with blackened skin. - Back Exam Additional comments: Sacral Decubitus ulcer present - - Neurological Exam Additional comments: Not responding to verbal nor painful stimuli. Contracted in extension at both lower extremities. The left upper extremity is contracted at the hand, but there is Hypertonic contraction in both upper extremities. - Psychiatric Exam Psychiatric exam: Flat Affect - Skin Skin Exam: Dry, Normal Color, Warm Results - Vital Signs Recent Vital Signs: Last Vital Signs Temp 97.9 F 01/31/17 20:47 Pulse 81 01/31/17 20:47 Resp 16 01/31/17 20:47 BP 128/61 01/31/17 20:47 Pulse Ox 98 01/31/17 20:47 - Labs Result Diagrams: 01/31/17 18:35 01/31/17 18:35 Labs: Laboratory Results - last 24 hr 01/31/17 01/31/17 01/31/17 18:35 18:35 19:08 WBC 7.4 RBC 3.29 L Hgb 9.3 L Hct 29.0 L MCV 87.9 MCH 28.3 MCHC 32.2 L RDW 17.4 H Plt Count 197 MPV 9.7 Neut % (Auto) 80.0 H Lymph % (Auto) 12.4 L Grimes % (Auto) 7.3 Eos % (Auto) 0.0 Baso % (Auto) 0.3 Neut # 5.9 Lymph # 0.9 L Grimes # 0.5 Eos # 0.0 Baso # 0.0 PT INR APTT pO2 52 VBG pH 7.40 VBG pCO2 50 VBG HCO3 28.5 VBG Total CO2 32.5 H VBG O2 Sat (Calc) 92.7 H VBG Base Excess 5.0 H VBG Potassium 5.1 Glucose 224 H Lactate 0.9 FiO2 21.0 Sodium 127 L 126.0 L Potassium 5.1 H Chloride 89 L 90.0 L Carbon Dioxide 25 Anion Gap 18 BUN 139 H* D Creatinine 2.6 H Est GFR ( Amer) 21 Est GFR (Non-Af Amer) 17 Random Glucose 223 H Calcium 9.3 Phosphorus 5.3 H Magnesium 3.2 H Total Bilirubin 0.4 AST 46 H D ALT 30 Alkaline Phosphatase 131 H Troponin I 0.0160 NT-Pro-B Natriuret Pep 3500 H Total Protein 7.3 Albumin 3.8 Globulin 3.5 Albumin/Globulin Ratio 1.1 Venous Blood Potassium 5.1 Urine Color Urine Clarity Urine pH Ur Specific [place] Urine Protein Urine Glucose (UA) Urine Ketones Urine Blood Urine Nitrate Urine Bilirubin Urine Urobilinogen Ur Leukocyte Esterase Urine RBC (Auto) Urine WBC Clumps (Auto) Urine Microscopic WBC Ur Squamous Epith Cells Amorphous Sediment Urine Bacteria Hyaline Casts 01/31/17 01/31/17 19:21 19:25 WBC RBC Hgb Hct MCV MCH MCHC RDW Plt Count MPV Neut % (Auto) Lymph % (Auto) Grimes % (Auto) Eos % (Auto) Baso % (Auto) Neut # Lymph # Grimes # Eos # Baso # PT 11.5 INR 1.0 APTT 27.9 pO2 VBG pH VBG pCO2 VBG HCO3 VBG Total CO2 VBG O2 Sat (Calc) VBG Base Excess VBG Potassium Glucose Lactate FiO2 Sodium Potassium Chloride Carbon Dioxide Anion Gap BUN Creatinine Est GFR ( Amer) Est GFR (Non-Af Amer) Random Glucose Calcium Phosphorus Magnesium Total Bilirubin AST ALT Alkaline Phosphatase Troponin I NT-Pro-B Natriuret Pep Total Protein Albumin Globulin Albumin/Globulin Ratio Venous Blood Potassium Urine Color Yellow Urine Clarity Turbid Urine pH 6.0 Ur Specific [place] 1.012 Urine Protein 100 Urine Glucose (UA) 50 Urine Ketones Negative Urine Blood Small Urine Nitrate Negative Urine Bilirubin Negative Urine Urobilinogen 0.2-1.0 Ur Leukocyte Esterase Large Urine RBC (Auto) 22 H Urine WBC Clumps (Auto) Few H Urine Microscopic WBC 189 H Ur Squamous Epith Cells 3 Amorphous Sediment Many H Urine Bacteria Many H Hyaline Casts Few - Imaging and Cardiology Chest x-ray Status: Image reviewed by me Additional comment: Left costophrnic angle obliterated No active disease noted. CT scan - head Status: Image reviewed by me, Report reviewed by me Additional comment: No Acute intracraneal Abnormality Assessment & Plan - Assessment and Plan (Free Text) Assessment: #. AMS #. UTI #. Acute n chronic Kidney disease #. Hyponatremia #. Diabetes II with hyperglycemia #. Bronchitis #. severe Dementia #. Anemia Plan: 86 years old bed-bound and non verbal female, residing at the [facility], who was sent to the ED because she was found to be lethargic with decreased response to her usual stimuli. Also her laboratory results noted increase in BUN and Creatinine to 130 and 2.3 respectively which were 86 and 1.8 on her last discharge on 01/10/17. #. AMS secondary to Metabolic encephalopathy - Correct worsened Renal failure - Treat UTI #. UTI - Ceftriaxone - follow Urine and Blood culture #. Acute n chronic Kidney disease - Consult Dr Sotelo - IV fluids at 125mls/hr - follow renal labs #. Hyponatremia - IV Fluids - follow Renal labs #. Diabetes II with hyperglycemia - Regular insulin sliding scale according to accucheck - HbA1c was 6.2 on 11/14/16 #. Bronchitis - continue to monitor with expectorant and continue to monitor cough with repeated CXR if it continues #. Anemia of chronic kidney disease - monitor Hb #. DVT Prophylaxis with Heparin Sub Q #. Code Status: Full - Date & Time Date: 01/31/17 Time: 20:48
[2017-01-31] MEDS ORDERED: Magnesium Hydroxide Susp 30 ml UD PO PRN (20:56)
[2017-01-31] MEDS ORDERED: Albuterol-Ipratrop 3 mg / 0.5 (3 ml) UD INH PRN (20:56)
[2017-01-31] MEDS ORDERED: Alum-Mag Hydrox-Simethicone Susp (30 mL) PEG PRN (20:56)
[2017-01-31] MEDS ORDERED: Lidocaine 2.5% OINTMENT TOP SCH (21:00)
[2017-01-31] MEDS ORDERED: Silver Sulfadiazine 1% Cream (20 gm) TOP SCH (21:00)
[2017-01-31] MEDS: Insulin Regular 100 units/ml SC SCH (22:00)
[2017-01-31] MEDS ORDERED: Lidocaine 2% Jelly (5 ml) TOP SCH (22:30)
[2017-01-31] MEDS: Latanoprost 0.005% Opht SOUTION OU SCH (23:45)
[2017-01-31] MEDS: Insulin Detemir 100 Units/ml Inj SC SCH (23:46)
[2017-01-31] MEDS: Sodium Chloride 0.9% 1,000 ML IV SCH (23:48)
[2017-01-31] MEDS: Lidocaine 2% Jelly (5 ml) TOP SCH (23:49)
[2017-01-31] MEDS: Silver Sulfadiazine 1% Cream (20 gm) TOP SCH (23:50)
[2017-02-01] MEDS: Insulin Regular 100 units/ml SC SCH ×4 (03:15→22:10)
[2017-02-01] MEDS: Sodium Chloride 0.9% 1,000 ML IV SCH (07:20)
[2017-02-01 07:25] LABS: BASO % 0.2 % (0.0-2.0); HEMATOCRIT 29.6 % (34.0-47.0); LYMPH # 0.8 K/uL (1.0-4.3); LYMPH % 8.8 % (20.0-40.0); MEAN CELL VOLUME 88.8 fl (81.0-99.0); MEAN CORPUSCULAR HEMOGLOBIN 28.5 pg (27.0-31.0); MEAN CORPUSCULAR HGB CONC 32.1 g/dL (33.0-37.0); MEAN PLATELET VOLUME 9.5 fl (7.2-11.7); MONO # 0.6 K/uL (0.0-0.8); MONO % 6.4 % (0.0-10.0); NEUT # 7.8 K/uL (1.8-7.0); NEUT % 84.6 % (50.0-75.0); NRBC % 0.1 % (0.0-0.0); PLATELET COUNT 206 K/uL (130-400); RED CELL DISTRIBUTION WIDTH 17.2 % (11.5-14.5); WHITE BLOOD COUNT 9.3 K/uL (4.8-10.8)
--- NOTE | 2017-02-01 07:30 | CP.PCM.PN ---
Subjective - Date & Time of Evaluation Date of Evaluation: 02/01/17 Time of Evaluation: 10:30 - Subjective Subjective: Patient seen and examined bedside. Elderly female lying in bed with eyes closed , not responding to verbal stimuli. She is a demented , bedbound patient from [place] . Hemodynamically stable, afebrile BUn/Cr trending down 118/2.3 Na 135 hgb 9.5 WBc 7.4 UA cloudy with many bacteria, LE + and WBC clumps Objective - Vital Signs/Intake and Output Vital Signs (last 24 hours): Temp Pulse Resp BP Pulse Ox 98.3 F 88 19 131/65 97 02/01/17 00:00 02/01/17 00:00 02/01/17 00:00 02/01/17 00:00 02/01/17 00:00 Intake and Output: 02/01/17 02/01/17 06:59 18:59 Output Total 500 Balance -500 - Medications Medications: Current Medications Acetaminophen (Tylenol 325mg Tab) 650 mg PEG Q4H PRN PRN Reason: Pain, Mild (1-3) Acetaminophen (Tylenol 325mg Tab) 650 mg PEG Q4H PRN PRN Reason: Temp >100 Al Hydrox/Mg Hydrox/Simethicone (Maalox Plus 30 Ml) 30 ml PEG Q4H PRN PRN Reason: heartburn/indigestion Albuterol/Ipratropium (Duoneb 3 Mg/0.5 Mg (3 Ml) Ud) 3 ml INH Q6H PRN PRN Reason: Shortness of Breath Allopurinol (Zyloprim) 100 mg PEG DAILY [facility] Amlodipine Besylate (Norvasc) 5 mg PEG DAILY [facility] Carvedilol (Coreg) 25 mg PEG Q12 [facility] Last Admin: 01/31/17 21:30 Dose: Not Given Donepezil HCl (Aricept) 10 mg PEG HS [facility] Last Admin: 01/31/17 23:46 Dose: 10 mg Dorzolamide HCl (Trusopt) 1 drop OU BID [facility] Epoetin Calvin (Procrit) 10,000 unit SC MWF [facility] Fentanyl (Duragesic) 1 patch TD Q72H [facility] PRN Reason: Protocol Ferrous Sulfate (Children's Iron) 7.5 mg PO DAILY [facility] Gabapentin (Neurontin) 100 mg PEG HS [facility] Last Admin: 02/01/17 00:15 Dose: 100 mg Heparin Sodium (Porcine) (Heparin) 5,000 units SC Q8 [facility] PRN Reason: Protocol Last Admin: 02/01/17 01:38 Dose: 5,000 units Hydralazine HCl (Apresoline) 25 mg PEG BID [facility] Ceftriaxone Sodium 1 gm/ (Sodium Chloride) 100 mls @ 100 mls/hr IVPB DAILY@ 2100 [facility] PRN Reason: Protocol Sodium Chloride (Sodium Chloride 0.9%) 1,000 mls @ 125 mls/hr IV .Q8H [facility] Stop: 02/01/17 20:13 Last Admin: 01/31/17 23:48 Dose: 125 mls/hr Insulin Detemir (Levemir) 8 units SC HS [facility] Last Admin: 01/31/17 23:46 Dose: 8 unit Insulin Human Regular (Humulin R) 0 units SC Q6H [facility] PRN Reason: Protocol Last Admin: 02/01/17 03:15 Dose: Not Given Latanoprost (Xalatan Opht) 1 drop OU HS [facility] Last Admin: 01/31/17 23:45 Dose: 1 drop Levetiracetam (Keppra) 500 mg PO BID [facility] Lidocaine HCl (Lidocaine Hydrochloride Jelly 2% 5 Ml) 1 ml TOP Q8H [facility] Last Admin: 01/31/17 23:49 Dose: 1 ml Magnesium Hydroxide (Milk Of Magnesia) 30 ml PO DAILY PRN PRN Reason: Constipation Pantoprazole Sodium (Protonix Ec Tab) 20 mg PO DAILY [facility] Quetiapine Fumarate (Seroquel) 25 mg JT DAILY [facility] Sennosides (Senokot Tab) 8.6 mg PEG HS [facility] Last Admin: 01/31/17 23:45 Dose: 8.6 mg Silver Sulfadiazine (Silvadene 1% 20 Gm) 1 ea TOP QSHIFT [facility] Last Admin: 01/31/17 23:50 Dose: 1 applic Sodium Bicarbonate (Sodium Bicarbonate Tab) 650 mg GT TID [facility] Tramadol HCl (Ultram) 50 mg GT Q6H PRN PRN Reason: Pain, severe (8-10) - Labs Labs: 01/31/17 18:35 01/31/17 18:35 PT 11.5 Seconds (9.8-13.1) 01/31/17 19:25 INR 1.0 (0.9-1.2) 01/31/17 19:25 APTT 27.9 Seconds (25.6-37.1) 01/31/17 19:25 - Constitutional Appears: No Acute Distress, Other (nonverbal ) - Head Exam Head Exam: NORMOCEPHALIC - Eye Exam Eye Exam: PERRL Additional comments: keeps eyes closed - ENT Exam ENT Exam: Mucous Membranes Dry - Neck Exam Neck Exam: Normal Inspection - Respiratory Exam Respiratory Exam: Clear to Ausculation Bilateral, NORMAL BREATHING PATTERN. absent: Rales, Rhonchi, Wheezes - Cardiovascular Exam Cardiovascular Exam: REGULAR RHYTHM, RRR, +S1, +S2. absent: JVD - GI/Abdominal Exam GI & Abdominal Exam: Soft, Normal Bowel Sounds. absent: Distended, Guarding, Tenderness, Rebound - Rectal Exam Rectal Exam: Deferred - Extremities Exam Extremities Exam: absent: Pedal Edema - Neurological Exam Additional comments: non verbal not following any commands demented bed bound - Skin Skin Exam: Dry, Normal Color, Warm Assessment and Plan - Assessment and Plan (Free Text) Assessment: 86 years old bed-bound and non verbal female, residing at the [facility], who was sent to the ED because she was found to be lethargic with decreased response to her usual stimuli.Her laboratory results noted increase in BUN and Creatinine to 130 and 2.3 respectively which were 86 and 1.8 on her last discharge on 01/10/17. her urine noted to be cloudy with WBC clumps, many bacteria and LE + patient admitted , started on IVF , rocephin IV empirically for UTi and urine cultures sent 1.AMS secondary to Metabolic encephalopathy Continue IVF for acute renal failure started on Iv rocephin for possible UTI Follow up urine cultures 2. UTI on Ceftriaxone IV follow Urine and Blood culture 3. Acute on chronic Kidney disease stage CKD stage IV Continue IVF . decrease rate to 80 ml/hr BUn/ Cr trending down to 118/2.[address] Sotelo Repeat BMP in AM 4.Hyponatremia most likely secondary to dehydration and volume depletion Improved with IVF 5. Diabetes II with hyperglycemia Regular insulin sliding scale according to accucheck HbA1c was 6.2 on 11/14/16 6. Anemia of chronic kidney disease H & H stable 7. DVT Prophylaxis Heparin Sub Q
[2017-02-01 07:38] LABS: CALCIUM 8.9 mg/dL (8.4-10.2); POTASSIUM 4.7 MMOL/L (3.6-5.0)
[2017-02-01] MEDS ORDERED: cefTRIAXone 2 GM in Sodium Chloride 0.9% 100 ML IVPB SCH (09:00)
[2017-02-01] MEDS: Dorzolamide 2% Ophth Soln OU SCH ×2 (10:19→17:06)
[2017-02-01] MEDS: Lidocaine 2% Jelly (5 ml) TOP SCH ×2 (10:19→17:20)
[2017-02-01 10:24] LABS: BASOPHIL 1 % (0-2); NEUTROPHIL 84 % (42-75); TOTAL CELLS COUNTED 100
[2017-02-01 10:26] LABS: LARGE PLATELETS PRESENT
[2017-02-01] MEDS: Pantoprazole 20 mg EC Tab PO SCH (11:02)
[2017-02-01] MEDS ORDERED: Sodium Chloride 0.9% 1,000 ML IV SCH (11:53)
--- NOTE | 2017-02-01 12:23 | CARD ---
APPROVED REPORT EKG Measurement Heart [id number] <Conclusion> Normal sinus rhythm Anterior infarct, age undetermined Abnormal ECG
--- NOTE | 2017-02-01 13:54 | RAD ---
HISTORY: Sepsis Patient COMPARISON: No prior. FINDINGS: LUNGS: No active pulmonary disease. PLEURA: No significant pleural effusion identified, no pneumothorax apparent. CARDIOVASCULAR: Normal. OSSEOUS STRUCTURES: No significant abnormalities. VISUALIZED UPPER ABDOMEN: Normal. OTHER FINDINGS: None. IMPRESSION: No active disease.
[2017-02-01] MEDS: Silver Sulfadiazine 1% Cream (20 gm) TOP SCH (17:17)
[2017-02-01] MEDS: Latanoprost 0.005% Opht SOUTION OU SCH (22:11)
[2017-02-01] MEDS: Insulin Detemir 100 Units/ml Inj SC SCH (22:14)
[2017-02-02] MEDS: Lidocaine 2% Jelly (5 ml) TOP SCH ×4 (00:08→23:00)
[2017-02-02] MEDS: Insulin Regular 100 units/ml SC SCH ×4 (04:17→22:01)
[2017-02-02 06:58] LABS: HEMATOCRIT 29.1 % (34.0-47.0); MEAN CELL VOLUME 89.5 fl (81.0-99.0); MEAN CORPUSCULAR HGB CONC 31.2 g/dL (33.0-37.0); RED CELL DISTRIBUTION WIDTH 17.4 % (11.5-14.5); WHITE BLOOD COUNT 6.4 K/uL (4.8-10.8)
[2017-02-02 07:00] LABS: CALCIUM 8.8 mg/dL (8.4-10.2); POTASSIUM 4.2 MMOL/L (3.6-5.0)
--- NOTE | 2017-02-02 07:46 | CP.PCM.PN ---
Subjective - Date & Time of Evaluation Date of Evaluation: 02/02/17 Time of Evaluation: 08:00 - Subjective Subjective: Patient seen and examined bedside. Elderly female lying in bed with eyes closed , non verbal, not following commands.She is a demented , bedbound patient from [place] . Hemodynamically stable, afebrile BUN/Cr trending down 116/2.2 urine culture positive for gram negative rods Objective - Vital Signs/Intake and Output Vital Signs (last 24 hours): Temp Pulse Resp BP Pulse Ox 99.4 F 86 20 119/60 95 02/02/17 00:43 02/02/17 00:43 02/02/17 00:43 02/02/17 00:43 02/02/17 00:43 Intake and Output: 02/02/17 02/02/17 06:59 18:59 Intake Total 1910 Output Total 400 Balance 1510 - Medications Medications: Current Medications Acetaminophen (Tylenol 325mg Tab) 650 mg PEG Q4H PRN PRN Reason: Pain, Mild (1-3) Acetaminophen (Tylenol 325mg Tab) 650 mg PEG Q4H PRN PRN Reason: Temp >100 Al Hydrox/Mg Hydrox/Simethicone (Maalox Plus 30 Ml) 30 ml PEG Q4H PRN PRN Reason: heartburn/indigestion Albuterol/Ipratropium (Duoneb 3 Mg/0.5 Mg (3 Ml) Ud) 3 ml INH Q6H PRN PRN Reason: Shortness of Breath Allopurinol (Zyloprim) 100 mg PEG DAILY [facility] Last Admin: 02/01/17 10:20 Dose: 100 mg Amlodipine Besylate (Norvasc) 5 mg PEG DAILY [facility] Last Admin: 02/01/17 10:22 Dose: 5 mg Carvedilol (Coreg) 25 mg PEG Q12 [facility] Last Admin: 02/01/17 21:47 Dose: 25 mg Donepezil HCl (Aricept) 10 mg PEG HS [facility] Last Admin: 02/01/17 21:47 Dose: 10 mg Dorzolamide HCl (Trusopt) 1 drop OU BID [facility] Last Admin: 02/01/17 17:06 Dose: 1 drop Epoetin Calvin (Procrit) 10,000 unit SC MWF [facility] Fentanyl (Duragesic) 1 patch TD Q72H [facility] PRN Reason: Protocol Last Admin: 02/01/17 11:01 Dose: 1 patch Ferrous Sulfate (Children's Iron) 7.5 mg PO DAILY [facility] Last Admin: 02/01/17 10:18 Dose: 7.5 mg Gabapentin (Neurontin) 100 mg PEG HS [facility] Last Admin: 02/01/17 21:59 Dose: 100 mg Heparin Sodium (Porcine) (Heparin) 5,000 units SC Q8 [facility] PRN Reason: Protocol Last Admin: 02/02/17 01:00 Dose: 5,000 units Hydralazine HCl (Apresoline) 25 mg PEG BID [facility] Last Admin: 02/01/17 17:05 Dose: 25 mg Ceftriaxone Sodium 1 gm/ (Sodium Chloride) 100 mls @ 100 mls/hr IVPB DAILY@ 2100 [facility] PRN Reason: Protocol Last Admin: 02/01/17 21:48 Dose: 100 mls/hr Insulin Detemir (Levemir) 8 units SC HS [facility] Last Admin: 02/01/17 22:14 Dose: 8 unit Insulin Human Regular (Humulin R) 0 units SC Q6H [facility] PRN Reason: Protocol Last Admin: 02/02/17 04:17 Dose: Not Given Latanoprost (Xalatan Opht) 1 drop OU HS [facility] Last Admin: 02/01/17 22:11 Dose: 1 drop Levetiracetam (Keppra) 500 mg PO BID [facility] Last Admin: 02/01/17 17:04 Dose: 500 mg Lidocaine HCl (Lidocaine Hydrochloride Jelly 2% 5 Ml) 1 ml TOP Q8H [facility] Last Admin: 02/02/17 00:08 Dose: 1 ml Magnesium Hydroxide (Milk Of Magnesia) 30 ml PO DAILY [facility] PRN Reason: Constipation Pantoprazole Sodium (Protonix Ec Tab) 20 mg PO DAILY [facility] Last Admin: 02/01/17 11:02 Dose: 20 mg Quetiapine Fumarate (Seroquel) 25 mg JT DAILY [facility] Last Admin: 02/01/17 10:20 Dose: 25 mg Sennosides (Senokot Tab) 8.6 mg PEG HS [facility] Last Admin: 02/01/17 21:47 Dose: 8.6 mg Silver Sulfadiazine (Silvadene 1% 20 Gm) 1 ea TOP QSHIFT [facility] Last Admin: 02/01/17 17:17 Dose: 1 applic Sodium Bicarbonate (Sodium Bicarbonate Tab) 650 mg GT TID [facility] Last Admin: 02/01/17 17:05 Dose: 650 mg Tramadol HCl (Ultram) 50 mg GT Q6H PRN PRN Reason: Pain, severe (8-10) - Labs Labs: 02/02/17 05:30 02/02/17 05:30 PT 11.5 Seconds (9.8-13.1) 01/31/17 19:25 INR 1.0 (0.9-1.2) 01/31/17 19:25 APTT 27.9 Seconds (25.6-37.1) 01/31/17 19:25 - Constitutional Appears: No Acute Distress, Other (eledrly , non verbal, not following any commands , keeps eyes closed ) - Head Exam Head Exam: ATRAUMATIC, NORMOCEPHALIC - ENT Exam ENT Exam: Mucous Membranes Dry - Neck Exam Neck Exam: Normal Inspection - Respiratory Exam Respiratory Exam: Clear to Ausculation Bilateral, NORMAL BREATHING PATTERN. absent: Rhonchi, Wheezes, Respiratory Distress - Cardiovascular Exam Cardiovascular Exam: RRR, +S1, +S2. absent: JVD - GI/Abdominal Exam GI & Abdominal Exam: Hyperactive Bowel Sounds, Normal Bowel Sounds. absent: Distended, Guarding, Rebound - Rectal Exam Rectal Exam: Deferred - Extremities Exam Extremities Exam: Normal Capillary Refill, Normal Inspection. absent: Pedal Edema - Neurological Exam Additional comments: not verbal, not following commands keeps eyes closed - Skin Skin Exam: Dry, Normal Color, Warm Assessment and Plan - Assessment and Plan (Free Text) Assessment: 86 years old bed-bound and non verbal female, residing at the [facility], who was sent to the ED because she was found to be lethargic with decreased response to her usual stimuli.Her laboratory results noted increase in BUN and Creatinine to 130 and 2.3 respectively which were 86 and 1.8 on her last discharge on 01/10/17. Her urine noted to be cloudy with WBC clumps, many bacteria and LE + Patient admitted withdiagnosis of Metabolic encephalopthy, UTI and dehydration with DENISE on CKD Started on IVF , rocephin IV empirically for UTi and urine cultures sent 1.AMS secondary to Metabolic encephalopathy Continue IVF for acute renal failure on Iv rocephin forUTI urine cultures positive for gram negative ivelisse Will need to discuss with family code status 2. UTI on Ceftriaxone IV Blood cx with no growth so far urine cx positive for gram negative ivelisse. Follow up sensitivities and identification of organism 3. Acute on chronic Kidney disease stage CKD stage IV Continue IVF with NS @ 100 cc/hr BUn/ Cr trending down to 116/2.[address] Sotelo Repeat BMP in AM 4.Hyponatremia most likely secondary to dehydration and volume depletion Improved with IVF 5. Diabetes II with hyperglycemia Regular insulin sliding scale according to accucheck HbA1c was 6.2 on 11/14/16 6. Anemia of chronic kidney disease H & H stable 7. DVT Prophylaxis Heparin Sub Q
[2017-02-02] MEDS: Pantoprazole 20 mg EC Tab PO SCH (09:28)
[2017-02-02] MEDS: Dorzolamide 2% Ophth Soln OU SCH ×2 (09:31→17:06)
--- NOTE | 2017-02-02 14:55 | CP.PCM.CON ---
History of Present Illness - History of Present Illness History of Present Illness: REASONS FOR CONSULT : A ON CKD ,, BUN VERY HIGH 137 ELECTROLYTES ABNORMALITIES .. NA 127 .. K 5.3 ANEMIA OF CKD PT IS WELL KNOWN TO ME FROM PREVIOUS ADMISSIONS WELL FROM OFFICE VISITS ALL PREVIOUS EMR WELL CURRENT CHART WERE ALL REVIEWED Chief Complaint: Decreased Responsiveness and abnormal labs The patient was seen and examined in the ED. The family was present HPI: The hx was obtained from the Skilled Nursing 's notes and after review of the medical records. She is an 86 years old bed-bound and non verbal female, residing at the [facility], who was sent to the ED because she was found to be lethargic with decreased response to her usual stimuli. Also her laboratory results noted increase in BUN and Creatinine to 130 and 2.3 respectively which were 86 and 1.8 on her last discharge on 01/10/17. In the Ed the patient was nonverbal, not opening eyes to name calling nor mild chest rubs. 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 FH: significant for DM; HTN Past Patient History - Infectious Disease Hx of Infectious Diseases: None - Tetanus Immunizations Tetanus Immunization: Unknown - Past Medical History & Family History Past Medical History?: Yes - Past Social History Smoking Status: Never Smoked Chewing Tobacco Use: No Cigar Use: No Alcohol: None Drugs: Denies Home Situation {Lives}: Skilled Nursing - CARDIAC Hx Hypertension: Yes - PULMONARY Hx Pneumonia: Yes - NEUROLOGICAL Hx Dementia: Yes Hx Seizures: Yes - HEENT Hx HEENT Problems: Yes Hx Glaucoma: Yes - RENAL Hx Chronic Kidney Disease: Yes - ENDOCRINE/METABOLIC Hx Endocrine Disorders: Yes Hx Diabetes Mellitus Type 2: Yes - HEMATOLOGICAL/ONCOLOGICAL Hx Anemia: Yes - INTEGUMENTARY Hx Dermatological Problems: No - MUSCULOSKELETAL/RHEUMATOLOGICAL Hx Falls: No - GASTROINTESTINAL Hx Gastrointestinal Disorders: Yes Hx Gastroesophageal Reflux: Yes Other/Comment: Incontinence - GENITOURINARY/GYNECOLOGICAL Hx Genitourinary Disorders: Yes Hx Incontinence: Yes Hx Urinary Tract Infection: Yes - PSYCHIATRIC Hx Depression: Yes - SURGICAL HISTORY Hx Appendectomy: Yes Hx Carotid Endarterectomy: Yes - ANESTHESIA Hx Anesthesia: Yes Hx Anesthesia Reactions: No Hx Malignant Hyperthermia: No Meds Allergies/Adverse Reactions: Allergies Allergy/AdvReac Type Severity Reaction Status Date / Time No Known Allergies Allergy Verified 11/13/16 11:44 - Medications Medications: Current Medications Acetaminophen (Tylenol 325mg Tab) 650 mg PEG Q4H PRN PRN Reason: Pain, Mild (1-3) Acetaminophen (Tylenol 325mg Tab) 650 mg PEG Q4H PRN PRN Reason: Temp >100 Al Hydrox/Mg Hydrox/Simethicone (Maalox Plus 30 Ml) 30 ml PEG Q4H PRN PRN Reason: heartburn/indigestion Albuterol/Ipratropium (Duoneb 3 Mg/0.5 Mg (3 Ml) Ud) 3 ml INH Q6H PRN PRN Reason: Shortness of Breath Allopurinol (Zyloprim) 100 mg PEG DAILY [facility] Last Admin: 02/02/17 09:28 Dose: 100 mg Amlodipine Besylate (Norvasc) 5 mg PEG DAILY [facility] Last Admin: 02/02/17 09:26 Dose: 5 mg Carvedilol (Coreg) 25 mg PEG Q12 [facility] Last Admin: 02/02/17 09:26 Dose: 25 mg Donepezil HCl (Aricept) 10 mg PEG HS [facility] Last Admin: 02/01/17 21:47 Dose: 10 mg Dorzolamide HCl (Trusopt) 1 drop OU BID [facility] Last Admin: 02/02/17 09:31 Dose: 1 drop Epoetin Cavlin (Procrit) 10,000 unit SC MWF [facility] Fentanyl (Duragesic) 1 patch TD Q72H [facility] PRN Reason: Protocol Last Admin: 02/01/17 11:01 Dose: 1 patch Ferrous Sulfate (Children's Iron) 7.5 mg PO DAILY [facility] Last Admin: 02/02/17 09:26 Dose: 7.5 mg Gabapentin (Neurontin) 100 mg PEG HS [facility] Last Admin: 02/01/17 21:59 Dose: 100 mg Heparin Sodium (Porcine) (Heparin) 5,000 units SC Q8 [facility] PRN Reason: Protocol Last Admin: 02/02/17 09:27 Dose: 5,000 units Hydralazine HCl (Apresoline) 25 mg PEG BID [facility] Last Admin: 02/02/17 09:25 Dose: 25 mg Ceftriaxone Sodium 1 gm/ (Sodium Chloride) 100 mls @ 100 mls/hr IVPB DAILY@ 2100 [facility] PRN Reason: Protocol Last Admin: 02/01/17 21:48 Dose: 100 mls/hr Sodium Chloride (Sodium Chloride 0.9%) 1,000 mls @ 100 mls/hr IV .Q10H [facility] Stop: 02/03/17 13:29 Insulin Detemir (Levemir) 8 units SC HS [facility] Last Admin: 02/01/17 22:14 Dose: 8 unit Insulin Human Regular (Humulin R) 0 units SC Q6H [facility] PRN Reason: Protocol Last Admin: 02/02/17 04:17 Dose: Not Given Latanoprost (Xalatan Opht) 1 drop OU HS [facility] Last Admin: 02/01/17 22:11 Dose: 1 drop Levetiracetam (Keppra) 500 mg PO BID [facility] Last Admin: 02/02/17 09:25 Dose: 500 mg Lidocaine HCl (Lidocaine Hydrochloride Jelly 2% 5 Ml) 1 ml TOP Q8H [facility] Last Admin: 02/02/17 09:30 Dose: Not Given Magnesium Hydroxide (Milk Of Magnesia) 30 ml PO DAILY PRN PRN Reason: Constipation Pantoprazole Sodium (Protonix Ec Tab) 20 mg PO DAILY [facility] Last Admin: 02/02/17 09:28 Dose: 20 mg Quetiapine Fumarate (Seroquel) 25 mg JT DAILY [facility] Last Admin: 02/02/17 09:29 Dose: 25 mg Sennosides (Senokot Tab) 8.6 mg PEG HS [facility] Last Admin: 02/01/17 21:47 Dose: 8.6 mg Silver Sulfadiazine (Silvadene 1% 20 Gm) 1 ea TOP QSHIFT [facility] Last Admin: 02/01/17 17:17 Dose: 1 applic Sodium Bicarbonate (Sodium Bicarbonate Tab) 650 mg GT TID [facility] Last Admin: 02/02/17 09:28 Dose: 650 mg Tramadol HCl (Ultram) 50 mg GT Q6H PRN PRN Reason: Pain, severe (8-10) Results - Vital Signs Recent Vital Signs: Last Vital Signs Temp 98.3 F 02/02/17 08:24 Pulse 91 H 02/02/17 08:24 Resp 20 02/02/17 08:24 BP 155/66 H 02/02/17 09:26 Pulse Ox 98 02/02/17 08:24 - Labs Result Diagrams: 02/02/17 05:30 02/02/17 05:30 Labs: Laboratory Results - last 24 hr 02/01/17 02/01/17 02/02/17 15:20 21:46 03:02 WBC RBC Hgb Hct MCV MCH MCHC RDW Plt Count Sodium Potassium Chloride Carbon Dioxide Anion Gap BUN Creatinine Est GFR ( Amer) Est GFR (Non-Af Amer) POC Glucose (mg/dL) 108 280 H 229 H Random Glucose Calcium 02/02/17 02/02/17 02/02/17 04:32 05:30 05:30 WBC 6.4 RBC 3.25 L Hgb 9.1 L Hct 29.1 L MCV 89.5 MCH 28.0 MCHC 31.2 L RDW 17.4 H Plt Count 198 Sodium 142 Potassium 4.2 Chloride 104 Carbon Dioxide 25 Anion Gap 16 BUN 113 H* Creatinine 2.2 H Est GFR ( Amer) 26 Est GFR (Non-Af Amer) 21 POC Glucose (mg/dL) 265 H Random Glucose 232 H Calcium 8.8 02/02/17 10:07 WBC RBC Hgb Hct MCV MCH MCHC RDW Plt Count Sodium Potassium Chloride Carbon Dioxide Anion Gap BUN Creatinine Est GFR ( Amer) Est GFR (Non-Af Amer) POC Glucose (mg/dL) 172 H Random Glucose Calcium Assessment & Plan - Assessment and Plan (Free Text) Plan: A ON CKD .. CONTINUE CURRENT IVF .. NS AT 100 CC/H ELECTROLYTES ABN .. C/O CURRENT IVF ANEMIA OF CKD .. NEEDS ANEMIA W/U .. ON EPO MULTIPLE CO MORBIDITIES C/O CURRENT CARE WILL F/U CLOSELY SERIAL ELECTROLYTES - Date & Time Date: 02/01/17 Time: 13:00
[2017-02-02] MEDS: Sodium Chloride 0.9% 1,000 ML IV SCH ×2 (16:55→23:00)
[2017-02-02] MEDS: Insulin Detemir 100 Units/ml Inj SC SCH (22:00)
[2017-02-02] MEDS: Latanoprost 0.005% Opht SOUTION OU SCH (22:00)
[2017-02-03] MEDS: Insulin Regular 100 units/ml SC SCH ×3 (03:56→17:14)
[2017-02-03 06:16] LABS: CALCIUM 8.5 mg/dL (8.4-10.2); POTASSIUM 4.3 MMOL/L (3.6-5.0)
[2017-02-03 06:22] LABS: HEMATOCRIT 28.6 % (34.0-47.0); MEAN CELL VOLUME 90.3 fl (81.0-99.0); MEAN CORPUSCULAR HEMOGLOBIN 28.4 pg (27.0-31.0); MEAN CORPUSCULAR HGB CONC 31.4 g/dL (33.0-37.0); RED CELL DISTRIBUTION WIDTH 17.3 % (11.5-14.5); WHITE BLOOD COUNT 5.5 K/uL (4.8-10.8)
[2017-02-03] MEDS: Lidocaine 2% Jelly (5 ml) TOP SCH ×2 (07:36→16:09)
[2017-02-03 08:03] VITALS: RESP 18
[2017-02-03] MEDS: Pantoprazole 20 mg EC Tab PO SCH (08:38)
[2017-02-03] MEDS ORDERED: EPOETIN ALFA 10,000 UNIT/ML ML SC SCH ×2 (09:00)
[2017-02-03] MEDS: Dorzolamide 2% Ophth Soln OU SCH ×2 (09:30→16:14)
[2017-02-03] MEDS ORDERED: Meropenem 1 GM in Sodium Chloride 0.9% 100 ML IVPB ONE (13:14)
[2017-02-03 15:55] VITALS: BP 145/82; PULSE 89; TEMP 98.2; O2SAT 96
--- NOTE | 2017-02-03 17:33 | CP.PCM.PN ---
Subjective - Date & Time of Evaluation Date of Evaluation: 02/03/17 Time of Evaluation: 14:00 - Subjective Subjective: SEEN ON RENAL F/U IN BED IN NAD .. RENAL FUNCTION BETTER .. e GFR 26 --> 29 LYTES OK DAUGHTER CAME TO MY OFFICE .. CASE D/W HER Objective - Vital Signs/Intake and Output Vital Signs (last 24 hours): Temp Pulse Resp BP Pulse Ox 98.2 F 89 18 145/82 96 02/03/17 15:54 02/03/17 16:14 02/03/17 15:54 02/03/17 16:14 02/03/17 15:54 Intake and Output: 02/03/17 02/03/17 06:59 18:59 Intake Total 3885 Output Total 1700 Balance 2185 - Labs Labs: 02/03/17 05:15 02/03/17 05:15 PT 11.5 Seconds (9.8-13.1) 01/31/17 19:25 INR 1.0 (0.9-1.2) 01/31/17 19:25 APTT 27.9 Seconds (25.6-37.1) 01/31/17 19:25 Assessment and Plan - Assessment and Plan (Free Text) Assessment: A ON CKD .. RENAL FUNCTION BETTER ANEMIA OF CKD .. H/H STABLE MULTIPLE CO MORBIDITIES C/O CURRENT CARE
--- NOTE | 2017-02-03 17:52 | CP.PCM.DIS ---
Provider - Provider Date of Admission: 02/01/17 12:05 Attending physician: Tacho Redd Primary care physician: Dr. Montemayor Consults: Nephrology consult 02/01/17 03:30 Nursing Referral for Wound Care Routine Comment: Physician Instructions: Reason For Exam: UTDS left heel, healed 2 to scarum Time Spent in preparation of Discharge (in minutes): 20 Hospital Course - Lab Results Lab Results: Micro Results 01/31/17 19:21 Urine,[place] Urine Culture - Final Escherichia Coli 01/31/17 18:35 Blood Blood Culture - Preliminary NO GROWTH AFTER 48 HOURS 01/31/17 18:20 Blood Blood Culture - Preliminary NO GROWTH AFTER 48 HOURS Most Recent Lab Values WBC 5.5 K/uL (4.8-10.8) 02/03/17 05:15 RBC 3.16 Mil/uL (3.80-5.20) L 02/03/17 05:15 Hgb 9.0 g/dL (12.0-16.0) L 02/03/17 05:15 Hct 28.6 % (34.0-47.0) L 02/03/17 05:15 MCV 90.3 fl (81.0-99.0) 02/03/17 05:15 MCH 28.4 pg (27.0-31.0) 02/03/17 05:15 MCHC 31.4 g/dL (33.0-37.0) L 02/03/17 05:15 RDW 17.3 % (11.5-14.5) H 02/03/17 05:15 Plt Count 207 K/uL (130-400) 02/03/17 05:15 MPV 9.5 fl (7.2-11.7) 02/01/17 05:30 Neut % (Auto) 84.6 % (50.0-75.0) H 02/01/17 05:30 Lymph % (Auto) 8.8 % (20.0-40.0) L 02/01/17 05:30 [place] % (Auto) 6.4 % (0.0-10.0) 02/01/17 05:30 Eos % (Auto) 0.0 % (0.0-4.0) 02/01/17 05:30 Baso % (Auto) 0.2 % (0.0-2.0) 02/01/17 05:30 Neut # 7.8 K/uL (1.8-7.0) H 02/01/17 05:30 Lymph # 0.8 K/uL (1.0-4.3) L 02/01/17 05:30 [place] # 0.6 K/uL (0.0-0.8) 02/01/17 05:30 Eos # 0.0 K/uL (0.0-0.7) 02/01/17 05:30 Baso # 0.0 K/uL (0.0-0.2) 02/01/17 05:30 Neutrophils % (Manual) 84 % (42-75) H 02/01/17 05:30 Lymphocytes % (Manual) 10 % (20-50) L 02/01/17 05:30 Monocytes % (Manual) 5 % (0-10) 02/01/17 05:30 Basophils % (Manual) 1 % (0-2) 02/01/17 05:30 Platelet Estimate Normal (NORMAL) 02/01/17 05:30 Large Platelets Present 02/01/17 05:30 Hypochromasia (manual) Slight 02/01/17 05:30 Poikilocytosis (manual Moderate 02/01/17 05:30 Anisocytosis (manual) Marked 02/01/17 05:30 Microcytosis (manual) Slight 02/01/17 05:30 Ovalocytes Slight 02/01/17 05:30 PT 11.5 Seconds (9.8-13.1) 01/31/17 19:25 INR 1.0 (0.9-1.2) 01/31/17 19:25 APTT 27.9 Seconds (25.6-37.1) 01/31/17 19:25 pO2 52 mm/Hg (30-55) 01/31/17 19:08 VBG pH 7.40 (7.32-7.43) 01/31/17 19:08 VBG pCO2 50 mmHg (40-60) 01/31/17 19:08 VBG HCO3 28.5 mmol/L 01/31/17 19:08 VBG Total CO2 32.5 mmol/L (22-28) H 01/31/17 19:08 VBG O2 Sat (Calc) 92.7 % (40-65) H 01/31/17 19:08 VBG Base Excess 5.0 mmol/L (0.0-2.0) H 01/31/17 19:08 VBG Potassium 5.1 mmol/L (3.6-5.2) 01/31/17 19:08 Sodium 126.0 mmol/L (132-148) L 01/31/17 19:08 Chloride 90.0 mmol/L (98-107) L 01/31/17 19:08 Glucose 224 mg/dL (65-105) H 01/31/17 19:08 Lactate 0.9 mmol/L (0.7-2.1) 01/31/17 19:08 FiO2 21.0 % 01/31/17 19:08 Sodium 145 mmol/l (132-148) 02/03/17 05:15 Potassium 4.3 MMOL/L (3.6-5.0) 02/03/17 05:15 Chloride 110 mmol/L (98-107) H 02/03/17 05:15 Carbon Dioxide 23 mmol/L (22-30) 02/03/17 05:15 Anion Gap 16 (10-20) 02/03/17 05:15 BUN 95 mg/dl (7-17) H 02/03/17 05:15 Creatinine 2.0 mg/dL (0.7-1.2) H 02/03/17 05:15 Est GFR ( Amer) 29 02/03/17 05:15 Est GFR (Non-Af Amer) 24 02/03/17 05:15 POC Glucose (mg/dL) 113 mg/dL (65-110) H 02/03/17 16:15 Random Glucose 264 mg/dL (65-105) H 02/03/17 05:15 Calcium 8.5 mg/dL (8.4-10.2) 02/03/17 05:15 Phosphorus 5.3 mg/dl (2.5-4.5) H 01/31/17 18:35 Magnesium 3.2 MG/DL (1.6-2.3) H 01/31/17 18:35 Total Bilirubin 0.4 mg/dl (0.2-1.3) 01/31/17 18:35 AST 46 U/L (14-36) H D 01/31/17 18:35 ALT 30 U/L (9-52) 01/31/17 18:35 Alkaline Phosphatase 131 U/L (38-126) H 01/31/17 18:35 Troponin I 0.0160 ng/mL (0.00-0.120) 01/31/17 18:35 NT-Pro-B Natriuret Pep 3500 pg/ml (0-900) H 01/31/17 18:35 Total Protein 7.3 G/DL (6.3-8.2) 01/31/17 18:35 Albumin 3.8 g/dL (3.5-5.0) 01/31/17 18:35 Globulin 3.5 gm/dL (2.2-3.9) 01/31/17 18:35 Albumin/Globulin Ratio 1.1 (1.0-2.1) 01/31/17 18:35 Venous Blood Potassium 5.1 mmol/L (3.6-5.2) 01/31/17 19:08 Urine Color Yellow (YELLOW) 01/31/17 19:21 Urine Clarity Turbid (Clear) 01/31/17 19:21 Urine pH 6.0 (5.0-8.0) 01/31/17 19:21 Ur Specific Artie 1.012 (1.003-1.030) 01/31/17 19:21 Urine Protein 100 mg/dL (NEGATIVE) 01/31/17 19:21 Urine Glucose (UA) 50 mg/dL (Normal) 01/31/17 19:21 Urine Ketones Negative mg/dL (NEGATIVE) 01/31/17 19:21 Urine Blood Small (NEGATIVE) 01/31/17 19:21 Urine Nitrate Negative (NEGATIVE) 01/31/17 19:21 Urine Bilirubin Negative (NEGATIVE) 01/31/17 19:21 Urine Urobilinogen 0.2-1.0 mg/dL (0.2-1.0) 01/31/17 19:21 Ur Leukocyte Esterase Large Fernanda/uL (Negative) 01/31/17 19:21 Urine RBC (Auto) 22 /hpf (0-3) H 01/31/17 19:21 Urine WBC Clumps (Auto) Few /hpf (NONE) H 01/31/17 19:21 Urine Microscopic WBC 189 /hpf (0-5) H 01/31/17 19:21 Ur Squamous Epith Cells 3 /hpf (0-5) 01/31/17 19:21 Amorphous Sediment Many /ul (<OCC) H 01/31/17 19:21 Urine Bacteria Many (<OCC) H 01/31/17 19:21 Hyaline Casts Few /hpf (0-2) 01/31/17 19:21 - Hospital Course Hospital Course: 86 years old bed-bound and non verbal female with dementia , residing at the [facility], was sent to the ED because she was found to be lethargic with decreased response to her usual stimuli.Her laboratory results noted increase in BUN and Creatinine to 130 and 2.3 respectively which were 86 and 1.8 on her last discharge on 01/10/17. Her urine noted to be cloudy with WBC clumps, many bacteria and LE + Patient was admitted with diagnosis of Metabolic encephalopthy, UTI , dehydration with DENISE on CKD Started on IVF , rocephin IV empirically for UTi and urine cultures sent . Urine cultures came back as positive for ESBL so she was started on Meropenem IV . Her renal function started to improve with IVF with BUN//Cr 95/2 . She is a very frail elderly female with guarded prognosis. At present she is stable. will discharge her back to [place] were she can continue treatment for ESBL e.Coli in urine wuithMeropenem. She will need to be on IVF with NS via peripheral lines or with free water flushes via peg to avoid dehydration and improve renal function. Patient was endorsed to nursing staff at [facility] 1.AMS secondary to Metabolic encephalopathy patient is demented , bedbound and non verbal baseline Continue IVF for acute renal failure Started on Meropenem IV for ESBL E. Coli D/c to [facility] 2. UTI uri ne cx positive or ESBL E. coli in urine Started on Meropenem IV Continue for 10 days 3. Acute on chronic Kidney disease stage CKD stage IV received IVF and renal fxn improved BUn/ Cr trending down to 95/[address] Sotelo keep patient hydrated well via peripheral line or via peg 4.Hyponatremia most likely secondary to dehydration and volume depletion Improved with IVF 5. Diabetes II with hyperglycemia Regular insulin sliding scale according to accucheck HbA1c was 6.2 on 11/14/16 6. Anemia of chronic kidney disease H & H stable 7. DVT Prophylaxis Heparin Sub Q Discharge Exam - Head Exam Head Exam: ATRAUMATIC, NORMOCEPHALIC Additional comments: demented, non verbal, bed bound - Eye Exam Eye Exam: PERRL - ENT Exam ENT Exam: Mucous Membranes Dry, Normal Exam - Neck Exam Neck exam: Normal Inspection - Respiratory Exam Respiratory Exam: Clear to PA & Lateral, NORMAL BREATHING PATTERN. absent: Rhonchi, Wheezes, Respiratory Distress - Cardiovascular Exam Cardiovascular Exam: REGULAR RHYTHM, +S1, +S2. absent: JVD - GI/Abdominal Exam GI & Abdominal Exam: Normal Bowel Sounds, Soft. absent: Distended, Guarding, Rebound, Tenderness Additional comments: peg tube in place - Rectal Exam Rectal Exam: Deferred - Extremities Exam Extremities exam: normal inspection - Neurological Exam Additional comments: demented , non following commands,non verbal - Skin Skin Exam: Dry, Warm Discharge Plan - Discharge Medications Prescriptions: Meropenem [Merrem IV] 500 mg IV Q8 #30 pds - Follow Up Plan Condition: GUARDED Disposition: REHAB FACILITY/REHAB UNIT Patient education suggested?: Yes Instructions: Urinary Tract Infection in Women (DC) Additional Instructions: Continue NS @ 100 ml/hr Referrals: Ed Montemayor MD [Staff Provider] -
== END 2017-02-03 17:15 | DRG 682 ==
LOC: H.ER 17:45 → H.ERHOLD 20:07 → H.MEDSURG1 21:19 → OBSVTOIN 02-01 12:05
PROVIDERS: ADMIT Internal Medicine; ATTEND Internal Medicine
DX: N17.9 Acute kidney failure, unspecified (principal); G93.41 Metabolic encephalopathy; L89.152 Pressure ulcer of sacral region, stage 2; E11.22 Type 2 diabetes mellitus with diabetic chronic kidney disease; E11.621 Type 2 diabetes mellitus with foot ulcer; F03.90 Unspecified dementia, unspecified severity, without behavioral disturbance, psychotic disturbance, mood disturbance, and anxiety; E11.65 Type 2 diabetes mellitus with hyperglycemia; N39.0 Urinary tract infection, site not specified; E87.1 Hypo-osmolality and hyponatremia; I69.354 Hemiplegia and hemiparesis following cerebral infarction affecting left non-dominant side; L89.620 Pressure ulcer of left heel, unstageable; I48.91 Unspecified atrial fibrillation; E86.0 Dehydration; I12.9 Hypertensive chronic kidney disease with stage 1 through stage 4 chronic kidney disease, or unspecified chronic kidney disease; N18.4 Chronic kidney disease, stage 4 (severe); D63.1 Anemia in chronic kidney disease; B96.20 Unspecified Escherichia coli [E. coli] as the cause of diseases classified elsewhere; Z87.01 Personal history of pneumonia (recurrent); H40.9 Unspecified glaucoma; I25.10 Atherosclerotic heart disease of native coronary artery without angina pectoris; Z86.73 Personal history of transient ischemic attack (TIA), and cerebral infarction without residual deficits; J40 Bronchitis, not specified as acute or chronic; K21.9 Gastro-esophageal reflux disease without esophagitis; R32 Unspecified urinary incontinence; Z74.01 Bed confinement status; Z79.4 Long term (current) use of insulin; Z79.899 Other long term (current) drug therapy; Z87.440 Personal history of urinary (tract) infections; Z90.49 Acquired absence of other specified parts of digestive tract; F32.9 Major depressive disorder, single episode, unspecified; G40.909 Epilepsy, unspecified, not intractable, without status epilepticus

== ENCOUNTER 2017-02-25 13:18 | Observation (INO) | payer MEDICARE, MEDICAID ==
[2017-02-25 13:18] VITALS: PULSE 122; BMI 20.7
[2017-02-25 14:18] LABS: BASO % 0.6 % (0.0-2.0); HEMATOCRIT 27.6 % (34.0-47.0); LYMPH % 13.6 % (20.0-40.0); MEAN CELL VOLUME 83.3 fl (81.0-99.0); MEAN CORPUSCULAR HEMOGLOBIN 26.1 pg (27.0-31.0); MEAN CORPUSCULAR HGB CONC 31.3 g/dL (33.0-37.0); MEAN PLATELET VOLUME 8.1 fl (7.2-11.7); MONO # 0.4 K/uL (0.0-0.8); MONO % 6.1 % (0.0-10.0); NEUT # 5.9 K/uL (1.8-7.0); NEUT % 79.7 % (50.0-75.0); NRBC % 0.1 % (0.0-0.0); RED CELL DISTRIBUTION WIDTH 18.4 % (11.5-14.5); WHITE BLOOD COUNT 7.3 K/uL (4.8-10.8)
[2017-02-25 14:48] LABS: ALB/GLOB RATIO 0.8 (1.0-2.1); BILIRUBIN,TOTAL 0.2 mg/dl (0.2-1.3); CALCIUM 8.7 mg/dL (8.4-10.2); MAGNESIUM 2.6 MG/DL (1.6-2.3); POTASSIUM 4.8 MMOL/L (3.6-5.0); TOTAL PROTEIN 6.9 G/DL (6.3-8.2)
--- NOTE | 2017-02-25 15:23 | ED PDOC ---
HPI: General Adult Time Seen by Provider: 02/25/17 13:44 Chief Complaint (Nursing): Abnormal Labs Chief Complaint (Provider): sent from [place] for abnormal labs History Per: Other ([place] paperwork/ EMS) History/Exam Limitations: physical impairment Onset/Duration Of Symptoms: Unknown Recently: Hospitalized Additional Complaint(s): 86yo female sent from nursing facility for reported "abnormal labs". [place] transfer form is blank. EMS states was sent for low potassium. Patient is nonverbal and unable to provide further history. Past Medical History Reviewed: Historical Data, Nursing Documentation, Vital Signs Vital Signs: Last Vital Signs Temp 98.7 F 02/26/17 11:54 Pulse 74 02/26/17 11:54 Resp 20 02/26/17 11:54 BP 174/83 H 02/26/17 11:54 Pulse Ox 100 02/26/17 11:54 - Medical History PMH: Anemia, CAD, CVA (left sided weakness), Dementia, Depression, Diabetes, HTN , Pneumonia, Chronic Kidney Disease, Seizures Denies: HIV - Surgical History Surgical History: Appendectomy, Carotid Endarterectomy - Family History Family History: States: Unknown Family Hx, Diabetes, Hypertension - Living Arrangements Living Arrangements: Long-Term/Assist Lvng - Social History Current smoker - smoking cessation education provided: No - Immunization History Hx Tetanus Toxoid Vaccination: Yes Hx Influenza Vaccination: Yes Hx Pneumococcal Vaccination: Yes - Home Medications Home Medications: Ambulatory Orders Medication Instructions Recorded Allopurinol [Zyloprim] 100 mg PEG DAILY 08/05/16 Dorzolamide 2% [Trusopt] 1 drop OU BID 09/03/16 amLODIPine [Norvasc] 5 mg PEG DAILY 09/03/16 Acetaminophen [Tylenol 325mg tab] 650 mg PEG Q4H PRN 11/13/16 Acetaminophen [Tylenol 325mg tab] 650 mg PEG Q4H PRN 11/13/16 Menthol [Bengay Ultra Strength] 1 patch TOP DAILY 11/13/16 Sennosides [Senna] 17.2 mg PEG HS 11/13/16 traMADol [Ultram] 50 mg PEG Q6H PRN 11/13/16 Latanoprost 0.005% Opht [Xalatan 1 drop OU HS bottle 12/06/16 Opht] Albuterol/Ipratropium [Duoneb 3 3 ml INH Q6H PRN 01/07/17 mg/0.5 mg (3 ml) UD] Omeprazole 40 mg PEG HS 01/07/17 Ferrous Sulfate [Ferosul] 7.5 ml PEG DAILY 02/18/17 Insulin Lispro [humALOG] 2 - 6 unit SC Q8H 02/18/17 Petrolatum,White/Lanolin [Vitamin 1 appl TOP QSHIFT 02/18/17 A & D Ointment] Heparin 5,000 units SC Q12 vial 02/22/17 Linezolid 600 mg IV Q12 #28 iv.soln 02/22/17 Meropenem-0.9% Sodium Chloride 500 mg IV Q12 #28 piggyback 02/22/17 [Meropenem-0.9% NaCl 500 mg/50] fentaNYL 12 mcg/hr [Duragesic 1 patch TD Q72H #10 patch 02/22/17 Patch 12 mcg/hr] Carbamazepine [Carbamazepine] 100 mg PEG Q12H 02/25/17 Carvedilol [Coreg] 3.125 mg PEG Q12H 02/25/17 Furosemide [Lasix] 80 mg PEG DAILY 02/25/17 Insulin Detemir [Levemir] 10 units SC HS 02/25/17 hydrALAZINE [Apresoline] 50 mg PEG Q12 02/25/17 - Allergies Allergies/Adverse Reactions: Allergies Allergy/AdvReac Type Severity Reaction Status Date / Time No Known Allergies Allergy Verified 11/13/16 11:44 Review of Systems Review Of Systems: ROS cannot be obtained secondary to pt's inabilty to answer questions. Physical Exam - Reviewed Nursing Documentation Reviewed: Yes Vital Signs Reviewed: Yes - Physical Exam Appears: Positive for: Non-toxic (nonverbal chronically ill appearin) Head Exam: Positive for: ATRAUMATIC, NORMAL INSPECTION, NORMOCEPHALIC Skin: Positive for: Normal Color, Warm, DRY Eye Exam: Positive for: EOMI, Normal appearance, PERRL ENT: Positive for: Normal ENT Inspection Neck: Positive for: Normal, Painless ROM Cardiovascular/Chest: Positive for: Regular Rate, Rhythm Respiratory: Negative for: Respiratory Distress Gastrointestinal/Abdominal: Positive for: Bowel Sounds, Soft, Other (GTube). Negative for: Tenderness Back: Positive for: Normal Inspection Extremity: Positive for: Normal ROM, Swelling (b/l anasarca all extremities) Neurologic/Psych: Positive for: Alert, Other (awake but nonverbal, moans/groans ; global weakness) - Laboratory Results Result Diagrams: 02/26/17 04:30 02/26/17 04:30 - ECG O2 Sat by Pulse Oximetry: 100 Medical Decision Making Medical Decision Making: Discussed w PMD Dr Montemayor who states pt was recently hospice but rescinded by family. Labs reviewed and showed slight improvement of renal function and stable Hgb. Mild dyspnea in ED, CXR revealed new onset pleural effusion w possible pneumonia. Per hospitalist Dr Medeiros already on zyvox and meropenum in [place], last received today. Blood cultures ordered. Patient given lasix for evidence of CHF (elev BP, tachycardia, LE edema, diminished lung sounds) Placed tele Obs for optimization. Disposition - Clinical Impression Clinical Impression: CHF exacerbation, Pneumonia, HTN (hypertension), Respiratory failure Counseled Patient/Family Regarding: Studies Performed, Diagnosis - Disposition Disposition Time: 17:30 Condition: STABLE - Pt Status Changed To: Hospital Disposition Of: Observation - POA Present On Arrival: Pressure Ulcer (coccyx)
--- NOTE | 2017-02-25 16:57 | RAD ---
HISTORY: edema COMPARISON: Frontal chest radiograph 02/18/2017. FINDINGS: LUNGS: Airspace disease is questioned at the mid to inferior right lung zones, likely also minimally at the left base. PLEURA: No left pleural effusion. Mild right pleural effusions identified. No pneumothorax bilaterally. CARDIOVASCULAR: Cardiac silhouette appears stable. No pulmonary vascular derangement. OSSEOUS STRUCTURES: No significant abnormalities. VISUALIZED UPPER ABDOMEN: Normal. OTHER FINDINGS: None. IMPRESSION: Mild right pleural effusion with underlying atelectasis or infiltrate seen at the right base. Limited left basilar interval atelectasis or infiltrate.
[2017-02-25] MEDS ORDERED: Piperacillin/Tazobact 4.5 GM in Sodium Chloride 0.9% 100 ML IVPB STA (17:30)
[2017-02-25] MEDS ORDERED: Piperacill/Tazo 4.5gm in Dex 4.5 GM/100 ML BAG IVPB STA (17:52)
--- NOTE | 2017-02-25 18:07 | CP.PCM.HP ---
History of Present Illness - History of Present Illness History of Present Illness: 86 y/o female, [place] resident well known by our service from multiple prior admissions , recently discharged from hospital 02/22/17 on Zyvox and meropenem with diagnosis of wound infection and bacteremia , was sent to hospital from [place] again for abnormal labs at families request.Patient is an elderly female , demented , bed bound with PMH CVA and left side weakness, minimally verbal ,Afib ,CKD stage IV, anemia, CAD, HTN, DM seizure, urinary retention ,multiple UTI. History was obtained from ER physician (after getting in touch with PMD and calling [place] )and chart review since the transfer form from [place] was blank. Patient is unable to answer any questions, she moans, is awake and alert , follows simple commands In ER her BP was slightly elevated BP 184/93 HR 103 afebrile with WBC 7.3 BUN/ Cr 60/1.7 BNP 83386. 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 FH: significant for DM; HTN Allergies: NKD Medications: on Zyvox and meropenem ( see med rec) ROS : moans , denies pain diarrhea present Holloway in place Present on Admission - Present on Admission Any Indicators Present on Admission: No Urinary Catheter: Yes Decubitus Ulcer Present: Yes (unstagable sacral decubitus ulcer ) Past Patient History - Infectious Disease Hx of Infectious Diseases: None - Tetanus Immunizations Tetanus Immunization: Unknown - Past Medical History & Family History Past Medical History?: Yes - Past Social History Smoking Status: Never Smoked Chewing Tobacco Use: No Cigar Use: No Alcohol: None Drugs: Denies Home Situation {Lives}: Fdc - CARDIAC Hx Hypertension: Yes - PULMONARY Hx Pneumonia: Yes - NEUROLOGICAL Hx Dementia: Yes Hx Seizures: Yes - HEENT Hx HEENT Problems: Yes Hx Glaucoma: Yes - RENAL Hx Chronic Kidney Disease: Yes - ENDOCRINE/METABOLIC Hx Endocrine Disorders: Yes Hx Diabetes Mellitus Type 2: Yes - HEMATOLOGICAL/ONCOLOGICAL Hx Anemia: Yes Hx Human Immunodeficiency Virus (HIV): No - INTEGUMENTARY Hx Dermatological Problems: No - MUSCULOSKELETAL/RHEUMATOLOGICAL Hx Falls: No - GASTROINTESTINAL Hx Gastrointestinal Disorders: Yes Hx Gastroesophageal Reflux: Yes Other/Comment: Incontinence - GENITOURINARY/GYNECOLOGICAL Hx Genitourinary Disorders: Yes Hx Incontinence: Yes Hx Urinary Tract Infection: Yes - PSYCHIATRIC Hx Depression: Yes - SURGICAL HISTORY Hx Appendectomy: Yes Hx Carotid Endarterectomy: Yes - ANESTHESIA Hx Anesthesia: Yes Hx Anesthesia Reactions: No Hx Malignant Hyperthermia: No Meds Allergies/Adverse Reactions: Allergies Allergy/AdvReac Type Severity Reaction Status Date / Time No Known Allergies Allergy Verified 11/13/16 11:44 Physical Exam - Constitutional Appears: Non-toxic, Confused, Chronically Ill Additional comments: moans awake ,alert ,denies pain minimally verbal - Head Exam Head Exam: ATRAUMATIC, NORMAL INSPECTION, NORMOCEPHALIC - Eye Exam Eye Exam: EOMI - ENT Exam ENT Exam: Mucous Membranes Dry - Neck Exam Neck exam: Positive for: Normal Inspection - Respiratory Exam Respiratory Exam: Decreased Breath Sounds (right base), Clear to Auscultation Bilateral. absent: Rhonchi, Wheezes, Respiratory Distress - Cardiovascular Exam Cardiovascular Exam: Irregular Rhythm. absent: JVD - GI/Abdominal Exam GI & Abdominal Exam: Soft. absent: Guarding, Rebound Additional comments: peg in place - Rectal Exam Additional comments: stage II sacral decubitus ulcer 2 x 2 cm with clean base - Extremities Exam Extremities exam: Positive for: normal capillary refill, pedal edema (1 + ). Negative for: joint swelling - Back Exam Back exam: NORMAL INSPECTION - Neurological Exam Neurological exam: Alert - Psychiatric Exam Psychiatric exam: Flat Affect - Skin Skin Exam: Dry, Warm Additional comments: unstagable sacral decubitus ulcer 2x 2 cm left heel unstagable wound left buttock unstagable wound Results - Vital Signs Recent Vital Signs: Last Vital Signs Temp 98.2 F 02/25/17 13:22 Pulse 103 H 02/25/17 13:22 Resp 22 02/25/17 13:22 BP 184/93 H 02/25/17 13:22 Pulse Ox 100 02/25/17 15:24 - Labs Result Diagrams: 02/25/17 14:12 02/25/17 14:12 Labs: Laboratory Results - last 24 hr 02/25/17 02/25/17 02/25/17 14:12 14:12 16:55 WBC 7.3 RBC 3.31 L Hgb 8.6 L Hct 27.6 L MCV 83.3 MCH 26.1 L MCHC 31.3 L RDW 18.4 H Plt Count 287 MPV 8.1 Neut % (Auto) 79.7 H Lymph % (Auto) 13.6 L [place] % (Auto) 6.1 Eos % (Auto) 0.0 Baso % (Auto) 0.6 Neut # 5.9 Lymph # 1.0 [place] # 0.4 Eos # 0.0 Baso # 0.0 Sodium 139 Potassium 4.8 Chloride 109 H Carbon Dioxide 26 Anion Gap 9 L BUN 60 H Creatinine 1.7 H Est GFR ( Amer) 35 Est GFR (Non-Af Amer) 29 Random Glucose 151 H Calcium 8.7 Magnesium 2.6 H Total Bilirubin 0.2 AST 63 H D ALT 50 Alkaline Phosphatase 124 NT-Pro-B Natriuret Pep 93988 H Total Protein 6.9 Albumin 3.1 L Globulin 3.8 Albumin/Globulin Ratio 0.8 L - Imaging and Cardiology Chest x-ray Additional comment: right pleural effusion Assessment & Plan - Assessment and Plan (Free Text) Assessment: 86 chronically ill female, bed bound, minimally verbal, s/p CVA with residual left sided weakness and severe cognitive impairment, with G-tube placement, also with history of Depression, Type 2 DM, HTN, CKD stage IV , seizures, anemia , recently discharged from hospital 02/22/17 [place] with diagnosis of bacteremia and wound infection on Zyvox and Meropenem brought back to Hospital for evaluation at families request Patient found to have elevated BP, tachycardia, elevated BNP 44542 and new right pleural effusion . Will place patient on observation in telemetry for BP control and diuresis. 1. New right side pleural effusion CXR showed right pleural effusion patient has no respiratory distress will place in observation in telemetry Continue diuresis and O2 via NC PRN patient has guarded prognosis 2.Fluid overload ProBNP 17541 last Echo 03/20/16 showed mild to moderate and normal EF continue diuresis 3. Essential hypertension uncontrolled continue Hydralazine 50 mg q12 and Coreg 4. Unstageable sacral, Buttock, heel decubital wound infection, with bacteremia recent wound cultures positive for MRSA and ESBL E.coli ID Dr Santos was consulted and rec IV meropenem and Zyvox ( patient has been on antibiotics since 02/22/17) Tylenol for fever or pain, through G tube continue same antibiotics Sacral decubitus unstageable L buttocks unstagable left eschar on heel unstageable 5. Chronic kidney disease, Stage IV BUN/cr 60/1.7 ( patient's baseline) Continue diuresis 6. Anemia, likely due to chronic kidney disease on po Iron 7.Dementia, Hx of CVA Continue Seroquel 25 mg PEG daily 8. History of seizures on tegretol 9. DVT prophylaxis Heparin SQ 10.GI prophylaxis PPI
[2017-02-25] MEDS ORDERED: Albuterol-Ipratrop 3 mg / 0.5 (3 ml) UD INH PRN (19:58)
[2017-02-25] MEDS ORDERED: LINEZOLID 600 MG IV SCH (21:00)
[2017-02-25] MEDS ORDERED: MEROPENEM IV SCH (21:00)
[2017-02-25] MEDS ORDERED: SODIUM CHLORIDE IV SCH (21:00)
[2017-02-25] MEDS ORDERED: [UNRECOGNIZED DRUG - OTHER] IV SCH (21:00)
[2017-02-25] MEDS: Insulin Lispro (humaLOG) 100 Units/ml Inj SC SCH (21:36)
[2017-02-25] MEDS ORDERED: Latanoprost 0.005% Opht SOUTION OU SCH (22:00)
[2017-02-25] MEDS ORDERED: Insulin Detemir 100 Units/ml Inj SC SCH (22:00)
[2017-02-25] MEDS: carBAMazepine Chew Tab 100 MG Chew Tab PEG SCH (22:48)
[2017-02-26 06:25] LABS: CALCIUM 8.4 mg/dL (8.4-10.2); POTASSIUM 4.6 MMOL/L (3.6-5.0)
[2017-02-26 07:47] VITALS: RESP 20; O2SAT 100
[2017-02-26 07:53] LABS: HEMATOCRIT 24.4 % (34.0-47.0); MEAN CELL VOLUME 82.8 fl (81.0-99.0); MEAN CORPUSCULAR HEMOGLOBIN 26.5 pg (27.0-31.0); MEAN CORPUSCULAR HGB CONC 32.1 g/dL (33.0-37.0); RED CELL DISTRIBUTION WIDTH 18.1 % (11.5-14.5); WHITE BLOOD COUNT 5.9 K/uL (4.8-10.8)
[2017-02-26] MEDS ORDERED: Dorzolamide 2% Ophth Soln OU SCH (09:00)
[2017-02-26] MEDS ORDERED: Menthol/Methyl Salicylate Oinment TOP SCH (09:00)
[2017-02-26] MEDS ORDERED: Ferrous Sulfate 220 MG/5 ML PEG SCH (09:00)
[2017-02-26] MEDS: carBAMazepine Chew Tab 100 MG Chew Tab PEG SCH (10:34)
[2017-02-26 15:48] VITALS: BP 163/72; PULSE 98; TEMP 98.5
[2017-02-26] MEDS: Insulin Lispro (humaLOG) 100 Units/ml Inj SC SCH (16:41)
--- NOTE | 2017-02-26 19:36 | CP.PCM.DIS ---
Provider - Provider Date of Admission: 02/25/17 17:34 Attending physician: Susan Medeiros MD Primary care physician: Dr. Montemayor Consults: None Time Spent in preparation of Discharge (in minutes): 15 Hospital Course - Lab Results Lab Results: Micro Results 02/25/17 17:49 Blood-Venous Blood Culture - Preliminary NO GROWTH AFTER 24 HOURS 02/25/17 17:49 Blood-Venous Blood Culture - Preliminary NO GROWTH AFTER 24 HOURS Most Recent Lab Values WBC 5.9 K/uL (4.8-10.8) 02/26/17 04:30 RBC 2.95 Mil/uL (3.80-5.20) L 02/26/17 04:30 Hgb 7.8 g/dL (12.0-16.0) L 02/26/17 04:30 Hct 24.4 % (34.0-47.0) L 02/26/17 04:30 MCV 82.8 fl (81.0-99.0) 02/26/17 04:30 MCH 26.5 pg (27.0-31.0) L 02/26/17 04:30 MCHC 32.1 g/dL (33.0-37.0) L 02/26/17 04:30 RDW 18.1 % (11.5-14.5) H 02/26/17 04:30 Plt Count 259 K/uL (130-400) 02/26/17 04:30 MPV 8.1 fl (7.2-11.7) 02/25/17 14:12 Neut % (Auto) 79.7 % (50.0-75.0) H 02/25/17 14:12 Lymph % (Auto) 13.6 % (20.0-40.0) L 02/25/17 14:12 [place] % (Auto) 6.1 % (0.0-10.0) 02/25/17 14:12 Eos % (Auto) 0.0 % (0.0-4.0) 02/25/17 14:12 Baso % (Auto) 0.6 % (0.0-2.0) 02/25/17 14:12 Neut # 5.9 K/uL (1.8-7.0) 02/25/17 14:12 Lymph # 1.0 K/uL (1.0-4.3) 02/25/17 14:12 [place] # 0.4 K/uL (0.0-0.8) 02/25/17 14:12 Eos # 0.0 K/uL (0.0-0.7) 02/25/17 14:12 Baso # 0.0 K/uL (0.0-0.2) 02/25/17 14:12 Sodium 140 mmol/l (132-148) 02/26/17 04:30 Potassium 4.6 MMOL/L (3.6-5.0) 02/26/17 04:30 Chloride 106 mmol/L (98-107) 02/26/17 04:30 Carbon Dioxide 29 mmol/L (22-30) 02/26/17 04:30 Anion Gap 10 (10-20) 02/26/17 04:30 BUN 53 mg/dl (7-17) H 02/26/17 04:30 Creatinine 1.8 mg/dl (0.7-1.2) H 02/26/17 04:30 Est GFR ( Amer) 32 02/26/17 04:30 Est GFR (Non-Af Amer) 27 02/26/17 04:30 POC Glucose (mg/dL) 116 mg/dL (65-110) H 02/26/17 16:30 Random Glucose 84 mg/dL (65-105) 02/26/17 04:30 Calcium 8.4 mg/dL (8.4-10.2) 02/26/17 04:30 Magnesium 2.6 MG/DL (1.6-2.3) H 02/25/17 14:12 Total Bilirubin 0.2 mg/dl (0.2-1.3) 02/25/17 14:12 AST 63 U/L (14-36) H D 02/25/17 14:12 ALT 50 U/L (9-52) 02/25/17 14:12 Alkaline Phosphatase 124 U/L (38-126) 02/25/17 14:12 Troponin I 0.0270 ng/mL (0.00-0.120) 02/25/17 17:35 NT-Pro-B Natriuret Pep 82242 pg/ml (0-900) H 02/25/17 16:55 Total Protein 6.9 G/DL (6.3-8.2) 02/25/17 14:12 Albumin 3.1 g/dL (3.5-5.0) L 02/25/17 14:12 Globulin 3.8 gm/dL (2.2-3.9) 02/25/17 14:12 Albumin/Globulin Ratio 0.8 (1.0-2.1) L 02/25/17 14:12 - Hospital Course Hospital Course: 86 chronically ill female, bed bound, minimally verbal, s/p CVA with residual left sided weakness and severe cognitive impairment, with G-tube placement, also with history of Depression, Type 2 DM, HTN, CKD stage IV , seizures, anemia , recently discharged from [place] 02[place]22/17 [place] with diagnosis of bacteremia and wound infection( ESBL e.Coli and MRSA ) on Zyvox and Meropenem brought back to Hospital for evaluation at [facility] request Patient found to have elevated BP, tachycardia, elevated BNP 87197 and new right pleural effusion . Patient placed on observation in telemetry for BP control and diuresis.She was given extra doses of lasix and resumed on Zyvox and Meropenem .She has guarded prognosis and is back to her baseline. Will discharge patient back to [place] Her Hgb is 7.8 today and her baseline is 8 .Patient has chronic anemia secondary to CKD so there is no need for transfusion. 1. New right side pleural effusion CXR showed right pleural effusion patient has no respiratory distress placed in observation in telemetry Given extra dose of lasix Continue diuresisin [place] 80 mg vi apeg daily and O2 via [place] PRN patient has guarded prognosis 2.Fluid overload ProBNP 91875 last Echo 03/20/16 showed mild to moderate and normal EF continue diuresis at [place] 3. Essential hypertension labile continue Hydralazine 50 mg q12 and Coreg 4. Unstageable sacral, Buttock, heel decubital wound infection, with bacteremia recent wound cultures positive for MRSA and ESBL E.coli ID Dr Santos was consulted and rec IV meropenem and Zyvox ( patient has been on antibiotics since 02/22/17) Tylenol for fever or pain, through G tube continue same antibiotics for 1 more week Sacral decubitus unstageable L buttocks unstagable left eschar on heel unstageable 5. Chronic kidney disease, Stage IV BUN/cr 60/1.7 ( patient's baseline) Continue diuresis 6. Anemia, likely due to chronic kidney disease on po Iron hgb 7.8 ( baseline 8) no need for transfusion 7.Dementia, Hx of CVA Continue Seroquel 25 mg PEG daily 8. History of seizures on tegretol 9. DVT prophylaxis Heparin SQ 10.GI prophylaxis PPI Discharge Exam - Head Exam Head Exam: ATRAUMATIC, NORMAL INSPECTION, NORMOCEPHALIC Additional comments: elderly , bed bound, demented ,minimally verbal - Eye Exam Eye Exam: PERRL - ENT Exam ENT Exam: Mucous Membranes Dry - Neck Exam Neck exam: Normal Inspection - Respiratory Exam Respiratory Exam: NORMAL BREATHING PATTERN. absent: Accessory Muscle Use, Rhonchi, Wheezes, Respiratory Distress - Cardiovascular Exam Cardiovascular Exam: REGULAR RHYTHM, +S1, +S2. absent: JVD - GI/Abdominal Exam GI & Abdominal Exam: Normal Bowel Sounds, Soft. absent: Distended, Guarding, Rebound, Tenderness Additional comments: peg in place - Rectal Exam Rectal Exam: Deferred - Extremities Exam Extremities exam: normal inspection, pedal pulses present - Neurological Exam Neurological exam: Alert Additional comments: awake minimally verbal not following any commands - Psychiatric Exam Psychiatric exam: Flat Affect - Skin Skin Exam: Dry, Normal Color, Warm Additional comments: unstagable buttock ulcer a unstagable left heel fracture Discharge Plan - Follow Up Plan Condition: GUARDED Disposition: TRANSF TO SNF Patient education suggested?: No Referrals: Ed oMntemayor MD [Staff Provider] -
== END 2017-02-26 18:14 ==
LOC: H.ER 13:18 → H.ERHOLD 17:34 → H.TEL 21:32
PROVIDERS: ADMIT Hospitalist; ATTEND Hospitalist
DX: I13.0 Hypertensive heart and chronic kidney disease with heart failure and stage 1 through stage 4 chronic kidney disease, or unspecified chronic kidney disease (principal); I50.9 Heart failure, unspecified; I48.91 Unspecified atrial fibrillation; D63.1 Anemia in chronic kidney disease; E11.22 Type 2 diabetes mellitus with diabetic chronic kidney disease; F03.90 Unspecified dementia, unspecified severity, without behavioral disturbance, psychotic disturbance, mood disturbance, and anxiety; I25.10 Atherosclerotic heart disease of native coronary artery without angina pectoris; N18.4 Chronic kidney disease, stage 4 (severe); L89.152 Pressure ulcer of sacral region, stage 2; L89.320 Pressure ulcer of left buttock, unstageable; L89.620 Pressure ulcer of left heel, unstageable; I69.354 Hemiplegia and hemiparesis following cerebral infarction affecting left non-dominant side; K21.9 Gastro-esophageal reflux disease without esophagitis; Z86.14 Personal history of Methicillin resistant Staphylococcus aureus infection; Z93.1 Gastrostomy status; R32 Unspecified urinary incontinence; R56.9 Unspecified convulsions; H40.9 Unspecified glaucoma; Z74.01 Bed confinement status; Z87.01 Personal history of pneumonia (recurrent); Z87.440 Personal history of urinary (tract) infections; Z79.4 Long term (current) use of insulin
CPT/HCPCS: 36415; 71010; 80048; 80053; 82948; 83735; 83880; 84484; 85025; 85027; 87040; 99285; G0378; J1644; J1940

== ENCOUNTER 2017-03-13 09:34 | Emergency (ER) | payer MEDICARE, MEDICAID ==
[2017-03-13 09:34] VITALS: PULSE 122; BMI 20.7
[2017-03-13 09:38] VITALS: BP 139/94; PULSE 106; RESP 12
[2017-03-13] MEDS ORDERED: Dextrose 50% SYRINGE Inj (50 ml) ONE (09:51)
[2017-03-13] MEDS ORDERED: Insulin Regular 100 units/ml ONE (09:52)
[2017-03-13 09:55] LABS: BASO # 0.1 K/uL (0.0-0.2); BASO % 0.7 % (0.0-2.0); HEMATOCRIT 30.7 % (34.0-47.0); LYMPH # 2.2 K/uL (1.0-4.3); LYMPH % 19.2 % (20.0-40.0); MEAN CELL VOLUME 88.8 fl (81.0-99.0); MEAN CORPUSCULAR HGB CONC 31.6 g/dL (33.0-37.0); MONO # 0.4 K/uL (0.0-0.8); MONO % 3.5 % (0.0-10.0); NEUT # 8.9 K/uL (1.8-7.0); NEUT % 76.6 % (50.0-75.0); NRBC % 0.1 % (0.0-0.0); RED CELL DISTRIBUTION WIDTH 17.4 % (11.5-14.5); WHITE BLOOD COUNT 11.7 K/uL (4.8-10.8)
--- NOTE | 2017-03-13 10:02 | RAD ---
PROCEDURE: CHEST RADIOGRAPH, 1 VIEW HISTORY: SOB COMPARISON: Chest radiograph dated 02/25/2017 FINDINGS: LUNGS: Patchy right lung airspace disease. PLEURA: Questionable small right pleural effusion, decreased in size. CARDIOVASCULAR: Atherosclerotic aortic calcifications. Cardiomediastinal silhouette within normal limits. OSSEOUS STRUCTURES: Unchanged. VISUALIZED UPPER ABDOMEN: Normal. OTHER FINDINGS: Endotracheal tube, unchanged. IMPRESSION: Patchy right lung airspace disease. Questionable small residual right pleural effusion.
[2017-03-13] MEDS ORDERED: Amiodarone 150mg/3 ml vial ONE (10:13)
[2017-03-13 10:17] LABS: CALCIUM 8.7 mg/dL (8.4-10.2); MAGNESIUM 2.6 MG/DL (1.6-2.3)
[2017-03-13 10:20] LABS: TROPONIN I 0.046 ng/mL (0.00-0.120)
--- NOTE | 2017-03-13 10:46 | CARD ---
APPROVED REPORT EKG Measurement Heart [id number] <Conclusion> Atrial Fibrillation Marked ST abnormality, possible lateral subendocardial injury Prolonged QT Abnormal ECG
--- NOTE | 2017-03-13 10:51 | ED PDOC ---
HPI: Cardiac Arrest Time Seen by Provider: 03/13/17 09:41 Chief Complaint (Nursing): Respiratory Distress Chief Complaint (Provider): Cardiac arrest History Per: EMS Reason For Code Blue: Full Arrest Circumstances: Brought To ED By EMS Arrest Witnessed By: No One CPR Initiated Prior To MD Arrival?: Yes Down-Time Before ACLS: Unknown Treatment Initiated Prior To MD Arrival: CPR, BVM Ventilations, Intubation Medications Given Prior To MD Arrival: Epinephrine Additional Complaint(s): Gaye Marcelino is an 86 year old female, with a past medical history of CHF, A- fib, chronic kidney disease, who was brought to the emergency department by EMS for respiratory failure from [facility] and cardiac arrest prior to arrival. History taken from EMS and chart. EMS was called and found patient in respiratory distress and unresponsive in bed. Patient was intubated after she went into cardiac arrest. EMS gave her epi and cycle of CPR. Patient gained pulse but unable to get any vitals. Patient wasn't in shock. EMS unsure how long the patient was unresponsive. Patient used to be in dialysis but not currently. According to EMS, patient was receiving dialysis on hospice but family took her out. Charts from [facility] state she is bed bound. Unable to obtain full history due to patient's clinical condition. PMD: Dr. Montemayor - Initial Findings Mentation: Unresponsive Respirations: None (Assisted) Past Medical History Reviewed: Historical Data, Nursing Documentation, Vital Signs Vital Signs: Last Vital Signs Temp 97.9 F 03/13/17 09:36 Pulse 106 H 03/13/17 09:36 Resp 12 03/13/17 09:40 BP 139/94 H 03/13/17 09:36 Pulse Ox 95 03/13/17 09:40 - Medical History PMH: Anemia, Anxiety, CAD, CVA (left sided weakness), Dementia, Depression, Diabetes, HTN, Pneumonia, Chronic Kidney Disease, Seizures Denies: HIV - Surgical History Surgical History: Appendectomy, Carotid Endarterectomy - Family History Family History: States: Unknown Family Hx, Diabetes, Hypertension - Immunization History Hx Tetanus Toxoid Vaccination: Yes Hx Influenza Vaccination: Yes Hx Pneumococcal Vaccination: Yes - Home Medications Home Medications: Ambulatory Orders Medication Instructions Recorded Allopurinol [Zyloprim] 100 mg PEG DAILY 08/05/16 Dorzolamide 2% [Trusopt] 1 drop OU BID 09/03/16 amLODIPine [Norvasc] 5 mg PEG DAILY 09/03/16 traMADol [Ultram] 50 mg PEG Q6H PRN 11/13/16 Latanoprost 0.005% Opht [Xalatan 1 drop OU HS bottle 12/06/16 Opht] Albuterol/Ipratropium [Duoneb 3 3 ml INH Q6H PRN 01/07/17 mg/0.5 mg (3 ml) UD] fentaNYL 12 mcg/hr [Duragesic 1 patch TD Q72H #10 patch 02/22/17 Patch 12 mcg/hr] Carbamazepine [Carbamazepine] 100 mg PEG Q12H 02/25/17 Carvedilol [Coreg] 3.125 mg PEG Q12H 02/25/17 Clotrimazole/Betamethasone 1 appl TOP DAILY 03/13/17 [Lotrisone] Collagenase [Santyl] 1 appl TOP BID 03/13/17 Glimepiride [amaRYL] 4 mg PEG DAILY 03/13/17 Hydralazine HCl [Hydralazine HCl] 200 mg PEG DAILY 03/13/17 Lansoprazole [Prevacid] 30 mg PEG BID 03/13/17 Silver Sulfadiazine [Silvadene] 1 appl TOP DAILY 03/13/17 - Allergies Allergies/Adverse Reactions: Allergies Allergy/AdvReac Type Severity Reaction Status Date / Time No Known Allergies Allergy Verified 11/13/16 11:44 Review of Systems Review Of Systems: ROS cannot be obtained secondary to pt's inabilty to answer questions. Physical Exam - Reviewed Nursing Documentation Reviewed: Yes Vital Signs Reviewed: Yes - Physical Exam Appears: Positive for: In Acute Distress (intubated on field. Unconscious) Head Exam: Positive for: ATRAUMATIC Eye Exam: Positive for: PERRL Neck: Positive for: Normal, Painless ROM, Supple Cardiovascular/Chest: Positive for: Irregularly Irregular Respiratory: Positive for: Respiratory Distress (non spontaneous. Ventilating). Negative for: Normal Breath Sounds (Coarse breaths bilateral) Gastrointestinal/Abdominal: Positive for: Normal Exam, Bowel Sounds, Soft, Other (PEG tube noted). Negative for: Tenderness Extremity: Negative for: Swelling Neurologic/Psych: Negative for: Alert (in coma), Oriented - Laboratory Results Result Diagrams: 03/13/17 09:51 03/13/17 09:51 - Critical Care Total Time (In Min): 60 Medical Decision Making Medical Decision Making: Initial Impression: respiratory failure, cardiac arrest. Differential includes: CHF exacerbation, acute coronary syndrome, acute on chronic kidney failure, hyperkalemia, cardiac arrhythmia. Initial Plan: --ABG Shock Panel --ECG --B-type natriuretic peptide --Basic Metabolic Panel --Digoxin --Magnesium --Troponin I ---CBC w/ differential --PTT --PT --Chest one view [RAD] --Amiodarone Bolus 100 ml IVPB --Calcium Gluconate --Cordarone IV Drip --Levophed 8mg/250ml D5W 8 mg IV 5mcg/min --Blood culture --Ventilator settings [RT] --reevaluation 1001 Chest X-Ray FINDINGS: LUNGS: Patchy right lung airspace disease. PLEURA: Questionable small right pleural effusion, decreased in size. CARDIOVASCULAR: Atherosclerotic aortic calcifications. Cardiomediastinal silhouette within normal limits. OSSEOUS STRUCTURES: Unchanged. VISUALIZED UPPER ABDOMEN: Normal. OTHER FINDINGS: Endotracheal tube, unchanged. IMPRESSION: Patchy right lung airspace disease. Questionable small residual right pleural effusion. 1147 -Spoke to Dr. Montemayor to notify about the . 1150 notification completed and certified online. -Prior to arrival pt was in s/p cardiac arrest. EMS gave her epi after being intubated. Shortly after arrival patient went into cardiac arrest. Pt was pulseless multiple time, SHAY not sustained in ER. Performed resuscitation according to the ACS guidelines. Chest compressions, defibrillations, and cardiac medications as per AHA guidelines. Refer to chart for names of medications, dosages, and approximate times. Despite resuscitation efforts pt was unable to sustain SHAY and discussed with family the gravity of her condition and code status as well. Patient's family and sons are agreeable that patient needs to be DNR/DNI at this time. Provider (me) considers that further efforts of resuscitation futile since old efforts did not lead to successful SHAY. Terminated further resuscitation attempts. Persistent cardiac arrhythmia, and eventually PEA. On monitor and ECG we observed wide complex tachycardia, as well as Atrial fibrillation. #1 ECG 9:40am : A-fib, lateral leads ST segment depression. Rate 90 #2 ECG 10:10am : Wide complex tachycardia, V-tach. Rate 131 #3 ECG 10:30am : Wide complex rhythm tachycardia, RBBB. Rate 82 Critical Care: The high probability of sudden, clinically significant deterioration in the patient's condition required the highest level of my preparedness to intervene urgently. The services I provided to this patient were to treat and/or prevent clinically significant deterioration that could result in: cardiac failure. Services included the following: chart data review, reviewing nursing notes and/ or old charts, documentation time, cruise consultant collaboration regarding findings and treatment options, medication orders and management, direct patient care, re-evaluations, vital sign assessments and ordering, interpreting and reviewing diagnostic studies/lab tests. Aggregate critical care time was 60 minutes which includes only time during which I was engaged in work directly related to the patient's care, as described above, whether at the bedside or elsewhere in the Emergency Department. It did not include time spent performing other reported procedures or the services of residents, students, nurses or physician assistants. Scribe Attestation: Documented by Lei Shin, acting as a scribe for Masha Kaur MD Provider Scribe Attestation: All medical record entries made by the Scribe were at my direction and personally dictated by me. I have reviewed the chart and agree that the record accurately reflects my personal performance of the history, physical exam, medical decision making, and the department course for this patient. I have also personally directed, reviewed, and agree with the discharge instructions and disposition. Disposition - Clinical Impression Clinical Impression: Respiratory distress, Renal failure, CHF exacerbation, Respiratory failure, Atrial fibrillation, Wide-complex tachycardia, Cardiac arrest - Patient ED Disposition Is Patient to be Admitted: No Counseled Patient/Family Regarding: Studies Performed, Diagnosis, Need For Followup - Disposition Disposition: Other Institution ([facility]) Disposition Time: 09:08 Condition: Forms: [employer] (Belarusian)
[2017-03-13] MEDS ORDERED: Amiodarone 900 MG in Dextrose 5% In Water 500 ML IVPB SCH (11:00)
[2017-03-13 12:47] VITALS: O2SAT 95
[2017-03-13 12:51] VITALS: TEMP 97.9
--- NOTE | 2017-03-14 12:12 | CARD ---
APPROVED REPORT EKG Measurement Heart [id number] <Conclusion> Atrial fibrillation with premature ventricular or aberrantly conducted complexes Right bundle branch block T wave abnormality, consider inferior ischemia Abnormal ECG
--- NOTE | 2017-03-14 12:12 | CARD ---
APPROVED REPORT EKG Measurement Heart [id number] <Conclusion> Wide QRS rhythm Right bundle branch block Abnormal ECG
--- NOTE | 2017-03-14 12:12 | CARD ---
APPROVED REPORT EKG Measurement Heart [id number] <Conclusion> Wide QRS tachycardia Right bundle branch block Left anterior fascicular block Bifascicular block Left ventricular hypertrophy with repolarization abnormality Possible Lateral infarct, age undetermined Cannot rule out Inferior infarct (masked by fascicular block?), age undetermined Abnormal ECG
== END 2017-03-13 13:30 ==
LOC: H.ER 09:34
DX: N19 Unspecified kidney failure (principal); J96.90 Respiratory failure, unspecified, unspecified whether with hypoxia or hypercapnia; Z86.73 Personal history of transient ischemic attack (TIA), and cerebral infarction without residual deficits; R00.0 Tachycardia, unspecified; I47.2 Ventricular tachycardia; Z86.59 Personal history of other mental and behavioral disorders; I46.9 Cardiac arrest, cause unspecified
CPT/HCPCS: 31500; 71010; 80048; 82948; 83735; 83880; 84484; 85025; 92950; 93005; 96365; 96375; 99285; J0282; J0610; J7060